=== PATIENT | female | born 1950 | race Caucasian/White ===

== ENCOUNTER → 2018-08-20 11:39 | Outpatient (CLI) | payer OTHER, SELFPAY ==
--- NOTE | 2018-08-20 | DI.MG.S_ITS ---
BILATERAL DIGITAL SCREENING MAMMOGRAM 3D/2D WITH CAD: 08/20/2018 CLINICAL: Routine screening. Family history of breast cancer. Comparison is made to exams dated: 01/30/2016 mammogram - [facility] and 08/12/2006 ultrasound - [facility]. The tissue of both breasts is heterogeneously dense. This may lower the sensitivity of mammography. Current study was also evaluated with a Computer Aided Detection (CAD) system. There are benign calcifications in both breasts. No significant masses, calcifications, or other findings are seen in either breast. There has been no significant interval change. IMPRESSION: There is no mammographic evidence of malignancy. A 1 year screening mammogram is recommended. This exam was interpreted at Station ID: [id number]. NOTE: For mammograms, a report in lay terms will be sent to the patient. Approximately 15% of breast malignancies will not be visualized mammographically. In the management of a palpable breast mass, a negative mammogram must not discourage biopsy of a clinically suspicious lesion. Electronically Signed By: Jaun Ramon law/ana maria:08/20/2018 19:08:33 letter sent: Normal Exam ACR BI-RADS Category 2: Benign Finding(s) 3342F
== END ==
PROVIDERS: PCP Family Medicine; Visit Provider Family Medicine
DX: Z12.31 Encounter for screening mammogram for malignant neoplasm of breast (principal)
CPT/HCPCS: 77063; 77067

== ENCOUNTER 2018-09-19 17:25 | Emergency (ER) | payer OTHER, MEDICAID, SELFPAY ==
[2018-09-19 17:30] VITALS: BP 115/78; PULSE 70; RESP 13; TEMP 36.5; O2SAT 98
--- NOTE | 2018-09-19 18:09 | PC.NURSE ---
pt has blurred vision with movment of her head.
--- NOTE | 2018-09-19 19:12 | ED.DIZZY ---
HPI - Dizziness General Chief Complaint: Dizziness Stated Complaint: fell down 1 month ago, dizzy spells, headache Time Seen by Provider: 09/19/18 18:02 Source: patient Mode of arrival: ambulatory Limitations: no limitations History of Present Illness HPI Narrative: The patient fell at home 1 month ago. She fell in the driveway outside her home, landing hard face. She sustained multiple superficial lacerations to her face, but no LOC. She is alert and oriented here in the ER. She has been dizzy for the month since the fall. She has no visual changes. She has no injury to the mouth. Her hearing is normal. She has no neck pain. She has no chest pain. There is no trauma to extremities. She takes Coumadin for a mitral valve replacement. She has had no head evaluation since the fall 1 month ago. Related Data Home Medications Medication Instructions Recorded Confirmed Bupropion Hydrochloride 0 PO * DOSE/FREQUENCY #0 07/04/08 (WELLBUTRIN) Fluoxetine Hydrochloride (Prozac) 20 mg PO Q DAY #0 07/04/08 HYDROCHLOROTHIAZIDE (Hydrodiuril / 25 mg PO Q DAY #0 07/04/08 Hctz) LISINOPRIL (Zestril / Prinivil) 10 mg PO Q DAY #0 07/04/08 lovastatin 40 mg PO QDAYPM #0 07/04/08 Previous Rx's Medication Instructions Recorded meclizine 25 mg PO QID #60 tab 09/19/18 Allergies Allergy/AdvReac Type Severity Reaction Status Date / Time No Known Drug Allergies Allergy Verified 09/19/18 21:16 Review of Systems Review of Systems ROS Unobtainable: All systems reviewed & are unremarkable except as noted in HPI and below Constitutional Denies lethargy, Denies weakness and Reports other (No confusion.) Eyes Denies change in vision, Denies eye discharge, Denies irritation and Denies loss of vision ENT Ears, Nose, Mouth, and Throat: Denies change in voice, Denies dysphagia, Reports dizziness, Denies neck pain and Denies sore throat Cardiovascular Denies chest pain, Denies irregular heart rhythm, Denies lightheadedness, Denies palpitations, Denies dyspnea, Denies dyspnea on exertion and Denies orthopnea Respiratory Denies cough, Denies dyspnea, Denies dyspnea on exertion and Denies wheezing Gastrointestinal Gastrointestinal: Denies coffee ground emesis, Denies dysphagia, Denies nausea and Denies vomiting Musculoskeletal Denies abnormal gait, Denies back pain and Denies neck pain Integumentary/Breasts Denies pruritus, Denies erythema, Denies rash and Denies wounds Neurologic Denies abnormal gait, Reports dizziness, Denies loss of vision and Denies weakness Endocrine Denies palpitations Allergic/Immunologic Denies wheezing PFSH Medical History Anticoagulated on Coumadin (Acute) Depression (Acute) Hypertension (Acute) Surgical History H/O mitral valve replacement (Acute) Social History Smoking Status: Never smoker alcohol intake: current Exam Initial Vital Signs Initial Vital Signs: Vital Signs Temperature 97.7 F 09/19/18 17:30 Pulse Rate 70 09/19/18 17:30 Respiratory Rate 13 09/19/18 17:30 Blood Pressure 115/78 09/19/18 17:30 Pulse Oximetry 98 09/19/18 17:30 Const General: cooperative, healthy appearing, comfortable and well developed Nutritional Appearance: well nourished Orientation: alert, awake, oriented x3 and not confused [facility] Head: normocephalic and atraumatic Ears: external ears normal and TM's normal bilaterally Nose: external nose normal and No nasal discharge Face and sinus: sinuses nontender, face symmetric, no sinus tenderness and No dry mucous membranes Mouth: oral mucosae normal and moist mucous membranes Teeth and gingiva: dentition normal Throat: tonsils normal and uvula midline Eyes General: appearance normal, both eyes and all related structures Eyelids: eyelids normal Conjunctivae: conjunctivae normal Sclera: sclerae normal Pupils: PERRL EOM: EOM intact bilaterally Neck Neck: normal visual inspection, full ROM, trachea midline, No lymphadenopathy, No midline deformity and No JVD Lymphatic: No lymphedema Chest Chest: normal inspection of the chest and No tenderness Resp Effort & Inspection: normal respiratory effort, able to speak in complete sentences, no respiratory distress and no use of accessory muscles Auscultation: clear to auscultation bilaterally, no rales, no rhonchi and no wheezes Cardio Rate: regular rate Rhythm: regular rhythm Heart Sounds: click (Metallic S1 click), no gallops, no murmurs and no rubs Pulses: normal peripheral pulses GI Inspection: normal to inspection Palpation: soft and No tender Back/Spine/Pelvis Back: normal to inspection and No back tenderness Skin General: no rashes or lesions noted, No jaundice and No petechiae Neuro General: alert, oriented x3, gait normal and no focal motor deficits Speech: speech normal Gait: normal gait Motor: muscle tone normal throughout Extrem General: full ROM and no clubbing, cyanosis or edema Psych Appearance: well kempt Mental Status: mental status grossly normal Attitude: cooperative Thought Content: normal and suicidality Judgment: judgment good Course Orders Ordered: ED Orders 09/19/18 19:26 CT head/brain wo con Stat 09/19/18 19:40 Basic Metabolic Panel Stat Complete Blood Count AUTO DIFF Stat Prothrombin Time INR Stat Discontinued Medications Acetaminophen (Tylenol) 650 mg PO NOW ONE Stop: 09/19/18 21:06 Last Admin: 09/19/18 21:14 Dose: 650 mg Meclizine HCl (Antivert) 50 mg PO NOW ONE Stop: 09/19/18 20:36 Last Admin: 09/19/18 21:14 Dose: 50 mg Vital Signs - 8 hr 09/19/18 17:30 09/19/18 20:02 Temperature 97.7 F Pulse Rate 70 66 Respiratory Rate 13 17 Blood Pressure 115/78 Blood Pressure [Left Arm] 120/74 Pulse Oximetry 98 94 MDM - Dizziness Medical Records Attestation: I reviewed the patient's medical records. Lab Data Attestation: I reviewed the patient's lab results. Result diagrams: 09/19/18 19:40 09/19/18 19:40 Lab Results 09/19/18 09/19/18 09/19/18 Range/Units 19:40 19:40 19:40 WBC 12.5 H (4.5-11.0) X10^3/uL RBC 4.57 (4.0-5.2) X10^6/uL Hgb 13.1 (12.0-16.0) g/dL Hct 40.4 (36-46) % MCV 88.5 (80-100) fL MCH 28.8 (26-34) PG MCHC 32.5 (30-36) % RDW 16.0 H (11.6-14.8) % Plt Count 378 (150-400) X10^3/uL Neut % (Auto) 69.2 (50-75) % Lymph % (Auto) 22.4 L (25-40) % Stearns % (Auto) 6.3 (3-14) % Eos % (Auto) 1.9 L (2-4) % Baso % (Auto) 0.2 (0-2) % Neut # (Auto) 8600 H (6201-3755) /uL Lymph # (Auto) 2800 (6219-1450) /uL Stearns # (Auto) 800 (0-900) /uL Eos # (Auto) 200 (0-450) /uL Baso # (Auto) 0 (0-100) /uL PT 40.6 H (10.1-12.7) SECONDS INR 3.4 H (0.9-1.3) Sodium 138 (137-145) mmol/L Potassium 4.6 (3.4-5.1) mmol/L Chloride 99 (98-107) mmol/L Carbon Dioxide 30 (22-32) mmol/L BUN 16 (7-17) mg/dL Creatinine 0.70 (0.52-1.04) mg/dL Estimated GFR > 60.0 (>60) mL/min BUN/Creatinine Ratio 22.9 H (6-22) Glucose 117 H (80-110) mg/dL Calcium 9.3 (8.4-10.2) mg/dL Imaging Data CT scan - head: Radiologist's impression: [place] [address] CT Scan Report Signed Patient: Mer Portillo [facility]#: [id number] : 8Acct:[id number] Age/Sex: 68 / FDate of Service: 09/19/18 Loc: ED Accession Number: [id number] Procedure: CT head/brain wo con Ordering Provider: Kalpesh Capps M.D. PROCEDURE: CT HEAD/BRAIN WO CON INDICATIONS: Recent fall. dizziness. Anticoagulated. TECHNIQUE: Noncontrast 4.5 mm thick angled axial sections acquired from the foramen magnum to the vertex, with coronal and sagittal reformats. For radiation dose reduction, the following was used: automated exposure control, adjustment of mA and/or kV according to patient size. COMPARISON: None. FINDINGS: Image quality: Excellent. CSF spaces: Basal cisterns are patent. No extra-axial fluid collections. The ventricles are symmetric in size and shape. Brain: No intracranial bleeds or masses. There is cerebral volume loss for age, with resultant ventricular and sulcal prominence. There are periventricular and deep white matter chronic small vessel ischemic changes. There is mild intracranial internal carotid artery atherosclerosis. Skull and face: Calvarium and visualized facial bones appear intact, without suspicious lesions. Sinuses: Visualized sinuses and mastoids are clear. IMPRESSION: CT head without acute intracranial abnormalities. Stable age-related senescent changes and sequela of chronic small vessel ischemic disease. Dictated by: Idris Gonzalez M.D. on 09/19/2018 at 20:11 Approved by: Idris Gonzalez M.D. on 09/19/2018 at 20:15 [facility] Narrative Medical decision making narrative: The patient has occasional headaches, she has been taking Tylenol with codeine. I assured her this is okay to continue. Her INR is 3.4, her guides was to keep her INR between 2 and 3. I have advised her to follow up with her doctor. The head CT does not show any significant intracranial injury. Given these has dizziness and headache following the injury last month, I suspect she has had a minor concussion. She will be discharged on meclizine along with a T3s. Discharge Plan Departure Patient Disposition: Home Clinical Impression: Concussion Instructions: Concussion Activity Restrictions/Additional Instructions: Tylenol with codeine or Tylenol every 4 hr as needed for headache. Meclizine every 6 hr as needed for dizziness. If symptoms are persisting for greater than 2 weeks, follow up with her doctor. Your Coumadin testing (INR) is mildly elevated at 3.4. Call your doctor for further guidance. Return to the ER as needed. Prescriptions: New meclizine 25 mg tablet 25 mg PO QID Qty: 60 RF: 0 No Action lovastatin 20 MG tablet 40 mg PO QDAYPM Qty: 0 RF: 0 Bupropion Hydrochloride (WELLBUTRIN) PO * [place] DOSE/FREQUENCY Qty: 0 RF: 0 Fluoxetine Hydrochloride (Prozac) 20 mg PO Q DAY Qty: 0 RF: 0 HYDROCHLOROTHIAZIDE (Hydrodiuril / Hctz) 25 mg PO Q DAY Qty: 0 RF: 0 LISINOPRIL (Zestril / Prinivil) 10 mg PO Q DAY Qty: 0 RF: 0 Referrals: Andre Olguin MD [Primary Care Provider] -
--- NOTE | 2018-09-19 19:26 | DI.CT.S_ITS ---
PROCEDURE: CT HEAD/BRAIN WO CON INDICATIONS: Recent fall. dizziness. Anticoagulated. TECHNIQUE: Noncontrast 4.5 mm thick angled axial sections acquired from the foramen magnum to the vertex, with coronal and sagittal reformats. For radiation dose reduction, the following was used: automated exposure control, adjustment of mA and/or kV according to patient size. COMPARISON: None. FINDINGS: Image quality: Excellent. CSF spaces: Basal cisterns are patent. No extra-axial fluid collections. The ventricles are symmetric in size and shape. Brain: No intracranial bleeds or masses. There is cerebral volume loss for age, with resultant ventricular and sulcal prominence. There are periventricular and deep white matter chronic small vessel ischemic changes. There is mild intracranial internal carotid artery atherosclerosis. Skull and face: Calvarium and visualized facial bones appear intact, without suspicious lesions. Sinuses: Visualized sinuses and mastoids are clear. IMPRESSION: CT head without acute intracranial abnormalities. Stable age-related senescent changes and sequela of chronic small vessel ischemic disease. Dictated by: Idris Gonzalez M.D. on 09/19/2018 at 20:11 Approved by: Idris Gonzalez M.D. on 09/19/2018 at 20:15
[2018-09-19 19:49] LABS: Add Manual Diff / Slide Review NO; Basophils Absolute Auto 0 /uL (0-100); Basophils Percent Auto 0.2 % (0-2); Eosinophils Absolute Auto 200 /uL (0-450); Eosinophils Percent Auto 1.9 % (2-4); Hematocrit 40.4 % (36-46); Hemoglobin 13.1 g/dL (12.0-16.0); Lymphocytes Absolute Auto 2800 /uL (1100-4500); Lymphocytes Percent Auto 22.4 % (25-40); Mean Corpuscular HGB Conc 32.5 % (30-36); Mean Corpuscular Hemoglobin 28.8 PG (26-34); Mean Corpuscular Volume 88.5 fL (80-100); Monocytes Absolute Auto 800 /uL (0-900); Monocytes Percent Auto 6.3 % (3-14); Neutrophils Absolute Auto 8600 /uL (1500-7000); Neutrophils Percent Auto 69.2 % (50-75); Platelet Count 378 X10^3/uL (150-400); Red Blood Cell Count 4.57 X10^6/uL (4.0-5.2); White Blood Cell Count 12.5 X10^3/uL (4.5-11.0)
[2018-09-19 19:56] LABS: INR 3.4 (0.9-1.3); Prothrombin Time 40.6 SECONDS (10.1-12.7)
[2018-09-19 20:00] LABS: BUN Creatinine Ratio 22.9 (6-22); Blood Urea Nitrogen 16 mg/dL (7-17); Calcium 9.3 mg/dL (8.4-10.2); Carbon Dioxide 30 mmol/L (22-32); Chloride 99 mmol/L (98-107); Estimated Glomerular Filt Rate > 60.0 mL/min (>60); Glucose 117 mg/dL (80-110); HEMOLYSIS < 15 (0-50); Potassium 4.6 mmol/L (3.4-5.1); Sodium 138 mmol/L (137-145)
[2018-09-19 20:02] VITALS: BP 120/74; PULSE 66; RESP 17; O2SAT 94
[2018-09-19] MEDS: ACETAMINOPHEN 325 MG TABLET 650 MG PO (21:14)
[2018-09-19] MEDS: MECLIZINE HCL 12.5 MG TABLET 50 MG PO (21:14)
[2018-09-19 21:29] VITALS: BP 137/70; PULSE 63; RESP 18; O2SAT 97
== END 2018-09-19 21:30 | disposition home or self-care (01) ==
PROVIDERS: Emergency Provider Emergency Medicine; PCP Family Medicine
DX: S06.0X9A Concussion with loss of consciousness of unspecified duration, initial encounter (principal); W19.XXXA Unspecified fall, initial encounter
CPT/HCPCS: 36415; 70450; 80048; 85025; 85610; 99282; 99284

== ENCOUNTER → 2018-11-16 15:59 | Outpatient (REF) | payer OTHER, SELFPAY ==
[2018-11-16 16:38] LABS: INR 1.4 (0.9-1.3); Prothrombin Time 16.2 SECONDS (10.1-12.7)
== END ==
LOC: LAB 15:59
PROVIDERS: PCP Family Medicine; Visit Provider Family Medicine
DX: Z79.01 Long term (current) use of anticoagulants (principal)
CPT/HCPCS: 85610

== ENCOUNTER → 2019-04-08 14:53 | Outpatient (ROUT) | payer OTHER, SELFPAY ==
[2019-04-08 15:01] LABS: INR 2.1 (0.9-1.3)
== END ==
PROVIDERS: Visit Provider Student in an Organized Health Care Education/Training Program
DX: Z79.01 Long term (current) use of anticoagulants (principal)
CPT/HCPCS: 85610

== ENCOUNTER 2019-05-20 14:20 | Emergency (ER) | payer OTHER, MEDICAID, SELFPAY ==
[2019-05-20 14:20] VITALS: BP 122/47; PULSE 85; RESP 18; TEMP 36.7; O2SAT 98; BMI 34.9
--- NOTE | 2019-05-20 14:46 | DI.RAD.S_ITS ---
PROCEDURE: XR CHEST 1V INDICATIONS: shortness of breath TECHNIQUE: One view of the chest was acquired. COMPARISON: [facility], CHEST 2 VIEW, 12/11/2012, 13:06. [facility], , CHEST 1 VIEW, 07/04/2008, 14:44. FINDINGS: Surgical changes and devices: Sternotomy and heart valve. Lungs and pleura: Bilateral interstitial edema consistent with congestive heart failure. No pleural effusions or pneumothorax. Mediastinum: Mediastinal contours appear normal. Heart size is moderately increased. Bones and chest wall: No suspicious bony lesions. Overlying soft tissues appear unremarkable. IMPRESSION: Congestive heart failure. Dictated by: Mauro Morton M.D. on 05/20/2019 at 15:18 Approved by: Mauro Morton M.D. on 05/20/2019 at 15:20
[2019-05-20 15:15] LABS: Add Manual Diff / Slide Review NO; Basophils Absolute Auto 100 /uL (0-100); Eosinophils Absolute Auto 100 /uL (0-450); Eosinophils Percent Auto 1.1 % (2-4); Hemoglobin 11.5 g/dL (12.0-16.0); Lymphocytes Absolute Auto 2100 /uL (1100-4500); Lymphocytes Percent Auto 21.5 % (25-40); Monocytes Absolute Auto 600 /uL (0-900); Monocytes Percent Auto 5.5 % (3-14); Neutrophils Absolute Auto 7000 /uL (1500-7000); Neutrophils Percent Auto 70.9 % (50-75); Platelet Count 290 X10^3/uL (150-400); Red Blood Cell Count 3.98 X10^6/uL (4.0-5.2); Red Cell Distribution Width 16.3 % (11.6-14.8); White Blood Cell Count 9.9 X10^3/uL (4.5-11.0)
[2019-05-20 15:22] LABS: INR 1.4 (0.9-1.3); Prothrombin Time 15.8 SECONDS (10.1-12.7)
[2019-05-20 15:24] LABS: PTT Partial Thromboplastin Tim 33 SECONDS (26.4-36.2)
[2019-05-20 15:27] LABS: Alanine Aminotransferase 20 IU/L (9-52); Albumin 3.9 g/dL (3.5-5.0); Albumin Globulin Ratio 1.3 (1.0-2.8); Alkaline Phosphatase 114 U/L (38-126); Aspartate Aminotransferase 26 IU/L (14-36); BUN Creatinine Ratio 18.3 (6-22); Bilirubin Total 0.7 mg/dL (0.2-1.3); Blood Urea Nitrogen 11 mg/dL (7-17); Carbon Dioxide 28 mmol/L (22-32); Chloride 101 mmol/L (98-107); Creatine Kinase 71 U/L (30-135); Estimated Glomerular Filt Rate > 60.0 mL/min (>60); Globulin 2.9 g/dL (1.7-4.1); Glucose 161 mg/dL (80-110); HEMOLYSIS < 15 (0-50); Lipase 67 U/L (23-300); Potassium 3.1 mmol/L (3.4-5.1); Sodium 139 mmol/L (137-145); Total Protein 6.8 g/dL (6.3-8.2)
--- NOTE | 2019-05-20 15:30 | PC.NURSE ---
pt c/o right ear pain started 1 month ago, improved for a few days after taking antibiotics. about 2 weeks ago pain returned, seen by [facility] for evaluation of ear. also having sob, reports she is not taking her pee pills all the time, did take 2 today as prescribed. has not urinated like she normally would have. pt also c/o dizziness, and attributes it to the ear infection, dizziness is almost constant.
[2019-05-20 15:38] LABS: Troponin I 0.015 ng/mL (0.01-0.034)
[2019-05-20 15:59] VITALS: BP 103/61; PULSE 76; RESP 14; O2SAT 95
[2019-05-20 16:06] LABS: B Type Natriuretic Peptide 279 (<100)
--- NOTE | 2019-05-20 16:46 | ED.SOB ---
HPI - SOB/Dyspnea <TR Kaufman - Last Filed: 05/20/19 19:33> General Chief Complaint: Shortness of Breath/Dyspnea Stated Complaint: rule out CHF Time Seen by Provider: 05/20/19 14:43 Source: patient Mode of arrival: Wheelchair Limitations: no limitations History of Present Illness HPI Narrative: The patient is a 68year-old female nonsmoker of a mitral valve replacement who presents for chief complaint of chest pressure and shortness of breath. She states this has been getting worse over the past several weeks. She states she is not compliant with her medications. She is supposed to be on Coumadin For her mitral valve. She has a history of CHF, depression, hypertension, GERD. She states that nothing makes the pain better or worse. She states that the shortness of breath is worse with activity. The patient also requests that I look at her ears as that is why she had an appointment today. Related Data Home Medications Medication Instructions Recorded Confirmed fluoxetine 40 mg PO DAILY #0 07/04/08 05/20/19 lisinopril 20 mg PO DAILY #0 07/04/08 05/20/19 acetaminophen 325 - 650 mg PO Q4-6H PRN 05/20/19 05/20/19 acetaminophen-codeine 1 tab PO Q4H PRN 05/20/19 05/20/19 atorvastatin 20 mg PO DAILY 05/20/19 05/20/19 baclofen 10 mg PO TID PRN 05/20/19 05/20/19 carvedilol 6.25 mg PO BID 05/20/19 05/20/19 celecoxib 200 mg PO DAILY 05/20/19 05/20/19 furosemide 80 mg PO DAILY 05/20/19 05/20/19 omeprazole 20 mg PO DAILY 05/20/19 05/20/19 potassium chloride 10 meq PO DAILY 05/20/19 05/20/19 venlafaxine 75 mg PO DAILY 05/20/19 05/20/19 warfarin 4 mg PO SUMOTUTHSA 05/20/19 05/20/19 warfarin 5 mg PO WESA 05/20/19 05/20/19 Allergies Allergy/AdvReac Type Severity Reaction Status Date / Time No Known Drug Allergies Allergy Verified 09/19/18 21:16 Review of Systems <TR Kaufman - Last Filed: 05/20/19 19:33> Review of Systems Narrative: GENERAL: Denies chills, fatigue, malaise, fever, sweats. HEENT: Denies sinus pain, ear pain, sore throat, difficulty swallowing, dizziness. RESPIRATORY: See HPI CARDIOVASCULAR: See HPI GASTROINTESTINAL: Denies nausea, vomiting, abdominal pain, diarrhea, constipation, melena. : Denies dysuria, frequency, incontinence, hematuria, urinary retention. MUSCULOSKELETAL: denies weakness, joint pain, or bony pain SKIN: Denies rash, skin lesions, or other NEUROLOGIC: Denies weakness, headache, numbness, change in speech, confusion, seizures, incoordination. PSYCHIATRIC: No concerning psychosocial issues. 12 point review of systems is negative except for those stated above PFSH <TR Kaufman - Last Filed: 05/20/19 19:33> Medical History Anticoagulated on Coumadin (Acute) Depression (Acute) Hypertension (Acute) Surgical History H/O mitral valve replacement (Acute) Social History (Updated 09/19/18 @ 20:19 by Kalpesh Capps MD) Smoking Status: Never smoker alcohol intake: current Social History Smoking Status: Never smoker alcohol intake: current Exam <TR Kaufman - Last Filed: 05/20/19 19:33> Narrative Exam Narrative: GENERAL: Chronically ill-appearing elderly female in no acute distress HEAD: Atraumatic. Normocephalic. No temporal or scalp tenderness. EYES: Pupils equal round and reactive. Extraocular motions intact. No scleral icterus. No injection or drainage. ENT: Nose without bleeding, purulent drainage or septal hematoma. Throat without erythema, tonsillar hypertrophy or exudate. Uvula midline. Airway patent. NECK: Trachea midline. No JVD or lymphadenopathy. Supple, nontender, no meningeal signs. CARDIOVASCULAR: Regular rate and rhythm with audible click. RESPIRATORY: Decreased bilaterally auscultation. Breath sounds equal bilaterally. No wheezes, rales, or rhonchi. No cough. No increased respiratory effort. No accessory muscle use. GASTROINTESTINAL: Abdomen soft, non-tender, nondistended. No hepato-splenomegaly, or palpable masses. No guarding. Active bowel sounds all 4 quadrants. EXTREMITIES: No clubbing, cyanosis, or edema. No joint tenderness, effusion, or edema noted. BACK: Nontender without deformity or crepitance. No flank tenderness. NEURO: AOx3. SKIN: No rash or erythema. Initial Vital Signs Initial Vital Signs: Vital Signs Temperature 98.1 F 05/20/19 14:20 Pulse Rate 85 05/20/19 14:20 Respiratory Rate 18 05/20/19 14:20 Blood Pressure 122/47 L 05/20/19 14:20 Pulse Oximetry 98 05/20/19 14:20 <Emmanuel Ward DO - Last Filed: 05/21/19 06:54> Initial Vital Signs Initial Vital Signs: Vital Signs Temperature 98.1 F 05/20/19 14:20 Pulse Rate 85 05/20/19 14:20 Respiratory Rate 18 05/20/19 14:20 Blood Pressure 122/47 L 05/20/19 14:20 Pulse Oximetry 98 05/20/19 14:20 Course <RISHABH Kaufman-PINA - Last Filed: 05/20/19 19:33> Orders Ordered: Discontinued Medications Furosemide (Lasix) 20 mg IV NOW ONE Stop: 05/20/19 17:09 Last Admin: 05/20/19 17:38 Dose: 20 mg Documented by: JUAN A Potassium Chloride (Potassium Chloride) 40 meq PO NOW ONE Stop: 05/20/19 17:09 Last Admin: 05/20/19 17:22 Dose: 40 meq Documented by: SCANMANUELITOO Vital Signs Vital signs: Vital Signs - 8 hr 05/20/19 14:20 05/20/19 15:59 05/20/19 16:49 Temperature 98.1 F Pulse Rate 85 76 75 Respiratory Rate 18 14 13 Blood Pressure 122/47 L Blood Pressure [Right Arm] 103/61 88/67 L Pulse Oximetry 98 95 96 05/20/19 17:36 05/20/19 18:52 Temperature Pulse Rate 76 73 Respiratory Rate 15 Blood Pressure 107/54 L Blood Pressure [Right Arm] 112/80 Pulse Oximetry 97 98 <Emmanuel Ward DO - Last Filed: 05/21/19 06:54> Orders Ordered: Discontinued Medications Furosemide (Lasix) 20 mg IV NOW ONE Stop: 05/20/19 17:09 Last Admin: 05/20/19 17:38 Dose: 20 mg Documented by: SCANAPO Potassium Chloride (Potassium Chloride) 40 meq PO NOW ONE Stop: 05/20/19 17:09 Last Admin: 05/20/19 17:22 Dose: 40 meq Documented by: SCANAPO Vital Signs Vital signs: Vital Signs - 8 hr 05/20/19 14:20 05/20/19 15:59 05/20/19 16:49 Temperature 98.1 F Pulse Rate 85 76 75 Respiratory Rate 18 14 13 Blood Pressure 122/47 L Blood Pressure [Right Arm] 103/61 88/67 L Pulse Oximetry 98 95 96 05/20/19 17:36 05/20/19 18:52 Temperature Pulse Rate 76 73 Respiratory Rate 15 Blood Pressure 107/54 L Blood Pressure [Right Arm] 112/80 Pulse Oximetry 97 98 MDM - SOB/Dyspnea <SANTOSH KaufmanBC - Last Filed: 05/20/19 19:33> Lab Data Result diagrams: 05/20/19 15:00 05/20/19 15:00 Labs: Lab Results 05/20/19 05/20/19 05/20/19 Range/Units 15:00 15:00 15:00 WBC 9.9 (4.5-11.0) X10^3/uL RBC 3.98 L (4.0-5.2) X10^6/uL Hgb 11.5 L (12.0-16.0) g/dL Hct 35.0 L (36-46) % MCV 88.0 (80-100) fL MCH 29.0 (26-34) PG MCHC 33.0 (30-36) % RDW 16.3 H (11.6-14.8) % Plt Count 290 (150-400) X10^3/uL Neut % (Auto) 70.9 (50-75) % Lymph % (Auto) 21.5 L (25-40) % [place] % (Auto) 5.5 (3-14) % Eos % (Auto) 1.1 L (2-4) % Baso % (Auto) 1.0 (0-2) % Neut # (Auto) 7000 (7150-2968) /uL Lymph # (Auto) 2100 (7136-8241) /uL [place] # (Auto) 600 (0-900) /uL Eos # (Auto) 100 (0-450) /uL Baso # (Auto) 100 (0-100) /uL PT (10.1-12.7) SECONDS INR (0.9-1.3) APTT (26.4-36.2) SECONDS Sodium 139 (137-145) mmol/L Potassium 3.1 L (3.4-5.1) mmol/L Chloride 101 (98-107) mmol/L Carbon Dioxide 28 (22-32) mmol/L BUN 11 (7-17) mg/dL Creatinine 0.60 (0.52-1.04) mg/dL Estimated GFR > 60.0 (>60) mL/min BUN/Creatinine Ratio 18.3 (6-22) Glucose 161 H (80-110) mg/dL Calcium 9.0 (8.4-10.2) mg/dL Total Bilirubin 0.7 (0.2-1.3) mg/dL AST 26 (14-36) IU/L ALT 20 (9-52) IU/L Alkaline Phosphatase 114 (38-126) U/L Total Creatine Kinase 71 (30-135) U/L CK-MB (CK-2) TNP CK-MB (CK-2) Rel Index TNP Troponin I 0.015 (0.01-0.034) ng/mL B-Natriuretic Peptide 279 H (<100) Total Protein 6.8 (6.3-8.2) g/dL Albumin 3.9 (3.5-5.0) g/dL Globulin 2.9 (1.7-4.1) g/dL Albumin/Globulin Ratio 1.3 (1.0-2.8) Lipase 67 (23-300) U/L 05/20/19 05/20/19 Range/Units 15:00 17:56 WBC (4.5-11.0) X10^3/uL RBC (4.0-5.2) X10^6/uL Hgb (12.0-16.0) g/dL Hct (36-46) % MCV (80-100) fL MCH (26-34) PG MCHC (30-36) % RDW (11.6-14.8) % Plt Count (150-400) X10^3/uL Neut % (Auto) (50-75) % Lymph % (Auto) (25-40) % [place] % (Auto) (3-14) % Eos % (Auto) (2-4) % Baso % (Auto) (0-2) % Neut # (Auto) (6747-8524) /uL Lymph # (Auto) (6004-6788) /uL [place] # (Auto) (0-900) /uL Eos # (Auto) (0-450) /uL Baso # (Auto) (0-100) /uL PT 15.8 H (10.1-12.7) SECONDS INR 1.4 H (0.9-1.3) APTT 33 (26.4-36.2) SECONDS Sodium (137-145) mmol/L Potassium (3.4-5.1) mmol/L Chloride (98-107) mmol/L Carbon Dioxide (22-32) mmol/L BUN (7-17) mg/dL Creatinine (0.52-1.04) mg/dL Estimated GFR (>60) mL/min BUN/Creatinine Ratio (6-22) Glucose (80-110) mg/dL Calcium (8.4-10.2) mg/dL Total Bilirubin (0.2-1.3) mg/dL AST (14-36) IU/L ALT (9-52) IU/L Alkaline Phosphatase (38-126) U/L Total Creatine Kinase 68 (30-135) U/L CK-MB (CK-2) TNP CK-MB (CK-2) Rel Index TNP Troponin I 0.020 (0.01-0.034) ng/mL B-Natriuretic Peptide (<100) Total Protein (6.3-8.2) g/dL Albumin (3.5-5.0) g/dL Globulin (1.7-4.1) g/dL Albumin/Globulin Ratio (1.0-2.8) Lipase (23-300) U/L Urine Dip Bedside Urine Glucose Negative Bedside Urine Bilirubin - Negative Bedside Urine Ketone - Negative Urine Specific [place] 1.015 Bedside Urine Occult Blood - Negative Bedside Urine pH 6.0 Bedside Urine Protein - Negative Bedside Urine Urobilinogen 1+ 2mg Bedside Urine Nitrite - Negative Bedside Urine Leukocytes - Negative Esterase Imaging Data Chest x-ray: Radiologist's impression: Mer Portillo 68 F [address] [address] XRay Report Signed Patient: Mer Portillo [facility]#: [id number] : 8Acct:[id number] Age/Sex: 68 / FDate of Service: 05/20/19 Loc: ED Accession Number: [id number] Procedure: XR chest 1V Ordering Provider: Yulia Ang PROCEDURE: XR CHEST 1V INDICATIONS: shortness of breath TECHNIQUE: One view of the chest was acquired. COMPARISON: [facility], , CHEST 2 VIEW, 12/11/2012, 13:06. [facility], , CHEST 1 VIEW, 07/04/2008, 14:44. FINDINGS: Surgical changes and devices: Sternotomy and heart valve. Lungs and pleura: Bilateral interstitial edema consistent with congestive heart failure. No pleural effusions or pneumothorax. Mediastinum: Mediastinal contours appear normal. Heart size is moderately increased. Bones and chest wall: No suspicious bony lesions. Overlying soft tissues appear unremarkable. IMPRESSION: Congestive heart failure. Dictated by: Mauro Morton M.D. on 05/20/2019 at 15:18 Approved by: Mauro Morton M.D. on 05/20/2019 at 15:20 ECG Data Attestation: I personally reviewed and interpreted this ECG as follows: Interpretation: Sinus rhythm. Ventricular rate 81. No ST elevation or depression noted. No ectopy noted. P.r. interval 196. QRS duration 109 MDM Narrative Medical decision making narrative: The patient is a 68-year-old female with history of mitral valve replacement as well as CHF and a history of medication noncompliance who presents from her PCP's office for a chief complaint of increased shortness of breath. She has 2-troponins, a slightly elevated BNP in the 270s. I discussed at length with the patient the reason for her medication noncompliance, she states she is not the kind of person like to take pills. She states sometimes she forgets. I encouraged setting an alarm, using a pillbox etc. Given the patient's history of noncompliance, I did speak with Elodia Smith, and Dr. Diez regarding the patient. She is able to get on Dr. Diez schedule for 10:00 a.m. tomorrow. I discussed this with the patient. The patient has 2-troponins, does not want to be admitted, and it is likely that admission would not increase her medication noncompliance outside hospital. I discussed at length coming back to the emergency department for any acute concerns such as increased chest pain, shortness of breath etc. The patient repeated declined pain medications throughout her stay in the emergency department. I did also evaluate her ears, she states that the main reason for her PCP visit today. Patient states understanding of strict follow-up, return precautions nose no questions or concerns upon discharge. <Emmanuel Sylvia, DO - Last Filed: 05/21/19 06:54> Lab Data Labs: Lab Results 05/20/19 05/20/19 05/20/19 Range/Units 15:00 15:00 15:00 WBC 9.9 (4.5-11.0) X10^3/uL RBC 3.98 L (4.0-5.2) X10^6/uL Hgb 11.5 L (12.0-16.0) g/dL Hct 35.0 L (36-46) % MCV 88.0 (80-100) fL MCH 29.0 (26-34) PG MCHC 33.0 (30-36) % RDW 16.3 H (11.6-14.8) % Plt Count 290 (150-400) X10^3/uL Neut % (Auto) 70.9 (50-75) % Lymph % (Auto) 21.5 L (25-40) % [place] % (Auto) 5.5 (3-14) % Eos % (Auto) 1.1 L (2-4) % Baso % (Auto) 1.0 (0-2) % Neut # (Auto) 7000 (0947-7626) /uL Lymph # (Auto) 2100 (5615-7311) /uL [place] # (Auto) 600 (0-900) /uL Eos # (Auto) 100 (0-450) /uL Baso # (Auto) 100 (0-100) /uL PT (10.1-12.7) SECONDS INR (0.9-1.3) APTT (26.4-36.2) SECONDS Sodium 139 (137-145) mmol/L Potassium 3.1 L (3.4-5.1) mmol/L Chloride 101 (98-107) mmol/L Carbon Dioxide 28 (22-32) mmol/L BUN 11 (7-17) mg/dL Creatinine 0.60 (0.52-1.04) mg/dL Estimated GFR > 60.0 (>60) mL/min BUN/Creatinine Ratio 18.3 (6-22) Glucose 161 H (80-110) mg/dL Calcium 9.0 (8.4-10.2) mg/dL Total Bilirubin 0.7 (0.2-1.3) mg/dL AST 26 (14-36) IU/L ALT 20 (9-52) IU/L Alkaline Phosphatase 114 (38-126) U/L Total Creatine Kinase 71 (30-135) U/L CK-MB (CK-2) TNP CK-MB (CK-2) Rel Index TNP Troponin I 0.015 (0.01-0.034) ng/mL B-Natriuretic Peptide 279 H (<100) Total Protein 6.8 (6.3-8.2) g/dL Albumin 3.9 (3.5-5.0) g/dL Globulin 2.9 (1.7-4.1) g/dL Albumin/Globulin Ratio 1.3 (1.0-2.8) Lipase 67 (23-300) U/L 05/20/19 05/20/19 Range/Units 15:00 17:56 WBC (4.5-11.0) X10^3/uL RBC (4.0-5.2) X10^6/uL Hgb (12.0-16.0) g/dL Hct (36-46) % MCV (80-100) fL MCH (26-34) PG MCHC (30-36) % RDW (11.6-14.8) % Plt Count (150-400) X10^3/uL Neut % (Auto) (50-75) % Lymph % (Auto) (25-40) % [place] % (Auto) (3-14) % Eos % (Auto) (2-4) % Baso % (Auto) (0-2) % Neut # (Auto) (4258-0352) /uL Lymph # (Auto) (8491-0879) /uL [place] # (Auto) (0-900) /uL Eos # (Auto) (0-450) /uL Baso # (Auto) (0-100) /uL PT 15.8 H (10.1-12.7) SECONDS INR 1.4 H (0.9-1.3) APTT 33 (26.4-36.2) SECONDS Sodium (137-145) mmol/L Potassium (3.4-5.1) mmol/L Chloride (98-107) mmol/L Carbon Dioxide (22-32) mmol/L BUN (7-17) mg/dL Creatinine (0.52-1.04) mg/dL Estimated GFR (>60) mL/min BUN/Creatinine Ratio (6-22) Glucose (80-110) mg/dL Calcium (8.4-10.2) mg/dL Total Bilirubin (0.2-1.3) mg/dL AST (14-36) IU/L ALT (9-52) IU/L Alkaline Phosphatase (38-126) U/L Total Creatine Kinase 68 (30-135) U/L CK-MB (CK-2) TNP CK-MB (CK-2) Rel Index TNP Troponin I 0.020 (0.01-0.034) ng/mL B-Natriuretic Peptide (<100) Total Protein (6.3-8.2) g/dL Albumin (3.5-5.0) g/dL Globulin (1.7-4.1) g/dL Albumin/Globulin Ratio (1.0-2.8) Lipase (23-300) U/L Urine Dip Bedside Urine Glucose Negative Bedside Urine Bilirubin - Negative Bedside Urine Ketone - Negative Urine Specific [place] 1.015 Bedside Urine Occult Blood - Negative Bedside Urine pH 6.0 Bedside Urine Protein - Negative Bedside Urine Urobilinogen 1+ 2mg Bedside Urine Nitrite - Negative Bedside Urine Leukocytes - Negative Esterase Discharge Plan Departure Patient Disposition: Home Clinical Impression: H/O medication noncompliance Congestive heart failure Qualifiers: Heart failure type: unspecified Heart failure chronicity: chronic Qualified Code(s): I50.9 - Heart failure, unspecified Chest pain Qualifiers: Chest pain type: unspecified Qualified Code(s): R07.9 - Chest pain, unspecified Acute ear pain Qualifiers: Laterality: right Qualified Code(s): H92.01 - Otalgia, right ear Discharge Date/Time: 05/20/19 18:52 Instructions: DI for Heart Failure, DI for Atypical Chest Pain, DI for Safely Taking and Storing Medications -- Adults, DI for Ear Pain-Adult, Be a Partner in Your Heart Failure Care Activity Restrictions/Additional Instructions: Please follow up with your primary care provider. Please be compliant with your medications. Please remember the Dr. Diez scheduled an appointment for you at 10:00 a.m. tomorrow. Please come back to the emergency department for any acute concerns such as chest pain, shortness of breath, concern of heart attack or stroke Prescriptions: No Action lisinopril 20 mg Tablet 20 mg PO DAILY Qty: 0 RF: 0 fluoxetine 20 mg Tablet 40 mg PO DAILY Qty: 0 RF: 0 celecoxib 200 mg capsule 200 mg PO DAILY RF: 0 furosemide 40 mg tablet 80 mg PO DAILY RF: 0 potassium chloride 10 mEq capsule, extended release 10 meq PO DAILY RF: 0 atorvastatin 20 mg tablet 20 mg PO DAILY RF: 0 acetaminophen-codeine 300-30 mg tablet 1 tab PO Q4H PRN (Reason: pain) RF: 0 warfarin 4 mg tablet 4 mg PO SUMOTUTHSA RF: 0 baclofen 10 mg tablet 10 mg PO TID PRN (Reason: Muscle Spasm) RF: 0 warfarin 5 mg tablet 5 mg PO WESA RF: 0 omeprazole 20 mg capsule,delayed release(DR/EC) 20 mg PO DAILY RF: 0 acetaminophen 325 mg Tablet 325 - 650 mg PO Q4-6H PRN (Reason: pain) RF: 0 carvedilol 6.25 mg tablet 6.25 mg PO BID RF: 0 venlafaxine 75 mg capsule,extended release 24hr 75 mg PO DAILY RF: 0 Referrals: Donya Diez MD [Non-Staff] - <Emmanuel Ward DO - Last Filed: 05/21/19 06:54> Sign Out Provider Sign Out Attestation: I was available for consultation during this patient's emergency department encounter
[2019-05-20 16:49] VITALS: BP 88/67; PULSE 75; RESP 13; O2SAT 96
[2019-05-20] MEDS: POTASSIUM CHLORIDE 20 MEQ/15 ML UDC 40 MEQ PO (17:22)
[2019-05-20 17:36] VITALS: BP 112/80; PULSE 76; RESP 15; O2SAT 97
[2019-05-20] MEDS: FUROSEMIDE 20 MG/2 ML VIAL IV (17:38)
[2019-05-20 18:14] LABS: Creatine Kinase 68 U/L (30-135)
[2019-05-20 18:52] VITALS: BP 107/54; PULSE 73; O2SAT 98
== END 2019-05-20 18:52 | disposition home or self-care (01) ==
PROVIDERS: Emergency Provider Nurse Practitioner Family
DX: I50.9 Heart failure, unspecified (principal); R07.9 Chest pain, unspecified; H92.01 Otalgia, right ear; Z91.14 Patient's other noncompliance with medication regimen; Z79.01 Long term (current) use of anticoagulants
CPT/HCPCS: 36415; 71045; 80053; 81003; 82550; 83690; 83880; 84484; 85025; 85610; 85730; 93005; 93010; 96374; 99283; 99285; J1940

== ENCOUNTER 2019-09-14 14:46 | Inpatient (IN) | payer OTHER, MEDICAID, SELFPAY ==
[2019-09-14] VITALS (18 sets, daily range): BP systolic 101–134; BP diastolic 42–92; PULSE 85–144; RESP 12–28; TEMP 37.6; O2SAT 90–98; BMI 35.4
--- NOTE | 2019-09-14 | DI.ECHO.S_ITS ---
[facility]---------+ [facility] +---------+ : : [address] : : : : [id number] : : : : Phone: [phone] Echocardiogram Report + + :Name: DEL IRBY Study Date: 09/15/2019 Height: 63 in : :[facility] Weight: 199 lb : : Gender: Female BSA: 1.9 m2 : :: 1950 Age: 69 yrs BP: 116/56 mmHg: :Reason For Study: AFIB : :Ordering Physician: Mallika : :Hospitalist Performed By: Connor Corona : :Referring: ROMAN NGUYEN : + + Interpretation Summary 1) Mild-moderately increased left ventricular thickness with normal size, normal wall motion, and normal systolic function (EF 55-60%). 2) The right ventricle is not well visualized. The right ventricle grossly appears normal in size with probable normal systolic function. 3) There is a mechanical mitral valve that is well seated. Valve opening is not well visualized. Mean gradient 9mmHg, higher than 4.2mmHg noted on Echo dated 12/11/2012. The higher gradient could be due to faster heart rate. Correlate clinically. 4) Compared to the Echo done 12/11/2012, mean gradient across the mitral valve is higher on this study. Procedure: A two-dimensional transthoracic echocardiogram with color flow and Doppler was performed. The study quality was technically difficult. A contrast injection of Definity was performed to improve assessment of LV function. Prior echo performed on 12/11/12. The patient was in atrial fibrillation with heart rates between 81-124 bpm during the exam. Left Ventricle: The left ventricle is normal in size. There is mild-moderate concentric left ventricular hypertrophy. Left ventricular systolic function is normal. The ejection fraction is estimated to be 55-60%. Left ventricular wall motion is normal. Right Ventricle: The right ventricle is not well visualized. The right ventricle grossly appears normal in size with probable normal systolic function. Atria: The left atrium is not well visualized. Right atrium not well visualized. The interatrial septum is intact with no evidence for an atrial septal defect. Mitral Valve: There is a mechanical mitral valve. The mitral valve mean gradient is 9 mmHg. There is no mitral regurgitation noted. Aortic Valve: There is mild aortic valve sclerosis. The aortic valve is trileaflet. The aortic valve opens well. No aortic regurgitation is present. Tricuspid Valve: The tricuspid valve is not well visualized. There is trace tricuspid regurgitation. Pulmonary artery pressures cannot be estimated because of the lack of a measurable TR jet velocity. Pulmonic Valve: The pulmonic valve is not well visualized. Great Vessels: The aortic root is normal size. The dimensions of the ascending aorta are normal. The pulmonary is not well visualized. The IVC is dilated (diameter is greater than 2.1 cm) and it collapses less than 50% with a sniff. This suggests a high right atrial pressure of 15 mm Hg. Pericardium/ Pleura There is no pericardial effusion. There is no pleural effusion. MMode/2D Measurements & Calculations LVIDd: 4.3 cm LVOT diam: 2.0 cm LVIDs: 2.9 cm Ao root diam: 2.7 cm FS: 32.0 % Aortic Jxn: 2.3 cm IVSd: 1.4 cm LVPWd: 1.4 cm LV hernandez. diameter/BSA (cm/m^2): 2.2 LV sys. diameter/BSA (cm/m^2): 1.5 Doppler Measurements & Calculations Ao V2 max: 181.0 cm/sec LVOT Max Wero: 127.1 cm/sec Ao V2 mean: 130.4 cm/sec LV V1 max P.7 mmHg Ao max P.1 mmHg LV V1 VTI: 30.3 cm Ao mean P.6 mmHg ACOSTA(I,D): 2.9 cm2 Ao V2 VTI: 32.9 cm ACOSTA(V,D): 2.2 cm2 sev ratio: 0.92 ACOSTA indexed to BSA (cm^2/m^2): 1.5 MVA(VTI): 2.0 cm2 MV V2 mean: 130.2 cm/sec MV mean P.2 mmHg MV V2 VTI: 48.2 cm SV(LVOT): 94.4 ml Reading Physician:02:21 PM
--- NOTE | 2019-09-14 | DI.CT.S_ITS ---
PROCEDURE: CT ANGIO CHEST PE PROTOCOL INDICATIONS: afib rvr, shortness of breath TECHNIQUE: After the administration of intravenous contrast, 2 mm thick sections acquired from the pulmonary apices to the posterior costophrenic angles. 3-dimensional maximum intensity projection (MIP) coronal and sagittal reformats were then acquired through the thorax. For radiation dose reduction, the following was used: automated exposure control, adjustment of mA and/or kV according to patient size. COMPARISON: [facility], CR, XR CHEST 1V, 09/14/2019, 15:05. FINDINGS: Image quality: Excellent. Pulmonary arteries: Pulmonary arteries are normal in size, and demonstrate no intraluminal filling defects to suggest central pulmonary embolism. Lungs and pleura: Lungs are clear. No pleural effusions or pneumothorax. Central and peripheral airways are patent. Mediastinum: Heart size is mildly to moderately enlarged, without pericardial effusion. A mitral valve prosthesis is seen. No mediastinal or hilar adenopathy. Thoracic aorta is normal in caliber and enhancement. Esophagus is normal in caliber, without hiatal hernia. Bones and chest wall: Sternotomy wires are seen. No suspicious bony lesions. Ribs and thoracic spine appear intact throughout. Thyroid gland demonstrates no significant CT abnormality. No axillary or supraclavicular adenopathy. Abdomen: Visualized upper abdominal solid organs appear normal in the early arterial phase of enhancement. IMPRESSION: Negative for pulmonary embolism. [id number] cardiomegaly. Incidental note is made of: Sternotomy wires with mitral valve prosthesis Dictated by: Blaine Ortez M.D. on 09/14/2019 at 16:27 Approved by: Blaine Ortez M.D. on 09/14/2019 at 16:30
--- NOTE | 2019-09-14 14:56 | DI.RAD.S_ITS ---
PROCEDURE: XR CHEST 1V INDICATIONS: chest pain TECHNIQUE: One view of the chest was acquired. COMPARISON: [facility], , CHEST 2 VIEW, 12/11/2012, 13:06. [facility], , XR CHEST 1V, 05/20/2019, 15:06. FINDINGS: Surgical changes and devices: Sternotomy wires are seen. A valve replacement is seen. Lungs and pleura: Interstitial prominence is seen throughout. No pleural effusions or pneumothorax. Mediastinum: Mediastinal contours appear normal. Heart size is moderately enlarged. Bones and chest wall: Age-appropriate bony degenerative changes are seen. No suspicious bony lesions. Overlying soft tissues appear unremarkable. IMPRESSION: Cardiomegaly and interstitial prominence. Please correlate with patient presentation, physical examination findings, and laboratory values for congestive heart failure. Postoperative change with a cardiac valve replacement. Dictated by: Blaine Ortez M.D. on 09/14/2019 at 14:34 Approved by: Blaine Ortez M.D. on 09/14/2019 at 14:35
[2019-09-14 14:59] LABS: Add Manual Diff / Slide Review NO; Basophils Absolute Auto 100 /uL (0-100); Eosinophils Absolute Auto 100 /uL (0-450); Eosinophils Percent Auto 0.6 % (2-4); Hematocrit 36.8 % (36-46); Hemoglobin 12.2 g/dL (12.0-16.0); Lymphocytes Absolute Auto 2300 /uL (1100-4500); Lymphocytes Percent Auto 20.3 % (25-40); Mean Corpuscular HGB Conc 33.2 % (30-36); Mean Corpuscular Hemoglobin 29.4 PG (26-34); Mean Corpuscular Volume 88.7 fL (80-100); Monocytes Absolute Auto 800 /uL (0-900); Neutrophils Absolute Auto 8100 /uL (1500-7000); Neutrophils Percent Auto 71.1 % (50-75); Platelet Count 311 X10^3/uL (150-400); Red Blood Cell Count 4.14 X10^6/uL (4.0-5.2); Red Cell Distribution Width 16.4 % (11.6-14.8); White Blood Cell Count 11.4 X10^3/uL (4.5-11.0)
[2019-09-14 15:05] LABS: INR 1.3 (0.9-1.3); Prothrombin Time 14.9 SECONDS (10.1-12.7)
[2019-09-14 15:08] LABS: Alanine Aminotransferase 32 IU/L (<35); Albumin 4.6 g/dL (3.5-5.0); Albumin Globulin Ratio 1.3 (1.0-2.8); Alkaline Phosphatase 137 U/L (38-126); Aspartate Aminotransferase 39 IU/L (14-36); Bilirubin Total 0.9 mg/dL (0.2-1.3); Blood Urea Nitrogen 18 mg/dL (7-17); Carbon Dioxide 28 mmol/L (22-32); Chloride 100 mmol/L (98-107); Creatine Kinase 75 U/L (30-135); Estimated Glomerular Filt Rate > 60.0 mL/min (>60); Globulin 3.5 g/dL (1.7-4.1); Glucose 162 mg/dL (80-110); HEMOLYSIS < 15 (0-50); Lipase 89 U/L (23-300); PTT Partial Thromboplastin Tim 33 SECONDS (26.4-36.2); Potassium 3.7 mmol/L (3.4-5.1); Sodium 139 mmol/L (137-145); Total Protein 8.1 g/dL (6.3-8.2)
--- NOTE | 2019-09-14 15:19 | ED.CHESTPAIN ---
HPI - Chest Pain General Chief Complaint: Chest Pain Stated Complaint: Chest Pain / SOB Time Seen by Provider: 09/14/19 15:02 Source: patient and EMS Mode of arrival: EMS Limitations: no limitations History of Present Illness HPI narrative: This is a 69-year-old female comes to the emergency department with complaint of shortness of breath for the last for 5 days patient states that she has noticed it was sitting as well as exertion. She also states she can't lay flat it makes her much too short of breath she denies any syncope, no lightheadedness. No sweats or diaphoresis. She had chest pain earlier this week but none on the last 12 hours. She denies any pressure in her chest. No nausea, no vomiting. She has had some constipation. She has not noted any swelling in her extremities. She has noted that her pain has increased from her normal. Patient has a history of mitral valve replacement, CHF. She states no known history of atrial fibrillation. She did have a heart catheterization in 2007 prior to her valve replacement and has not had any stents placed. She has not had a stress test or catheterization since then. She has had a history of cholecystectomy, appendectomy a tubal which was surgically removed and a tubal ligation. She states she does take Lasix daily, she takes medication for blood pressure, cholesterol, denies diabetes and states she is on warfarin for her mitral valve replacement. Patient has a history of tobacco use quit in 1990 had a 30 pack year use. She has alcohol on the weekends. No illicit. Dr. Diez is her primary care and she does not follow with cardiology regularly. Related Data Home Medications Medication Instructions Recorded Confirmed fluoxetine 40 mg PO DAILY #0 07/04/08 09/14/19 lisinopril 20 mg PO DAILY #0 07/04/08 09/14/19 acetaminophen 325 - 650 mg PO Q4-6H PRN 05/20/19 09/14/19 acetaminophen-codeine 1 tab PO Q4H PRN 05/20/19 09/14/19 atorvastatin 20 mg PO DAILY 05/20/19 09/14/19 baclofen 10 mg PO TID PRN 05/20/19 09/14/19 carvedilol 6.25 mg PO BID 05/20/19 09/14/19 celecoxib 200 mg PO DAILY 05/20/19 09/14/19 furosemide 80 mg PO DAILY 05/20/19 09/14/19 omeprazole 20 mg PO DAILY 05/20/19 09/14/19 potassium chloride 40 meq PO DAILY 05/20/19 09/14/19 venlafaxine 75 mg PO DAILY 05/20/19 09/14/19 warfarin 4 mg PO SUMOTUTHSA 05/20/19 09/14/19 warfarin 5 mg PO WESA 05/20/19 09/14/19 diclofenac sodium 0 g TOPICAL DIRECTED 09/14/19 09/14/19 Allergies Allergy/AdvReac Type Severity Reaction Status Date / Time No Known Drug Allergies Allergy Verified 09/14/19 14:57 Review of Systems Review of Systems ROS Unobtainable: All systems reviewed & are unremarkable except as noted in HPI and below Patient History Medical History (Updated 09/14/19 @ 18:24 by Inocencia Hammer RN) Anticoagulated on Coumadin (Acute) Depression (Acute) Hypertension (Acute) Sleep apnea with use of nocturnal bilevel positive airway pressure (BPAP) (Acute) Surgical History H/O mitral valve replacement (Acute) Social History household members: significant other Smoking Status: Former smoker alcohol intake: current Smoking Status: Former smoker (Quit in 's. 30 pack year history) alcohol intake frequency: a few times a month Substance Use Type: does not use Exam Narrative Exam Narrative: GENERAL: Alert and oriented x three, obese, well-appearing female in mild distress. HEENT: Head normocephalic, atraumatic, EOMI, pupils reactive, face symmetric, moist mucous membranes NECK: Supple, full range of motion CARDIOVASCULAR: Tachycardic and irregularly irregular rate and rhythm without murmurs, rubs or gallops. Positive for JVD. Trace edema bilateral lower extremities. RESPIRATORY: Breath sounds equal bilaterally, no wheezes, mild crackles bilaterally. No rhonchi. No tachypnea or accessory muscle use. ABDOMEN: Soft, nontender. Normoactive bowel sounds all 4 quadrants. No guarding or rebound, rigidity, no mass : No CVA tenderness EXTREMITIES: Normal range of motion. 2+ pulses bilateral lower extremities. Neurovascularly intact NEUROLOGICAL: Cranial nerves II through XII grossly intact. Moving all extremities SKIN: Warm, dry, no petechiae, no rashes or lesions. Initial Vital Signs Initial Vital Signs: Vital Signs Temperature 99.6 F 09/14/19 14:50 Pulse Rate 144 H 09/14/19 14:50 Respiratory Rate 28 H 09/14/19 14:50 Blood Pressure 108/68 09/14/19 14:50 Pulse Oximetry 96 09/14/19 14:50 Course Orders Ordered: ED Orders 09/14/19 14:40 Complete Blood Count AUTO DIFF Stat Comprehensive Metabolic Panel Stat Lipase Stat Partial Thromboplastin Time Stat Prothrombin Time INR Stat Thyroid Stimulating Hormone Stat Troponin & CK Cardiac Panel Stat 09/14/19 14:45 BNP [B Type Natriuretic Peptide] Stat 09/14/19 14:56 XR chest 1V Stat EKG-12 Lead Stat Acetaminophen (Tylenol) 650 mg PO Q4H PRN PRN Reason: pain Acetaminophen/Codeine Phosphate (Tylenol #3) 1 tab PO Q4H PRN PRN Reason: pain Baclofen (Lioresal) 10 mg PO TID PRN PRN Reason: Muscle Spasm Celecoxib (Celebrex) 200 mg PO DAILY [facility] Docusate Sodium (Colace) 100 mg PO BID PRN PRN Reason: Diarrhea Enoxaparin Sodium (Lovenox) 90 mg 1 mg/kg (90 mg) SUBCUT BID [facility] Last Admin: 09/14/19 20:39 Dose: 90 mg Documented by: RAJENDRA DILTIAZEM (Diltiazem 125 Mg/125 Ml-D5w) 125 mg in 125 mls @ 5 mls/hr IV TITRATE [facility]; Protocol Last Titration: 09/14/19 19:15 Dose: 15 mg/hr, 15 mls/hr Documented by: Titration: 09/14/19 16:19 Dose: 10 mg/hr, 10 mls/hr Documented by: Admin: 09/14/19 15:41 Dose: 5 mg/hr, 5 mls/hr Documented by: SHAE Naloxone HCl (Narcan) 0.2 mg IV Q2MIN PRN PRN Reason: Opiate Reversal Stored In Pharmacy 0 each PO . [facility] Ondansetron HCl (Zofran) 4 mg IV Q4HR PRN PRN Reason: Nausea And Vomiting Pantoprazole Sodium (Protonix) 20 mg PO DAILY [facility] Potassium Chloride (Klor-Con M10) 40 meq PO DAILY [facility] Sodium Chloride (Normal Saline 0.9% Flush) 10 ml IV PRN PRN PRN Reason: Flush Sodium Chloride (Normal Saline 0.9% Flush) 10 ml IV BID [facility] Last Admin: 09/14/19 20:39 Dose: 10 ml Documented by: RAJENDRA Venlafaxine HCl (Effexor Xr) 75 mg PO DAILY [facility] Warfarin Sodium (Coumadin) 5 mg PO DAILY [facility] Discontinued Medications Acetaminophen (Tylenol) 650 mg PO NOW ONE Stop: 09/14/19 15:37 Last Admin: 09/14/19 15:40 Dose: 650 mg Documented by: SHAE Aspirin (Aspirin Chew) 324 mg PO NOW ONE Stop: 09/14/19 15:33 Last Admin: 09/14/19 15:41 Dose: 324 mg Documented by: SHAE Carvedilol (Coreg) 6.25 mg PO BID [facility] Diltiazem HCl (Cardizem) 10 mg IV NOW ONE Stop: 09/14/19 15:32 Last Admin: 09/14/19 15:40 Dose: 10 mg Documented by: SHAE Fluoxetine HCl (Prozac) 40 mg PO DAILY [facility] Furosemide (Lasix) 120 mg PO DAILY [facility] Lisinopril (Zestril) 20 mg PO DAILY [facility] Vital Signs Vital signs: Vital Signs - 8 hr 09/14/19 14:50 09/14/19 15:00 09/14/19 15:15 Temperature 99.6 F Pulse Rate 144 H 129 H 128 H Respiratory Rate 28 H 22 20 Blood Pressure 108/68 Blood Pressure [Left Arm] 111/85 Pulse Oximetry 96 90 L 96 09/14/19 15:30 09/14/19 15:40 09/14/19 15:45 Temperature Pulse Rate 126 H 144 H 111 H Respiratory Rate 17 18 Blood Pressure 106/83 Blood Pressure [Left Arm] 106/83 104/65 Pulse Oximetry 94 94 09/14/19 16:00 09/14/19 16:16 Temperature Pulse Rate 108 H 128 H Respiratory Rate 16 24 Blood Pressure Blood Pressure [Left Arm] 120/76 134/66 Pulse Oximetry 95 96 MDM - Chest Pain Lab Data Attestation: I reviewed the patient's lab results. Result diagrams: 09/14/19 14:40 09/14/19 14:40 Labs: Lab Results 09/14/19 09/14/19 09/14/19 Range/Units 14:40 14:40 14:40 WBC 11.4 H (4.5-11.0) X10^3/uL RBC 4.14 (4.0-5.2) X10^6/uL Hgb 12.2 (12.0-16.0) g/dL Hct 36.8 (36-46) % MCV 88.7 (80-100) fL MCH 29.4 (26-34) PG MCHC 33.2 (30-36) % RDW 16.4 H (11.6-14.8) % Plt Count 311 (150-400) X10^3/uL Neut % (Auto) 71.1 (50-75) % Lymph % (Auto) 20.3 L (25-40) % Ida % (Auto) 7.0 (3-14) % Eos % (Auto) 0.6 L (2-4) % Baso % (Auto) 1.0 (0-2) % Neut # (Auto) 8100 H (5960-7291) /uL Lymph # (Auto) 2300 (6702-6777) /uL Ida # (Auto) 800 (0-900) /uL Eos # (Auto) 100 (0-450) /uL Baso # (Auto) 100 (0-100) /uL PT 14.9 H (10.1-12.7) SECONDS INR 1.3 (0.9-1.3) APTT 33 (26.4-36.2) SECONDS Sodium 139 (137-145) mmol/L Potassium 3.7 (3.4-5.1) mmol/L Chloride 100 (98-107) mmol/L Carbon Dioxide 28 (22-32) mmol/L BUN 18 H (7-17) mg/dL Creatinine 0.60 (0.52-1.04) mg/dL Estimated GFR > 60.0 (>60) mL/min BUN/Creatinine Ratio 30.0 H (6-22) Glucose 162 H (80-110) mg/dL Calcium 10.0 (8.4-10.2) mg/dL Total Bilirubin 0.9 (0.2-1.3) mg/dL AST 39 H (14-36) IU/L ALT 32 (<35) IU/L Alkaline Phosphatase 137 H (38-126) U/L Total Creatine Kinase 75 (30-135) U/L CK-MB (CK-2) TNP CK-MB (CK-2) Rel Index TNP Troponin I 0.018 (0.01-0.034) ng/mL B-Natriuretic Peptide (<100) Total Protein 8.1 (6.3-8.2) g/dL Albumin 4.6 (3.5-5.0) g/dL Globulin 3.5 (1.7-4.1) g/dL Albumin/Globulin Ratio 1.3 (1.0-2.8) Lipase 89 (23-300) U/L TSH (0.47-4.68) uIU/mL 09/14/19 09/14/19 Range/Units 14:40 14:45 WBC (4.5-11.0) X10^3/uL RBC (4.0-5.2) X10^6/uL Hgb (12.0-16.0) g/dL Hct (36-46) % MCV (80-100) fL MCH (26-34) PG MCHC (30-36) % RDW (11.6-14.8) % Plt Count (150-400) X10^3/uL Neut % (Auto) (50-75) % Lymph % (Auto) (25-40) % Ida % (Auto) (3-14) % Eos % (Auto) (2-4) % Baso % (Auto) (0-2) % Neut # (Auto) (9370-3002) /uL Lymph # (Auto) (9521-3123) /uL Ida # (Auto) (0-900) /uL Eos # (Auto) (0-450) /uL Baso # (Auto) (0-100) /uL PT (10.1-12.7) SECONDS INR (0.9-1.3) APTT (26.4-36.2) SECONDS Sodium (137-145) mmol/L Potassium (3.4-5.1) mmol/L Chloride (98-107) mmol/L Carbon Dioxide (22-32) mmol/L BUN (7-17) mg/dL Creatinine (0.52-1.04) mg/dL Estimated GFR (>60) mL/min BUN/Creatinine Ratio (6-22) Glucose (80-110) mg/dL Calcium (8.4-10.2) mg/dL Total Bilirubin (0.2-1.3) mg/dL AST (14-36) IU/L ALT (<35) IU/L Alkaline Phosphatase (38-126) U/L Total Creatine Kinase (30-135) U/L CK-MB (CK-2) CK-MB (CK-2) Rel Index Troponin I (0.01-0.034) ng/mL B-Natriuretic Peptide 244 H (<100) Total Protein (6.3-8.2) g/dL Albumin (3.5-5.0) g/dL Globulin (1.7-4.1) g/dL Albumin/Globulin Ratio (1.0-2.8) Lipase (23-300) U/L TSH 0.71 (0.47-4.68) uIU/mL Imaging Data Chest x-ray: Radiologist's Impression: [address] [address] XRay Report Signed Patient: Mer Portillo [facility]#: [id number] : 8Acct:[id number] Age/Sex: 69 / FDate of Service: 09/14/19 Loc: ED Accession Number: [id number] Procedure: XR chest 1V Ordering Provider: Yulia Magaña D.O. PROCEDURE: XR CHEST 1V INDICATIONS: chest pain TECHNIQUE: One view of the chest was acquired. COMPARISON: [facility], CHEST 2 VIEW, 12/11/2012, 13:06. [facility], XR CHEST 1V, 05/20/2019, 15:06. FINDINGS: Surgical changes and devices: Sternotomy wires are seen. A valve replacement is seen. Lungs and pleura: Interstitial prominence is seen throughout. No pleural effusions or pneumothorax. Mediastinum: Mediastinal contours appear normal. Heart size is moderately enlarged. Bones and chest wall: Age-appropriate bony degenerative changes are seen. No suspicious bony lesions. Overlying soft tissues appear unremarkable. IMPRESSION: Cardiomegaly and interstitial prominence. Please correlate with patient presentation, physical examination findings, and laboratory values for congestive heart failure. Postoperative change with a cardiac valve replacement. Dictated by: Blaine Ortez M.D. on 09/14/2019 at 14:34 Approved by: Blaine Ortez M.D. on 09/14/2019 at 14:35 CT scan - chest: Radiologist's Impression: [address] [address] [address] Scan Report Signed Patient: Mer Portillo [facility]#: [id number] : 8Acct:[id number] Age/Sex: 69 / FDate of Service: 09/14/19 Loc: [id number] Accession Number: [id number] Procedure: CT angio chest PE protocol Ordering Provider: Yulia Magaña D.O. PROCEDURE: CT ANGIO CHEST PE PROTOCOL INDICATIONS: afib rvr, shortness of breath TECHNIQUE: After the administration of intravenous contrast, 2 mm thick sections acquired from the pulmonary apices to the posterior costophrenic angles. 3-dimensional maximum intensity projection (MIP) coronal and sagittal reformats were then acquired through the thorax. For radiation dose reduction, the following was used: automated exposure control, adjustment of mA and/or kV according to patient size. COMPARISON: [facility], CR, XR CHEST 1V, 09/14/2019, 15:05. FINDINGS: Image quality: Excellent. Pulmonary arteries: Pulmonary arteries are normal in size, and demonstrate no intraluminal filling defects to suggest central pulmonary embolism. Lungs and pleura: Lungs are clear. No pleural effusions or pneumothorax. Central and peripheral airways are patent. Mediastinum: Heart size is mildly to moderately enlarged, without pericardial effusion. A mitral valve prosthesis is seen. No mediastinal or hilar adenopathy. Thoracic aorta is normal in caliber and enhancement. Esophagus is normal in caliber, without hiatal hernia. Bones and chest wall: Sternotomy wires are seen. No suspicious bony lesions. Ribs and thoracic spine appear intact throughout. Thyroid gland demonstrates no significant CT abnormality. No axillary or supraclavicular adenopathy. Abdomen: Visualized upper abdominal solid organs appear normal in the early arterial phase of enhancement. IMPRESSION: Negative for pulmonary embolism. [id number] cardiomegaly. Incidental note is made of: Sternotomy wires with mitral valve prosthesis Dictated by: Blaine Ortez M.D. on 09/14/2019 at 16:27 Approved by: Blaine Ortez M.D. on 09/14/2019 at 16:30 ECG Data Attestation: I personally reviewed and interpreted this ECG as follows: Prior ECG tracings: available for review Interpretation: AFib with rapid ventricular response with a rate of 129 QRS of 98 QTC of 396. Patient has some mild ST depression in V5 V6 but noted on prior EKG from 05/20/2019. No elevation is appreciated with nonspecific changes MDM Narrative Medical decision making narrative: Patient comes in with AFib and RVR with heart rate initially 151 40s in the field, she received 10 of Cardizem which improved her to about the 120 range. Patient continues to be in AFib she did not have any sensation of being in atrial fibrillation and has likely been in this for at least several days if not longer. She is not currently therapeutic on her Coumadin which is 1.3 and is stable with her pressures and I would not consider her appropriate for cardioversion at this moment. Labs show white count of 11, normal electrolytes, BUN of 18 with a glucose of 162, AST is 39 but ALT is 32, alk phos is 137. BNP is 244 with a prior from April of 2019 at 279 with troponin of 0.018, patient does not have any new ST changes appreciated on her EKG. Patient was started on additional 10 of Cardizem and drip. Plan for admission for AFib with RVR and CHF. I spoke with Dr. Diez Discharge Plan Departure Patient Disposition: Admitted As Inpatient Clinical Impression: Atrial fibrillation with RVR, CHF (congestive heart failure) Discharge Date/Time: 09/14/19 17:49 Admit Date/Time: 09/14/19 16:18 Admit Provider: Donya Diez
[2019-09-14 15:20] LABS: Troponin I 0.018 ng/mL (0.01-0.034)
[2019-09-14 15:24] LABS: B Type Natriuretic Peptide 244 (<100)
[2019-09-14] MEDS: dilTIAZem 5 MG/ML SDV 10 MG IV (15:40)
[2019-09-14] MEDS: ACETAMINOPHEN 325 MG TABLET 650 MG PO (15:40)
[2019-09-14] MEDS: ASPIRIN 81 MG CHEW TAB 324 MG PO (15:41)
[2019-09-14] MEDS: DILTIAZEM 125 MG/125 ML PIGGYBACK IV (15:41)
[2019-09-14 16:34] LABS: Thyroid Stimulating Hormone 0.71 uIU/mL (0.47-4.68)
--- NOTE | 2019-09-14 18:37 | P.HP_ITS ---
History of Present Illness History of Present Illness Date Patient Seen: 09/14/19 Time Patient Seen: 18:37 Chief complaint: Chest Pain / SOB Narrative: 69 yo female admitted from the ED with atrial fibrillation with rapid ventricular rate and CHF. Patient was seen in clinic today after 5 days of shortness of breath and difficulty lying supine. In addition to her atrial fibrillation in the clinic, EKG showed ST depression. Denies any current chest pain although she did have some chest pain earlier in the week. Vital signs upon admission to the ED included a temperature 99.6?, pulse 144, pressure 108/68, respirations 28, O2 saturation 96% on room air. Labs significant for a slightly elevated BNP at 279, notably negative troponin and a subtherapeutic INR at 1.4. Hemoglobin/hematocrit 11.5/35.0. AST and ALP slightly elevated at 39 and 137, respectively. Chest x-ray showed cardiomegaly with an interstitial pattern and CT angiogram negative for PE. Patient was given 10 mg of Cardizem x 2, which did not resolve her atrial fibrillation. As she is not a good candidate for cardioversion, she was placed on a diltiazem drip and transferred to the ICU. Medical history is significant for mitral valve replacement, on anticoagulation. Also has CHF, on Lasix. Last echo on 12/11/2012 showed an ejection fraction of 55-60%, moderately dilated left atrium and well-seated mechanical mitral valve. Denies any peripheral edema. Usual dose of Lasix is 8 0 mg p.o. q.day. Past medical history: CHF Mitral valve replacement, on anticoagulation Hyperlipidemia Hypertension Hypokalemia Sleep apnea, on CPAP Low TSH Right external otitis Dupuytren's contracture, left Ataxia Osteoarthritis Depression Insomnia Obesity Former smoker Past surgical history: Cholecystectomy, 1974 Appendectomy, 1974, Tubal , 1976 Bilateral tubal ligation, 1978 Mitral valve replacement, 2008 Family history: Father: Diabetes, hypertension, hyperlipidemia Mother: Cervical cancer Siblings: Heart disease, lung cancer, hypertension, hyperlipidemia, tuberculosis Social history: Single, retired. Lives with boyfriend, Mhoan. Patient History Medical History (Updated 09/14/19 @ 18:24 by Inocencia Hammer RN) Anticoagulated on Coumadin (Acute) Depression (Acute) Hypertension (Acute) Sleep apnea with use of nocturnal bilevel positive airway pressure (BPAP) (Acute) Surgical History H/O mitral valve replacement (Acute) Family & Social History Social History: household members significant other Prior Living Arrangements House Safety & Behavioral: Feels Safe in Current Yes Environment Been Physically Hurt or No Threatened By a Person Suicidal Ideation Description None Tobacco & Substance use: Smoking Status Former smoker alcohol intake current alcohol intake frequency a few times a month Substance Use Type does not use Meds Home Medications and Allergies Home Medications Medication Instructions Recorded Confirmed Type fluoxetine 40 mg PO DAILY #0 07/04/08 09/14/19 History lisinopril 20 mg PO DAILY #0 07/04/08 09/14/19 History acetaminophen 325 - 650 mg PO Q4-6H PRN 05/20/19 09/14/19 History acetaminophen-codeine 1 tab PO Q4H PRN 05/20/19 09/14/19 History atorvastatin 20 mg PO DAILY 05/20/19 09/14/19 History baclofen 10 mg PO TID PRN 05/20/19 09/14/19 History carvedilol 6.25 mg PO BID 05/20/19 09/14/19 History celecoxib 200 mg PO DAILY 05/20/19 09/14/19 History furosemide 80 mg PO DAILY 05/20/19 09/14/19 History omeprazole 20 mg PO DAILY 05/20/19 09/14/19 History potassium chloride 40 meq PO DAILY 05/20/19 09/14/19 History venlafaxine 75 mg PO DAILY 05/20/19 09/14/19 History warfarin 4 mg PO SUMOTUTHSA 05/20/19 09/14/19 History warfarin 5 mg PO WESA 05/20/19 09/14/19 History diclofenac sodium 0 g TOPICAL DIRECTED 09/14/19 09/14/19 History Allergies Allergy/AdvReac Type Severity Reaction Status Date / Time No Known Drug Allergies Allergy Verified 09/14/19 14:57 Review of Systems Review of Systems ROS Unobtainable: All systems reviewed & are unremarkable except as noted in HPI and below Exam Vital Signs (past 8 hours): - 09/14/19 14:50 09/14/19 15:00 09/14/19 15:15 Temperature 99.6 F Pulse Rate 144 H 129 H 128 H Respiratory Rate 28 H 22 20 Blood Pressure 108/68 Blood Pressure [Left Arm] 111/85 Pulse Oximetry 96 90 L 96 09/14/19 15:30 09/14/19 15:40 09/14/19 15:45 Temperature Pulse Rate 126 H 144 H 111 H Respiratory Rate 17 18 Blood Pressure 106/83 Blood Pressure [Left Arm] 106/83 104/65 Pulse Oximetry 94 94 09/14/19 16:00 09/14/19 16:16 09/14/19 16:30 Temperature Pulse Rate 108 H 128 H 127 H Respiratory Rate 16 24 12 Blood Pressure Blood Pressure [Left Arm] 120/76 134/66 102/90 Pulse Oximetry 95 96 93 09/14/19 16:45 09/14/19 17:00 09/14/19 17:48 Temperature Pulse Rate 132 H 126 H 114 H Respiratory Rate 24 23 22 Blood Pressure Blood Pressure [Left Arm] 104/88 125/71 114/92 H Pulse Oximetry 94 95 94 Oxygen Delivery Method Nasal Cannula Oxygen Flow Rate 2 Narrative Exam Narrative: GENERAL: Alert and oriented, appearing stated age, breathing with short breaths. HEENT: Head normocephalic/atraumatic. Pupils equal, round, and reactive to light and accomodation. Extraocular muscles intact. Tympanic membranes clear. Nasal mucosa moist, septum midline. Oral mucosa moist, no lesions. Neck soft and supple, no lymphadenopathy. LUNGS: Respiratory effort is labored, otherwise clear to auscultation. No wheezes, rhonchi, or rales. CV: Irregularly irregular, mechanical valve, no murmurs, rubs or gallops. ABDOMEN: Soft, non-tender, non-distended, no organomegaly. Positive bowel sounds. EXTREMITIES: No clubbing, cyanosis, or edema. NEURO: Cranial nerves II through XII grossly intact, no focal deficits. PSYCH: Alert and oriented x 3. SKIN: No concerning lesions. Objective Labs Result Diagrams: 09/14/19 14:40 09/14/19 14:40 Labs: Laboratory Results - last 24 hr 09/14/19 09/14/19 09/14/19 14:40 14:40 14:40 WBC 11.4 H RBC 4.14 Hgb 12.2 Hct 36.8 MCV 88.7 MCH 29.4 MCHC 33.2 RDW 16.4 H Plt Count 311 Neut % (Auto) 71.1 Lymph % (Auto) 20.3 L [place] % (Auto) 7.0 Eos % (Auto) 0.6 L Baso % (Auto) 1.0 Neut # (Auto) 8100 H Lymph # (Auto) 2300 [place] # (Auto) 800 Eos # (Auto) 100 Baso # (Auto) 100 PT 14.9 H INR 1.3 APTT 33 Sodium 139 Potassium 3.7 Chloride 100 Carbon Dioxide 28 BUN 18 H Creatinine 0.60 Estimated GFR > 60.0 BUN/Creatinine Ratio 30.0 H Glucose 162 H Calcium 10.0 Total Bilirubin 0.9 AST 39 H ALT 32 Alkaline Phosphatase 137 H Total Creatine Kinase 75 CK-MB (CK-2) TNP CK-MB (CK-2) Rel Index TNP Troponin I 0.018 B-Natriuretic Peptide Total Protein 8.1 Albumin 4.6 Globulin 3.5 Albumin/Globulin Ratio 1.3 Lipase 89 TSH 09/14/19 09/14/19 14:40 14:45 WBC RBC Hgb Hct MCV MCH MCHC RDW Plt Count Neut % (Auto) Lymph % (Auto) [place] % (Auto) Eos % (Auto) Baso % (Auto) Neut # (Auto) Lymph # (Auto) [place] # (Auto) Eos # (Auto) Baso # (Auto) PT INR APTT Sodium Potassium Chloride Carbon Dioxide BUN Creatinine Estimated GFR BUN/Creatinine Ratio Glucose Calcium Total Bilirubin AST ALT Alkaline Phosphatase Total Creatine Kinase CK-MB (CK-2) CK-MB (CK-2) Rel Index Troponin I B-Natriuretic Peptide 244 H Total Protein Albumin Globulin Albumin/Globulin Ratio Lipase TSH 0.71 Assessment & Plan Assessment & Plan narrative: Assessment 1: Atrial fibrillation with rapid ventricular rate. Plan: Continue diltiazem drip for rate control. Continue telemetry, EKG in the morning. As INR is subtherapeutic, will bridge with Lovenox while titrating warfarin to an INR of 2-3.0. Will consult cardiology if not able to achieve conversion to normal sinus rhythm. Assessment 2: CHF, with preserved ejection fraction. Plan: Blood pressure low this evening on diltiazem drip. Will give Lasix 120 mg IV x 1 in the morning if BP adequate. Will trend BMP in the morning. Will hold carvedilol 6.25 mg PO BID and lisinopril 20 mg PO qd until blood pressure stabilizes. Will update echo. Assessment 3: History of chest pain within the last week, rule out [place]. Plan: Serial cardiac enzymes. Assessment 4: Mitral valve replacement, on anticoagulation. INR subtherap eutic. Plan: Will increase Coumadin to 5 mg PO qd during inpatient stay and recheck INR in 1 week. Assessment 5: Sleep apnea, on BiPAP. Plan: RT consult, BiPAP. Assessment 6: History of low TSH, resolved. Plan: Will address in outpatient setting. Assessment 7: Hypokalemia, likely secondary to Lasix, currently controlled with potassium replacement. Plan: Continue home potassium supplement 40 mEq p.o. q.day. Assessment 8: Hyperlipidemia, chronic. Plan: Will hold atorvastatin during inpatient stay. Assessment 9: Hypertension, chronic. Plan: Holding carvedilol 6.25 mg p.o. b.i.d., and lisinopril 20 mg p.o. q.day as noted above. Assessment 10: Osteoarthritis, chronic. Plan: Continue home Tylenol #3, Celebrex, and baclofen. Assessment 11: Depression, chronic. Plan: Continue fluoxetine 40 mg p.o. q.day and venlafaxine 75 mg p.o. q.day. Assessment 12: Eleveated liver enzymes, likely acute phase reactants. Plan: Will trend CMP in the morning. DVT prophylaxis: Warfarin, lovenox. GI prophylaxis: Omeprazole 20 mg p.o. q.day Code: Full Quality VTE Deep Vein Thrombosis/Pulmonary Embolism Present on Admission: No
--- NOTE | 2019-09-14 19:01 | PC.NURSE ---
Addendum entered by Inocencia Hammer R.N. 09/14/19 21:53: 2145 - Pt pulled of bi-pap mask. States I just couldn't stand it. Pt c/o facial discomfort and states I couldn't breath. Replace NC at 2L. Pt c/o headache. RX given for pain. Cardizem gtt at 15mg/hr. Hr primarily in the 90's to low 100's. BP 125/52. Addendum entered by Inocencia Hammer R.N. 09/14/19 21:00: 2030 -MD in to see pt. Reviewed vital signs, cardizem gtt at 15mg/hr. Discussed Lasix and Coreg orders. RT into set up pt with bi-pap. Pt reports mask difficult to wear, home use of nasal pillows. Reinforced treatment plan, safety and call light use. Call light in reach. Original Note: 1800 - Pt to room from ER. Able to stand and transfer to bed. SOB with minimal exertion. Sats decreased to 87% on 2L with activity. Pt reports hx of home bi-pap use. Pt states that mask is currently broken. Pt has not used mask, in more than a week. Pt state inability to pay for replacement at this time. A-fib rvr, rate 100-140 depending on activity. Cardizem gtt at 10mg/hr. Oriented room and routine. Educated to safety and call light use. Call light in reach. Bed alarm on.
[2019-09-14] MEDS: SODIUM CHLORIDE 0.9% FLUSH 10 ML IV (20:39)
[2019-09-14] MEDS: ENOXAPARIN 100 MG/ML SYRINGE 90 MG SUBCUT (20:39)
[2019-09-14] MEDS: CODEINE/ACETAMINOPHEN 30/300 TABLET 1 TAB PO (21:42)
[2019-09-15] VITALS (28 sets, daily range): BP systolic 97–145; BP diastolic 56–88; PULSE 66–137; RESP 15–29; TEMP 36.1–37.1; O2SAT 90–100
[2019-09-15] MEDS: DILTIAZEM 125 MG/125 ML PIGGYBACK 15 MG IV (00:19)
--- NOTE | 2019-09-15 00:22 | PC.NURSE ---
Addendum entered by Cj Wilson R.N. 09/15/19 01:40: 0135: HR 85-108. Cardizem drip decreased to 8cc/hr = 8mg/hr. Original Note: Activated Sludge Operator Note: 0015: Awake, watching TV. Sitting up in bed, states it is easier to breathe sitting up. Remains on O2 2L/NC with O2 sat of 96%. IV in place in rt hand with NS infusing at 21cc/hr with Cardizem drip at 15cc/hr=15mg/hr. Saline lock in place in rt AC. Vital signs stable. Pt is alert, oriented X3.
[2019-09-15] MEDS: CODEINE/ACETAMINOPHEN 30/300 TABLET 1 TAB PO (04:03)
[2019-09-15 05:04] LABS: Add Manual Diff / Slide Review NO; Basophils Absolute Auto 0 /uL (0-100); Basophils Percent Auto 0.2 % (0-2); Eosinophils Absolute Auto 200 /uL (0-450); Eosinophils Percent Auto 2.2 % (2-4); Hematocrit 34.2 % (36-46); Hemoglobin 11.2 g/dL (12.0-16.0); Lymphocytes Absolute Auto 2800 /uL (1100-4500); Lymphocytes Percent Auto 27.6 % (25-40); Mean Corpuscular HGB Conc 32.7 % (30-36); Mean Corpuscular Hemoglobin 29.1 PG (26-34); Monocytes Absolute Auto 900 /uL (0-900); Monocytes Percent Auto 8.7 % (3-14); Neutrophils Absolute Auto 6300 /uL (1500-7000); Neutrophils Percent Auto 61.3 % (50-75); Platelet Count 292 X10^3/uL (150-400); Red Blood Cell Count 3.85 X10^6/uL (4.0-5.2); Red Cell Distribution Width 16.8 % (11.6-14.8); White Blood Cell Count 10.3 X10^3/uL (4.5-11.0)
[2019-09-15 05:17] LABS: Alanine Aminotransferase 29 IU/L (<35); Albumin 4.1 g/dL (3.5-5.0); Albumin Globulin Ratio 1.3 (1.0-2.8); Alkaline Phosphatase 131 U/L (38-126); Aspartate Aminotransferase 31 IU/L (14-36); Bilirubin Total 0.8 mg/dL (0.2-1.3); Blood Urea Nitrogen 15 mg/dL (7-17); Calcium 9.7 mg/dL (8.4-10.2); Carbon Dioxide 29 mmol/L (22-32); Chloride 98 mmol/L (98-107); Estimated Glomerular Filt Rate > 60.0 mL/min (>60); Globulin 3.1 g/dL (1.7-4.1); Glucose 155 mg/dL (80-110); HEMOLYSIS < 15 (0-50); Sodium 137 mmol/L (137-145); Total Protein 7.2 g/dL (6.3-8.2)
[2019-09-15 05:21] LABS: Troponin I 0.022 ng/mL (0.01-0.034)
[2019-09-15 05:25] LABS: B Type Natriuretic Peptide 150 (<100)
--- NOTE | 2019-09-15 08:38 | PM.PN.1 ---
Subjective Subjective Date Patient Seen: 09/15/19 Time Patient Seen: 08:38 Interval history: Patient did not sleep very well last night secondary to the lights and sounds of the ICU. Still feeling quite short of breath. Denies any chest pain. Troponin are negative x3. Nursing reports that she has shortness of breath even with minimal exertion such as with talking; no adventitious lung sounds on exam. BNP is trending down to normal. She has maintained atrial fibrillation throughout the night with a ventricular rate between 100 and 140. Diltiazem drip is at 15. Hypotension is now resolved, home blood pressure medications continue to be held. AST has normalized in ALP is trending down to normal. Appetite is normal, eating well, no nausea or vomiting. Exam Vital Signs (past 8 hours): - 09/15/19 01:00 09/15/19 02:00 09/15/19 03:00 Temperature Pulse Rate 95 H 86 95 H Respiratory Rate 15 22 21 Blood Pressure 112/64 97/70 109/77 Pulse Oximetry 100 100 100 09/15/19 04:14 09/15/19 05:00 09/15/19 06:00 Temperature 97.5 F L Pulse Rate 119 H 111 H 98 H Respiratory Rate 29 H 27 H 21 Blood Pressure 139/77 128/88 118/66 Pulse Oximetry 92 99 98 09/15/19 07:00 09/15/19 07:29 09/15/19 07:45 Temperature 98.1 F Pulse Rate 107 H Respiratory Rate 20 Blood Pressure 129/77 Pulse Oximetry 98 96 Oxygen Delivery Method Nasal Cannula Oxygen Flow Rate 2 Narrative Exam Narrative: GENERAL: Alert and oriented, appearing stated age, breathing with short breaths. HEENT: Head normocephalic/atraumatic. Pupils equal, round, and reactive to light and accomodation. Extraocular muscles intact. Tympanic membranes clear. Nasal mucosa moist, septum midline. Oral mucosa moist, no lesions. Neck soft and supple, no lymphadenopathy. LUNGS: Respiratory effort is labored, otherwise clear to auscultation. No wheezes, rhonchi, or rales. CV: Irregularly irregular, mechanical valve, no murmurs, rubs or gallops. ABDOMEN: Soft, non-tender, non-distended, no organomegaly. Positive bowel sounds. EXTREMITIES: No clubbing, cyanosis, or edema. NEURO: Cranial nerves II through XII grossly intact, no focal deficits. PSYCH: Alert and oriented x 3. SKIN: No concerning lesions. Objective Labs Result Diagrams: 09/15/19 04:35 09/15/19 04:35 Labs: Laboratory Results - last 24 hr 09/14/19 09/14/19 09/14/19 14:40 14:40 14:40 WBC 11.4 H RBC 4.14 Hgb 12.2 Hct 36.8 MCV 88.7 MCH 29.4 MCHC 33.2 RDW 16.4 H Plt Count 311 Neut % (Auto) 71.1 Lymph % (Auto) 20.3 L [place] % (Auto) 7.0 Eos % (Auto) 0.6 L Baso % (Auto) 1.0 Neut # (Auto) 8100 H Lymph # (Auto) 2300 [place] # (Auto) 800 Eos # (Auto) 100 Baso # (Auto) 100 PT 14.9 H INR 1.3 APTT 33 Sodium 139 Potassium 3.7 Chloride 100 Carbon Dioxide 28 BUN 18 H Creatinine 0.60 Estimated GFR > 60.0 BUN/Creatinine Ratio 30.0 H Glucose 162 H Calcium 10.0 Total Bilirubin 0.9 AST 39 H ALT 32 Alkaline Phosphatase 137 H Total Creatine Kinase 75 CK-MB (CK-2) TNP CK-MB (CK-2) Rel Index TNP Troponin I 0.018 B-Natriuretic Peptide Total Protein 8.1 Albumin 4.6 Globulin 3.5 Albumin/Globulin Ratio 1.3 Lipase 89 TSH Nasal Screen MRSA (PCR) 09/14/19 09/14/19 09/14/19 14:40 14:45 18:10 WBC RBC Hgb Hct MCV MCH MCHC RDW Plt Count Neut % (Auto) Lymph % (Auto) [place] % (Auto) Eos % (Auto) Baso % (Auto) Neut # (Auto) Lymph # (Auto) [place] # (Auto) Eos # (Auto) Baso # (Auto) PT INR APTT Sodium Potassium Chloride Carbon Dioxide BUN Creatinine Estimated GFR BUN/Creatinine Ratio Glucose Calcium Total Bilirubin AST ALT Alkaline Phosphatase Total Creatine Kinase CK-MB (CK-2) CK-MB (CK-2) Rel Index Troponin I B-Natriuretic Peptide 244 H Total Protein Albumin Globulin Albumin/Globulin Ratio Lipase TSH 0.71 Nasal Screen MRSA (PCR) Negative for mrsa 09/15/19 09/15/19 09/15/19 04:35 04:35 04:35 WBC 10.3 RBC 3.85 L Hgb 11.2 L Hct 34.2 L MCV 89.0 MCH 29.1 MCHC 32.7 RDW 16.8 H Plt Count 292 Neut % (Auto) 61.3 Lymph % (Auto) 27.6 [place] % (Auto) 8.7 Eos % (Auto) 2.2 Baso % (Auto) 0.2 Neut # (Auto) 6300 Lymph # (Auto) 2800 [place] # (Auto) 900 Eos # (Auto) 200 Baso # (Auto) 0 PT INR APTT Sodium 137 Potassium 4.0 Chloride 98 Carbon Dioxide 29 BUN 15 Creatinine 0.60 Estimated GFR > 60.0 BUN/Creatinine Ratio 25.0 H Glucose 155 H Calcium 9.7 Total Bilirubin 0.8 AST 31 ALT 29 Alkaline Phosphatase 131 H Total Creatine Kinase CK-MB (CK-2) CK-MB (CK-2) Rel Index Troponin I B-Natriuretic Peptide 150 H Total Protein 7.2 Albumin 4.1 Globulin 3.1 Albumin/Globulin Ratio 1.3 Lipase TSH Nasal Screen MRSA (PCR) 09/15/19 04:35 WBC RBC Hgb Hct MCV MCH MCHC RDW Plt Count Neut % (Auto) Lymph % (Auto) [place] % (Auto) Eos % (Auto) Baso % (Auto) Neut # (Auto) Lymph # (Auto) [place] # (Auto) Eos # (Auto) Baso # (Auto) PT INR APTT Sodium Potassium Chloride Carbon Dioxide BUN Creatinine Estimated GFR BUN/Creatinine Ratio Glucose Calcium Total Bilirubin AST ALT Alkaline Phosphatase Total Creatine Kinase CK-MB (CK-2) CK-MB (CK-2) Rel Index Troponin I 0.022 B-Natriuretic Peptide Total Protein Albumin Globulin Albumin/Globulin Ratio Lipase TSH Nasal Screen MRSA (PCR) Assessment & Plan Assessment & Plan narrative: Assessment 1: Atrial fibrillation with rapid ventricular rate, unchanged. Plan: Continue diltiazem drip for rate control. Continue telemetry, daily EKG. As INR is subtherapeutic, will bridge with Lovenox while titrating warfarin to an INR of 2-3.0. Will consult cardiology today as patient has not converted and continues to be symptomatic. Assessment 2: CHF, with preserved ejection fraction. Plan: Blood pressure now out of the hypotensive range. BMP trending to normal, no evidence of peripheral edema. Holding Lasix at this time. Will also continue to hold home blood pressure medications. Echo today. Assessment 3: History of chest pain within the last week, rule out [place]. Plan: Serial cardiac enzymes x 3, will watch closely and repeat with symptoms of chest pain. Assessment 4: Mitral valve replacement, on anticoagulation. INR subtherapeutic. Plan: Will increase Coumadin to 5 mg PO qd during inpatient stay and recheck INR in 1 week. Assessment 5: Sleep apnea, on BiPAP. Plan: RT consulting, continue BiPAP. Assessment 6: History of low TSH, resolved. Plan: Will address in outpatient setting. Assessment 7: Hypokalemia, likely secondary to Lasix, currently controlled with potassium replacement. Plan: Continue home potassium supplement 40 mEq p.o. q.day. Assessment 8: Hyperlipidemia, chronic. Plan: Will hold atorvastatin during inpatient stay. Assessment 9: Hypertension, chronic. Plan: Holding carvedilol 6.25 mg p.o. b.i.d., and lisinopril 20 mg p.o. q.day as noted above. Assessment 10: Osteoarthritis, chronic. Plan: Continue home Tylenol #3, Celebrex, and baclofen. Assessment 11: Depression, chronic. Plan: Continue fluoxetine 40 mg p.o. q.day and venlafaxine 75 mg p.o. q.day. Assessment 12: Eleveated liver enzymes, likely acute phase reactants, trending down. Plan: Will trend CMP in the morning again. DVT prophylaxis: Warfarin, lovenox. GI prophylaxis: Omeprazole 20 mg p.o. q.day Code: Full Quality VTE Deep Vein Thrombosis/Pulmonary Embolism Present on Admission: No
[2019-09-15] MEDS: WARFARIN 5 MG TABLET PO (09:04)
[2019-09-15] MEDS: CELECOXIB 200 MG CAPSULE PO (09:04)
[2019-09-15] MEDS: PANTOPRAZOLE 20 MG TABLET PO (09:04)
[2019-09-15] MEDS: POTASSIUM CHLORIDE 10 MEQ TAB 40 MEQ PO (09:04)
[2019-09-15] MEDS: VENLAFAXINE ER 75 MG CAP PO (09:05)
[2019-09-15] MEDS: ENOXAPARIN 100 MG/ML SYRINGE 90 MG SUBCUT ×2 (09:05→20:23)
[2019-09-15] MEDS: SODIUM CHLORIDE 0.9% FLUSH 10 ML IV ×2 (09:06→20:24)
--- NOTE | 2019-09-15 09:06 | CM.DANOTE ---
Case received, EMR reviewed and met with patient. Introduced self and role. Was able to meet with patient. Was able to obtain baseline history and health information from patient. DCP assessment completed with information currently available. Patient is a 69 year old female who admitted yesterday afternoon to the care of the hospitalist team. PCP: Dr. Diez. Payer: confirmed: [facility]. Patient came to the hospital via ambulance secondary to chest pain and shortness of breath. Patient holds diagnosis of a-fib, as well as CHF. She is on Diltiazem drip in ICU. Met with patient. Alert and oriented. Stated that she lives with her significant other, Eliseo. She is independent, confirmed that she does not have home oxygen, or uses any DME supplies. She drives. P: DCP will continue to follow closely. Patient should be able to go home when she is medically stable. Deana Calle RN/Fire Prevention Officer
[2019-09-15 09:31] LABS: Magnesium 2.3 mg/dL (1.6-2.3)
[2019-09-15] MEDS: DIGOXIN 500 MCG/2 ML AMPUL IV (09:36)
[2019-09-15] MEDS: DILTIAZEM 125 MG/125 ML PIGGYBACK 25 MG IV (10:57)
--- NOTE | 2019-09-15 11:04 | DI.RAD.S_ITS ---
PROCEDURE: XR CHEST 1V INDICATIONS: shortness of breath TECHNIQUE: One view of the chest was acquired. COMPARISON: [facility], CR, XR CHEST 1V, 09/14/2019, 15:05. FINDINGS: Surgical changes and devices: Stable postsurgical changes from valve replacement. Median sternotomy wires are intact. Lungs and pleura: Persistent diffuse interstitial prominence. Mild loss of vascular distinctness. No substantial pleural effusion. No pneumothorax. No focal consolidation. Mediastinum: The cardiomediastinal contours remain stable with enlargement of the cardiac silhouette. Bones and chest wall: No suspicious bony lesions. Overlying soft tissues appear unremarkable. IMPRESSION: Persistent diffuse interstitial prominence and loss of vascular distinctness which is again suggestive of pulmonary edema. Infectious/inflammatory process not excluded if clinically appropriate. No focal consolidation identified. Dictated by: Idris Gonzalez M.D. on 09/15/2019 at 11:56 Approved by: Idris Gonzalez M.D. on 09/15/2019 at 12:12
--- NOTE | 2019-09-15 11:27 | PT-IP ANOTE ---
checked with nursing this morning and stated that pt has a-fib and HR is still not stable for PT to work with. To f/u this afternoon. Also informed nurse regarding bedrest order and nurse acknowledged.
--- NOTE | 2019-09-15 12:49 | PM.CN ---
History of Present Illness Consult details Date Patient Seen: 09/15/19 Time Patient Seen: 12:49 Chief complaint: Chest Pain / SOB Reason for consult: Atrial fibrillation Requesting provider: Donya Diez Narrative: Dr. Diez has asked that I consult on this 69-year-old female admitted with CHF and rapid atrial fibrillation. She has a long history of hypertension but no cardiac history until she was admitted in 2007 with CHF and was moderately anemic. An echocardiogram at that time suggested hyperdynamic systolic function with LVH and LVOT obstruction with a peak velocity of 5.2 m/sec and systolic anterior motion of the mitral valve. She was evaluated by Dr. Bingham and had metoprolol increased. She subsequently failed follow-up with him but apparently had further cardiac evaluation at [facility] with a reportedly normal cardiac catheterization for coronary disease but documentation of severe mitral regurgitation for which she received a mechanical mitral valve in 2007. She has had no subsequent cardiology follow-up and states that she has generally been doing fairly well although her daughter states that she has had chronic dyspnea. She had an echocardiogram in 2012 that showed an EF of 55 to 60% with normal left ventricular size and wall thickness with normal systolic function and normal function of her mechanical mitral valve with a mean gradient of 4.2 mm Hg and PAP of 31 mm Hg and a CVP of 3 mm Hg. There was moderate left atrial enlargement and normal right ventricle. Review of outside records also suggest that she has had significant obstructive sleep apnea requiring BiPAP as well as depression. She recently was documented to have a low TSH is 0.09 but a normal free T4 of 0.8 measured in June 2019. She was seen at [facility] ED in April 2019 with a 2 week history of progressive dyspnea and chest discomfort and she admitted to being noncompliant with her medication. At that time, her heart rate was 85 in sinus rhythm with a BP 122/47. Her potassium is 3.1 and had a normal troponin and a elevated BNP of 279. Her INR was 1.4 and her chest x-ray was concerning for CHF. Her medications were restarted and she was discharged home. She states that she subsequently did well and has been compliant with her medications and CPAP although stopped several weeks ago when her CPAP system broke. She reports adequate INRs since April. Over the last 1-1/2 weeks she has again developed progressive dyspnea, culminating in orthopnea with a sense of palpitations over this period of time that she has never had before. With this, she has had a sense of intermittent mild pleuritic chest pressure but no anginal-type symptoms. She denies any pedal edema but does report an 8 lb weight gain over the last several weeks. She presented to the emergency room and was found to be in rapid atrial fibrillation at 144 bpm with a BP 108/68 and was started on IV diltiazem with some improvement in her heart rate now to around 100-120. Her laboratory was notable for an INR of 1.3 with a potassium of 3.7. The magnesium was not checked but has subsequently been normal. She had a normal troponin and a BNP of 244 which has now improved down to 150 today. Her TSH was 0.71 and a chest x-ray again was suggestive of some CHF. She has been started on IV furosemide and Lovenox and this morning feels somewhat improved but continues to have significant dyspnea, particularly supine. She has not had any further chest discomfort. Her cardiac risk factors included a history of tobacco addiction with a 40 pack-year history but none since 1996. She has significant hyperlipidemia for which he is on atorvastatin but has been stopped during this admission. There is a family history of premature coronary disease and hypertension. A complete review of systems is performed and is notable for her weight gain but denies any bleeding issues. 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 She had 1 to 2 alcoholic beverages per week. Meds Home Medications and Allergies Home Medications Medication Instructions Recorded Confirmed Type fluoxetine 40 mg PO DAILY #0 07/04/08 09/14/19 History lisinopril 20 mg PO DAILY #0 07/04/08 09/14/19 History acetaminophen 325 - 650 mg PO Q4-6H PRN 05/20/19 09/14/19 History acetaminophen-codeine 1 tab PO Q4H PRN 05/20/19 09/14/19 History atorvastatin 20 mg PO DAILY 05/20/19 09/14/19 History baclofen 10 mg PO TID PRN 05/20/19 09/14/19 History carvedilol 6.25 mg PO BID 05/20/19 09/14/19 History celecoxib 200 mg PO DAILY 05/20/19 09/14/19 History furosemide 80 mg PO DAILY 05/20/19 09/14/19 History omeprazole 20 mg PO DAILY 05/20/19 09/14/19 History potassium chloride 40 meq PO DAILY 05/20/19 09/14/19 History venlafaxine 75 mg PO DAILY 05/20/19 09/14/19 History warfarin 4 mg PO SUMOTUTHSA 05/20/19 09/14/19 History warfarin 5 mg PO WESA 05/20/19 09/14/19 History diclofenac sodium 0 g TOPICAL DIRECTED 09/14/19 09/14/19 History Allergies Allergy/AdvReac Type Severity Reaction Status Date / Time No Known Drug Allergies Allergy Verified 09/14/19 14:57 Exam Vital Signs (past 8 hours): - 09/15/19 05:00 09/15/19 06:00 09/15/19 07:00 Temperature Pulse Rate 111 H 98 H 107 H Respiratory Rate 27 H 21 20 Blood Pressure 128/88 118/66 129/77 Pulse Oximetry 99 98 98 09/15/19 07:29 09/15/19 07:45 09/15/19 08:00 Temperature 98.1 F Pulse Rate 117 H Respiratory Rate 19 Blood Pressure 124/69 Pulse Oximetry 96 93 09/15/19 09:00 09/15/19 09:36 09/15/19 10:15 Temperature Pulse Rate 93 H 130 H 133 H Respiratory Rate 23 20 Blood Pressure 124/75 121/66 Pulse Oximetry 97 95 09/15/19 11:00 09/15/19 12:00 Temperature 98.7 F Pulse Rate 128 H 116 H Respiratory Rate 23 23 Blood Pressure 136/72 116/56 L Pulse Oximetry 99 99 Oxygen Delivery Method Nasal Cannula Oxygen Flow Rate 2 Narrative Exam Narrative: She is a moderately obese middle-aged white female who appears dyspneic but no distress. Skin: Warm and dry. Skin: Warm and dry. HEENT: EOMI without arcus. She is edentulous. Lungs: Reduced breath sounds throughout with a slight expiratory wheeze and perhaps slight rales. CV: Nonpalpable PMI with a rapid, irregular rhythm with distant but crisp mechanical S2. No appreciable murmurs. JVP is likely 7-8 cm Carotid pulses are 2+ bilaterally. Femoral pulses are trace bilaterally. No bruits. Dorsalis pedis is 1+ in the right and nonpalpable on the left and posterior tibial pulses nonpalpable right and 2+ on the left. Abdomen: Moderately obese with mild lower abdominal tenderness but no guarding or rebound. Normal bowel tones are present. No obvious hepatosplenomegaly. Extremities: Warm, without clubbing, cyanosis or edema. Neuro: Grossly nonfocal, moves all 4 extremities Psych: Awake, alert, and appropriate Objective Labs Result Diagrams: 09/15/19 04:35 09/15/19 04:35 Labs: Laboratory Results - last 24 hr 09/14/19 09/14/19 09/14/19 14:40 14:40 14:40 WBC 11.4 H RBC 4.14 Hgb 12.2 Hct 36.8 MCV 88.7 MCH 29.4 MCHC 33.2 RDW 16.4 H Plt Count 311 Neut % (Auto) 71.1 Lymph % (Auto) 20.3 L [place] % (Auto) 7.0 Eos % (Auto) 0.6 L Baso % (Auto) 1.0 Neut # (Auto) 8100 H Lymph # (Auto) 2300 [place] # (Auto) 800 Eos # (Auto) 100 Baso # (Auto) 100 PT 14.9 H INR 1.3 APTT 33 Sodium 139 Potassium 3.7 Chloride 100 Carbon Dioxide 28 BUN 18 H Creatinine 0.60 Estimated GFR > 60.0 BUN/Creatinine Ratio 30.0 H Glucose 162 H Calcium 10.0 Magnesium Total Bilirubin 0.9 AST 39 H ALT 32 Alkaline Phosphatase 137 H Total Creatine Kinase 75 CK-MB (CK-2) TNP CK-MB (CK-2) Rel Index TNP Troponin I 0.018 B-Natriuretic Peptide Total Protein 8.1 Albumin 4.6 Globulin 3.5 Albumin/Globulin Ratio 1.3 Lipase 89 TSH Nasal Screen MRSA (PCR) 09/14/19 09/14/19 09/14/19 14:40 14:45 18:10 WBC RBC Hgb Hct MCV MCH MCHC RDW Plt Count Neut % (Auto) Lymph % (Auto) [place] % (Auto) Eos % (Auto) Baso % (Auto) Neut # (Auto) Lymph # (Auto) [place] # (Auto) Eos # (Auto) Baso # (Auto) PT INR APTT Sodium Potassium Chloride Carbon Dioxide BUN Creatinine Estimated GFR BUN/Creatinine Ratio Glucose Calcium Magnesium Total Bilirubin AST ALT Alkaline Phosphatase Total Creatine Kinase CK-MB (CK-2) CK-MB (CK-2) Rel Index Troponin I B-Natriuretic Peptide 244 H Total Protein Albumin Globulin Albumin/Globulin Ratio Lipase TSH 0.71 Nasal Screen MRSA (PCR) Negative for mrsa 09/15/19 09/15/19 09/15/19 04:25 04:35 04:35 WBC 10.3 RBC 3.85 L Hgb 11.2 L Hct 34.2 L MCV 89.0 MCH 29.1 MCHC 32.7 RDW 16.8 H Plt Count 292 Neut % (Auto) 61.3 Lymph % (Auto) 27.6 [place] % (Auto) 8.7 Eos % (Auto) 2.2 Baso % (Auto) 0.2 Neut # (Auto) 6300 Lymph # (Auto) 2800 [place] # (Auto) 900 Eos # (Auto) 200 Baso # (Auto) 0 PT INR APTT Sodium 137 Potassium 4.0 Chloride 98 Carbon Dioxide 29 BUN 15 Creatinine 0.60 Estimated GFR > 60.0 BUN/Creatinine Ratio 25.0 H Glucose 155 H Calcium 9.7 Magnesium 2.3 Total Bilirubin 0.8 AST 31 ALT 29 Alkaline Phosphatase 131 H Total Creatine Kinase CK-MB (CK-2) CK-MB (CK-2) Rel Index Troponin I B-Natriuretic Peptide Total Protein 7.2 Albumin 4.1 Globulin 3.1 Albumin/Globulin Ratio 1.3 Lipase TSH Nasal Screen MRSA (PCR) 09/15/19 09/15/19 04:35 04:35 WBC RBC Hgb Hct MCV MCH MCHC RDW Plt Count Neut % (Auto) Lymph % (Auto) [place] % (Auto) Eos % (Auto) Baso % (Auto) Neut # (Auto) Lymph # (Auto) [place] # (Auto) Eos # (Auto) Baso # (Auto) PT INR APTT Sodium Potassium Chloride Carbon Dioxide BUN Creatinine Estimated GFR BUN/Creatinine Ratio Glucose Calcium Magnesium Total Bilirubin AST ALT Alkaline Phosphatase Total Creatine Kinase CK-MB (CK-2) CK-MB (CK-2) Rel Index Troponin I 0.022 B-Natriuretic Peptide 150 H Total Protein Albumin Globulin Albumin/Globulin Ratio Lipase TSH Nasal Screen MRSA (PCR) Assessment & Plan Assessment & Plan narrative: 1. Rapid atrial fibrillation. I suspect this is new onset given her description but has likely been present for at least the last 1 to 2 weeks and therefore cardioversion is not recommended until she has had adequate therapeutic anticoagulation for 3 to 4 continuous weeks. In the meantime, I would strive for heart rate control. I would continue with digoxin loading and will restart low-dose metoprolol which can be incrementally advanced as her blood pressure allows. Hopefully, with this, and diuresis to reduce this stimulus for tachycardia, her heart rate will improve and her digoxin and diltiazem can be stopped. Once her heart rate is adequately controlled and she is adequately volume compensated, then I suspect she can be discharged with follow-up with consideration for an outpatient cardioversion after documentation of adequate anticoagulation for 3 to 4 weeks. Her abnormal TSH should be further investigated with a free T3 to ensure that she does not have occult hyperthyroidism. 2. Pulmonary edema. She clearly has some evidence of volume excess on exam. Whether this is due to reduced LV systolic function, diastolic dysfunction from rapid atrial fibrillation, or mitral valve dysfunction remains to be seen. An echocardiogram will be obtained to re-evaluate valvular and ventricular function. In the meantime, I would fairly aggressively attempt diuresis with close monitoring of her electrolytes and renal function. Her potassium should be maintained greater than 4.0 and magnesium greater than 2.0 consistently. 3. Status post account of her mitral valve replacement with subtherapeutic INR. I agree with institution of Lovenox until her INR is therapeutic. Her echocardiogram hopefully will provide some insight as to her valve function. She should be encouraged to be compliant with all of her medications. 4. Hyperlipidemia. She has had marked hyperlipidemia in the past and I would restart her atorvastatin as soon as feasible. 5. Obstructive sleep apnea on BiPAP. Her failure of her BiPAP compliance may have triggered her atrial fibrillation and this should be reinstituted as soon as possible. RECOMMENDATIONS: 1. Start metoprolol 12.5 mg q.6 hours and titrate upward as her heart rate and blood pressure allow. 2. Continue with digoxin loading, with a daily dose of 0.25 mg with a digoxin level in 2 to 3 days if she appears to require ongoing digoxin therapy. 3. Continue with Lovenox injections until her INR is therapeutic. 4. Continue with vigorous IV diuresis, converting back to oral diuresis when she approaches euvolemia. Monitor renal function and electrolytes closely, maintaining a potassium level greater than 4.0 and magnesium level greater than 2.0 continuously. 5. Restart atorvastatin prior to discharge. 6. Check free T3. 7. Check an echocardiogram. I have spent 95 minutes reviewing the patient's medical record interviewing and examining the patient and answering her questions. Time Spent With Patient Time with patient: Greater than 35 minutes
[2019-09-15] MEDS: FUROSEMIDE 40 MG/4 ML VIAL IV (13:47)
[2019-09-15] MEDS: METOPROLOL IR 25 MG TABLET 12.5 MG PO ×2 (13:48→18:24)
--- NOTE | 2019-09-15 13:58 | PC.NURSE ---
Addendum entered by Greg Vidal R.N. 09/15/19 15:01: Pt HR trending post metoprolol/lasix/dig administration. Dilt gtt titrated to off. Pt remains in A fib with rates ranging 60s-80s with occ PVCs. Pt reports she is able to breathe better at this point. Addendum entered by Greg Vidal R.N. 09/15/19 14:24: Pt up to [facility] to void after receiving IV lasix. Pt void 400 ML of cloudy ganga urine with sediment. Pt reports having some burning on urination earlier. UA sent. Original Note: Rec'd pt sitting up in bed with shallow, labored RR low to mid 20s. Pt denies CP but reports shortness of breath at rest and worse on exertion. Remains afib RVR rates up to 140s at rest on dilt gtt at 8 mg/hr titrating up for rate control. Dr. Diez rounded ~ 0800. Reported VS, assessment findings, dilt gtt rate, reported pt c/o chest pressure on exertion, shortness of breath at rest. Discussed lab values. Discussed meds. Orders received for consult to cardiology. Pt remained RVR despite titration to 15 mg/hr dilt, dyspneic, and reporting intermittent palpitations/pressure. Dr. Diez called back around 0920 with orders to titrate dilt gtt beyond 15 mg/hr to acheive rate control and orders for IV digoxin. Called to Dr. Diez ~1100. Reported assessment findings, VS, dilt gtt rate, rate/rhythm, no improvement in HR or dyspneic symptoms, new wheezing on auscultation bilaterally. Dr. Diez states that Dr. Cannon will be in soon to assess pt and make orders. Orders rec'd for STAT CXR. Dr. Cannon rounded ~1230. Orders received for IV lasix and PO metoprolol. Educated pt to med regimen, plan of care. She verbalizes understanding.
--- NOTE | 2019-09-15 14:18 | OT.IPNOTE ---
Touched base with nursing regarding see pt for OT eval. Nursing states pt still in A-fib and very short of breath and together decided best to see pt tomorrow for OT eval.
--- NOTE | 2019-09-15 14:19 | PT-IP ANOTE ---
OT just talked to the nurse regarding pt and stated that pt is still on A-fib and HR still not stable and not to ambulate pt. pt will be on hold for PT at this time. nurse is aware that pt is still has bedrest order.
[2019-09-15 14:37] LABS: Appearance Urine UA CLEAR; Bilirubin Urine UA NEGATIVE (NEGATIVE); Color Urine UA YELLOW; Glucose Urine UA TRACE g/dL (Negative); Ketones Urine UA NEGATIVE (NEGATIVE); Leukocyte Esterase Urine UA NEGATIVE (NEGATIVE); Nitrite Urine UA NEGATIVE (Negative); Occult Blood Urine UA TRACE-INTACT (Negative); Protein Urine UA TRACE (Negative)
[2019-09-15 14:43] LABS: Bacteria Urine Few (2-10); Culture Indicated Urine Cult Not Indicated; RBC Urine 1-5/HPF (0-5/HPF); Squamous Epithelial Cell Urine 1-5 /HPF (0-5/HPF); WBC Urine 0-1/HPF (0-5/HPF)
[2019-09-15] MEDS: DIGOXIN 500 MCG/2 ML AMPUL 250 MCG IV ×2 (14:45→20:24)
[2019-09-15] MEDS: ACETAMINOPHEN 325 MG TABLET 650 MG PO (15:50)
[2019-09-15 19:03] LABS: Free T3, Triiodothyronine Free 3.61 pg/mL (2.77-5.27)
--- NOTE | 2019-09-15 19:06 | PC.NURSE ---
1825 - Pt sitting up in bed. Reports headache improved following Tylenol. A-fib Hr 90's, BP 109/60, Metoprolol given as ordered.
[2019-09-15] MEDS: DOCUSATE 100 MG CAPSULE PO (20:27)
[2019-09-16] VITALS (20 sets, daily range): BP systolic 104–152; BP diastolic 56–88; PULSE 48–102; RESP 19–33; TEMP 36.3–36.8; O2SAT 87–100
[2019-09-16] MEDS: FUROSEMIDE 40 MG/4 ML VIAL IV ×3 (00:22→18:10)
[2019-09-16] MEDS: METOPROLOL IR 25 MG TABLET 12.5 MG PO ×2 (00:22→05:36)
[2019-09-16] MEDS: SODIUM CHLORIDE 0.9% FLUSH 10 ML IV ×3 (00:22→20:36)
--- NOTE | 2019-09-16 06:27 | PC.NURSE ---
Almond Blancher Note-Patient is A/Ox3, uses call light appropriately for assist to BSC, 40mg IV Lasix given at midnight along with 12.5mg PO metoprolol Q6h. A-fib CVR, rate mostly 70s-80s, did decreased to 48-60s few times, 0300 dose of IV Digoxin held. On 1-2L NC keeping SpO2 .92%, audible wheezes heard in am, centered in upper airway, lung sounds CTA in am, remains tachypneic 20s.
--- NOTE | 2019-09-16 07:26 | P.PN_ITS ---
Subjective Subjective Date Patient Seen: 09/16/19 Time Patient Seen: 07:26 Interval history: Feeling much better this morning, breathing has improved. Denies any chest pain or chest pressure. Still not able to fully lie supine but much improved. Feels that her heart is not beating as quickly. Appetite is normal, no nausea or vomiting. Voiding and stooling normally. Exam Vital Signs (past 8 hours): - 09/16/19 00:00 09/16/19 00:30 09/16/19 01:00 Temperature 98.2 F Pulse Rate 53 L 82 Respiratory Rate 26 H 26 H Blood Pressure 127/72 149/88 H Pulse Oximetry 95 100 95 09/16/19 02:00 09/16/19 03:00 09/16/19 03:18 Temperature Pulse Rate 88 76 48 L Respiratory Rate 27 H 25 H Blood Pressure 133/69 132/62 132/62 Pulse Oximetry 91 93 09/16/19 04:00 09/16/19 05:00 09/16/19 06:00 Temperature Pulse Rate 79 79 84 Respiratory Rate 24 24 25 H Blood Pressure 125/85 104/60 152/87 H Pulse Oximetry 93 93 95 09/16/19 07:00 Temperature Pulse Rate 78 Respiratory Rate 24 Blood Pressure 140/83 Pulse Oximetry 100 Oxygen Delivery Method Nasal Cannula Oxygen Flow Rate 1 Narrative Exam Narrative: GENERAL: Alert and oriented, appearing stated age, breathing with short breaths. HEENT: Head normocephalic/atraumatic. Pupils equal, round, and reactive to light and accomodation. Extraocular muscles intact. Tympanic membranes clear. Nasal mucosa moist, septum midline. Oral mucosa moist, no lesions. Neck soft and supple, no lymphadenopathy. LUNGS: Respiratory effort is labored, otherwise clear to auscultation. No wheezes, rhonchi, or rales. CV: Irregularly irregular, mechanical valve, no murmurs, rubs or gallops. ABDOMEN: Soft, non-tender, non-distended, no organomegaly. Positive bowel sounds. EXTREMITIES: No clubbing, cyanosis, or edema. NEURO: Cranial nerves II through XII grossly intact, no focal deficits. PSYCH: Alert and oriented x 3. SKIN: No concerning lesions. Objective Labs Result Diagrams: 09/15/19 04:35 09/15/19 04:35 Labs: Laboratory Results - last 24 hr 09/15/19 09/15/19 09/15/19 04:25 04:35 14:25 Magnesium 2.3 Free T3 3.61 Urine Color Yellow Urine Appearance Clear Urine pH 5.0 Ur Specific [place] 1.020 Urine Protein Trace H Urine Glucose (UA) Trace H Urine Ketones Negative Urine Occult Blood Trace-intact Urine Nitrate Negative Urine Bilirubin Negative Urine Urobilinogen 1.0 Ur Leukocyte Esterase Negative Urine RBC 1-5/hpf Urine WBC 0-1/hpf Ur Squamous Epith Cells 1-5 /hpf Urine Bacteria Few (2-10) H Ur Culture Indicated? Cult not indicated Assessment & Plan Assessment & Plan narrative: Hospital Day #2 Assessment 1: Atrial fibrillation with rapid ventricular rate, improving, Dr. Cannon consulting. Plan: Continue diltiazem drip for rate control. Dr. Cannon has added digoxin, will continue that and check digoxin level in 2-3 days (Friday or Friday) if patient remains on this medication. Dr. Cannon has also added metoprolol 12.5 mg p.o. q.6 hours and may increase that today as she has been in the hypertensive range. Assessment 2. Pulmonary edema. Likely secondary to diastolic dysfunction due to rapid atrial fibrillation. Plan: Will continue Lasix diuresis 40 mg IV b.i.d. close monitoring of her electrolytes and renal function. Assessment 3: CHF, with preserved ejection fraction, echo yesterday showed an EF 55-60% with normal systolic function, increased left ventricular thickness with normal size, and an increased mean mitral valve gradient. Chest x-ray showed cardiomegaly and some interstitial prominence. BNP trending down. Plan: Continue Lasix 40 mg IV b.i.d, will monitor electrolytes closely and maintain potassium levels greater than 4.0 and magnesium levels greater than 2.0. Will also continue to hold home blood pressure medications with anticipation for a change to metoprolol and possibly an additional agent upon discharge per Dr. Cannon's recommendations. Assessment 4: History of chest pain within the last week, rule out CT, currently asymptomatic Plan: Serial cardiac enzymes x 3, will watch closely and repeat with symptoms of chest pain. Assessment 5: Mitral valve replacement, on anticoagulation. INR subthera peutic. Plan: Coumadin increased to 5 mg PO qd during inpatient stay with Lovenox bridge, planning to recheck INR in 1 week. Assessment 6: Sleep apnea, on BiPAP. Plan: RT consulting, continue BiPAP, will start to arrange for home BiPAP. Assessment 7: History of low TSH, resolved during this admission. Free T3 3.61, within normal limits. Plan: Will watch closely for occult hyperthyroidism. Assessment 8: Hypokalemia, likely secondary to Lasix, currently controlled with potassium replacement. Plan: Continue home potassium supplement 40 mEq p.o. q.day, will ensure level greater than 4.0 Assessment 9: Hyperlipidemia, chronic. Plan: Will restart atorvastatin. Assessment 10: Hypertension, chronic. Plan: Holding carvedilol 6.25 mg p.o. b.i.d., and lisinopril 20 mg p.o. q.day as noted above. Assessment 11: Osteoarthritis, chronic. Plan: Continue home Tylenol #3, Celebrex, and baclofen. Assessment 12: Depression, chronic. Plan: Continue fluoxetine 40 mg p.o. q.day and venlafaxine 75 mg p.o. q.day. Assessment 13: Eleveated liver enzymes, likely acute phase reactants, trending down. Plan: Labs pending this morning. DVT prophylaxis: Warfarin, lovenox. GI prophylaxis: Omeprazole 20 mg p.o. q.day Code: Full Quality VTE Deep Vein Thrombosis/Pulmonary Embolism Present on Admission: No
[2019-09-16 08:31] LABS: Hematocrit 32.8 % (36-46); Hemoglobin 10.8 g/dL (12.0-16.0); Mean Corpuscular HGB Conc 33.1 % (30-36); Mean Corpuscular Hemoglobin 29.4 PG (26-34); Mean Corpuscular Volume 88.9 fL (80-100); Platelet Count 283 X10^3/uL (150-400); Red Blood Cell Count 3.69 X10^6/uL (4.0-5.2); Red Cell Distribution Width 15.9 % (11.6-14.8); White Blood Cell Count 10.2 X10^3/uL (4.5-11.0)
[2019-09-16 08:42] LABS: Alanine Aminotransferase 25 IU/L (<35); Albumin 4.2 g/dL (3.5-5.0); Albumin Globulin Ratio 1.3 (1.0-2.8); Alkaline Phosphatase 125 U/L (38-126); Aspartate Aminotransferase 26 IU/L (14-36); BUN Creatinine Ratio 23.3 (6-22); Bilirubin Total 1.1 mg/dL (0.2-1.3); Blood Urea Nitrogen 14 mg/dL (7-17); Calcium 9.1 mg/dL (8.4-10.2); Carbon Dioxide 31 mmol/L (22-32); Chloride 100 mmol/L (98-107); Estimated Glomerular Filt Rate > 60.0 mL/min (>60); Globulin 3.3 g/dL (1.7-4.1); Glucose 144 mg/dL (80-110); HEMOLYSIS < 15 (0-50); Magnesium 2.1 mg/dL (1.6-2.3); Sodium 138 mmol/L (137-145); Total Protein 7.5 g/dL (6.3-8.2)
[2019-09-16 08:49] LABS: Neutrophils Absolute Manual 8262 /uL (3000-5900); Total Cells Counted 100
[2019-09-16 08:50] LABS: B Type Natriuretic Peptide 306 (<100); RBC Morphology Normal Morphology
[2019-09-16] MEDS: ENOXAPARIN 100 MG/ML SYRINGE 90 MG SUBCUT ×2 (08:55→20:36)
--- NOTE | 2019-09-16 09:16 | PT.IIE ---
Surgical History (Last Reviewed 09/14/19 @ 15:35 by Yulia Magaña DO) H/O mitral valve replacement (Acute) Medical History (Last Updated 09/14/19 @ 18:24 by Inocencia Hammer RN) Anticoagulated on Coumadin (Acute) Depression (Acute) Hypertension (Acute) Sleep apnea with use of nocturnal bilevel positive airway pressure (BPAP) (Acute) Physical Therapy Inpatient Evaluation/Re-Eval M1 PT/OT-IP Prior Functional Status Start: 09/16/19 10:45 Freq: NEEDED Status: Active Protocol: Document 09/16/19 09:16 AB (Rec: 09/16/19 10:58 AB [id number]) Medical Review Prior Functional Status Medical History Reviewed Yes Communication able to make needs known Mobility and Gait pt stated that she is independent with all mobilities and ambulation without AD but uses a SPC for long distance mobility Social History Household Members significant other Living Arrangements House Number of Floors (Floors) One Floor Number of Stairs To Enter/Railing? 1 step to enter Home Environment Standard Height Toilet,Tub/ Shower Home Equipment Straight Cane,Shower Seat with Backrest,Hand Held Shower, Grab Bars Near Toilet,Grab Bars In Shower Employment Status Unknown M2 PT-IP Current Condition Start: 09/16/19 10:45 Freq: NEEDED Status: Active Protocol: Document 09/16/19 09:16 AB (Rec: 09/16/19 10:58 AB [id number]) Physical Therapy Current Condition Current Condition Evaluation Date 09/16/19 Treatment Diagnosis A-fib; CHF; difficulty in walking Onset Date 09/14/2019 Precautions Other Precautions O2 sat; HR M3 PT-IP Subjective Start: 09/16/19 10:45 Freq: NEEDED Status: Active Protocol: Document 09/16/19 09:16 AB (Rec: 09/16/19 10:58 AB [id number]) Subjective Physical Therapy Visit Type Type Initial Evaluation Visit Start Time 09:16 Visit Stop Time 09:40 Total Visit Minutes 24 Number of MANUAL QA TESTER Visits 0 Physical Therapy Visit Comments Patient Comments pt agreeable to do PT Therapy Pain Assessment Pain Present Pain Present Denied Pain M4 PT-IP Mobility and Gait Start: 09/16/19 10:45 Freq: NEEDED Status: Active Protocol: Document 09/16/19 09:16 AB (Rec: 09/16/19 10:58 AB [id number]) PT-Bed Mobility Assessment Sit to Supine Sit to Supine Standby Assistance Scooting Scooting to Edge of Bed Standby Assistance PT-Transfer Assessment Sit to and From Stand Sit to and from Stand Contact Guard Assistance,1 Person Assistance Equipment Transfer Assistive Device Gait Belt,Front Wheeled Walker Orthotic/Prosthetic Devices or Brace: No Transfers Transfer Destination Bed Transfer Technique ambulated using FWW Transfer Ability Level of Assist Contact Guard Assistance, Minimal Assistance,1 Person Assistance,Use of Upper Extremities Comments Mobility Comments pt sitting on chair and agreed to do PT. O2 sat at 1L/min 88 to 96. HR: 103. (+) SOB throughout tx session. completed sit to stand CGA and ambulated using FWW ~ 12 ft CGA to min A and cues. pt completed sit to supine SBA and requested to stay in bed. stated that she has been up since 7 am. positioned pt in bed. call light and table placed within reach. O2 sat after tx: 93% Gait Assessment Gait Gait Assistance Required: Contact Guard Assist,Minimum Assistance Distance (Feet) 12 Able to Maintain Weight Bearing Status Yes During Gait Assistive Devices Assistive Device Gait Belt,Front Wheeled Walker Orthotic/Prosthetic Devices or Brace: Yes Gait Deviations General Gait Pattern Antalgic,Decreased Stride Length,Decreased Feet Clearance Factors Limiting Gait Function Factors Limiting Gait Function Decreased Activity Tolerance, Decreased Strength,Poor Balance,Poor Safety Awareness, Respiratory Distress Comments Gait Comments presents with unsteady antalgic gait and shuffling gait. (+) SOB PT-Balance Assessment Sitting Balance and Reactions Static Sitting Balance Ability Good Dynamic Sitting Balance Ability Good Standing Balance and Reactions Static Standing Balance Ability Fair Dynamic Standing Balance Ability Fair Device Used FWW M5 PT-IP Objective Assessments Start: 09/16/19 10:45 Freq: NEEDED Status: Active Protocol: Document 09/16/19 09:16 AB (Rec: 09/16/19 10:58 AB [id number]) Orientation Orientation/Cognition Level of Alertness Alert Orientation Name,Place,Situation Safety Awareness Decreased Safety Awareness Gross Range of Motion Lower Extremity ROM Assessment Within Functional Limits Strength Lower Extremity Strength Hip 4-/5 Knee 4-/5 Coordination Assessment Gross Coordination Gross Coordination WNL Sensation Assessment Sensation Gross Sensation WNL Muscle Tone Muscle Tone WNL Yes M6 PT-IP Treatment Start: 09/16/19 10:45 Freq: NEEDED Status: Active Protocol: Document 09/16/19 09:16 AB (Rec: 09/16/19 10:58 AB [id number]) Physical Therapy Treatment Education Education Provided Precautions,Safety M7 PT-IP Assessment and Plan Start: 09/16/19 10:45 Freq: NEEDED Status: Active Protocol: Document 09/16/19 09:16 AB (Rec: 09/16/19 10:58 AB [id number]) PT Summary Assessment and Plan Potential Rehabilitation Potential Good Status of Condition at Evaluation Evolving Summary Impairments Pain,ROM,Strength,Balance, Coordination,Sensation,Tone, Cognition,Bed Mobility, Transfers,Gait,Activity Tolerance Assessment Summary pt requiring CGA to min A with ambulation using FWW and presents with decrease activity tolerance with (+) SOB during mobiliyt. d/c plan depending on progress. pt plans to go home with her significant other to assist her. pt will benefit from outpt cardiopulomonary rehab upon d/c. Goals Bed Mobility Goal Independent Transfer Goal Independent,Front Wheeled Walker Gait Goal Independent,Front Wheel Walker Gait Distance 200 Other Goals up/down 1 step using FWW/SPC/ without AD SBA improve ambulation using SPC/ without AD 250 ft SBA Days to Meet Goals 10 Frequency of Treatment Frequency Of Treatment Once a Day Treatment Plan Physical Therapy Treatment Plan Bed Mobility Training,Transfer Training,Gait Training, Therapeutic Exercise,Balance Retraining,Post Op Education, Discharge Planning,Hot or Cold Pack,Neuromuscular Re-ed, Coordination Retraining,Manual Therapy Other Recommendations and Next Treatment ambulation Focus Recommendations To Nursing Amount of Assist Needed 1 Person Assist Discharge Recommendations PT Discharge Recommendations Home with Assistance, Outpatient PT Other Discharge Recommendations home with assist and outpt cardiopulmo rehab Equipment Needed for Home Before FWW if not safe with SPC/ Discharge without AD
[2019-09-16 09:22] LABS: Free T3, Triiodothyronine Free 3.46 pg/mL (2.77-5.27)
[2019-09-16] MEDS: POTASSIUM CHLORIDE 10 MEQ TAB 40 MEQ PO (09:22)
[2019-09-16] MEDS: ATORVASTATIN 20 MG TABLET PO (09:24)
[2019-09-16] MEDS: WARFARIN 5 MG TABLET PO (09:24)
[2019-09-16] MEDS: CELECOXIB 200 MG CAPSULE PO (09:25)
[2019-09-16] MEDS: PANTOPRAZOLE 20 MG TABLET PO (09:25)
[2019-09-16] MEDS: DOCUSATE 100 MG CAPSULE PO (09:25)
[2019-09-16] MEDS: VENLAFAXINE ER 75 MG CAP PO (09:26)
--- NOTE | 2019-09-16 11:23 | PC.NURSE ---
PT WITH INCREASED RESPIRATORY RATE AND EFFORT WITH ANY EXERTION AT ALL- RR > 40 BPM WITH OBVIOUS ABD HEAVE AND USE OF ACCESSORY MUSCLES- PT DENIES PAIN AND REMAINS AFIB CVR RATE IN THE 80'S
--- NOTE | 2019-09-16 12:33 | P.PN_ITS ---
Subjective Subjective Date Patient Seen: 09/16/19 Time Patient Seen: 12:33 Interval history: The patient feels significantly improved today with considerable less dyspnea but still not back to her baseline. She has been able to lay flatter but still not completely supine because of dyspnea. She has not ambulated. She has had a brisk diuresis of around 1.7 L. she denies any chest discomfort or lightheadedness and has no sense of any palpitations although her heart rates have become much better controlled now with heart rates generally in the 80 to 100 range. Her echocardiogram is reviewed and shows preserved left ventricular systolic function but evidence of increased CVP. Pulmonary artery pressures could not be estimated. Mitral valve function was challenging to assess because of the irregular rhythm but there are no obvious valvular abnormalities. Exam Vital Signs (past 8 hours): - 09/16/19 05:00 09/16/19 06:00 09/16/19 07:00 Temperature Pulse Rate 79 84 78 Respiratory Rate 24 25 H 24 Blood Pressure 104/60 152/87 H 140/83 Pulse Oximetry 93 95 100 09/16/19 08:50 09/16/19 08:54 09/16/19 09:58 Temperature 97.5 F L Pulse Rate 83 87 Respiratory Rate 28 H 20 Blood Pressure 143/62 H Pulse Oximetry 95 97 96 09/16/19 11:38 Temperature Pulse Rate Respiratory Rate Blood Pressure Pulse Oximetry 97 Oxygen Delivery Method Nasal Cannula Oxygen Flow Rate 1 Narrative Exam Narrative: General: Comfortable-appearing elderly female asleep but easily arousable. Skin: Warm and dry. Lungs: Reduced breath sounds throughout but no appreciable rales or wheeze. CV: Irregularly irregular rhythm without any appreciable murmurs or gallops. JVP is somewhat difficult to assess but is likely 8-9 cm with a prominent V- wave. Abdomen: Moderately obese but nondistended nontender. Extremities: Warm without any edema Neuro: Grossly intact and nonfocal Psych: Awake, alert, and appropriate Objective Labs Result Diagrams: 09/16/19 08:18 09/16/19 08:18 Labs: Laboratory Results - last 24 hr 09/15/19 09/15/19 09/16/19 04:35 14:25 08:18 WBC 10.2 RBC 3.69 L Hgb 10.8 L Hct 32.8 L MCV 88.9 MCH 29.4 MCHC 33.1 RDW 15.9 H Plt Count 283 Total Counted 100 Seg Neutrophils % 80.0 H Band Neutrophils % 1.0 L Lymphocytes % (Manual) 12.0 L Atypical Lymphs % 3.0 H Monocytes % (Manual) 3.0 Eosinophils % (Manual) 1.0 L Neutrophils # (Manual) 8262 H RBC Morphology Normal morphology Sodium Potassium Chloride Carbon Dioxide BUN Creatinine Estimated GFR BUN/Creatinine Ratio Glucose Calcium Magnesium Total Bilirubin AST ALT Alkaline Phosphatase B-Natriuretic Peptide 306 H Total Protein Albumin Globulin Albumin/Globulin Ratio Free T3 3.61 Urine Color Yellow Urine Appearance Clear Urine pH 5.0 Ur Specific [place] 1.020 Urine Protein Trace H Urine Glucose (UA) Trace H Urine Ketones Negative Urine Occult Blood Trace-intact Urine Nitrate Negative Urine Bilirubin Negative Urine Urobilinogen 1.0 Ur Leukocyte Esterase Negative Urine RBC 1-5/hpf Urine WBC 0-1/hpf Ur Squamous Epith Cells 1-5 /hpf Urine Bacteria Few (2-10) H Ur Culture Indicated? Cult not indicated 09/16/19 09/16/19 08:18 08:18 WBC RBC Hgb Hct MCV MCH MCHC RDW Plt Count Total Counted Seg Neutrophils % Band Neutrophils % Lymphocytes % (Manual) Atypical Lymphs % Monocytes % (Manual) Eosinophils % (Manual) Neutrophils # (Manual) RBC Morphology Sodium 138 Potassium 4.0 Chloride 100 Carbon Dioxide 31 BUN 14 Creatinine 0.60 Estimated GFR > 60.0 BUN/Creatinine Ratio 23.3 H Glucose 144 H Calcium 9.1 Magnesium 2.1 Total Bilirubin 1.1 AST 26 ALT 25 Alkaline Phosphatase 125 B-Natriuretic Peptide Total Protein 7.5 Albumin 4.2 Globulin 3.3 Albumin/Globulin Ratio 1.3 Free T3 3.46 Urine Color Urine Appearance Urine pH Ur Specific [place] Urine Protein Urine Glucose (UA) Urine Ketones Urine Occult Blood Urine Nitrate Urine Bilirubin Urine Urobilinogen Ur Leukocyte Esterase Urine RBC Urine WBC Ur Squamous Epith Cells Urine Bacteria Ur Culture Indicated? Assessment & Plan Assessment & Plan narrative: 1. CHF, likely from diastolic dysfunction and her rapid atrial fibrillation. Hopefully, this will continue to improve with adequate heart rate control. She continues to have evidence of significant volume excess, however, and I would continue with another 24-48 hours of IV furosemide with potential transitioning to oral furosemide following this. When she is felt to be euvolemic, I suspect she can be discharged home on oral furosemide with close outpatient observation of her volume status. 2. New onset atrial fibrillation. Her heart rate now is much better controlled since initiation of metoprolol. I will advance this further and stop her IV diltiazem and digoxin in preparation of an appropriate outpatient regimen. Her metoprolol can be incrementally advanced and then consolidated at the time of discharge and to b.i.d. dosing with doses targeted to maintain heart rates in the 70 to 100 range. She can follow-up with my nurse practitioner in around 3 to 4 weeks after continuous adequate anticoagulation with INRs greater than 2.0 for consideration of outpatient cardioversion. 3. Status post mitral valve replacement. The valve grossly appears to be functioning normally but should be reassessed once sinus rhythm is restored. Adequate anticoagulation again is imperative to insure continued normal valve function. RECOMMENDATIONS: 1. Continue with IV diuresis for another 24 to 48 hours until she is near euvolemia and then transition to oral furosemide with dose is adequate to maintain euvolemia. 2. Continue to monitor potassium and magnesium on a daily basis, ensuring that her potassium stays greater than 4.0 and magnesium greater than 2.0. 3. Stop digoxin and diltiazem and advanced oral metoprolol as needed to maintain heart rates generally less than a 90 to 100 bpm with consolidation to the b.i.d. dosing at the time of discharge. 4. Insure that her INR stays greater than 2.0 continuously for the next 3 to 4 weeks 5. Follow-up with my nurse practitioner in 3 to 4 weeks for consideration of arranging for an outpatient cardioversion if she does not spontaneously convert to sinus rhythm. At this point, I will sign off. If you have any further questions or concerns, please don't hesitate to call the software design engineer on-call tomorrow. I spent 41 minutes reviewing the patient's medical record, interviewing and examining the patient and providing documentation. Time Spent With Patient Time with patient: Greater than 35 minutes Quality VTE Deep Vein Thrombosis/Pulmonary Embolism Present on Admission: No
[2019-09-16] MEDS: METOPROLOL IR 25 MG TABLET PO ×3 (13:20→23:45)
--- NOTE | 2019-09-16 17:12 | OT.IP.EVAL ---
Past Medical History (Last Updated 09/14/19 @ 18:24 by Inocencia Hammer RN) Anticoagulated on Coumadin (Acute) Depression (Acute) Hypertension (Acute) Sleep apnea with use of nocturnal bilevel positive airway pressure (BPAP) (Acute) Surgical History (Last Reviewed 09/14/19 @ 15:35 by Yulia Magaña DO) H/O mitral valve replacement (Acute) Occupational Therapy Inpatient Evaluation/Re-Eval M2 OT-IP Current Condition Start: 09/16/19 16:50 Freq: Status: Active Protocol: Document 09/16/19 16:50 [facility] (Rec: 09/16/19 17:10 [facility] [id number]) Occupational Therapy Current Condition Current Condition Evaluation Date 09/16/19 Treatment Diagnosis A-fib, CHF Diagnosis Onset Date 09/14/19 Weight Bearing Status Weight Bearing Status Weight Bear as Tolerated M3 OT- IP Subjective and Pain Start: 09/16/19 16:50 Freq: Status: Active Protocol: Document 09/16/19 16:50 [facility] (Rec: 09/16/19 17:10 [facility] [id number]) OT- Subjective Occupational Therapy Visit Type Type Initial Evaluation Visit Start Time 16:13 Visit Stop Time 16:52 Total Visit Minutes 39 Occupational Therapy Visit Comments Patient Comments Pt initially not wanting to get up. Pt's significant other in the room for the beginning of the OT eval. Patient/Caregiver Goals To go home. OT Pain Assessment Pain When Pain Assessed At Rest Pain Present Pain Present Denied Pain M4 OT- IP ADL's Start: 09/16/19 16:50 Freq: Status: Active Protocol: Document 09/16/19 16:50 [facility] (Rec: 09/16/19 17:10 [facility] [id number]) OT [id number] Comments OT Self-Feeding Comments Not at meal time. OT ADL-Grooming Comments OT Grooming Comments Pt states already did grooming while sitting in bed. OT ADL-Dressing Comments OT Dressing Comments Pt initially trying to guido her socks and O2 on 1L dropped to 86%. Afterwards, pt not wanting to try again and insisting that she can do all her dressing needs on her own. OT ADL-Toileting Comments OT Toileting Comments Pt not having to go. OT ADL-Bathing Comments OT Bathing Comments Pt not wanting to shower at this time. M6 OT- IP Functional Cognition Start: 09/16/19 16:50 Freq: Status: Active Protocol: Document 09/16/19 16:50 [facility] (Rec: 09/16/19 17:10 [facility] [id number]) Cognitive Factors Limiting Selfcare Function Cognitive Ability Level of Alertness Alert Patient Orientation Name,Place,Situation Attention Span Ability Capable of Focused Attention, Capable of Sustained Attention Ability to Follow Commands Able to Follow One Step Commands Safety Awareness Underestimates Need for Assistance Problem Solving Ability Needs Assist to Identify Solutions Cognitive Comments Cognitive Assessment Comments Initially pt having trouble using her phone to look up pictures and than able to recall. Pt states has short term memory issues. OT- Vision and Hearing OT- Hearing Assessment OT- Hearing Assessment WFL OT- Vision Assessment Vision Assessment Comments Pt able to read the clock accurately. M7 OT- IP Mobility and Balance Start: 09/16/19 16:50 Freq: Status: Active Protocol: Document 09/16/19 16:50 [facility] (Rec: 09/16/19 17:10 [facility] [id number]) OT- Bed Mobility Assessment Rolling Level of Assistance Contact Guard Assistance Supine to Sit Supine to Sit Assist Contact Guard Assistance OT-Transfer Assessment Sit to and From Stand Sit to and from Stand Contact Guard Assistance Transfers Transfer Ability Contact Guard Assistance Technique Transfer Destination Bed,Chair Transfer Technique Stand Step Pivot Devices Transfer Assistive Devices Gait Belt,Front Wheeled Walker Comments Mobility Comments Pt needing cue to log rolling to help get out of the bed as initially trying to come up into log sitting. Pt normally gets out of the left side of the bed. Due to numerous cords , got pt out on the right side . OT- Balance Assessment Sitting Balance and Reactions Static Sitting Balance Ability Good Dynamic Sitting Balance Ability Good Standing Balance and Reactions Static Standing Balance Ability Fair M8 OT- IP Objective Assessments Start: 09/16/19 16:50 Freq: Status: Active Protocol: Document 09/16/19 16:50 [facility] (Rec: 09/16/19 17:10 [facility] [id number]) OT Gross Range of Motion Upper Extremity Range of Motion Assessment Right Impaired ROM Impairments Pt states has difficulty to wash her hair due to decreased AROM with at end ranges for shoulder flexion R>L. OT Strength Upper Extremity Strength Assessment Bilaterally Impaired Comments Strength Comments RUE 4-/5, LUE 4/5 OT-Muscle Tone Assessment Muscle Tone WNL No M9 OT- IP Assessment and Plan Start: 09/16/19 16:50 Freq: Status: Active Protocol: Document 09/16/19 16:50 [facility] (Rec: 09/16/19 17:10 [facility] [id number]) OT Summary Assessment and Plan Potential Rehabilitation Potential Good Analytic Complexity at Evaluation Low Summary OT Impairments Strength,Functional Cognition, Functional Mobility,Dressing, Toileting,Bathing,Toilet Transfers,Shower Transfers Progress Towards Goals Slow Progress due to Medical Issues,Slow Progress due to Activity Tolerance Assessment Summary Pt low complexity due to decreased activity tolerance from a-fib and now needing assist for ADL and functional mobility needs. Pt now on 1-2L of O2 and respiration rates increases to over 40 during exertion. Pt adamant on going home but would benefit from skilled rehab versus home with home health, versus cardiopulmonary rehab pending medical status and caregiver training for pt's significant other. Goals Self-Feeding Goal Independent Grooming Goal Independent Dressing Goal Independent Toileting Goal Independent Bathing Goal Standby Assistance Toilet Transfer Goal Independent Shower Transfer Goal Independent Patient/Caregiver Education Goal Demonstrate Energy Conservation and Pacing, Caregiver Independent Assisting Patient OT-Other Goals Goal for pt without O2 and with use of 4ww. Days to Meet Goals 7 Frequency of Treatment Frequency Of Treatment Once a Day Treatment Plan OT Treatment Plan ADL Training,Functional Cognition Training,Functional Mobility,Patient/Family Education,Discharge Planning Other Treatment Recommendations and Next Standing to sink, toileting Treatment Focus Discharge Recommendations OT Discharge Recommendations Home with Assistance,Home Health,SNF Rehab Home Equipment Needs bed side commode
--- NOTE | 2019-09-16 18:58 | PC.NURSE ---
Addendum entered by Inocencia Hammer R.N. 09/16/19 22:11: 2210 - Pt sleeping, periods of apnea. Sats decrease down into the mid 80's, on 2L NC. Offered to assist pt with Bi-pap mask. Pt declines. Encouraged deep breath through nares while awake. Sats increase to 92%. Original Note: 1800 - Pt resting in chair. VS check prior to Lasix and metoprolol. BP 122/57 Hr 71, continues to be a-fib. Denies lightheadedness or chest pain. Pt up ambulate into the bathroom. SOB with activity, however sats >88% on RA. Return to bed. O2 replaced. IV to left hand compromised. New IV to left AC. Pt tolerated well. Resting in bed. Reinforced safety and call light use. Pt verbalized understanding. Call light in reach.
[2019-09-17] VITALS (7 sets, daily range): BP systolic 114–144; BP diastolic 64–83; PULSE 66–90; RESP 16–43; TEMP 36–36.9; O2SAT 95–99
[2019-09-17] MEDS: METOPROLOL IR 25 MG TABLET PO (05:51)
[2019-09-17] MEDS: FUROSEMIDE 40 MG/4 ML VIAL IV ×2 (05:51→18:12)
--- NOTE | 2019-09-17 06:39 | P.PN_ITS ---
Subjective Subjective Date Patient Seen: 09/17/19 Time Patient Seen: 06:39 Interval history: Feeling better this morning. Still unable to fully lies supine but dyspnea is improving. Heart rate is now in a normal range, continues in atrial fibrillation. Dr. Cannon has stopped her digoxin and diltiazem. She is currently on metoprolol and Lasix. Reports appetite is at baseline, denies nausea or vomiting. Voiding well secondary to Lasix. Exam Vital Signs (past 8 hours): - 09/17/19 00:00 09/17/19 04:35 Temperature 98.5 F 96.8 F L Pulse Rate 66 76 Respiratory Rate 43 H 20 Blood Pressure 134/64 138/83 Pulse Oximetry 98 96 Oxygen Delivery Method Nasal Cannula Oxygen Flow Rate 2 Narrative Exam Narrative: GENERAL: Alert and oriented, appearing stated age, breathing with short breaths. HEENT: Head normocephalic/atraumatic. Pupils equal, round, and reactive to lig ht and accomodation. Extraocular muscles intact. Tympanic membranes clear. Nasal mucosa moist, septum midline. Oral mucosa moist, no lesions. Neck soft and supple, no lymphadenopathy. LUNGS: Respiratory effort is labored, otherwise clear to auscultation. No wheezes, rhonchi, or rales. CV: Irregularly irregular, mechanical valve, no murmurs, rubs or gallops. ABDOMEN: Soft, non-tender, non-distended, no organomegaly. Positive bowel sounds. EXTREMITIES: No clubbing, cyanosis, or edema. NEURO: Cranial nerves II through XII grossly intact, no focal deficits. PSYCH: Alert and oriented x 3. SKIN: No concerning lesions. Objective Labs Result Diagrams: 09/17/19 06:45 09/17/19 06:45 Labs: Laboratory Results - last 24 hr 09/16/19 09/16/19 09/16/19 08:18 08:18 08:18 WBC 10.2 RBC 3.69 L Hgb 10.8 L Hct 32.8 L MCV 88.9 MCH 29.4 MCHC 33.1 RDW 15.9 H Plt Count 283 Total Counted 100 Seg Neutrophils % 80.0 H Band Neutrophils % 1.0 L Lymphocytes % (Manual) 12.0 L Atypical Lymphs % 3.0 H Monocytes % (Manual) 3.0 Eosinophils % (Manual) 1.0 L Neutrophils # (Manual) 8262 H RBC Morphology Normal morphology Sodium 138 Potassium 4.0 Chloride 100 Carbon Dioxide 31 BUN 14 Creatinine 0.60 Estimated GFR > 60.0 BUN/Creatinine Ratio 23.3 H Glucose 144 H Calcium 9.1 Magnesium 2.1 Total Bilirubin 1.1 AST 26 ALT 25 Alkaline Phosphatase 125 B-Natriuretic Peptide 306 H Total Protein 7.5 Albumin 4.2 Globulin 3.3 Albumin/Globulin Ratio 1.3 Free T3 3.46 Assessment & Plan Assessment & Plan narrative: Hospital Day #3 Assessment 1: Atrial fibrillation with rapid ventricular rate, improving, Dr. Cannon consulting. Plan: Per Dr. Cannon, have discontinued diltiazem drip and digoxin. She is continuing on metoprolol 25 mg p.o. q.6 hours, will transition that to 50 mg p.o. b.i.d. today and monitor her rate and blood pressure closely over the next 24 hours. If stable, anticipate discharge to home tomorrow or Friday. Assessment 2. Pulmonary edema. Likely secondary to diastolic dysfunction due to rapid atrial fibrillation, improving, -1.5 L 24 hour output. Plan: Will continue Lasix diuresis at 40 mg IV b.i.d. and continue to closely monitor her electrolytes and renal function. Plan to transition to oral lasix tomorrow at 40 mg po BID if her electrolytes are stable, will replete electrolytes if needed. Assessment 3: CHF, acute on chronic with preserved ejection fraction, echo on 09/15/18 showed an EF 55-60% with normal systolic function, increased left ventricular thickness with normal size, and an increased mean mitral valve gradient. Chest x-ray showed cardiomegaly and some interstitial prominence. BNP trending down. Plan: Continue Lasix 40 mg IV b.i.d, will monitor electrolytes closely and maintain potassium levels greater than 4.0 and magnesium levels greater than 2.0. Plan to transition to oral lasix tomorrow at 40 mg po BID if her electrolytes are stable, will replete electrolytes if needed. Assessment 4: History of chest pain within the last week, rule out MD, currently asymptomatic Plan: Serial cardiac enzymes x 3, will watch closely and repeat with symptoms of chest pain. Assessment 5: Mitral valve replacement, on anticoagulation. INR subtherapeutic. Plan: Coumadin increased to 5 mg PO qd during inpatient stay with Lovenox bridge, repeat INR today pending. Plan to closely monitor in the outpatient setting keeping INR greater than 2.0 continuously for the next 3-4 weeks. After that, will connect her to cardiology nurse practitioner for consideration of outpatient cardioversion if she does not spontaneously convert to sinus rhythm. Assessment 6: Sleep apnea, on home BiPAP, machine broken. Plan: RT consulting, discussed BiPAP with them this morning as patient has not been receiving this in the hospital. Clarified need for inpatient CPAP. Will arrange for home BiPAP. Assessment 7: History of low TSH, resolved during this admission. Free T3 3.61, within normal limits. Plan: Will watch closely for occult hyperthyroidism. Assessment 8: Hypokalemia, likely secondary to Lasix, currently controlled with potassium replacement. Plan: Continue home potassium supplement 40 mEq p.o. q.day, will ensure level greater than 4.0 Assessment 9: Hyperlipidemia, chronic. Plan: Atorvastatin. Assessment 10: Hypertension, chronic. Plan: Holding home carvedilol 6.25 mg p.o. b.i.d., and lisinopril 20 mg p.o. q.day, will discontinue at discharge in favor of metoprolol. Assessment 11: Osteoarthritis, chronic. Plan: Continue home Tylenol #3, Celebrex, and baclofen. Assessment 12: Depression, chronic. Plan: Continue fluoxetine 40 mg p.o. q.day and venlafaxine 75 mg p.o. q.day. Assessment 13: Eleveated liver enzymes, likely acute phase reactants, resolved. Plan: Will watch closely. DVT prophylaxis: Warfarin, lovenox. GI prophylaxis: Omeprazole 20 mg p.o. q.day Code: Full Disposition: Anticipate discharge to home tomorrow or Friday. Plan will be to closely monitor INRs in the outpatient setting and keep her above 2.0. Will arrange home BiPAP replacement. Will also have patient follow-up with cardiology nurse practitioner in 3-4 weeks to discuss cardioversion if she has not spontaneously converted to sinus rhythm. Quality VTE Deep Vein Thrombosis/Pulmonary Embolism Present on Admission: No
[2019-09-17 06:52] LABS: Add Manual Diff / Slide Review NO; Basophils Absolute Auto 100 /uL (0-100); Basophils Percent Auto 1.1 % (0-2); Eosinophils Absolute Auto 400 /uL (0-450); Eosinophils Percent Auto 3.9 % (2-4); Hematocrit 34.9 % (36-46); Hemoglobin 11.5 g/dL (12.0-16.0); Lymphocytes Absolute Auto 1900 /uL (1100-4500); Lymphocytes Percent Auto 19.1 % (25-40); Mean Corpuscular HGB Conc 33.1 % (30-36); Mean Corpuscular Hemoglobin 29.7 PG (26-34); Mean Corpuscular Volume 89.7 fL (80-100); Monocytes Absolute Auto 800 /uL (0-900); Monocytes Percent Auto 8.3 % (3-14); Neutrophils Absolute Auto 6900 /uL (1500-7000); Neutrophils Percent Auto 67.6 % (50-75); Platelet Count 294 X10^3/uL (150-400); Red Blood Cell Count 3.89 X10^6/uL (4.0-5.2); Red Cell Distribution Width 16.2 % (11.6-14.8); White Blood Cell Count 10.2 X10^3/uL (4.5-11.0)
[2019-09-17 06:58] LABS: INR 1.6 (0.9-1.3); Prothrombin Time 18.8 SECONDS (10.1-12.7)
[2019-09-17 07:03] LABS: Alanine Aminotransferase 23 IU/L (<35); Albumin 4.3 g/dL (3.5-5.0); Albumin Globulin Ratio 1.2 (1.0-2.8); Alkaline Phosphatase 126 U/L (38-126); Aspartate Aminotransferase 24 IU/L (14-36); BUN Creatinine Ratio 36.7 (6-22); Bilirubin Total 0.8 mg/dL (0.2-1.3); Blood Urea Nitrogen 22 mg/dL (7-17); Calcium 9.6 mg/dL (8.4-10.2); Carbon Dioxide 34 mmol/L (22-32); Chloride 100 mmol/L (98-107); Estimated Glomerular Filt Rate > 60.0 mL/min (>60); Globulin 3.6 g/dL (1.7-4.1); Glucose 142 mg/dL (80-110); HEMOLYSIS < 15 (0-50); Magnesium 2.3 mg/dL (1.6-2.3); Sodium 141 mmol/L (137-145); Total Protein 7.9 g/dL (6.3-8.2)
[2019-09-17 07:17] LABS: B Type Natriuretic Peptide 499 (<100)
--- NOTE | 2019-09-17 08:00 | CM.DPC ---
Addendum entered by Clotilde Pendleton LPN 09/17/19 10:18: Case discussed in Team Rounds. RT Candaec if working on the BIPAP. Vendor: Vinayak. RN Dalia Sweet, caring for pt today, confirms that all is being handled by RT and that Candace is updating Dr. Diez. Original Note: DCP: continued: case received this morning and just spoke with Dr. Diez, here to see pt (she is also pt's PCP). She reports pt had been on BIPAP at home but the machine was not working correctly and thus pt was not using it. Dr. Diez plans to send her home with BIPAP and she will notify RT of this today so that this can be facilitated. Asked about other needs with ? HH. Dr. Diez said she thought pt would be fine for the home setting as long as she was back on her BIPAP and that clinic followup would be sufficient. Will follow prn. P: at this point: home, likely in next day or 2 and as per above.
--- NOTE | 2019-09-17 10:22 | OT.IP.TRT ---
Current Diagnoses Unspecified atrial fibrillation (09/14/19) Occupational Therapy Treatment Note M2 OT-IP Current Condition Start: 09/16/19 16:50 Freq: Status: Active Protocol: Document 09/16/19 16:50 [facility] (Rec: 09/16/19 17:10 [facility] [id number]) Occupational Therapy Current Condition Current Condition Evaluation Date 09/16/19 Treatment Diagnosis A-fib, CHF Diagnosis Onset Date 09/14/19 Weight Bearing Status Weight Bearing Status Weight Bear as Tolerated M3 OT- IP Subjective and Pain Start: 09/16/19 16:50 Freq: Status: Active Protocol: Document 09/17/19 10:11 [facility] (Rec: 09/17/19 10:22 [facility] [id number]) OT- Subjective Occupational Therapy Visit Type Type Treatment Note Visit Start Time 09:10 Visit Stop Time 10:05 Total Visit Minutes 55 Notes Seen for shower Occupational Therapy Visit Comments Patient Comments I really need to take a shower . OT Pain Assessment Pain When Pain Assessed At Rest Pain Present Pain Present Denied Pain M4 OT- IP ADL's Start: 09/16/19 16:50 Freq: Status: Active Protocol: Document 09/17/19 10:11 [facility] (Rec: 09/17/19 10:22 C[facility] [id number]) OT NEE-Lcnw-Iltbjig General Evaluation Self-Feeding Ability Independent Comments OT Self-Feeding Comments Finishing breakfast OT ADL-Grooming General Evaluation Grooming Ability Standby Assistance Areas Needing Assistance Retrieving/Set-up of Grooming Items,Combing/Brushing Hair, Face Washing Comments OT Grooming Comments Seated in chair OT ADL-Oral Care Comments Oral Care Comments Not performed OT ADL-Dressing General Eval Upper Body Dressing Ability Independent Lower Body Dressing Ability Independent Areas Needing Assistance Retrieving/Set-up of Clothing, Underpants/Brief,Socks Comments OT Dressing Comments Hospital gown and brief and socks. OT ADL-Toileting General Evaluation Toileting Ability Standby Assistance Devices Toileting Assistive Devices Grab Bars Comments OT Toileting Comments seated on toilet OT ADL-Bathing Bathing Type Bathing Type Shower General Evaluation Bathing Ability Minimal Assistance Areas Needing Assistance Retrieving/Setting Up Items, Wash/Dry Back Devices Bathing Equipment Hand Held Shower Sprayer, Shower Chair with Arms Comments OT Bathing Comments Pt showered seated on the BSC in the shower. Pt need O2 increased to 3L for shower, oked by nursing. M6 OT- IP Functional Cognition Start: 09/16/19 16:50 Freq: Status: Active Protocol: Document 09/16/19 16:50 [facility] (Rec: 09/16/19 17:10 [facility] [id number]) Cognitive Factors Limiting Selfcare Function Cognitive Ability Level of Alertness Alert Patient Orientation Name,Place,Situation Attention Span Ability Capable of Focused Attention, Capable of Sustained Attention Ability to Follow Commands Able to Follow One Step Commands Safety Awareness Underestimates Need for Assistance Problem Solving Ability Needs Assist to Identify Solutions Cognitive Comments Cognitive Assessment Comments Initially pt having trouble useing her phone to look up pictures and than able to recall. Pt states has short term memory issues. OT- Vision and Hearing OT- Hearing Assessment OT- Hearing Assessment WFL OT- Vision Assessment Vision Assessment Comments Pt able to read the clock accurately. M7 OT- IP Mobility and Balance Start: 09/16/19 16:50 Freq: Status: Active Protocol: Document 09/17/19 10:11 [facility] (Rec: 09/17/19 10:22 CGR [email or web address]) OT- Bed Mobility Assessment Rolling Type of Rolling Roll to Right Level of Assistance Minimal Assistance Supine to Sit Supine to Sit Assist Minimal Assistance Scooting Scooting to Edge of Bed Standby Assistance OT-Transfer Assessment Sit to and From Stand Sit to and from Stand Standby Assistance Transfers Transfer Ability Standby Assistance Technique Transfer Destination Bedside Commode,Chair,Shower Stall,Toilet Transfer Technique Stand Step Pivot Devices Transfer Assistive Devices Gait Belt,Front Wheeled Walker Comments Mobility Comments Mobility around the room. OT- Gait Assessment Gait Gait Assistance Required: Standby Assistance Assistive Devices Assistive Device Gait Belt,Front Wheeled Walker Comments Gait Ability Comments Mobility around the room. OT- Balance Assessment Sitting Balance and Reactions Static Sitting Balance Ability Normal Dynamic Sitting Balance Ability Good M8 OT- IP Objective Assessments Start: 09/16/19 16:50 Freq: Status: Active Protocol: Document 09/16/19 16:50 [facility] (Rec: 09/16/19 17:10 [facility] [id number]) OT Gross Range of Motion Upper Extremity Range of Motion Assessment Right Impaired ROM Impairments Pt states has difficulty to wash her hair due to decreased AROM with at end ranges for shoulder flexion R>L. OT Strength Upper Extremity Strength Assessment Bilaterally Impaired Comments Strength Comments RUE 4-/5, LUE 4/5 OT-Muscle Tone Assessment Muscle Tone WNL No M9 OT- IP Assessment and Plan Start: 09/16/19 16:50 Freq: Status: Active Protocol: Document 09/17/19 10:11 [facility] (Rec: 09/17/19 10:22 CGR [id number]) OT Summary Assessment and Plan Potential Rehabilitation Potential Good Analytic Complexity at Evaluation Low Summary OT Impairments Strength,Functional Cognition, Functional Mobility,Dressing, Toileting,Bathing,Toilet Transfers,Shower Transfers Progress Towards Goals Slow Progress due to Medical Issues,Slow Progress due to Activity Tolerance Assessment Summary Pt is progressing well with therapy but continues to display SOB with all activity. Pt needed increased O2 for shower today. Pt did recover quickly upon sitting in chair after shower. Pt will continue to benefit from endurance training. Goals Self-Feeding Goal Independent Grooming Goal Independent Dressing Goal Independent Toileting Goal Independent Bathing Goal Standby Assistance Toilet Transfer Goal Independent Shower Transfer Goal Independent Patient/Caregiver Education Goal Demonstrate Energy Conservation and Pacing, Caregiver Independent Assisting Patient OT-Other Goals Goal for pt without O2 and with use of 4ww. Days to Meet Goals 7 Frequency of Treatment Frequency Of Treatment Once a Day Treatment Plan OT Treatment Plan ADL Training,Functional Cognition Training,Functional Mobility,Patient/Family Education,Discharge Planning Other Treatment Recommendations and Next Standing to sink, toileting Treatment Focus Discharge Recommendations OT Discharge Recommendations Home with Assistance,Home Health,SNF Rehab Home Equipment Needs bed side commode
[2019-09-17] MEDS: ENOXAPARIN 100 MG/ML SYRINGE 90 MG SUBCUT ×2 (10:23→20:42)
[2019-09-17] MEDS: SODIUM CHLORIDE 0.9% FLUSH 10 ML IV (10:24)
[2019-09-17] MEDS: VENLAFAXINE ER 75 MG CAP PO (10:27)
[2019-09-17] MEDS: CELECOXIB 200 MG CAPSULE PO (10:28)
[2019-09-17] MEDS: METOPROLOL IR 25 MG TABLET 50 MG PO ×2 (10:28→20:43)
[2019-09-17] MEDS: POTASSIUM CHLORIDE 10 MEQ TAB 40 MEQ PO (10:29)
[2019-09-17] MEDS: ATORVASTATIN 20 MG TABLET PO (10:29)
[2019-09-17] MEDS: WARFARIN 5 MG TABLET PO (10:30)
[2019-09-17] MEDS: PANTOPRAZOLE 20 MG TABLET PO (10:30)
--- NOTE | 2019-09-17 12:00 | PT.IPTN ---
Current Diagnoses Unspecified atrial fibrillation (09/14/19) Physical Therapy Treatment Note M2 PT-IP Current Condition Start: 09/16/19 10:45 Freq: NEEDED Status: Active Protocol: Document 09/16/19 09:16 [facility] (Rec: 09/16/19 10:58 [facility] [id number]) Physical Therapy Current Condition Current Condition Evaluation Date 09/16/19 Treatment Diagnosis A-fib; CHF; difficulty in walking Onset Date 09/14/2019 Precautions Other Precautions O2 sat; HR M3 PT-IP Subjective Start: 09/16/19 10:45 Freq: NEEDED Status: Active Protocol: Document 09/17/19 11:40 [facility] (Rec: 09/17/19 13:05 [facility] [id number]) Subjective Physical Therapy Visit Type Type Treatment Note Visit Start Time 11:40 Visit Stop Time 12:00 Total Visit Minutes 20 Number of MANAGER STYLE Visits 1 Physical Therapy Visit Comments Patient Comments Pt agreeable to work w/ therapy. Therapy Pain Assessment Pain When Pain Assessed At Rest Pain Present Pain Present Denied Pain M4 PT-IP Mobility and Gait Start: 09/16/19 10:45 Freq: NEEDED Status: Active Protocol: Document 09/17/19 11:40 [facility] (Rec: 09/17/19 13:05 [facility] [id number]) PT-Bed Mobility Assessment Scooting Scooting to Edge of Bed Standby Assistance PT-Transfer Assessment Sit to and From Stand Sit to and from Stand Standby Assistance Equipment Transfer Assistive Device Gait Belt,Front Wheeled Walker Orthotic/Prosthetic Devices or Brace: Yes Transfers Transfer Destination Chair Transfer Technique ambulated using FWW Transfer Ability Level of Assist Standby Assistance,Contact Guard Assistance,1 Person Assistance,Use of Upper Extremities Comments Mobility Comments Pt was sitting in chair upon arrival from therapy. O2 sat > 93 throughout treatment and HR 72-89. Pt was SBA for scooting to edge of chair and CGA w/ cues to push up from chair for sit<>stand w/ FWW. CGA and cues to reach back for chair for stand<>sit. O2 97 after treatment, HR 77. Pt left in chair w/ all needs in reach. Gait Assessment Gait Gait Assistance Required: Contact Guard Assist,1 Person Assist Distance (Feet) 30 Able to Maintain Weight Bearing Status Yes During Gait Assistive Devices Assistive Device Gait Belt,Front Wheeled Walker Orthotic/Prosthetic Devices or Brace: Yes Gait Deviations General Gait Pattern Antalgic,Decreased Stride Length,Decreased Feet Clearance Factors Limiting Gait Function Factors Limiting Gait Function Decreased Activity Tolerance, Decreased Strength,Poor Safety Awareness,Respiratory Distress Comments Gait Comments Pt ambulated ~30 ft w/ FWW in room and reported slight feelings of SOB, but O2 remained >93. Pt ambulated to front of room and performed 1x SLS on each leg for 10 sec and then walked back to chair where she had a seated rest break followed by LE strengthening exercises, and then stood again and ambulated to sink and back to chair. Pt has shuffling gait, but remained balanced w/ FWW. PT-Balance Assessment Sitting Balance and Reactions Static Sitting Balance Ability Good Dynamic Sitting Balance Ability Good Standing Balance and Reactions Static Standing Balance Ability Good Dynamic Standing Balance Ability Fair Device Used FWW M5 PT-IP Objective Assessments Start: 09/16/19 10:45 Freq: NEEDED Status: Active Protocol: Document 09/16/19 09:16 [facility] (Rec: 09/16/19 10:58 [facility] [id number]) Orientation Orientation/Cognition Level of Alertness Alert Orientation Name,Place,Situation Safety Awareness Decreased Safety Awareness Gross Range of Motion Lower Extremity ROM Assessment Within Functional Limits Strength Lower Extremity Strength Hip 4-/5 Knee 4-/5 Coordination Assessment Gross Coordination Gross Coordination WNL Sensation Assessment Sensation Gross Sensation WNL Muscle Tone Muscle Tone WNL Yes M6 PT-IP Treatment Start: 09/16/19 10:45 Freq: NEEDED Status: Active Protocol: Document 09/17/19 11:40 [facility] (Rec: 09/17/19 13:05 [facility] [id number]) Physical Therapy Treatment Exercises Exercises Ankle Pumps,Gluteal Sets, Seated Knee Flexion/Extension Education Education Provided Precautions,Safety Other Treatments Other Treatment Performed Seated marching M7 PT-IP Assessment and Plan Start: 09/16/19 10:45 Freq: NEEDED Status: Active Protocol: Document 09/17/19 11:40 [facility] (Rec: 09/17/19 13:05 [facility] [id number]) PT Summary Assessment and Plan Potential Rehabilitation Potential Good Status of Condition at Evaluation Evolving Summary Impairments Pain,ROM,Strength,Balance, Coordination,Sensation,Tone, Cognition,Bed Mobility, Transfers,Gait,Activity Tolerance Assessment Summary Pt was SBA for scooting to edge of chair and sit<>stand w / FWW and min cues to push up from chair. Pt then ambulated w/ SBA to CGA and performed SLS on each leg for 10 sec while remaining balanced w/ hands on FWW. Pt then ambulated back to chair w/ FWW , performed LE strengthening exercises, and then ambulated to sink and back w/ FWW. Pts O2 reamined >93 on 1.5 L. Goals Bed Mobility Goal Independent Transfer Goal Independent,Front Wheeled Walker Gait Goal Independent,Front Wheel Walker Gait Distance 200 Other Goals up/down 1 step using FWW/SPC/ without AD SBA improve ambulation using SPC/ without AD 250 ft SBA Days to Meet Goals 10 Frequency of Treatment Frequency Of Treatment Once a Day Treatment Plan Physical Therapy Treatment Plan Bed Mobility Training,Transfer Training,Gait Training, Therapeutic Exercise,Balance Retraining,Post Op Education, Discharge Planning,Hot or Cold Pack,Neuromuscular Re-ed, Coordination Retraining,Manual Therapy Other Recommendations and Next Treatment ambulation Focus Recommendations To Nursing Amount of Assist Needed Standby Assistance Discharge Recommendations PT Discharge Recommendations Home with Assistance, Outpatient PT Other Discharge Recommendations home with assist and outpt cardiopulmo rehab Equipment Needed for Home Before FWW if not safe with SPC/ Discharge without AD
--- NOTE | 2019-09-17 14:17 | PC.NURSE ---
PT WITH IMPROVED OUTLOOK TODAY COMPARED TO YESTERDAY- WAS WILLING TO GET UP AND WORK WITH BOTH PT/OT- PLAN AFTER WORKING EXTENSIVELY WITH RT IS TO ATTEMPT BIPAP AGAIN THIS PM AFTER BENEDRYL GIVEN TO EASE HER CLAUSTROPHOBIA AND ASSIST WITH SLEEP- SHE IS BREATHING EASIER TODAY WELL BUT CONTINUES TO REQUIRE O2 AT 1-2 LITER TO MAINTAIN SPO2 OF >91%, SERUM CO2 INCREASED WELL TODAY AND WHILE PT IS SLEEPING- SHE HAS OBVIOUS ABD HEAVE AND USE OF ACCESSORY MUSCLES-
[2019-09-17] MEDS: CODEINE/ACETAMINOPHEN 30/300 TABLET 1 TAB PO (16:33)
--- NOTE | 2019-09-17 18:53 | PC.NURSE ---
Addendum entered by Salina Olivares R.N. 09/17/19 22:15: Pt tolerating AutoPAP post 50mg PO Benadryl. RT at bedside. ETCO2 will be used if pt wakes up and feels clausterphobic and cannot tolerate. Original Note: PLEASE NOTE: Per Dr. Maldonado- when pt is discharged she is to: 1. Pickup bipap [facility] from [facility]: 09/22/19@1300. 2. Consult at [facility] 09/23/29@ 1615. 3. Sleep Study TBD
[2019-09-17] MEDS: diphenhydrAMINE 25 MG TABLET 50 MG PO (20:42)
[2019-09-17] MEDS: ACETAMINOPHEN 325 MG TABLET 650 MG PO (20:43)
[2019-09-18] VITALS (11 sets, daily range): BP systolic 107–128; BP diastolic 55–73; PULSE 75–116; RESP 18–25; TEMP 36.1–36.9; O2SAT 86–96
[2019-09-18 05:14] LABS: INR 1.9 (0.9-1.3); Prothrombin Time 21.8 SECONDS (10.1-12.7)
[2019-09-18 05:20] LABS: Alanine Aminotransferase 19 IU/L (<35); Albumin 3.9 g/dL (3.5-5.0); Albumin Globulin Ratio 1.2 (1.0-2.8); Alkaline Phosphatase 118 U/L (38-126); Aspartate Aminotransferase 21 IU/L (14-36); Bilirubin Total 0.5 mg/dL (0.2-1.3); Blood Urea Nitrogen 24 mg/dL (7-17); Calcium 9.4 mg/dL (8.4-10.2); Carbon Dioxide 35 mmol/L (22-32); Chloride 98 mmol/L (98-107); Estimated Glomerular Filt Rate > 60.0 mL/min (>60); Globulin 3.3 g/dL (1.7-4.1); Glucose 108 mg/dL (80-110); HEMOLYSIS < 15 (0-50); Potassium 4.1 mmol/L (3.4-5.1); Sodium 139 mmol/L (137-145); Total Protein 7.2 g/dL (6.3-8.2)
[2019-09-18] MEDS: SODIUM CHLORIDE 0.9% FLUSH 10 ML IV ×2 (05:51→21:00)
[2019-09-18] MEDS: FUROSEMIDE 40 MG/4 ML VIAL IV ×2 (05:51→12:35)
[2019-09-18 06:04] LABS: Magnesium 2.3 mg/dL (1.6-2.3)
[2019-09-18 06:23] LABS: B Type Natriuretic Peptide 288 (<100)
--- NOTE | 2019-09-18 07:25 | PC.NURSE ---
Faculty Administrator Note-Patient dozed with HOB elevated, did not tolerated C-pap, had ETCO2 in place with 2L NC, SpO2 >94%, still has upper airway audible wheezing, lungs dim to auscultation without wheezes or crackles. A-fib CVR. VSS. At 0600, IV site occluded, 2 RNs unable to restart, Dr Joel montaño at 0645.
--- NOTE | 2019-09-18 08:31 | PC.NURSE ---
Addendum entered by Greg Vidal R.N. 09/18/19 14:53: Dr. Maldonado instructed to notify MD and/or cardiology if patient continues to have pauses that are greater than 2 seconds. Pt has remained A fib with labile rates. No further episodes of pauses greater than 2 seconds noted. Addendum entered by Greg Vidal R.N. 09/18/19 11:33: Pt noted to be having 1.7-2.17 second pauses. Rhythm remains A fib with rates ranging 60s-140s. Pt is asleep when pauses are noted. Easily awakens to verbal stimuli. BP WNL. Reported to Dr. Maldonado who is currently on rounds. Addendum entered by Greg Vidal R.N. 09/18/19 11:02: Dr. Maldonado on rounds. Reported assessment findings, O2 needs, VS, labs. Addendum entered by Greg Vidal R.N. 09/18/19 10:51: 1000- Noted SPO2 86% with pt sitting up in chair watching TV. Pt reports mildly worsened shortness of breath. Titrated O2 to 2.5L via NC. Sats increased to 95% with deep breathing and increase in O2. Pt reports needing to go to the bathroom. Assisted to BR. After toileting, pt tachypneic with sats decreased to 79% on 2.5L NC. Assisted pt back to bed and elevated HOB to 60 degrees. Instructed pt to take slow deep breaths. SPO2 increased >93% after just a few minutes of rest/deep breathing. Pt states she would like to rest for now. Will monitor. Addendum entered by Greg Vidal R.N. 09/18/19 09:24: Removed O2 for RA trial. After about 20 minutes, pt was noted to have SPO2 86% at rest. HR increased to 140s. Pt denies feeling increase in shortness of breath. O2 replaced 2L NC. After about 10 minutes, HR decreased to 80s-90s and SPO2 95%. Will monitor. Original Note: Spoke with Dr. Maldonado re: pt with no IV access did not received AM dose of IV lasix. Dr. Maldonado states ok to leave IV out for now. TORB received to administer PO lasix. Instructed to place on RA and monitor SPO2
[2019-09-18] MEDS: CELECOXIB 200 MG CAPSULE PO (08:50)
[2019-09-18] MEDS: PANTOPRAZOLE 20 MG TABLET PO (08:50)
[2019-09-18] MEDS: DOCUSATE 100 MG CAPSULE PO (08:50)
[2019-09-18] MEDS: WARFARIN 5 MG TABLET PO (08:50)
[2019-09-18] MEDS: POTASSIUM CHLORIDE 10 MEQ TAB 40 MEQ PO (08:50)
[2019-09-18] MEDS: FUROSEMIDE 40 MG TABLET PO (08:50)
[2019-09-18] MEDS: ATORVASTATIN 20 MG TABLET PO (08:50)
[2019-09-18] MEDS: METOPROLOL IR 25 MG TABLET 50 MG PO ×2 (08:51→21:02)
[2019-09-18] MEDS: ENOXAPARIN 100 MG/ML SYRINGE 90 MG SUBCUT ×2 (08:51→21:02)
[2019-09-18] MEDS: VENLAFAXINE ER 75 MG CAP PO (08:55)
--- NOTE | 2019-09-18 09:44 | OT.IP.TRT ---
Current Diagnoses Unspecified atrial fibrillation (09/14/19) Occupational Therapy Treatment Note M2 OT-IP Current Condition Start: 09/16/19 16:50 Freq: Status: Active Protocol: Document 09/16/19 16:50 [facility] (Rec: 09/16/19 17:10 [facility] [id number]) Occupational Therapy Current Condition Current Condition Evaluation Date 09/16/19 Treatment Diagnosis A-fib, CHF Diagnosis Onset Date 09/14/19 Weight Bearing Status Weight Bearing Status Weight Bear as Tolerated M3 OT- IP Subjective and Pain Start: 09/16/19 16:50 Freq: Status: Active Protocol: Document 09/18/19 09:36 [facility] (Rec: 09/18/19 09:44 [facility] [id number]) OT- Subjective Occupational Therapy Visit Type Type Treatment Note Visit Start Time 09:20 Visit Stop Time 09:28 Total Visit Minutes 8 Occupational Therapy Visit Comments Patient Comments Pt states feeling better overall. Patient/Caregiver Goals To go home and be able to actively participate in her wedding in November in [facility]. OT Pain Assessment Pain When Pain Assessed At Rest Pain Present Pain Present Denied Pain M4 OT- IP ADL's Start: 09/16/19 16:50 Freq: Status: Active Protocol: Document 09/18/19 09:36 [facility] (Rec: 09/18/19 09:44 [facility] [id number]) OT ADL-Grooming Comments OT Grooming Comments Pt states already completed. OT ADL-Bathing Comments OT Bathing Comments Able to go over energy conservation strategies for Adl and IADl needs, informational sheet provided to the pt and able to give examples on how to incorporate in her lifestyle. M9 OT- IP Assessment and Plan Start: 09/16/19 16:50 Freq: Status: Active Protocol: Document 09/18/19 09:36 [facility] (Rec: 09/18/19 09:44 [facility] [id number]) OT Summary Assessment and Plan Potential Rehabilitation Potential Good Analytic Complexity at Evaluation Low Summary Progress Towards Goals Slow Progress due to Medical Issues,Slow Progress due to Activity Tolerance Assessment Summary Pt has good understanding for all OT needs and will have assist at home. Currently mainly her medical needs are limiting her independence at this time. Discharge Recommendations OT Discharge Recommendations Home with Assistance Home Equipment Needs bed side commode
--- NOTE | 2019-09-18 10:13 | PT-IP ANOTE ---
Checked in w/ nursing prior to initiating treatment. Per nursing, will hold off on treatment until after lunch due to pts low O2 levels, fatigue, and need for IV placement.
--- NOTE | 2019-09-18 11:39 | PM.PN.1 ---
Subjective Subjective Date Patient Seen: 09/18/19 Time Patient Seen: 11:03 Interval history: Patient is a 69-year-old white female was admitted with dyspnea and issue of breath while lying down. Presented to outpatient clinic found to be in atrial fibrillation patient did not complain of chest pain at the time of admission although she might have had some earlier the week before that was admitted to the hospital with fib symptomatic seen by cardiology felt not to be a candidate for cardioversion. Was already anticoagulated for mitral valve issues. Had negative troponin and cardiac enzymes and chest x-ray looks like slightly fluid overload with cardiomegaly echo performed which showed moderately dilated left atrium mechanical mitral valve stable. Cardiology recommended little more aggressive diuresis and so this was switched to metoprolol. Patient's past medical history mitral valve replacement on anticoagulation Congestive heart failure left heart systolic Hypertension Hyperlipidemia Sleep apnea on CPAP BiPAP Depression Insomnia Family history of diabetes hypertension hyperlipidemia heart disease lung cancer Social history is single retired lives with a boyfriend Review systems 14 point reviewed negative except as above Exam Vital Signs (past 8 hours): - 09/18/19 04:00 09/18/19 07:40 09/18/19 08:00 Temperature 97.4 F L 97.0 F L Pulse Rate 75 116 H Respiratory Rate 18 23 Blood Pressure 128/73 122/66 Pulse Oximetry 96 96 96 09/18/19 09:30 09/18/19 09:31 09/18/19 11:20 Temperature 97.6 F Pulse Rate 78 Respiratory Rate 18 Blood Pressure 107/64 Pulse Oximetry 96 94 96 Oxygen Delivery Method Room Air Oxygen Flow Rate 2 Narrative Exam Narrative: Patient sitting comfortably in bed answering questions clearly no acute distress Skin warm and dry PERRLA EOMs intact Edentulous Lungs with decreased breath sounds throughout be possibly slight crackles at lower bases cardiovascular exam shows a rapid irregular rhythm the mechanical valve sounds are appreciable patient has no significant dependent edema and slightly diminished pulses in feet Abdomen moderately obese no rebound or guarding no hepatosplenomegaly Extremities warm no clubbing cyanosis or edema Neuro sensory motor symmetrical intact spontaneous movement of all extremities speech clear Psychiatry patient is alert awake appropriate answers questions clearly does not seem to be too anxious about the current situation Objective Labs Result Diagrams: 09/17/19 06:45 09/18/19 04:53 Labs: Laboratory Results - last 24 hr 09/18/19 09/18/19 09/18/19 04:53 04:53 04:53 PT 21.8 H INR 1.9 H Sodium 139 Potassium 4.1 Chloride 98 Carbon Dioxide 35 H BUN 24 H Creatinine 0.60 Estimated GFR > 60.0 BUN/Creatinine Ratio 40.0 H Glucose 108 Calcium 9.4 Magnesium 2.3 Total Bilirubin 0.5 AST 21 ALT 19 Alkaline Phosphatase 118 B-Natriuretic Peptide Total Protein 7.2 Albumin 3.9 Globulin 3.3 Albumin/Globulin Ratio 1.2 09/18/19 04:53 PT INR Sodium Potassium Chloride Carbon Dioxide BUN Creatinine Estimated GFR BUN/Creatinine Ratio Glucose Calcium Magnesium Total Bilirubin AST ALT Alkaline Phosphatase B-Natriuretic Peptide 288 H Total Protein Albumin Globulin Albumin/Globulin Ratio Assessment & Plan Assessment & Plan narrative: Assessment 1. Atrial fibrillation with initially rapid rate. Patient not cardioversion candidate has been on anticoagulation for her heart valves so this could be possible that she might be up appropriate if necessary for that. Cardiology consult and will want a ditch loading which patient did not tolerate and good rate control currently on beta-blockers which have not been incompletely successful in keeping her rate from being rapid with movement or shortness of breath but has during sleep presented with several to 2nd pauses no change in vital sign she has no symptoms chest pain palpitation note or any worsening of her symptoms. Assessment 2. Pulmonary edema felt that volume excess with increased BNP and findings on x-ray consistent with that will give her additional diuretics today renal function electrolytes are good and potassium is in Great Great range right now. Patient has mitral valve replacement and is on chronic Coumadin however INR was in adequate a subtherapeutic on admission she has currently been getting Lovenox until she is therapeutic with her mitral valve she needs to be in the 2.5 range currently 1.9. Patient with hyperlipidemia has been restarted on atorvastatin seems to be tolerating that Patient with obstructive sleep apnea on BiPAP. Not been very compliant with that and need to get that every integrated in her regimen at this point as part of her ongoing management. Quality VTE Deep Vein Thrombosis/Pulmonary Embolism Present on Admission: No
--- NOTE | 2019-09-18 12:35 | CM.DPC ---
DCP: continued: case discussed in Team Rounds with RT Candace stating that yesterday she thought vendor for BIPAP was [employer] but after she called all vendors said she thought maybe pt just bought it somewhere or was given it. She reports that Dr. Diez is planning to have pt do an OUTPT Sleep Study test after d/c. Dr. Maldonado is following now for weekend and was here earlier today. His note is reviewed. Cardiology has been consulted and recommendations being added to the POC. Met now with pt; introduced self and role. Pt confirms she lives with her fijosé Gomes and we are going to be in November. Pt describes herself as functionally independent without use of assistive until this all happened. She does not have home oxygen but they tell me I may need this. Asked her about her BIPAP. She said I was given this many years ago. All I had to do was fill out a low income form and it was sent to me in the mail. I never had any testing for it and I don't know if it was of any help. P: anticipate pt will d/c to home setting when stable for same but DCP will be following. Pt confirms she has good support from Eliseo. They are together except when he goes to work [id number] as a cook for the [employer] program. He does all the cooking at our home also.
--- NOTE | 2019-09-18 14:48 | PT-IP ANOTE ---
Pt refused therapy today due to reported fatigue.
[2019-09-18 16:50] LABS: Add Manual Diff / Slide Review NO; Basophils Absolute Auto 100 /uL (0-100); Basophils Percent Auto 0.7 % (0-2); Eosinophils Absolute Auto 400 /uL (0-450); Eosinophils Percent Auto 4.8 % (2-4); Hematocrit 34.3 % (36-46); Hemoglobin 11.2 g/dL (12.0-16.0); Lymphocytes Absolute Auto 2500 /uL (1100-4500); Lymphocytes Percent Auto 29.2 % (25-40); Mean Corpuscular HGB Conc 32.6 % (30-36); Mean Corpuscular Hemoglobin 29.4 PG (26-34); Monocytes Absolute Auto 700 /uL (0-900); Monocytes Percent Auto 8.5 % (3-14); Neutrophils Absolute Auto 4800 /uL (1500-7000); Neutrophils Percent Auto 56.8 % (50-75); Platelet Count 301 X10^3/uL (150-400); Red Blood Cell Count 3.81 X10^6/uL (4.0-5.2); Red Cell Distribution Width 16.4 % (11.6-14.8); White Blood Cell Count 8.5 X10^3/uL (4.5-11.0)
--- NOTE | 2019-09-18 21:32 | PC.NURSE ---
Addendum entered by Inocencia Hammer R.N. 09/18/19 22:26: 2215 - Pt S.O. called. Reported that pt home bi-pap machine is a donated machine provided by [employer]. RT notified. Original Note: 2114 - Encouraged pt activity. Pt out of bed, ambulate around the room. Hr 100-130 with activity. Sats remain >90% on 2L. Reinforced deep breath. Able to take po meds without difficulty. RT offered Bi-pap, pt declines at this time. I had asked S.O. to call if he could locate the name of Pt's home bi-pap service company. No call received. IV patent. Pt returned to bed. Reinforced safety and call light use. Call light in reach.
[2019-09-19] VITALS (13 sets, daily range): BP systolic 101–123; BP diastolic 55–85; PULSE 75–138; RESP 16–25; TEMP 36.1–36.7; O2SAT 94–98
--- NOTE | 2019-09-19 01:56 | PC.NURSE ---
Clinic Clerk Note: 0040: Sleeping intermittently. Awake, at this time, vital signs stable. IV in place in lt wrist. Pt denies pain or discomfort. She is sitting up at bedside. Remains on O2 2L/NC.
[2019-09-19] MEDS: FUROSEMIDE 40 MG/4 ML VIAL IV ×2 (06:03→17:26)
[2019-09-19] MEDS: ENOXAPARIN 100 MG/ML SYRINGE 90 MG SUBCUT ×2 (08:19→20:47)
[2019-09-19] MEDS: CELECOXIB 200 MG CAPSULE PO (08:19)
[2019-09-19] MEDS: WARFARIN 5 MG TABLET PO (08:19)
[2019-09-19] MEDS: POTASSIUM CHLORIDE 10 MEQ TAB 40 MEQ PO (08:19)
[2019-09-19] MEDS: METOPROLOL IR 25 MG TABLET 50 MG PO ×2 (08:19→17:27)
[2019-09-19] MEDS: ATORVASTATIN 20 MG TABLET PO (08:19)
[2019-09-19] MEDS: PANTOPRAZOLE 20 MG TABLET PO (08:19)
[2019-09-19] MEDS: VENLAFAXINE ER 75 MG CAP PO (08:20)
[2019-09-19] MEDS: SODIUM CHLORIDE 0.9% FLUSH 10 ML IV ×2 (08:20→20:48)
[2019-09-19] MEDS: ACETAMINOPHEN 325 MG TABLET 650 MG PO (09:22)
--- NOTE | 2019-09-19 09:24 | PC.NURSE ---
Spoke with Dr. Maldonado. Reported HR 90s-140s A fib at rest. Pt received metoprolol this AM. Requiring 2L NC to keeps SPO2 greater than 93%. Orders received for labs. Dr. Maldonado states he will be in soon to evaluate.
[2019-09-19 10:41] LABS: Add Manual Diff / Slide Review NO; Basophils Absolute Auto 100 /uL (0-100); Basophils Percent Auto 1.3 % (0-2); Eosinophils Absolute Auto 400 /uL (0-450); Hematocrit 36.5 % (36-46); Hemoglobin 11.9 g/dL (12.0-16.0); Lymphocytes Absolute Auto 1400 /uL (1100-4500); Lymphocytes Percent Auto 16.1 % (25-40); Mean Corpuscular HGB Conc 32.7 % (30-36); Mean Corpuscular Hemoglobin 29.1 PG (26-34); Mean Corpuscular Volume 89.1 fL (80-100); Monocytes Absolute Auto 400 /uL (0-900); Monocytes Percent Auto 4.9 % (3-14); Neutrophils Absolute Auto 6500 /uL (1500-7000); Neutrophils Percent Auto 72.7 % (50-75); Platelet Count 317 X10^3/uL (150-400); Red Cell Distribution Width 16.2 % (11.6-14.8); White Blood Cell Count 8.9 X10^3/uL (4.5-11.0)
[2019-09-19 10:47] LABS: INR 2.3 (0.9-1.3); Prothrombin Time 27.4 SECONDS (10.1-12.7)
[2019-09-19 10:50] LABS: Alanine Aminotransferase 20 IU/L (<35); Albumin 4.2 g/dL (3.5-5.0); Albumin Globulin Ratio 1.2 (1.0-2.8); Alkaline Phosphatase 129 U/L (38-126); Aspartate Aminotransferase 23 IU/L (14-36); Bilirubin Total 0.6 mg/dL (0.2-1.3); Blood Urea Nitrogen 21 mg/dL (7-17); Calcium 9.3 mg/dL (8.4-10.2); Carbon Dioxide 34 mmol/L (22-32); Chloride 96 mmol/L (98-107); Estimated Glomerular Filt Rate > 60.0 mL/min (>60); Globulin 3.6 g/dL (1.7-4.1); Glucose 253 mg/dL (80-110); HEMOLYSIS < 15 (0-50); Potassium 4.4 mmol/L (3.4-5.1); Sodium 138 mmol/L (137-145); Total Protein 7.8 g/dL (6.3-8.2)
--- NOTE | 2019-09-19 11:26 | PM.PN.1 ---
Subjective Subjective Date Patient Seen: 09/19/19 Time Patient Seen: 10:08 Interval history: Patient is a 69-year-old female with long history of coronary issues. Has history of congestive heart failure mitral valve replacement and recent onset of atrial fibrillation with rapid ventricular rate. Initially was treated with diltiazem and ditch switch to metoprolol diltiazem did not seem to be very effective. Patient also receiving some diuresis. Continues to have a need for oxygen which is aggravated by her untreated sleep apnea at this point she is not able to tolerate masks for BiPAP or CPAP at this point. Heart rate with any movement goes into the 140s and she has had pauses in her heart rate of up to 2 seconds on the current metoprolol hesitant to increase that dose blood pressure tolerating these things shows no change in her vague get chest pressure with breathing from what Dr. Cannon evaluated initially with negative cardiac enzymes. Have given patient extra diuresis hoping that we get some of fluid off and increase her heart rate control but that has not been working. Exam Vital Signs (past 8 hours): - 09/19/19 04:13 09/19/19 07:28 09/19/19 08:00 Temperature 97.9 F 97.9 F Pulse Rate 130 H 118 H Respiratory Rate 16 23 Blood Pressure 119/77 117/70 Pulse Oximetry 94 97 96 09/19/19 10:50 Temperature Pulse Rate Respiratory Rate 25 H Blood Pressure 123/58 L Pulse Oximetry 96 Fraction of Inspired Oxygen 50 Oxygen Delivery Method Nasal Cannula Oxygen Flow Rate 55 Narrative Exam Narrative: Patient sleepy difficult to will awaken I think probably secondary to her sleep apnea issues. Once awakened clear and speech clearly an not feels comfortable. Any movement heart rate increases to 140. PERRLA EOMs intact Neck without mass Skin warm and dry Reduced breath sounds throughout but no appreciable wall rales or wheezes Cardiovascular shows irregular irregular rhythm quite rapid eye with any movement no significant dependent edema Abdomen nondistended nontender no hepatosplenomegaly Neuro grossly intact nonfocal the patient's little sleepy Psych awake alert and appropriate Objective Labs Result Diagrams: 09/19/19 10:32 09/19/19 10:32 Labs: Laboratory Results - last 24 hr 09/18/19 09/19/19 09/19/19 05:06 10:32 10:32 WBC 8.5 8.9 RBC 3.81 L 4.10 Hgb 11.2 L 11.9 L Hct 34.3 L 36.5 MCV 90.0 89.1 MCH 29.4 29.1 MCHC 32.6 32.7 RDW 16.4 H 16.2 H Plt Count 301 317 Neut % (Auto) 56.8 72.7 Lymph % (Auto) 29.[address] [place] % (Auto) 8.5 4.9 Eos % (Auto) 4.8 H 5.0 H Baso % (Auto) 0.7 1.3 Neut # (Auto) 4800 6500 Lymph # (Auto) [address] [place] # (Auto) 700 400 Eos # (Auto) 400 400 Baso # (Auto) 100 100 PT 27.4 H D INR 2.3 H Sodium Potassium Chloride Carbon Dioxide BUN Creatinine Estimated GFR BUN/Creatinine Ratio Glucose Calcium Total Bilirubin AST ALT Alkaline Phosphatase Total Protein Albumin Globulin Albumin/Globulin Ratio 09/19/19 10:32 WBC RBC Hgb Hct MCV MCH MCHC RDW Plt Count Neut % (Auto) Lymph % (Auto) [place] % (Auto) Eos % (Auto) Baso % (Auto) Neut # (Auto) Lymph # (Auto) [place] # (Auto) Eos # (Auto) Baso # (Auto) PT INR Sodium 138 Potassium 4.4 Chloride 96 L Carbon Dioxide 34 H BUN 21 H Creatinine 0.60 Estimated GFR > 60.0 BUN/Creatinine Ratio 35.0 H Glucose 253 H D Calcium 9.3 Total Bilirubin 0.6 AST 23 ALT 20 Alkaline Phosphatase 129 H Total Protein 7.8 Albumin 4.2 Globulin 3.6 Albumin/Globulin Ratio 1.2 Assessment & Plan Assessment & Plan narrative: Assessment 1. New onset atrial fibrillation with a rapid heart rate. Patient has past history of congestive heart failure and but new diagnosis of AFib. Also has history of mitral valve replacement but no fibs new with a very rapid rate initially treated with diltiazem and digoxin and advanced down to oral metoprolol but after switching to oral metoprolol she is at with any movement at all she her heart rates back into the 140 range INR is sub therapeutic Lovenox scan being being continued. Assessment 2. Congestive heart failure history. Patient had been on diuresis this probably combination of factors than predated her AFib. Possibly related to her obstructive sleep apnea which her CPAP machine broke within the last few weeks and may have been a triggering factor for new fib she is unable tolerate masks or BiPAP here. Assessment 3. Post mitral valve replacement this happened for some sometime back is appears to be grossly normal on echo but want to reassess that once patient is in sinus rhythm trying to continue with her anticoagulation and today her INR is 2.4 Quality VTE Deep Vein Thrombosis/Pulmonary Embolism Present on Admission: No
[2019-09-19 11:49] LABS: Hemoglobin A1C% w Est Avg Glu 6.3 % (4.0-6.0)
[2019-09-19] MEDS: FUROSEMIDE 100 MG/10 ML VIAL 60 MG IV (11:51)
[2019-09-19] MEDS: INSULIN ASPART 100 UNIT/ML INSULN PEN SUBCUT (13:17)
[2019-09-19] MEDS: METOPROLOL IR 50 MG TABLET PO (13:17)
--- NOTE | 2019-09-19 16:27 | PT.IPTN ---
Current Diagnoses Unspecified atrial fibrillation (09/14/19) Physical Therapy Treatment Note M2 PT-IP Current Condition Start: 09/16/19 10:45 Freq: NEEDED Status: Active Protocol: Document 09/16/19 09:16 AB (Rec: 09/16/19 10:58 AB [id number]) Physical Therapy Current Condition Current Condition Evaluation Date 09/16/19 Treatment Diagnosis A-fib; CHF; difficulty in walking Onset Date 09/14/2019 Precautions Other Precautions O2 sat; HR M3 PT-IP Subjective Start: 09/16/19 10:45 Freq: NEEDED Status: Active Protocol: Document 09/19/19 16:12 AW (Rec: 09/19/19 16:27 AW [id number]) Subjective Physical Therapy Visit Type Type Treatment Note Visit Start Time 15:48 Visit Stop Time 16:07 Total Visit Minutes 19 Number of LAMINATION MACHINE OPERATOR Visits 0 Physical Therapy Visit Comments Patient Comments Pt amenable to mobilizing with PT Therapy Pain Assessment Pain When Pain Assessed At Rest Pain Present Pain Present Denied Pain M4 PT-IP Mobility and Gait Start: 09/16/19 10:45 Freq: NEEDED Status: Active Protocol: Document 09/19/19 16:12 AW (Rec: 09/19/19 16:27 AW [id number]) PT-Bed Mobility Assessment Supine to Sit Supine to Sit Standby Assistance Sit to Supine Sit to Supine Standby Assistance Scooting Scooting to Edge of Bed Standby Assistance PT-Transfer Assessment Sit to and From Stand Sit to and from Stand Standby Assistance Equipment Transfer Assistive Device None,Gait Belt Orthotic/Prosthetic Devices or Brace: No Transfers Transfer Technique ambulated using FWW Transfer Ability Level of Assist Standby Assistance,1 Person Assistance,Use of Upper Extremities Comments Mobility Comments Pt resting in bed up on therapy arrival. She transferred to sitting EOB SBA and stood without AD, requiring SBA due to initial unsteadiness. With symptoms resolved, pt ambulated ~10 feet out into the noonan without AD but with (+) loss of balance x 2 requiring CGA to recover. Pt then continued to ambulate with FWW SBA another 60+ feet. SpO2 before and after treatment was ~95-97%. Pt was repositioned in the bed with call light and table within reach, KITCHEN WORKER attending. Gait Assessment Gait Gait Assistance Required: Standby Assistance,Contact Guard Assist Distance (Feet) 75 Able to Maintain Weight Bearing Status Yes During Gait Assistive Devices Assistive Device None,Gait Belt,Front Wheeled Walker Orthotic/Prosthetic Devices or Brace: No Gait Deviations General Gait Pattern Antalgic,Decreased Stride Length,Decreased Feet Clearance Factors Limiting Gait Function Factors Limiting Gait Function Decreased Activity Tolerance, Decreased Strength,Poor Safety Awareness,Respiratory Distress Comments Gait Comments See mobility comments. Pt was steadier with FWW, requiring only SBA compared with CGA without AD. SpO2 maintained 95 -97% although pt presents with shortness of breath requiring one rest break. Stair Climbing Assessment Comments Stair Climbing Comments Not assessed due to cardiovascular concerns. M5 PT-IP Objective Assessments Start: 09/16/19 10:45 Freq: NEEDED Status: Active Protocol: Document 09/16/19 09:16 AB (Rec: 09/16/19 10:58 AB [id number]) Orientation Orientation/Cognition Level of Alertness Alert Orientation Name,Place,Situation Safety Awareness Decreased Safety Awareness Gross Range of Motion Lower Extremity ROM Assessment Within Functional Limits Strength Lower Extremity Strength Hip 4-/5 Knee 4-/5 Coordination Assessment Gross Coordination Gross Coordination WNL Sensation Assessment Sensation Gross Sensation WNL Muscle Tone Muscle Tone WNL Yes M6 PT-IP Treatment Start: 09/16/19 10:45 Freq: NEEDED Status: Active Protocol: Document 09/19/19 16:12 AW (Rec: 09/19/19 16:27 AW [id number]) Physical Therapy Treatment Education Education Provided Precautions,Safety Other Treatments Other Treatment Performed Advised pt on selection of assistive device depending on symptoms, effort of breathing, and balance. M7 PT-IP Assessment and Plan Start: 09/16/19 10:45 Freq: NEEDED Status: Active Protocol: Document 09/19/19 16:12 AW (Rec: 09/19/19 16:27 AW [id number]) PT Summary Assessment and Plan Summary Progress Towards Goals Progressing Toward Goals,Slow Progress due to Activity Tolerance Assessment Summary Pt progressing toward goals and able to increase ambulation distance today. She required the FWW for balance due to lightheadedness and unsteadiness. Pt maintained SpO2 95-97% on 2L/min. Continuing to recommend discharge to home with SO assist and outpatient cardiopulmonary rehab. Goals Bed Mobility Goal Independent Transfer Goal Independent,Front Wheeled Walker Gait Goal Independent,Front Wheel Walker Gait Distance 200 Other Goals up/down 1 step using FWW/SPC/ without AD SBA improve ambulation using SPC/ without AD 250 ft SBA Days to Meet Goals 10 Frequency of Treatment Frequency Of Treatment Once a Day Treatment Plan Physical Therapy Treatment Plan Bed Mobility Training,Transfer Training,Gait Training, Therapeutic Exercise,Balance Retraining,Post Op Education, Discharge Planning,Hot or Cold Pack,Neuromuscular Re-ed, Coordination Retraining,Manual Therapy Other Recommendations and Next Treatment assess gait with SPC vs FWW Focus for safety; track VS; balance and ther ex Recommendations To Nursing Amount of Assist Needed Independent Discharge Recommendations PT Discharge Recommendations Home with Assistance, Outpatient PT Other Discharge Recommendations home with assist and outpt cardiopulmo rehab Equipment Needed for Home Before FWW if not safe with SPC/ Discharge without AD
[2019-09-20] VITALS (12 sets, daily range): BP systolic 94–117; BP diastolic 60–78; PULSE 79–145; RESP 18–20; TEMP 36.2–36.6; O2SAT 94–100
[2019-09-20] MEDS: FUROSEMIDE 40 MG/4 ML VIAL IV (05:57)
--- NOTE | 2019-09-20 06:47 | PC.NURSE ---
NOC Note: Pt has remained on 1L NC with sats 92-99% during the night. Tele has been A-fib, CVR/RVR, BBB. HR ranges from 70's to 140's. LCTA. SBA to get to the BR. Family brings po fluids, a 32 oz [employer] cup and a 12 clear plastic up found on tray table at the start of the shift, both were empty.
[2019-09-20] MEDS: ATORVASTATIN 20 MG TABLET PO (08:22)
[2019-09-20] MEDS: PANTOPRAZOLE 20 MG TABLET PO (08:22)
[2019-09-20] MEDS: POTASSIUM CHLORIDE 10 MEQ TAB 40 MEQ PO (08:23)
[2019-09-20] MEDS: CELECOXIB 200 MG CAPSULE PO (08:23)
[2019-09-20] MEDS: METOPROLOL IR 50 MG TABLET 100 MG PO (08:23)
[2019-09-20] MEDS: SODIUM CHLORIDE 0.9% FLUSH 10 ML IV ×2 (08:24→21:57)
[2019-09-20] MEDS: VENLAFAXINE ER 75 MG CAP PO (08:24)
[2019-09-20] MEDS: WARFARIN 5 MG TABLET PO (08:24)
--- NOTE | 2019-09-20 10:18 | PT.IPTN ---
Current Diagnoses Unspecified atrial fibrillation (09/14/19) Physical Therapy Treatment Note M2 PT-IP Current Condition Start: 09/16/19 10:45 Freq: NEEDED Status: Active Protocol: Document 09/16/19 09:16 AB (Rec: 09/16/19 10:58 AB [id number]) Physical Therapy Current Condition Current Condition Evaluation Date 09/16/19 Treatment Diagnosis A-fib; CHF; difficulty in walking Onset Date 09/14/2019 Precautions Other Precautions O2 sat; HR M3 PT-IP Subjective Start: 09/16/19 10:45 Freq: NEEDED Status: Active Protocol: Document 09/20/19 10:18 CLB (Rec: 09/20/19 12:47 CLB [id number]) Subjective Physical Therapy Visit Type Type Treatment Note Visit Start Time 10:18 Visit Stop Time 10:49 Total Visit Minutes 31 Number of CLINICAL COORDINATOR Visits 1 Physical Therapy Visit Comments Patient Comments Pt agreeable to participate with therapy session. Therapy Pain Assessment Pain When Pain Assessed At Rest Pain Present Pain Present Denied Pain M4 PT-IP Mobility and Gait Start: 09/16/19 10:45 Freq: NEEDED Status: Active Protocol: Document 09/20/19 10:18 CLB (Rec: 09/20/19 12:47 CLB [id number]) PT-Bed Mobility Assessment Sit to Supine Sit to Supine Standby Assistance PT-Transfer Assessment Sit to and From Stand Sit to and from Stand Standby Assistance Equipment Transfer Assistive Device None,Gait Belt,Straight Cane, Front Wheeled Walker Orthotic/Prosthetic Devices or Brace: No Transfers Transfer Destination Bed,Chair Transfer Technique ambulated using FWW Transfer Ability Level of Assist Standby Assistance,1 Person Assistance,Use of Upper Extremities Comments Mobility Comments Pt required SBA for sit<>stand with and without AD, transfers and bed mobility. Pt left in bed with HOB elevated , call light and all needs within reach, medical staff present. Gait Assessment Gait Gait Assistance Required: Standby Assistance,Contact Guard Assist Distance (Feet) 95 Able to Maintain Weight Bearing Status Yes During Gait Assistive Devices Assistive Device None,Gait Belt,Straight Cane, Front Wheeled Walker Gait Deviations General Gait Pattern Antalgic,Decreased Stride Length,Decreased Feet Clearance Factors Limiting Gait Function Factors Limiting Gait Function Decreased Activity Tolerance, Decreased Strength,Poor Safety Awareness,Respiratory Distress Comments Gait Comments Pt trialed use of SPC with increased respiratory distress , did not get immediate O2 sats due to monitor lag, pt had time to take deep breaths therefor pt O2 ranged from 92% -96%. HR during ambulated was not recorded by portable device. Once pt returned to room after ambulation and monitor lag pt HR ranged from 72-96 bpm. Informed pt that due to energy conservation during ambulation FWW is recommended, pt stated understanding. Stair Climbing Assessment Comments Stair Climbing Comments Not assessed due to cardiovascular concerns. M5 PT-IP Objective Assessments Start: 09/16/19 10:45 Freq: NEEDED Status: Active Protocol: Document 09/16/19 09:16 AB (Rec: 09/16/19 10:58 AB [id number]) Orientation Orientation/Cognition Level of Alertness Alert Orientation Name,Place,Situation Safety Awareness Decreased Safety Awareness Gross Range of Motion Lower Extremity ROM Assessment Within Functional Limits Strength Lower Extremity Strength Hip 4-/5 Knee 4-/5 Coordination Assessment Gross Coordination Gross Coordination WNL Sensation Assessment Sensation Gross Sensation WNL Muscle Tone Muscle Tone WNL Yes M6 PT-IP Treatment Start: 09/16/19 10:45 Freq: NEEDED Status: Active Protocol: Document 09/20/19 10:18 CLB (Rec: 09/20/19 12:47 CLB [id number]) Physical Therapy Treatment Education Education Provided Precautions,Safety Other Treatments Other Treatment Performed Standing balance: NBS: EO,EC tandem stance: EO HR during standing balance 86- 112 bpm, O2 sats 92-96% M7 PT-IP Assessment and Plan Start: 09/16/19 10:45 Freq: NEEDED Status: Active Protocol: Document 09/20/19 10:18 CLB (Rec: 09/20/19 12:47 CLB [id number]) PT Summary Assessment and Plan Summary Assessment Summary Pt ambulated with FWW and SPC, pt with increased respiratory distress with use of SPC and pt would benefit from continued use of FWW at this time. Recommend home with SO assist and outpatient cardiopulmonary rehab. Goals Bed Mobility Goal Independent Transfer Goal Independent,Front Wheeled Walker Gait Goal Independent,Front Wheel Walker Gait Distance 200 Other Goals up/down 1 step using FWW/SPC/ without AD SBA improve ambulation using SPC/ without AD 250 ft SBA Days to Meet Goals 10 Frequency of Treatment Frequency Of Treatment Once a Day Treatment Plan Physical Therapy Treatment Plan Bed Mobility Training,Transfer Training,Gait Training, Therapeutic Exercise,Balance Retraining,Post Op Education, Discharge Planning,Hot or Cold Pack,Neuromuscular Re-ed, Coordination Retraining,Manual Therapy Other Recommendations and Next Treatment assess gait with SPC vs FWW Focus for safety; track VS; balance and ther ex Recommendations To Nursing Amount of Assist Needed Independent Discharge Recommendations PT Discharge Recommendations Home with Assistance, Outpatient PT Other Discharge Recommendations home with assist and outpt cardiopulmo rehab Equipment Needed for Home Before FWW if not safe with SPC/ Discharge without AD
[2019-09-20 11:59] LABS: INR 2.8 (0.9-1.3); Prothrombin Time 33.6 SECONDS (10.1-12.7)
[2019-09-20 12:19] LABS: Alanine Aminotransferase 19 IU/L (<35); Albumin 4.3 g/dL (3.5-5.0); Albumin Globulin Ratio 1.3 (1.0-2.8); Alkaline Phosphatase 119 U/L (38-126); Aspartate Aminotransferase 24 IU/L (14-36); Bilirubin Total 0.4 mg/dL (0.2-1.3); Blood Urea Nitrogen 21 mg/dL (7-17); Calcium 9.7 mg/dL (8.4-10.2); Carbon Dioxide 37 mmol/L (22-32); Chloride 95 mmol/L (98-107); Estimated Glomerular Filt Rate > 60.0 mL/min (>60); Globulin 3.4 g/dL (1.7-4.1); Glucose 98 mg/dL (80-110); HEMOLYSIS < 15 (0-50); Magnesium 2.4 mg/dL (1.6-2.3); Potassium 5.1 mmol/L (3.4-5.1); Sodium 138 mmol/L (137-145); Total Protein 7.7 g/dL (6.3-8.2)
--- NOTE | 2019-09-20 12:54 | PM.PN.1 ---
Subjective Subjective Date Patient Seen: 09/20/19 Time Patient Seen: 12:54 Interval history: Patient is a delightful 69-year-old lady admitted for CHF and atrial fibrillation with rapid ventricular response. Cardiac history includes hypertension and a hyperdynamic systolic function with a LVH and LVOT. She was treated with metoprolol but did not follow up. She was subsequently treated at [facility] where she was found to have severe mitral regurgitation treated with mitral valve replacement in 2007.No significant CAD that time. She's been anticoagulated with warfarin with INRs followed by her PCP. She presented to the walk-in clinic after 1 week of progressive dyspnea and orthopnea where she was found to be in atrial fibrillation with a rapid ventricular response. She was transported to [facility] emergency department for further evaluation. Cardiology consultation was provided by Dr. Kalpesh Cannon on 09/15/18. He recommended rate control, anticoagulation and diuresis. Her home carvedilol was replaced with metoprolol tartrate 100 in the morning and 50 mg in the evening. INR was subtherapeutic at 1.3. She was bridged with lovenox until today when her INR 2.3. Bridget has been on furosemide 80 mg at home for many years. She has received furosemide 40 mg IV twice daily as an inpatient. Admission weight was 91.1 kg; today's weight is 87.6 kg. Heart rate is in the 70s today. Echocardiogram from 09/15/19 showed an EF of 55-60%. There is a mechanical mitral valve that is well seated. Mean gradient is 9 mmHg likely due to RVR. Bridget states she is breathing much better but still cannot lay flat. She has a history of severe sleep apnea on CPAP since 2008. Her home mask broke approximately one month ago. She has not been able to tolerate laying flat in the hospital. She has a 40-pack year smoking history; quit in 1996. She enjoys 3-4 drinks, prefers whiskey, on Saturdays and Sundays when she watches football. She denies drinking during the week. Exam Vital Signs (past 8 hours): - 09/20/19 05:06 09/20/19 08:00 09/20/19 12:00 Temperature 97.3 F L 97.6 F 97.9 F Pulse Rate 116 H 130 H 79 Respiratory Rate 18 19 20 Blood Pressure 117/74 113/67 94/60 Pulse Oximetry 98 94 97 Fraction of Inspired Oxygen 50 Oxygen Delivery Method Room Air Oxygen Flow Rate 0 Narrative Exam Narrative: HEENT: Normocephalic. Atraumatic. Edentulous. Respiratory: Lung mckeon are clear to bases bilaterally. Cardiovascular: Irregularly irregular rhythm. S1 is variable; prosethesis is crisp without mrumru. P2 is prominent. Abdomen: Obese. Positive bowel sounds. No pulsatile abdominal mass. Extremities: Pulses 2+ and equal. No Significant edema. No gangrene. Skin: Clean, dry and intact without rash. Neck Other: no obvious JVD Neuro Other: no obvious gross motor or sensory deficit. Objective Labs Result Diagrams: 09/19/19 10:32 09/20/19 11:45 Labs: Laboratory Results - last 24 hr 09/20/19 09/20/19 11:45 11:45 PT 33.6 H D INR 2.8 H Sodium 138 Potassium 5.1 Chloride 95 L Carbon Dioxide 37 H BUN 21 H Creatinine 0.60 Estimated GFR > 60.0 BUN/Creatinine Ratio 35.0 H Glucose 98 D Calcium 9.7 Magnesium 2.4 H Total Bilirubin 0.4 AST 24 ALT 19 Alkaline Phosphatase 119 Total Protein 7.7 Albumin 4.3 Globulin 3.4 Albumin/Globulin Ratio 1.3 Assessment & Plan Assessment & Plan narrative: 1. Atrial fibrillation With fast ventricular rate: Rate is controlled at present. at the time of hospitalization her INR was subtherapeutic. At this point of time will recommend rate control approach plus anticoagulation.Stop metoprolol tartrate and initiate metoprolol succinate 100 mg in the morning and 50 mg in the evening. Continue anticoagulation with warfarin. Goal INR is 3.0-3.5. Weekly outpatient INRs until INR at goal. if needed for rate control, calcium channel jammie can be added on top of metoprolol for better rate control. 2. acute decompensated heart failure likely due to A. fib with fast ventricular rate: On my physical examination today, she is not in significant volume overload. we'll stop IV Lasix. She is getting total 80 mg of IV Lasix in the hospital. Patient has been on PO furosemide for many years At home. to avoid furosemide resistance and better bioavaibility will recommend torsemide 40 mg in the morning. Consider close hemodynamic monitoring And electrolytes monitoring. 3. Mechanical Mitral valve prosthesis: In light of her a-fib, goal INR is 3.0-3.5. Weekly outpatient INRs until INR at goal. Repeat echocardiogram after 2-3 months of good rate control to assess the gradient across mechanical mitral valve. 4. HTN Follow-up with Dr. Cannon as an outpatient. TEMITOPE Beckwith History reviewed, patient seen, examined and plan discussed with Dr. Tanvir Chirinos. I saw this patient with Juancarlos and discussed the plan and assessment with Juancarlos Quality VTE Deep Vein Thrombosis/Pulmonary Embolism Present on Admission: No
--- NOTE | 2019-09-20 14:21 | PC.NURSE ---
Dr. Chirinos rounded. VORB for med changes for metoprolol and lasix. Requested clarification for lovenox. Instructed to give stating INR should be 3.0-3.5. Orders placed in [facility]. Update given to Dr. Ni via telephone. She gave VVO that patient may transfer to acute care status with telemetry monitoring.
[2019-09-20] MEDS: ENOXAPARIN 100 MG/ML SYRINGE 90 MG SUBCUT ×2 (14:27→21:56)
--- NOTE | 2019-09-20 15:39 | OT.IPNOTE ---
Touched base with pt and pt no longer on O2 at the time and states was able to do her own shower with just having nursing standby. Pt just wanting to focus on physical therapy needs at this time and therefore requesting to be discharged from OT services. Spoke at length with pt for making smart choices at home. No charge.
[2019-09-20] MEDS: METOPROLOL ER 50 MG TABLET PO (17:02)
--- NOTE | 2019-09-20 18:13 | P.PN_ITS ---
Subjective Subjective Date Patient Seen: 09/20/19 Time Patient Seen: 08:01 Interval history: Patient was up sitting in bedside chair. She states that she still having significant dyspnea and worsened with exertion. She continues to have a heart rate in the 120s to 140s with blood pressures in the systolic 90s to low 100s. She denies any chest pain but does feel chest pressure when her heart is beating very fast. She denies any lower extremity edema. She is eating normally without Difficulty. I reviewed patient's past history and workup thus far as she is a new patient to me . Review of systems is negative other than above. She denies any headaches. S he denies any cough. She denies nausea or vomiting or diarrhea. She has had normal bowel movements. She has not had any lower extremity edema. She has not had any dizziness. Exam Vital Signs (past 8 hours): - 09/20/19 12:00 09/20/19 15:26 09/20/19 17:02 Temperature 97.9 F 97.3 F L Pulse Rate 79 96 H 86 Respiratory Rate 20 18 Blood Pressure 94/60 96/71 112/71 Pulse Oximetry 97 Fraction of Inspired Oxygen 50 Oxygen Delivery Method Room Air Oxygen Flow Rate 0 Narrative Exam Narrative: Patient is afebrile vital signs are stable. She is currently on room air but was on oxygen throughout the night. Her heart rate is in the 120s to 140s with a blood pressure systolic of 100. She is alert and oriented x3. HEENT: Is unremarkable Neck: Supple without adenopathy. No jugular venous Distention no bruits Cor: Irregularly irregular rhythm with a rapid beat that is worsened with inspiration. She has a mechanical clicks. No murmur. Chest: Shows prolonged expiratory phase with bibasilar crackles but no rhonchi Abdomen: Positive bowel sounds, soft, nontender, nondistended, no hepatosplenomegaly Extremities: No edema, pulses intact Objective Labs Result Diagrams: 09/19/19 10:32 09/20/19 11:45 Labs: Laboratory Results - last 24 hr 09/20/19 09/20/19 11:45 11:45 PT 33.6 H D INR 2.8 H Sodium 138 Potassium 5.1 Chloride 95 L Carbon Dioxide 37 H BUN 21 H Creatinine 0.60 Estimated GFR > 60.0 BUN/Creatinine Ratio 35.0 H Glucose 98 D Calcium 9.7 Magnesium 2.4 H Total Bilirubin 0.4 AST 24 ALT 19 Alkaline Phosphatase 119 Total Protein 7.7 Albumin 4.3 Globulin 3.4 Albumin/Globulin Ratio 1.3 Assessment & Plan Assessment & Plan narrative: 69-year-old female Assessment 1. Atrial fibrillation with rapid ventricular rate. Unclear etiology. Suspect multifactorial and certainly in part related to untreated obstructive sleep apnea. She still is not rate controlled and asymptomatic with this as well as having hypotension. Reviewed echo and negative cardiac enzymes. We will order INR which was not done for today. We will consult Cardiology to help with rate control. Appreciate their input. She is currently hemodynamically stable so I will await their opinion for titrating up on metoprolol versus addition of another agent. We will continue with Lovenox and Coumadin until we get the results of her INR. She will have an INR daily. Assessment 2. Mechanical valve Plan: Continue on the Coumadin. Will continue on the Lovenox until she is therapeutic for the mechanical valve. Assessment 3. Hypoxemia I suspect in part related to the atrial fibrillation w ith rapid ventricular rate but I do suspect a component of primary pulmonary disease such as COPD. She may benefit from CT scan of the chest with contrast and pulmonary function test once she is stable from the standpoint of the atrial fibrillation. She is a distant history of tobacco abuse but a 40 pack-year history. Assessment number for fluid over related likely to atrial fibrillation with r apid ventricular rate Plan: She will continue on the Lasix. We will check a BMP in the morning. I reviewed her echo. Assessment 5. Depression Plan: Continue on the venlafaxine and the fluoxetine. Addendum met with patient later this evening. Appreciate Dr. ynes de la garza input. We will give a dose of torsemide 20 mg tonight. Patient is feeling much better. She is off oxygen. She only received 40 mg of Lasix today. She is now on long-acting metoprolol this was a change ordered by Dr. quick well. She has labs ordered for tomorrow. Total 35 minutes was spent with patient today Quality VTE Deep Vein Thrombosis/Pulmonary Embolism Present on Admission: No
--- NOTE | 2019-09-20 19:15 | PC.NURSE ---
Evening Shift Note: Pt continues in a-fib, CVR to RVR. Denies pain. SOB on exertion, SPO2 100% on RA at rest. Down to 92% after activity and with dyspnea on exertion. Pt otherwise tolerating diet. BG 101, no insulin given. Pt 1 person SB assist with FWW to bathroom. Will give one time evening dose of torsemide 20 mg PO per MD order. Will continue to monitor, notify MD with changes.
[2019-09-20] MEDS: TORSEMIDE 10 MG TABLET 20 MG PO (19:22)
[2019-09-21] VITALS (10 sets, daily range): BP systolic 106–116; BP diastolic 57–79; PULSE 73–96; RESP 16–18; TEMP 36.4–37.3; O2SAT 94–100; BMI 34.3
[2019-09-21] MEDS: diphenhydrAMINE 25 MG TABLET 50 MG PO (00:03)
[2019-09-21 05:12] LABS: Add Manual Diff / Slide Review NO; Basophils Absolute Auto 100 /uL (0-100); Basophils Percent Auto 1.4 % (0-2); Eosinophils Absolute Auto 400 /uL (0-450); Eosinophils Percent Auto 3.8 % (2-4); Hematocrit 37.6 % (36-46); Hemoglobin 12.2 g/dL (12.0-16.0); Lymphocytes Absolute Auto 2800 /uL (1100-4500); Lymphocytes Percent Auto 28.2 % (25-40); Mean Corpuscular HGB Conc 32.5 % (30-36); Mean Corpuscular Hemoglobin 29.1 PG (26-34); Mean Corpuscular Volume 89.6 fL (80-100); Monocytes Absolute Auto 800 /uL (0-900); Monocytes Percent Auto 8.6 % (3-14); Neutrophils Absolute Auto 5700 /uL (1500-7000); Platelet Count 322 X10^3/uL (150-400); White Blood Cell Count 9.8 X10^3/uL (4.5-11.0)
[2019-09-21 05:16] LABS: BUN Creatinine Ratio 32.9 (6-22); Blood Urea Nitrogen 23 mg/dL (7-17); Calcium 9.9 mg/dL (8.4-10.2); Carbon Dioxide 36 mmol/L (22-32); Chloride 96 mmol/L (98-107); Estimated Glomerular Filt Rate > 60.0 mL/min (>60); Glucose 122 mg/dL (80-110); HEMOLYSIS < 15 (0-50); Potassium 4.6 mmol/L (3.4-5.1); Sodium 139 mmol/L (137-145)
[2019-09-21 05:36] LABS: B Type Natriuretic Peptide 300 (<100)
[2019-09-21] MEDS: TORSEMIDE 10 MG TABLET 40 MG PO ×2 (06:02)
--- NOTE | 2019-09-21 06:23 | PC.NURSE ---
NOC note: Pt has been in A-fib RVR/CVR this shift, denies pain and denies SOB this shift. Up to BR with SBA, no O2 in use this shift. O2 when checked was 98-100%. Pt reports that she is feeling better.
--- NOTE | 2019-09-21 08:19 | PM.PN.1 ---
Subjective Subjective Date Patient Seen: 09/21/19 Time Patient Seen: 08:19 Interval history: Feeling much better today. Still not able to lie completely supine but dyspnea much improved. Denies chest pain. Appetite is excellent, no nausea or vomiting. Afebrile. Ambulating well. Exam Vital Signs (past 8 hours): - 09/21/19 05:20 09/21/19 08:00 Temperature 97.6 F 98.1 F Pulse Rate 75 73 Respiratory Rate 16 17 Blood Pressure 106/65 108/78 Pulse Oximetry 100 94 Fraction of Inspired Oxygen 50 Oxygen Delivery Method Room Air Oxygen Flow Rate 0 Narrative Exam Narrative: GENERAL: Alert and oriented, appearing stated age, breathing with short breaths. HEENT: Head normocephalic/atraumatic. LUNGS: Respiratory effort is not labored, clear to auscultation. No wheezes, rhonchi, or rales. CV: Irregularly irregular, mechanical valve, no murmurs, rubs or gallops. ABDOMEN: Soft, non-tender, non-distended, no organomegaly. Positive bowel sounds. EXTREMITIES: No clubbing, cyanosis, or edema. NEURO: Cranial nerves II through XII grossly intact, no focal deficits. PSYCH: Alert and oriented x 3. SKIN: No concerning lesions. Objective Labs Result Diagrams: 09/21/19 04:52 09/21/19 04:52 Labs: Laboratory Results - last 24 hr 09/20/19 09/20/19 09/21/19 11:45 11:45 04:52 WBC 9.8 RBC 4.20 Hgb 12.2 Hct 37.6 MCV 89.6 MCH 29.1 MCHC 32.5 RDW 16.0 H Plt Count 322 Neut % (Auto) 58.0 Lymph % (Auto) 28.2 [place] % (Auto) 8.6 Eos % (Auto) 3.8 Baso % (Auto) 1.4 Neut # (Auto) 5700 Lymph # (Auto) 2800 [place] # (Auto) 800 Eos # (Auto) 400 Baso # (Auto) 100 PT 33.6 H D INR 2.8 H Sodium 138 Potassium 5.1 Chloride 95 L Carbon Dioxide 37 H BUN 21 H Creatinine 0.60 Estimated GFR > 60.0 BUN/Creatinine Ratio 35.0 H Glucose 98 D Calcium 9.7 Magnesium 2.4 H Total Bilirubin 0.4 AST 24 ALT 19 Alkaline Phosphatase 119 B-Natriuretic Peptide 300 H Total Protein 7.7 Albumin 4.3 Globulin 3.4 Albumin/Globulin Ratio 1.3 09/21/19 04:52 WBC RBC Hgb Hct MCV MCH MCHC RDW Plt Count Neut % (Auto) Lymph % (Auto) [place] % (Auto) Eos % (Auto) Baso % (Auto) Neut # (Auto) Lymph # (Auto) [place] # (Auto) Eos # (Auto) Baso # (Auto) PT INR Sodium 139 Potassium 4.6 Chloride 96 L Carbon Dioxide 36 H BUN 23 H Creatinine 0.70 Estimated GFR > 60.0 BUN/Creatinine Ratio 32.9 H Glucose 122 H Calcium 9.9 Magnesium Total Bilirubin AST ALT Alkaline Phosphatase B-Natriuretic Peptide Total Protein Albumin Globulin Albumin/Globulin Ratio Assessment & Plan Assessment & Plan narrative: Hospital Day #7 Assessment 1: Atrial fibrillation with rapid ventricular rate, slowly improving, cardiology consulting, appreciate their input. Plan: Continue metoprolol succinate 100 mg p.o. b.i.d. Continue warfarin with Lovenox bridge. Morning INR, target 3.0-3.5. Assessment 2. Pulmonary edema. Likely secondary to diastolic dysfunction due to rapid atrial fibrillation, improving, -550 mL 24 hour output. Plan: Will continue torsemide diuresis at 40 mg IV q.day. and continue to closely monitor her electrolytes and renal function. Assessment 3: CHF, acute on chronic with preserved ejection fraction, echo on 09/15/18 showed an EF 55-60% with normal systolic function, increased left ventricular thickness with normal size, and an increased mean mitral valve gradient. Chest x-ray showed cardiomegaly and some interstitial prominence. BNP trending up slightly. Plan: Continue torsemide diuresis at 40 mg IV q.day. and continue to closely monitor her electrolytes and renal function. Will keep potassium levels greater than 4.0 and magnesium levels greater than 2.0. Assessment 4: History of chest pain during inpatient stay, rule out SC, currently asymptomatic Plan: Serial cardiac enzymes x 3, will watch closely and repeat with symptoms of chest pain. Assessment 5: Mitral valve replacement, on anticoagulation. INR subtherapeutic. Plan: Continue Coumadin 5 mg PO qd during inpatient stay with Lovenox bridge, repeat INR today pending. Per Cardiology, will monitor INR weekly in the outpatient setting. Will also repeat echocardiogram in 2-3 months once good heart rate control has been established to reassess the gradient across the mechanical mitral valve. Assessment 6: Sleep apnea, on home BiPAP, machine broken. Plan: RT consulting, have arranged for home BiPAP, will be ready tomorrow, will try to get that delivered to the hospital. Assessment 7: History of low TSH, resolved during this admission. Free T3 3.61, within normal limits. Plan: Will watch closely for occult hyperthyroidism. Assessment 8: Hypokalemia, likely secondary to Lasix, currently controlled with potassium replacement. Plan: Continue home potassium supplement 40 mEq p.o. q.day, will ensure level greater than 4.0 Assessment 9: Hyperlipidemia, chronic. Plan: Atorvastatin. Assessment 10: Hypertension, chronic. Plan: Holding home carvedilol 6.25 mg p.o. b.i.d., and lisinopril 20 mg p.o. q.day, will discontinue at discharge in favor of metoprolol. Assessment 11: Osteoarthritis, chronic. Plan: Continue home Tylenol #3, Celebrex, and baclofen. Assessment 12: Depression, chronic. Plan: Continue fluoxetine 40 mg p.o. q.day and venlafaxine 75 mg p.o. q.day. Assessment 13: Eleveated liver enzymes, likely acute phase reactants, resolved. Plan: Will watch closely. DVT prophylaxis: Warfarin, lovenox. GI prophylaxis: Omeprazole 20 mg p.o. q.day Code: Full Quality VTE Deep Vein Thrombosis/Pulmonary Embolism Present on Admission: No
[2019-09-21] MEDS: POTASSIUM CHLORIDE 10 MEQ TAB 40 MEQ PO (09:21)
[2019-09-21] MEDS: CELECOXIB 200 MG CAPSULE PO (09:21)
[2019-09-21] MEDS: WARFARIN 5 MG TABLET PO (09:23)
[2019-09-21] MEDS: ENOXAPARIN 100 MG/ML SYRINGE 90 MG SUBCUT ×2 (09:23→22:24)
[2019-09-21] MEDS: METOPROLOL ER 50 MG TABLET 100 MG PO ×2 (09:27→17:03)
[2019-09-21] MEDS: ATORVASTATIN 20 MG TABLET PO (09:27)
[2019-09-21] MEDS: PANTOPRAZOLE 20 MG TABLET PO (09:28)
[2019-09-21] MEDS: SODIUM CHLORIDE 0.9% FLUSH 10 ML IV ×2 (09:28→22:31)
[2019-09-21] MEDS: VENLAFAXINE ER 75 MG CAP PO (09:29)
--- NOTE | 2019-09-21 10:50 | PM.PN.1 ---
Subjective Subjective Date Patient Seen: 09/21/19 Time Patient Seen: 10:51 Interval history: Patient is a delightful 69 year old elderly female admitted for atrial fibrillation with a rapid ventricular rate and CHF with perserved LV function. Her cardiac history includes hypertension and a hyperdynamic systolic function with a LVH and LVOT. She was treated metoprolol but did not follow up as instructed. She was subsequently treated at [facility] where she was found to have severe mitral regurgitation treated with mitral valve replacement in 2007. She had no significant CAD at that time. She has been anticoagulated with warfarin with INRs being followed by her PCP's office. She presented to the walk in clinic with a 1 week history of progressive dyspnea and orthopnea. She was found to be in atrial fibrillation with a rapid ventricular rate. She was transported to [facility] for further evaluation. Cardiology consultation was provided by Dr. Kalpesh Cannon on 09/15/2019. He recommended rate control, anticoagulation and diuresis. Her home carvediolol was replaced with metoprolol tartrate 100 mg in the morning and 50 mg in the evening. Her INR was subtherapeutic at 1.3 at the time of her admission. She was started on Lovenox as a bridge until her INR was 2.3. She has previous been on furosemide 80 mg at home for several years. Upon admission her home dose of furosemide 80 mg po was discontinued and she was give furosemide 40 mg IV BID. Her admission weight was 91.1kg. Her echocardiogram from 09/15/2019 showed EF 55-60%. There is a mechanical valve in the mitral area that is well seated. Mean gradient is 9 mmHg lightly due to her rapid ventricular rate. Today she is breathing much better. She was able to lie flat without any difficult. Her heart rate is still not well controlled. Her heart rate today ranges from 74-120 bpm. Her INR on yesterday was 2.8. Exam Vital Signs (past 8 hours): - 09/21/19 05:20 09/21/19 08:00 09/21/19 09:27 Temperature 97.6 F 98.1 F Pulse Rate 75 73 Respiratory Rate 16 17 Blood Pressure 106/65 108/78 108/78 Pulse Oximetry 100 94 Fraction of Inspired Oxygen 50 Oxygen Delivery Method Room Air Oxygen Flow Rate 0 Narrative Exam Narrative: HEENT: Normocephalic. Atraumatic Neck Other: No obvious JVD Resp Other: Good aeration, clear to auscultation bilaterally without rales, rhonchi or wheezing. Cardio Other: Irregularly irregular rhythm with normal to tachycardic rate. S1 is variable, [place] prosethesic valve without murmur. GI Other: Abdomen: Obese. Positive bowel sounds. No pulsatile abdominal mass. Skin Other: Warm and dry, no rashes on face, neck or lower extremities Neuro Other: Awake, alert and oriented. No obvious gross motor or sensory deficits Extrem Other: Peripherl pulses 2+ bilaterally and equal. No significant peripheral edema, clubbing or cyanosis. Objective Labs Result Diagrams: 09/21/19 04:52 09/21/19 04:52 Labs: Laboratory Results - last 24 hr 09/20/19 09/20/19 09/21/19 11:45 11:45 04:52 WBC 9.8 RBC 4.20 Hgb 12.2 Hct 37.6 MCV 89.6 MCH 29.1 MCHC 32.5 RDW 16.0 H Plt Count 322 Neut % (Auto) 58.0 Lymph % (Auto) 28.2 [place] % (Auto) 8.6 Eos % (Auto) 3.8 Baso % (Auto) 1.4 Neut # (Auto) 5700 Lymph # (Auto) 2800 [place] # (Auto) 800 Eos # (Auto) 400 Baso # (Auto) 100 PT 33.6 H D INR 2.8 H Sodium 138 Potassium 5.1 Chloride 95 L Carbon Dioxide 37 H BUN 21 H Creatinine 0.60 Estimated GFR > 60.0 BUN/Creatinine Ratio 35.0 H Glucose 98 D Calcium 9.7 Magnesium 2.4 H Total Bilirubin 0.4 AST 24 ALT 19 Alkaline Phosphatase 119 B-Natriuretic Peptide 300 H Total Protein 7.7 Albumin 4.3 Globulin 3.4 Albumin/Globulin Ratio 1.3 09/21/19 04:52 WBC RBC Hgb Hct MCV MCH MCHC RDW Plt Count Neut % (Auto) Lymph % (Auto) [place] % (Auto) Eos % (Auto) Baso % (Auto) Neut # (Auto) Lymph # (Auto) [place] # (Auto) Eos # (Auto) Baso # (Auto) PT INR Sodium 139 Potassium 4.6 Chloride 96 L Carbon Dioxide 36 H BUN 23 H Creatinine 0.70 Estimated GFR > 60.0 BUN/Creatinine Ratio 32.9 H Glucose 122 H Calcium 9.9 Magnesium Total Bilirubin AST ALT Alkaline Phosphatase B-Natriuretic Peptide Total Protein Albumin Globulin Albumin/Globulin Ratio Assessment & Plan Assessment & Plan narrative: 1. Atrial fibrillation with a rapid ventricular rate. Her heart rate is not well controlled at present on metoprolol succ 100mg every morning and 50 mg every evening. In an effort to better control her heart rate, we will increase her metoprolol succ to 100 mg BID. We will have to monitor her blood pressure closely for any significant hypotension. We will continue anticoagulation with warfarin. Target goal is INR 3.0-3.5. Her INR on yesterday was 2.8. We will check her INR in the morning and adjust her warfarin dose if she has not achieved target INR. 2. Acute decompensated heart failure likely due to atrial fibrillation with a rapid ventricular rate. On physical exam today, she has no evidence of volume overload. On admission her weight was 91 kg. She is currently 88kg. She is able to lie supine without difficult. Continue torsemide 40 mg po daily with close monitoring of electrolytes. 3. Mechanical mitral valve prosthesis. In light of her mechanical valve, target goal is INR 3.0-3.5. INR on yesterday was 2.8. We will check her INR tomorrow. Weekly outpatient INR checks until target INR goal has been achieved. We recommed repeating her echocardiogram in 2-3 months once good heart rate control has been established to reassess the gradient across her mechanical mitral valve. 4. Hypertension. Her blood pressure is well controlled. We will need to monitor her blood pressure closely on the increased dose of metoprolol succ. ATTENDING ADDENDUM: I saw, examined and reviewed the plan of care with TEMITOPE Colvin on 09/21/2019. Quality VTE Deep Vein Thrombosis/Pulmonary Embolism Present on Admission: No
--- NOTE | 2019-09-21 12:08 | DIET.PN ---
Dietary Progress Note Assessment: 69y admitted for chest px and SOB, Afib c RVR and preDM referred to nutrition for DM/HH diet education. Pt reports consuming 1-2 meals per day, usually [employer] sausage biscuit c iced tea and hamburger helper c iced tea or black coffee. Pt reports not knowing how to cook and does not eat vegetables. Pt had all teeth pulled, saving up to get dentures, so diet is soft. Pt reports not having much appetite while inpatient, doesn't enjoy the food despite room service taking her order for most meals. Pt reports watching tv during the day, reading late into the night, and not moving much during the day. Pt does have season tickets to [employer] so takes the train to games and gets steps doing that, often stops at [employer] afterwards for dinner. Pt is motivated by impending wedding this spring and wants to be healthier for that. HT: 160cm WT: 88kg BMI: 34.4 Labs: A1c 6.3 preDM MNA: 14 normal Carlos: 18 Nutrition Diagnosis: undesirable food choices r/t knowledge deficit of dietary recommendations for heart health aeb pt consumes fast food daily, high intake of saturated fat and refined carbs (sausage, hamburger, noodles), BMI 34.4, no intentional physical activity. Interventions: 1. Using handout, educated pt on heart healthy diabetic diet for home use. 2. Encouraged being creative in getting more movement, even with ADLs. Diet Order: HH/CCD EER: 1500kcal, 70g PRO (0.8g/kg), 2.6L fluids Monitoring/Evaluations: as needed
--- NOTE | 2019-09-21 14:01 | PT.IPTN ---
Current Diagnoses Unspecified atrial fibrillation (09/14/19) Physical Therapy Treatment Note M2 PT-IP Current Condition Start: 09/16/19 10:45 Freq: NEEDED Status: Active Protocol: Document 09/16/19 09:16 AB (Rec: 09/16/19 10:58 AB [id number]) Physical Therapy Current Condition Current Condition Evaluation Date 09/16/19 Treatment Diagnosis A-fib; CHF; difficulty in walking Onset Date 09/14/2019 Precautions Other Precautions O2 sat; HR M3 PT-IP Subjective Start: 09/16/19 10:45 Freq: NEEDED Status: Active Protocol: Document 09/21/19 14:01 CLB (Rec: 09/21/19 15:03 CLB [email or web address]) Subjective Physical Therapy Visit Type Type Treatment Note Visit Start Time 14:01 Visit Stop Time 14:17 Total Visit Minutes 16 Number of FLIGHT READINESS TECHNICIAN Visits 2 Physical Therapy Visit Comments Patient Comments Pt agreeable to participate with therapy session. Therapy Pain Assessment Pain When Pain Assessed At Rest Pain Present Pain Present Denied Pain M4 PT-IP Mobility and Gait Start: 09/16/19 10:45 Freq: NEEDED Status: Active Protocol: Document 09/21/19 14:01 CLB (Rec: 09/21/19 15:03 CLB [email or web address]) PT-Transfer Assessment Sit to and From Stand Sit to and from Stand Standby Assistance Equipment Transfer Assistive Device Gait Belt,Front Wheeled Walker Orthotic/Prosthetic Devices or Brace: No Transfers Transfer Destination Bed,Toilet Transfer Technique ambulated using FWW Transfer Ability Level of Assist Standby Assistance,1 Person Assistance,Use of Upper Extremities Comments Mobility Comments Pt remains SBA with FWW during transfers and SBA for all bed mobility. Pt left in bed with call light and all needs within reach, HOB elevated. Gait Assessment Gait Gait Assistance Required: Standby Assistance,Contact Guard Assist Distance (Feet) 150 Able to Maintain Weight Bearing Status Yes During Gait Assistive Devices Assistive Device Gait Belt,Front Wheeled Walker Gait Deviations General Gait Pattern Antalgic,Decreased Stride Length,Decreased Feet Clearance Factors Limiting Gait Function Factors Limiting Gait Function Decreased Activity Tolerance, Decreased Strength,Poor Safety Awareness,Respiratory Distress Comments Gait Comments Pt increased ambulation to ~ 130ft SBA-CGA with FWW as pt had LOB x2 during gait with head turns. M5 PT-IP Objective Assessments Start: 09/16/19 10:45 Freq: NEEDED Status: Active Protocol: Document 09/16/19 09:16 AB (Rec: 09/16/19 10:58 AB [id number]) Orientation Orientation/Cognition Level of Alertness Alert Orientation Name,Place,Situation Safety Awareness Decreased Safety Awareness Gross Range of Motion Lower Extremity ROM Assessment Within Functional Limits Strength Lower Extremity Strength Hip 4-/5 Knee 4-/5 Coordination Assessment Gross Coordination Gross Coordination WNL Sensation Assessment Sensation Gross Sensation WNL Muscle Tone Muscle Tone WNL Yes M6 PT-IP Treatment Start: 09/16/19 10:45 Freq: NEEDED Status: Active Protocol: Document 09/20/19 10:18 CLB (Rec: 09/20/19 12:47 CLB [id number]) Physical Therapy Treatment Education Education Provided Precautions,Safety Other Treatments Other Treatment Performed Standing balance: NBS: EO,EC tandem stance: EO HR during standing balance 86- 112 bpm, O2 sats 92-96% M7 PT-IP Assessment and Plan Start: 09/16/19 10:45 Freq: NEEDED Status: Active Protocol: Document 09/21/19 14:01 CLB (Rec: 09/21/19 15:03 CLB [email or web address]) PT Summary Assessment and Plan Summary Assessment Summary Pt requires SBA for bed mobility and transfers, Pt had LOB x2 during gait requiring CGA to assist to steady pt. At rest in bed pt SpO2 on RA 92- 94%, HR 65-112 bpm. SpO2 on RA after activity 94-96%, HR 96- 132. HR returned to 66-113 within a few minutes of rest at EOB. Goals Bed Mobility Goal Independent Transfer Goal Independent,Front Wheeled Walker Gait Goal Independent,Front Wheel Walker Gait Distance 200 Other Goals up/down 1 step using FWW/SPC/ without AD SBA improve ambulation using SPC/ without AD 250 ft SBA Days to Meet Goals 10 Frequency of Treatment Frequency Of Treatment Once a Day Treatment Plan Other Recommendations and Next Treatment stair training (one threshold Focus step) reassess pt for gait with SPC vs FWW for safety, track VS Recommendations To Nursing Amount of Assist Needed Independent Discharge Recommendations PT Discharge Recommendations Home with Assistance, Outpatient PT Other Discharge Recommendations home with assist and outpt cardiopulmo rehab Equipment Needed for Home Before FWW if not safe with SPC/ Discharge without AD
[2019-09-21 15:16] LABS: INR 2.8 (0.9-1.3); Prothrombin Time 33.7 SECONDS (10.1-12.7)
--- NOTE | 2019-09-21 15:32 | CM.DPC ---
DCP Cont: Called Dr. Diez at her clinic to get more information as far as when patient would be discharged. Dr. Diez stated that she had just read control electrician's note, and that patient should be able to go home tomorrow. She will be getting outpatient sleep study, regarding BIPAP. Updated ICU nurse, Dalia. P: DCP to continue to follow. Patient should be going home tomorrow if stable and will have outpatient sleep study. Deana Calle RN/Back Up Scan Coordinator
[2019-09-22] VITALS (7 sets, daily range): BP systolic 99–118; BP diastolic 58–74; PULSE 54–80; RESP 16–18; TEMP 35.9–36.6; O2SAT 92–100
[2019-09-22 05:13] LABS: Add Manual Diff / Slide Review NO; Basophils Absolute Auto 100 /uL (0-100); Basophils Percent Auto 1.2 % (0-2); Eosinophils Absolute Auto 400 /uL (0-450); Eosinophils Percent Auto 3.6 % (2-4); Hematocrit 37.3 % (36-46); Hemoglobin 12.2 g/dL (12.0-16.0); Lymphocytes Absolute Auto 3200 /uL (1100-4500); Lymphocytes Percent Auto 30.9 % (25-40); Mean Corpuscular HGB Conc 32.6 % (30-36); Mean Corpuscular Hemoglobin 29.1 PG (26-34); Mean Corpuscular Volume 89.2 fL (80-100); Monocytes Absolute Auto 800 /uL (0-900); Monocytes Percent Auto 7.8 % (3-14); Neutrophils Absolute Auto 5800 /uL (1500-7000); Neutrophils Percent Auto 56.5 % (50-75); Platelet Count 330 X10^3/uL (150-400); Red Blood Cell Count 4.18 X10^6/uL (4.0-5.2); Red Cell Distribution Width 15.9 % (11.6-14.8); White Blood Cell Count 10.3 X10^3/uL (4.5-11.0)
[2019-09-22 05:23] LABS: Alanine Aminotransferase 24 IU/L (<35); Albumin 4.2 g/dL (3.5-5.0); Albumin Globulin Ratio 1.2 (1.0-2.8); Alkaline Phosphatase 121 U/L (38-126); Aspartate Aminotransferase 30 IU/L (14-36); Bilirubin Total 0.3 mg/dL (0.2-1.3); Blood Urea Nitrogen 24 mg/dL (7-17); Calcium 9.5 mg/dL (8.4-10.2); Carbon Dioxide 30 mmol/L (22-32); Chloride 98 mmol/L (98-107); Estimated Glomerular Filt Rate > 60.0 mL/min (>60); Globulin 3.6 g/dL (1.7-4.1); Glucose 135 mg/dL (80-110); HEMOLYSIS < 15 (0-50); Potassium 4.1 mmol/L (3.4-5.1); Sodium 139 mmol/L (137-145); Total Protein 7.8 g/dL (6.3-8.2)
[2019-09-22 05:37] LABS: Magnesium 2.4 mg/dL (1.6-2.3)
[2019-09-22 05:41] LABS: B Type Natriuretic Peptide 240 (<100)
--- NOTE | 2019-09-22 08:16 | P.DS_ITS ---
History of Present Illness History of Present Illness Date Patient Seen: 09/22/19 Time Patient Seen: 08:16 Chief complaint: Chest Pain / SOB Narrative: 69 yo female admitted from the ED with atrial fibrillation with rapid ventricular rate and CHF. Patient was seen in clinic today after 5 days of shortness of breath and difficulty lying supine. In addition to her atrial fibrillation in the clinic, EKG showed ST depression. Denies any current chest pain although she did have some chest pain earlier in the week. Vital signs upon admission to the ED included a temperature 99.6?, pulse 144, pressure 108/68, respirations 28, O2 saturation 96% on room air. Labs significant for a slightly elevated BNP at 279, notably negative troponin and a subtherapeutic INR at 1.4. Hemoglobin/hematocrit 11.5/35.0. AST and ALP slightly elevated at 39 and 137, respectively. Chest x-ray showed cardiomegaly with an interstitial pattern and CT angiogram negative for PE. Patient was given 10 mg of Cardizem x 2, which did not resolve her atrial fibrillation. As she is not a good candidate for cardioversion, she was placed on a diltiazem drip and transferred to the ICU. Medical history is significant for mitral valve replacement, on anticoagulation. Also has CHF, on Lasix. Last echo on 12/11/2012 showed an ejection fraction of 55-60%, moderately dilated left atrium and well-seated mechanical mitral valve. Denies any peripheral edema. Usual dose of Lasix is 8 0 mg p.o. q.day. Past medical history: CHF Mitral valve replacement, on anticoagulation Hyperlipidemia Hypertension Hypokalemia Sleep apnea, on CPAP Low TSH Right external otitis Dupuytren's contracture, left Ataxia Osteoarthritis Depression Insomnia Obesity Former smoker Past surgical history: Cholecystectomy, 1974 Appendectomy, 1974, Tubal , 1976 Bilateral tubal ligation, 1978 Mitral valve replacement, 2008 Family history: Father: Diabetes, hypertension, hyperlipidemia Mother: Cervical cancer Siblings: Heart disease, lung cancer, hypertension, hyperlipidemia, tuberculosis Social history: Single, retired. Lives with boyfriendMohan. Discharge Providers Provider Date of admission: 09/14/19 16:18 Discharge Date: 09/22/19 Primary care physician: Donya Diez MD Consults: 09/14/19 20:04 Consult to Occupational Therapy Evaluate & Treat Comment: Physician Instructions: Evaluate and treat Consult to Physical Therapy Evaluate & Treat Comment: Physician Instructions: Evaluate and Treat 09/19/19 12:53 Consult to Dietitian, Adult Routine Comment: Reason For Exam: education re diabetic/heart healthy diet Discharge provider: Donya Diez MD Summary Hospital Course Discharge Diagnosis: 1. Atrial fibrillation with rapid ventricular rate 2. Pulmonary edema 3. CHF, acute on chronic with preserved ejection fraction 4. History of chest pain during inpatient stay, resolved 5. Mitral valve replacement, on anticoagulation, INR approaching therapeutic level 6. Sleep apnea 7. History of low TSH, resolved during admission with no evidence of occult hyperthyroidism 8. Hypokalemia, chronic 9. Hyperlipidemia, chronic 10. Hypertension, chronic 11. Osteoarthritis, chronic 12. Depression, chronic 13. Elevated liver enzymes, acute, resolved Hospital Course: Patient was initially placed on diltiazem drip with inability t o achieve either rate control or rhythm control. Cardiology was consulted and digoxin was added with little improvement. Both medications were then discontinued in favor of metoprolol which was then titrated to 100 mg p.o. b.i.d.. On day of discharge, patient's heart rate and blood pressure are within within normal range. She has been diuresed throughout her stay and is now able to lie supine without dyspnea. INR was subtherapeutic upon admission and warfarin was increased to 5 mg p.o. q.day with a Lovenox bridge. On day of discharge, INR is pending but anticipate therapeutic result, target 3.0-3.5 secondary to mechanical mitral valve. Lovenox will be discontinued prior to discharge. Plan will be to follow-up with INR in 3 days and thereafter weekly. Will see patient in the outpatient setting in 1 week and repeat BMP. Also will set patient up with cardiology for follow-up in 2-3 months, echo at that time. Status at Discharge Cognitive/behavioral status at discharge: oriented Functional status at discharge: independent ambulation Overall status at discharge: patient is progressing back to baseline Exam Vital Signs (past 8 hours): - 09/22/19 00:26 09/22/19 05:17 Temperature 96.7 F L Pulse Rate 54 L Respiratory Rate 16 Blood Pressure 106/74 Pulse Oximetry 94 100 Fraction of Inspired Oxygen 50 Oxygen Delivery Method Room Air Oxygen Flow Rate 0 Narrative Exam Narrative: GENERAL: Alert and oriented, appearing stated age and in no acute distress. HEENT: Head normocephalic/atraumatic. LUNGS: Clear to ausculation bilaterally, no wheezes, rhonchi or rales. CV: Irregularly irregular, mechanical valve, no murmurs, rubs, or gallops. ABDOMEN: Soft, non-tender, non-distended, no organomegaly. Positive bowel sounds. EXTREMITIES: No clubbing, cyanosis, or edema. NEURO: Cranial nerves II through XII grossly intact, no focal deficits. PSYCH: Alert and oriented x 3. SKIN: No concerning lesions. Objective Labs Result Diagrams: 09/22/19 04:41 09/22/19 04:41 Labs: Laboratory Results - last 24 hr 09/21/19 09/22/19 09/22/19 14:25 04:41 04:41 WBC 10.3 RBC 4.18 Hgb 12.2 Hct 37.3 MCV 89.2 MCH 29.1 MCHC 32.6 RDW 15.9 H Plt Count 330 Neut % (Auto) 56.5 Lymph % (Auto) 30.9 [place] % (Auto) 7.8 Eos % (Auto) 3.6 Baso % (Auto) 1.2 Neut # (Auto) 5800 Lymph # (Auto) 3200 [place] # (Auto) 800 Eos # (Auto) 400 Baso # (Auto) 100 PT 33.7 H INR 2.8 H Sodium 139 Potassium 4.1 Chloride 98 Carbon Dioxide 30 BUN 24 H Creatinine 0.80 Estimated GFR > 60.0 BUN/Creatinine Ratio 30.0 H Glucose 135 H Calcium 9.5 Magnesium Total Bilirubin 0.3 AST 30 ALT 24 Alkaline Phosphatase 121 B-Natriuretic Peptide 240 H Total Protein 7.8 Albumin 4.2 Globulin 3.6 Albumin/Globulin Ratio 1.2 09/22/19 04:41 WBC RBC Hgb Hct MCV MCH MCHC RDW Plt Count Neut % (Auto) Lymph % (Auto) [place] % (Auto) Eos % (Auto) Baso % (Auto) Neut # (Auto) Lymph # (Auto) [place] # (Auto) Eos # (Auto) Baso # (Auto) PT INR Sodium Potassium Chloride Carbon Dioxide BUN Creatinine Estimated GFR BUN/Creatinine Ratio Glucose Calcium Magnesium 2.4 H Total Bilirubin AST ALT Alkaline Phosphatase B-Natriuretic Peptide Total Protein Albumin Globulin Albumin/Globulin Ratio Discharge Plan Discharge Plan Patient Disposition: Home Discharge orders & Medications Prescriptions: New metoprolol succinate 50 mg Tablet Extended Release 24 Hr 100 mg PO BID Qty: 180 RF: 3 torsemide 10 mg Tablet 40 mg PO DAILY@0600 Qty: 90 RF: 3 Continued fluoxetine 20 mg Tablet 40 mg PO DAILY Qty: 0 RF: 0 celecoxib 200 mg capsule 200 mg PO DAILY RF: 0 potassium chloride 10 mEq capsule, extended release 40 meq PO DAILY RF: 0 atorvastatin 20 mg tablet 20 mg PO DAILY RF: 0 acetaminophen-codeine 300-30 mg tablet 1 tab PO Q4H PRN (Reason: pain) RF: 0 baclofen 10 mg tablet 10 mg PO TID PRN (Reason: Muscle Spasm) RF: 0 omeprazole 20 mg capsule,delayed release(DR/EC) 20 mg PO DAILY RF: 0 acetaminophen 325 mg Tablet 325 - 650 mg PO Q4-6H PRN (Reason: pain) RF: 0 venlafaxine 75 mg capsule,extended release 24hr 75 mg PO DAILY RF: 0 diclofenac sodium 1 % Gel 0 g TOPICAL DIRECTED RF: 0 Changed warfarin 5 mg tablet 5 mg PO DAILY Qty: 0 RF: 0 Discontinued lisinopril 20 mg Tablet 20 mg PO DAILY Qty: 0 RF: 0 furosemide 40 mg tablet 80 mg PO DAILY RF: 0 warfarin 4 mg tablet 4 mg PO SUMOTUTHSA RF: 0 carvedilol 6.25 mg tablet 6.25 mg PO BID RF: 0 Follow up/Referrals: Donya Diez MD [Primary Care Provider] - Diet/Activity/Treatments Diet: Low-sodium Activity: as tolerated Skin/Wound/Dressing Care Report to your healthcare provider any signs of infection, such as:: chills, fever and increased pain Visit Report/Discharge Packet Instructions: DI for Heart Failure, DI for Arrhythmias Discharge Data Primary Care Provider: Donya Diez Quality VTE Deep Vein Thrombosis/Pulmonary Embolism Present on Admission: No
[2019-09-22 09:25] LABS: INR 2.7 (0.9-1.3); Prothrombin Time 31.5 SECONDS (10.1-12.7)
[2019-09-22] MEDS: METOPROLOL ER 50 MG TABLET 100 MG PO (09:29)
[2019-09-22] MEDS: PANTOPRAZOLE 20 MG TABLET PO (09:29)
[2019-09-22] MEDS: WARFARIN 5 MG TABLET PO (09:30)
[2019-09-22] MEDS: CELECOXIB 200 MG CAPSULE PO (09:31)
[2019-09-22] MEDS: ATORVASTATIN 20 MG TABLET PO (09:31)
[2019-09-22] MEDS: POTASSIUM CHLORIDE 10 MEQ TAB 40 MEQ PO (09:31)
[2019-09-22] MEDS: VENLAFAXINE ER 75 MG CAP PO (09:35)
[2019-09-22] MEDS: TORSEMIDE 10 MG TABLET 40 MG PO (09:37)
--- NOTE | 2019-09-22 10:02 | CM.DPC ---
DCP Discharge Home Per MD, pt is medically stable to d/c home today with no identified barriers to discharge. Per PT, recommending safe d/c home with outpt PT. Plan: Patient to d/c home today via family POV and no SW needs at this time. AUBREY Hammond
--- NOTE | 2019-09-22 11:38 | PC.NURSE ---
PT DISCHARGED TO [facility] AT 11AM- REQUIRED MECHANICAL LIFT TO WHEEL CHAIR - REPORT GIVEN AND ALL QUESTIONS ANSWERED AT THIS TIME
--- NOTE | 2019-09-22 12:04 | PC.NURSE ---
preparing for discahrge after lunch , iv and tele jremoved at this time- pt remains afib cvr denies any sob or n/v eager to d/c
--- NOTE | 2019-09-22 13:34 | PT.IPTN ---
Current Diagnoses Unspecified atrial fibrillation (09/14/19) Physical Therapy Treatment Note M2 PT-IP Current Condition Start: 09/16/19 10:45 Freq: NEEDED Status: Active Protocol: Document 09/16/19 09:16 AB (Rec: 09/16/19 10:58 AB [id number]) Physical Therapy Current Condition Current Condition Evaluation Date 09/16/19 Treatment Diagnosis A-fib; CHF; difficulty in walking Onset Date 09/14/2019 Precautions Other Precautions O2 sat; HR M3 PT-IP Subjective Start: 09/16/19 10:45 Freq: NEEDED Status: Active Protocol: Document 09/22/19 13:11 SP (Rec: 09/22/19 14:12 SP [email or web address]) Subjective Physical Therapy Visit Type Type Treatment Note Visit Start Time 13:11 Visit Stop Time 13:34 Total Visit Minutes 23 Number of LEARNING AND DEVELOPMENT COORDINATOR Visits 3 Physical Therapy Visit Comments Patient Comments Pt agreeable to PT. Patient Goals Complete stairs and go home with SO today. Therapy Pain Assessment Pain Present Pain Present Denied Pain M4 PT-IP Mobility and Gait Start: 09/16/19 10:45 Freq: NEEDED Status: Active Protocol: Document 09/22/19 13:11 SP (Rec: 09/22/19 14:12 SP [email or web address]) PT-Bed Mobility Assessment Sit to Supine Sit to Supine Independent PT-Transfer Assessment Sit to and From Stand Sit to and from Stand Standby Assistance Equipment Transfer Assistive Device Gait Belt,Straight Cane,Front Wheeled Walker Orthotic/Prosthetic Devices or Brace: No Transfers Transfer Destination Bed,Toilet Transfer Technique Pt ambulated using SPC and no AD room distance Transfer Ability Level of Assist Standby Assistance,Use of Upper Extremities Comments Mobility Comments Pt was seated at EOB when arrived, SO in room on phone. LEARNING AND DEVELOPMENT COORDINATOR discussed caregiver training with SO and patient and performed including don gait belt for safety assist if needed, bed mob, SBA transfers, gait and 1 step mgt using FWW. Pt was able to sit to stand at EOB no AD or UE assist required SBA no LOB or deviations, ambulated to toilet with good stability SBA no AD, stand<> sit using rail on wall during toilet transfer stable. Pt was able to complete sitting to supine I with HOB flat and no rails required. Pt had all needs and call light in reach when left , SO in room. Gait Assessment Gait Gait Assistance Required: Contact Guard Assist,Minimum Assistance,1 Person Assist Distance (Feet) 100 Able to Maintain Weight Bearing Status Yes During Gait Assistive Devices Assistive Device Gait Belt,Front Wheeled Walker Gait Deviations General Gait Pattern Antalgic,Decreased Stride Length,Decreased Feet Clearance Factors Limiting Gait Function Factors Limiting Gait Function Decreased Activity Tolerance, Decreased Strength,Poor Safety Awareness,Respiratory Distress Comments Gait Comments Pt decreased ambulation to ~ 100ft with SPC CGA provided by SO pt had LOB x1 with Min A for recovery provided by SO and therapist arms reach and followed with w/c during gait approx 100ft + SOB. Cued patient required seated rest for safety and discussed use of FWW for safety and agreed by patient and SO, has one at home to use. Education on stopped rests if no where to sit during ambulation at home and diaphramatic breathing with slow pacing gait to allow for energy conservation to improved stable HR. HR with activity 85-123bpm and O2 sat on RA 94-96% recovers within few seconds rest. Stair Climbing Assessment Evaluation Level of Assist On Stairs Contact Guard Assistance Devices Stair Climbing Assistive Devices Front Wheel Walker Technique/Endurance Stair Climbing Direction Ascend and Descend Stair Climbing Technique Step to Step Number of Steps Climbed 1 Stair Climbing Set # Repetitions (reps) 1 Comments Stair Climbing Comments Pt was able to assimulate 1 step mgt using fWW ( assimulated home enterance) CGA provided by SO with good patterning post instruction pre sequencing. Stable. M5 PT-IP Objective Assessments Start: 09/16/19 10:45 Freq: NEEDED Status: Active Protocol: Document 09/16/19 09:16 AB (Rec: 09/16/19 10:58 AB [id number]) Orientation Orientation/Cognition Level of Alertness Alert Orientation Name,Place,Situation Safety Awareness Decreased Safety Awareness Gross Range of Motion Lower Extremity ROM Assessment Within Functional Limits Strength Lower Extremity Strength Hip 4-/5 Knee 4-/5 Coordination Assessment Gross Coordination Gross Coordination WNL Sensation Assessment Sensation Gross Sensation WNL Muscle Tone Muscle Tone WNL Yes M6 PT-IP Treatment Start: 09/16/19 10:45 Freq: NEEDED Status: Active Protocol: Document 09/22/19 13:11 SP (Rec: 09/22/19 14:12 SP [email or web address]) Physical Therapy Treatment Education Education Provided Precautions,Safety M7 PT-IP Assessment and Plan Start: 09/16/19 10:45 Freq: NEEDED Status: Active Protocol: Document 09/22/19 13:11 SP (Rec: 09/22/19 14:12 SP [email or web address]) PT Summary Assessment and Plan Potential Rehabilitation Potential Good Status of Condition at Evaluation Evolving Summary Impairments Strength,Balance,Bed Mobility, Transfers,Gait,Activity Tolerance Assessment Summary Pt requires I for bed mobility , SBA transfers and CGA using SPC, pt had LOB x1 during gait requiring Min A provided by SO to assist to steady pt. Improved gait usign FWW CGA- SBA provided by SO and with education on slow pacing with slow controlled breath and stopped rests as needed for energy conservation and safety . Pt able to complete 1 step mgt using fWW CGA by SO, stable and safe. Recommend Pt able to return home with SO for assist home with assist using FWW at this time for safety, outpt PT and cardiopulmo rehab to increased strength, endurance to progress in functional independence. Goals Bed Mobility Goal Independent Transfer Goal Independent,Front Wheeled Walker Gait Goal Independent,Front Wheel Walker Gait Distance 200 Other Goals up/down 1 step using FWW/SPC/ without AD SBA improve ambulation using SPC/ without AD 250 ft SBA Days to Meet Goals 10 Frequency of Treatment Frequency Of Treatment Once a Day Treatment Plan Physical Therapy Treatment Plan Bed Mobility Training,Transfer Training,Gait Training, Therapeutic Exercise,Balance Retraining,Post Op Education, Discharge Planning,Hot or Cold Pack,Neuromuscular Re-ed, Coordination Retraining,Manual Therapy Recommendations To Nursing Amount of Assist Needed Independent Discharge Recommendations PT Discharge Recommendations Home with Assistance, Outpatient PT Other Discharge Recommendations home with assist and outpt cardiopulmo rehab Equipment Needed for Home Before FWW for use at time. Discharge
== END 2019-09-22 15:07 | disposition home or self-care (01) | DRG 308 ==
LOC: ED 16:01 → ICU 16:19
PROVIDERS: Family Medicine; Specialist; Admitting Provider Student in an Organized Health Care Education/Training Program; Emergency Provider Emergency Medicine; PCP Student in an Organized Health Care Education/Training Program; Visit Provider Student in an Organized Health Care Education/Training Program
DX: I48.91 Unspecified atrial fibrillation (principal); I50.33 Acute on chronic diastolic (congestive) heart failure; I11.0 Hypertensive heart disease with heart failure; E87.6 Hypokalemia; G47.33 Obstructive sleep apnea (adult) (pediatric); Z91.19 Patient's noncompliance with other medical treatment and regimen; R94.5 Abnormal results of liver function studies; E78.5 Hyperlipidemia, unspecified; M19.91 Primary osteoarthritis, unspecified site; F32.9 Major depressive disorder, single episode, unspecified; Z79.01 Long term (current) use of anticoagulants; Z95.2 Presence of prosthetic heart valve; Z87.891 Personal history of nicotine dependence
CPT/HCPCS: 36415; 71045; 71275; 80048; 80053; 81001; 82550; 82962; 83036; 83690; 83735; 83880; 84443; 84481; 84484; 85025; 85610; 85730; 87797; 93005; 93010; 93306; 94660; 94760; 96365; 96376; 97110; 97116; 97162; 97165; 97530; 97535; 99285; J1160; J1650; J1940; Q9967

== ENCOUNTER → 2019-09-30 14:44 | Outpatient (ROUT) | payer OTHER, MEDICAID, SELFPAY ==
[2019-09-14 18:12] VITALS: BMI 35.4
[2019-09-30 15:06] LABS: Prothrombin Time 61.8 SECONDS (10.1-12.7)
[2019-09-30 15:11] LABS: INR 5.4 (0.9-1.3)
== END ==
PROVIDERS: PCP Student in an Organized Health Care Education/Training Program; Visit Provider Student in an Organized Health Care Education/Training Program
DX: I48.91 Unspecified atrial fibrillation (principal)
CPT/HCPCS: 85610

== ENCOUNTER → 2019-10-07 15:56 | Outpatient (ROUT) | payer OTHER, MEDICAID, SELFPAY ==
[2019-09-14 18:12] VITALS: BMI 35.4
[2019-10-07 16:02] LABS: Prothrombin Time 33.9 SECONDS (10.1-12.7)
== END ==
PROVIDERS: PCP Student in an Organized Health Care Education/Training Program; Visit Provider Student in an Organized Health Care Education/Training Program
DX: I48.91 Unspecified atrial fibrillation (principal); I38 Endocarditis, valve unspecified; Z95.2 Presence of prosthetic heart valve; Z79.01 Long term (current) use of anticoagulants
CPT/HCPCS: 85610

== ENCOUNTER → 2019-10-14 16:29 | Outpatient (CLI) | payer OTHER, MEDICAID, SELFPAY ==
[2019-09-14 18:12] VITALS: BMI 35.4
[2019-10-14 17:58] LABS: INR 3.3 (0.9-1.3); Prothrombin Time 37.3 SECONDS (10.1-12.7)
== END ==
PROVIDERS: PCP Student in an Organized Health Care Education/Training Program; Referring Provider Student in an Organized Health Care Education/Training Program; Visit Provider Student in an Organized Health Care Education/Training Program
DX: I48.91 Unspecified atrial fibrillation (principal); I38 Endocarditis, valve unspecified; Z95.2 Presence of prosthetic heart valve; Z79.01 Long term (current) use of anticoagulants
CPT/HCPCS: 36415; 85610

== ENCOUNTER → 2019-10-21 14:38 | Outpatient (ROUT) | payer OTHER, MEDICAID, SELFPAY ==
[2019-09-14 18:12] VITALS: BMI 35.4
[2019-10-21 15:30] LABS: INR 1.6 (0.9-1.3); Prothrombin Time 18.8 SECONDS (10.1-12.7)
== END ==
PROVIDERS: PCP Student in an Organized Health Care Education/Training Program; Visit Provider Student in an Organized Health Care Education/Training Program
DX: I48.91 Unspecified atrial fibrillation (principal); I38 Endocarditis, valve unspecified; Z95.2 Presence of prosthetic heart valve; Z79.01 Long term (current) use of anticoagulants
CPT/HCPCS: 85610

== ENCOUNTER → 2019-10-28 13:45 | Outpatient (ROUT) | payer OTHER, MEDICAID, SELFPAY ==
[2019-09-14 18:12] VITALS: BMI 35.4
[2019-10-28 14:08] LABS: INR 2.3 (0.9-1.3); Prothrombin Time 26.6 SECONDS (10.1-12.7)
== END ==
PROVIDERS: PCP Student in an Organized Health Care Education/Training Program; Visit Provider Student in an Organized Health Care Education/Training Program
DX: I48.91 Unspecified atrial fibrillation (principal); I38 Endocarditis, valve unspecified; Z95.2 Presence of prosthetic heart valve; Z79.01 Long term (current) use of anticoagulants
CPT/HCPCS: 85610

== ENCOUNTER → 2019-11-11 14:28 | Outpatient (CLI) | payer OTHER, MEDICAID, SELFPAY ==
[2019-09-14 18:12] VITALS: BMI 35.4
[2019-11-11 16:20] LABS: Prothrombin Time 91.7 SECONDS (10.1-12.7)
[2019-11-11 16:27] LABS: INR 8.1 (0.9-1.3)
== END ==
PROVIDERS: PCP Student in an Organized Health Care Education/Training Program; Referring Provider Student in an Organized Health Care Education/Training Program; Visit Provider Student in an Organized Health Care Education/Training Program
DX: Z79.01 Long term (current) use of anticoagulants (principal); Z95.2 Presence of prosthetic heart valve; I38 Endocarditis, valve unspecified; I48.91 Unspecified atrial fibrillation
CPT/HCPCS: 36415; 85610

== ENCOUNTER → 2019-11-16 11:33 | Outpatient (ROUT) | payer OTHER, MEDICAID, SELFPAY ==
[2019-09-14 18:12] VITALS: BMI 35.4
[2019-11-16 11:47] LABS: INR 1.5 (0.9-1.3); Prothrombin Time 17.6 SECONDS (10.1-12.7)
== END ==
PROVIDERS: PCP Student in an Organized Health Care Education/Training Program; Visit Provider Student in an Organized Health Care Education/Training Program
DX: Z79.01 Long term (current) use of anticoagulants (principal); I48.91 Unspecified atrial fibrillation; Z95.2 Presence of prosthetic heart valve; I38 Endocarditis, valve unspecified
CPT/HCPCS: 85610

== ENCOUNTER → 2019-11-23 15:14 | Outpatient (ROUT) | payer OTHER, MEDICAID, SELFPAY ==
[2019-09-14 18:12] VITALS: BMI 35.4
[2019-11-23 15:20] LABS: INR 4.3 (0.9-1.3); Prothrombin Time 48.7 SECONDS (10.1-12.7)
== END ==
PROVIDERS: PCP Student in an Organized Health Care Education/Training Program; Visit Provider Student in an Organized Health Care Education/Training Program
DX: I48.91 Unspecified atrial fibrillation (principal); I38 Endocarditis, valve unspecified; Z95.2 Presence of prosthetic heart valve; Z79.01 Long term (current) use of anticoagulants
CPT/HCPCS: 85610

== ENCOUNTER → 2019-12-08 14:27 | Outpatient (ROUT) | payer OTHER, MEDICAID, SELFPAY ==
[2019-09-14 18:12] VITALS: BMI 35.4
[2019-12-08 14:41] LABS: Prothrombin Time 70.6 SECONDS (10.1-12.7)
[2019-12-08 14:46] LABS: INR 6.3 (0.9-1.3)
== END ==
PROVIDERS: PCP Student in an Organized Health Care Education/Training Program; Visit Provider Student in an Organized Health Care Education/Training Program
DX: Z79.01 Long term (current) use of anticoagulants (principal); Z95.2 Presence of prosthetic heart valve; I38 Endocarditis, valve unspecified; I48.91 Unspecified atrial fibrillation
CPT/HCPCS: 85610

== ENCOUNTER → 2019-12-13 15:18 | Outpatient (ROUT) | payer OTHER, MEDICAID, SELFPAY ==
[2019-09-14 18:12] VITALS: BMI 35.4
[2019-12-13 15:35] LABS: INR 4.2 (0.9-1.3); Prothrombin Time 47.5 SECONDS (10.1-12.7)
== END ==
PROVIDERS: PCP Student in an Organized Health Care Education/Training Program; Visit Provider Student in an Organized Health Care Education/Training Program
DX: I48.91 Unspecified atrial fibrillation (principal); I38 Endocarditis, valve unspecified; Z95.2 Presence of prosthetic heart valve; Z79.01 Long term (current) use of anticoagulants
CPT/HCPCS: 85610

== ENCOUNTER 2019-12-13 15:55 | Inpatient (IN) | payer OTHER, MEDICAID, SELFPAY ==
[2019-09-14 18:12] VITALS: BMI 35.4
[2019-12-13 16:05] VITALS: BP 114/73; PULSE 52; RESP 28; TEMP 36.2; O2SAT 97
--- NOTE | 2019-12-13 16:07 | DI.RAD.S_ITS ---
PROCEDURE: XR CHEST 1V INDICATIONS: chest pain TECHNIQUE: One view of the chest was acquired. COMPARISON: Located Within [facility], CT, CT ANGIO CHEST PE PROTOCOL, 09/14/2019, 16:42. Located Within [facility], CR, XR CHEST 1V, 09/14/2019, 15:05. Located Within [facility], CR, XR CHEST 1V, 09/15/2019, 11:14. FINDINGS: Surgical changes and devices: Sternotomy wires and a mitral valve prosthesis can be seen. Lungs and pleura: On this semiupright portable chest examination, no large pneumothorax or large pleural effusions are seen. No focal infiltrates are seen. Mild interstitial prominence is seen. Mediastinum: The cardiac contours are moderately enlarged. The aorta demonstrates calcification and tortuosity. Bones and chest wall: No suspicious bony lesions. Age-appropriate bony degenerative changes are seen. Overlying soft tissues appear unremarkable. IMPRESSION: Cardiomegaly and interstitial prominence. Please correlate with patient presentation, physical examination findings, and laboratory values for congestive heart failure. Postoperative and degenerative changes are seen. Dictated by: Blaine Ortez M.D. on 12/13/2019 at 15:26 Approved by: Blaine Ortez M.D. on 12/13/2019 at 15:28
[2019-12-13 16:18] LABS: Add Manual Diff / Slide Review NO; Basophils Absolute Auto 100 /uL (0-100); Basophils Percent Auto 1.1 % (0-2); Eosinophils Absolute Auto 100 /uL (0-450); Hematocrit 39.5 % (36-46); Hemoglobin 12.8 g/dL (12.0-16.0); Lymphocytes Absolute Auto 1900 /uL (1100-4500); Lymphocytes Percent Auto 19.5 % (25-40); Mean Corpuscular HGB Conc 32.3 % (30-36); Mean Corpuscular Hemoglobin 27.5 PG (26-34); Mean Corpuscular Volume 85.1 fL (80-100); Monocytes Absolute Auto 800 /uL (0-900); Monocytes Percent Auto 7.6 % (3-14); Neutrophils Absolute Auto 7000 /uL (1500-7000); Neutrophils Percent Auto 70.8 % (50-75); Platelet Count 326 X10^3/uL (150-400); Red Blood Cell Count 4.65 X10^6/uL (4.0-5.2); Red Cell Distribution Width 15.7 % (11.6-14.8); White Blood Cell Count 9.9 X10^3/uL (4.5-11.0)
[2019-12-13 16:24] LABS: INR 3.9 (0.9-1.3); Prothrombin Time 44.3 SECONDS (10.1-12.7)
[2019-12-13 16:27] LABS: PTT Partial Thromboplastin Tim 49 SECONDS (26.4-36.2)
[2019-12-13 16:33] LABS: Alanine Aminotransferase 24 IU/L (<35); Albumin 4.3 g/dL (3.5-5.0); Albumin Globulin Ratio 1.2 (1.0-2.8); Alkaline Phosphatase 119 U/L (38-126); Aspartate Aminotransferase 35 IU/L (14-36); BUN Creatinine Ratio 22.1 (6-22); Bilirubin Total 0.7 mg/dL (0.2-1.3); Blood Urea Nitrogen 15 mg/dL (7-17); Calcium 9.7 mg/dL (8.4-10.2); Carbon Dioxide 26 mmol/L (22-32); Chloride 104 mmol/L (98-107); Creatine Kinase 52 U/L (30-135); Estimated Glomerular Filt Rate > 60.0 mL/min (>60); Globulin 3.5 g/dL (1.7-4.1); Glucose 159 mg/dL (80-110); HEMOLYSIS < 15 (0-50); Lipase 97 U/L (23-300); Magnesium 2.5 mg/dL (1.6-2.3); Potassium 4.5 mmol/L (3.4-5.1); Sodium 139 mmol/L (137-145); Total Protein 7.8 g/dL (6.3-8.2)
[2019-12-13 16:44] LABS: NT-proBNP (BNP-Adult 18+) 3260 pg/mL (<125); Troponin I < 0.012 ng/mL (0.01-0.034)
[2019-12-13 16:58] LABS: Bilirubin Urine UA NEGATIVE (NEGATIVE); Glucose Urine UA TRACE g/dL (Negative); Ketones Urine UA NEGATIVE (NEGATIVE); Leukocyte Esterase Urine UA 3+ (NEGATIVE); Nitrite Urine UA NEGATIVE (Negative); Occult Blood Urine UA NEGATIVE (Negative); Protein Urine UA 2+ (Negative); Specific Gravity Urine UA 1.015 (1.000-1.035); Urobilinogen Urine UA >=8.0 E.U./dL (0.2)
[2019-12-13 17:06] LABS: Appearance Urine UA CLOUDY; Color Urine UA Dark Yellow; RBC Urine 0-1/HPF (0-5/HPF); Squamous Epithelial Cell Urine 10-30 /HPF (0-5/HPF); WBC Urine 10-30/HPF (0-5/HPF)
--- NOTE | 2019-12-13 17:06 | ED_ITS ---
HPI - SOB/Dyspnea <TEMITOPE Martini - Last Filed: 12/13/19 22:19> General Chief Complaint: Shortness of Breath/Dyspnea Stated Complaint: Referred by PCP for ambulance, low oxygen Time Seen by Provider: 12/13/19 16:06 Source: patient Mode of arrival: Wheelchair Limitations: no limitations History of Present Illness HPI Narrative: This is a 69-year-old female, former smoker, who presents to ED with her daughter after she was referred by her primary care physician Dr. Diez for increase short of breath and heart failure symptoms for last 2 days. Patient reports non-exertional dyspnea for last 2 days which is different from her previous usual exertional dyspnea such as walking. Patient denies chest pain, abdominal bloatedness, weight gain or swelling to her legs. Patient has mitral valve prosthetic, currently takes Coumadin for recent diagnosis of Afib since August this year with therapeutic INR range in 3-3.5 in anticipation of cardioversion. She also has a history of heart failure with previous EF of 60 in Aug 2019 but she was hospitalized at [facility] about 2 weeks ago he was noted that EF has decreased to 30%. When patient was at Dr. Diez's office today, patient's heart rate has decreased to 50s in Afib/A flutter. Patient currently takes metoprolol or succinate 100 mg b.i.d. and torsemide 40 mg b.i.d. for her cardiac disease. Patient denies fever, productive cough, nausea/vomiting, chills, or recent exposure to illness. Related Data Home Medications Medication Instructions Recorded Confirmed fluoxetine 40 mg PO DAILY #0 07/04/08 12/13/19 acetaminophen-codeine 1 tab PO Q4H PRN 05/20/19 12/13/19 atorvastatin 20 mg PO DAILY 05/20/19 12/13/19 baclofen 10 mg PO TID PRN 05/20/19 12/13/19 celecoxib 200 mg PO DAILY 05/20/19 12/13/19 omeprazole 20 mg PO DAILY 05/20/19 12/13/19 potassium chloride 40 meq PO DAILY 05/20/19 12/13/19 Previous Rx's Medication Instructions Recorded metoprolol succinate 100 mg PO BID #180 tab 09/22/19 torsemide 40 mg PO DAILY@0600 #90 tab 09/22/19 warfarin 5 mg PO DAILY #0 tab 09/22/19 Allergies Allergy/AdvReac Type Severity Reaction Status Date / Time No Known Drug Allergies Allergy Verified 09/14/19 14:57 Review of Systems <TEMITOPE Martini - Last Filed: 12/13/19 22:19> Review of Systems Narrative: General: Denies fever, chills, fatigue, malaise, sweats. HEENT: Denies sinus pain, ear pain, sore throat, difficulty swallowing, dizziness. Respiratory: See HPI Cardiovascular: See HPI Gastrointestinal: Denies nausea, vomiting, abdominal pain, diarrhea, constipation, melena. : Denies dysuria, frequency, incontinence, hematuria, urinary retention. Musculoskeletal: Denies weakness, joint pain or bony pain. Skin: Denies rash, skin lesions, or other. Neurologic: Denies weakness, headache, numbness, change in speech, confusion, seizures, incoordination. Psychiatric: No concerning psychosocial issues. 12-point review of systems is negative except for those stated above. Patient History <TEMITOPE Martini - Last Filed: 12/13/19 22:19> Medical History Anticoagulated on Coumadin (Acute) Depression (Acute) Hypertension (Acute) Sleep apnea with use of nocturnal bilevel positive airway pressure (BPAP) (Acute) Surgical History H/O mitral valve replacement (Acute) Social History household members: significant other Smoking Status: Former smoker alcohol intake: current Smoking Status: Former smoker alcohol intake frequency: a few times a month Substance Use Type: does not use Exam <TEMITOPE Martini - Last Filed: 12/13/19 22:19> Narrative Exam Narrative: GEN: Alert, oriented x 3, well appearing and nourished. Head: Normal cephalic, atraumatic. No scalp or temporal tenderness, palpable mass or rash. EYES: Pupils are equal, round, and reactive to light and accommodation. Extraocular muscles are intact bilaterally. There is no subconjunctival h emorrhage, exudate and sclera non-icteric. ENT: Bilateral auditory canals and tympanic membranes clear. Hearing grossly intact. Nose without bleeding, purulent discharge or deviation. Facial sinuses nontender to palpate. Mucous membrane moist, no mucosal lesion. Throat without erythema, tonsillar hypertrophy or exudate. Uvula in midline, airway patent. Neck: Trachea in midline. No JVD, non-tender without lymphadenopathy. No masses or thyroid megaly. Supple, non-tender and no meningeal signs. CARDIAC: Irregular rhythm rate from 50s to 70s without murmurs, gallops, or rubs. No chest wall tenderness. Mild clicks appreciated upper bilateral sternal border. No peripheral edema, cyanosis or pallor. Capillary refill is less than 2 seconds. RESPIRATORY: Mild crackles to right mid to lower lobes. No cough, wheezes or rhonchi. No stridor. O2 sat from 92-98% in room air. No severe tachypnea, increased work of breathing noted at rest. Easily become short of breath with movement from bed to wheelchair. ABD: Abdomen soft, nontender and non-distended. No guarding or rebound tenderness to palpate. Bowel sounds are normal in all 4 quadrants. There is no palpable masses or organomegaly. EXT: Full painless ROM of all extremities with no loss of sensation, edema, strength, effusion. SKIN: Warm, dry, normal color for patient. No erythema, lesions or rash over visible areas. BACK: Nontender without deformity or crepitance. No flank tenderness. NEUROLOGICAL: Alert and oriented to place, time and person. Sensation and motor function intact bilaterally. No facial droops, dysphasia. PSYCHIATRIC: Good judgement and reason, without hallucinations, abnormal affect or abnormal behaviors during the examination. Initial Vital Signs Initial Vital Signs: Vital Signs Temperature 97.1 F L 12/13/19 16:05 Pulse Rate 52 L 12/13/19 16:05 Respiratory Rate 28 H 12/13/19 16:05 Blood Pressure 114/73 12/13/19 16:05 Pulse Oximetry 97 12/13/19 16:05 <Allegra Diggs MD - Last Filed: 12/14/19 07:27> Initial Vital Signs Initial Vital Signs: Vital Signs Temperature 97.1 F L 12/13/19 16:05 Pulse Rate 52 L 12/13/19 16:05 Respiratory Rate 28 H 12/13/19 16:05 Blood Pressure 114/73 12/13/19 16:05 Pulse Oximetry 97 12/13/19 16:05 Scores <TEMITOPE Martini - Last Filed: 12/13/19 22:19> GCS [place] coma scale eye opening: Spontaneous [place] coma scale verbal response: Orientated [place] coma scale motor response: Obey commands Vic[place] coma scale total score: 15 Course <TEMITOPE Martini - Last Filed: 12/13/19 22:19> Orders Ordered: ED Orders 12/14/19 05:05 Complete Blood Count AUTO DIFF Stat Comprehensive Metabolic Panel Stat Free T4, Direct Thyroxine Stat NT-proBNP (BNP-Adult 18+) Stat Thyroid Stimulating Hormone Stat Troponin & CK Cardiac Panel Urgent Acetaminophen/Codeine Phosphate (Tylenol #3) 1 tab PO Q4H PRN PRN Reason: pain Atorvastatin Calcium (Lipitor) 20 mg PO DAILY AMITA Baclofen (Lioresal) 10 mg PO TID PRN PRN Reason: Muscle Spasm Last Admin: 12/13/19 23:57 Dose: 10 mg Documented by: EKATERINA Celecoxib (Celebrex) 200 mg PO DAILY AMITA Fluoxetine HCl (Prozac) 40 mg PO DAILY AMITA Pantoprazole Sodium (Protonix) 20 mg PO 0600 AMITA Last Admin: 12/14/19 06:13 Dose: 20 mg Documented by: EKATERINA Potassium Chloride (Klor-Con M10) 40 meq PO DAILY AMITA Discontinued Medications Furosemide (Lasix) 80 mg IV NOW ONE Stop: 12/13/19 17:16 Last Admin: 12/13/19 17:43 Dose: 80 mg Documented by: MIREYA Vital Signs Vital signs: Vital Signs - 8 hr 12/13/19 16:05 12/13/19 18:02 Temperature 97.1 F L Pulse Rate 52 L 62 Respiratory Rate 28 H 22 Blood Pressure 114/73 Blood Pressure [Right Arm] 156/68 H Pulse Oximetry 97 97 <Allegra Diggs MD - Last Filed: 12/14/19 07:27> Orders Ordered: ED Orders 12/14/19 05:05 Complete Blood Count AUTO DIFF Stat Comprehensive Metabolic Panel Stat Free T4, Direct Thyroxine Stat NT-proBNP (BNP-Adult 18+) Stat Thyroid Stimulating Hormone Stat Troponin & CK Cardiac Panel Urgent Acetaminophen/Codeine Phosphate (Tylenol #3) 1 tab PO Q4H PRN PRN Reason: pain Atorvastatin Calcium (Lipitor) 20 mg PO DAILY AMITA Baclofen (Lioresal) 10 mg PO TID PRN PRN Reason: Muscle Spasm Last Admin: 12/13/19 23:57 Dose: 10 mg Documented by: EKATERINA Celecoxib (Celebrex) 200 mg PO DAILY AMITA Fluoxetine HCl (Prozac) 40 mg PO DAILY AMITA Pantoprazole Sodium (Protonix) 20 mg PO 0600 AMITA Last Admin: 12/14/19 06:13 Dose: 20 mg Documented by: EKATERINA Potassium Chloride (Klor-Con M10) 40 meq PO DAILY AMITA Discontinued Medications Furosemide (Lasix) 80 mg IV NOW ONE Stop: 12/13/19 17:16 Last Admin: 12/13/19 17:43 Dose: 80 mg Documented by: MIREYA Vital Signs Vital signs: Vital Signs - 8 hr 12/13/19 16:05 12/13/19 18:02 Temperature 97.1 F L Pulse Rate 52 L 62 Respiratory Rate 28 H 22 Blood Pressure 114/73 Blood Pressure [Right Arm] 156/68 H Pulse Oximetry 97 97 MDM - SOB/Dyspnea <Stephane JoyMelissa [facility] - Last Filed: 12/13/19 22:19> Differential Diagnosis Differential diagnosis: Likely congestive heart failure, community acquired pneumonia and other (A flutter/AFib, STEMI) Medical Records Attestation: I reviewed the patient's medical records. Lab Data Attestation: I reviewed the patient's lab results. Result diagrams: 12/14/19 05:05 12/14/19 05:05 Labs: Lab Results 12/13/19 12/13/19 12/13/19 Range/Units 16:08 16:08 16:08 WBC 9.9 (4.5-11.0) X10^3/uL RBC 4.65 (4.0-5.2) X10^6/uL Hgb 12.8 (12.0-16.0) g/dL Hct 39.5 (36-46) % MCV 85.1 (80-100) fL MCH 27.5 (26-34) PG MCHC 32.3 (30-36) % RDW 15.7 H (11.6-14.8) % Plt Count 326 (150-400) X10^3/uL Neut % (Auto) 70.8 (50-75) % Lymph % (Auto) 19.5 L (25-40) % Park % (Auto) 7.6 (3-14) % Eos % (Auto) 1.0 L (2-4) % Baso % (Auto) 1.1 (0-2) % Neut # (Auto) 7000 (9167-3366) /uL Lymph # (Auto) 1900 (0727-1520) /uL Park # (Auto) 800 (0-900) /uL Eos # (Auto) 100 (0-450) /uL Baso # (Auto) 100 (0-100) /uL PT 44.3 H (10.1-12.7) SECONDS INR 3.9 H (0.9-1.3) APTT 49 H D (26.4-36.2) SECONDS Sodium 139 (137-145) mmol/L Potassium 4.5 (3.4-5.1) mmol/L Chloride 104 (98-107) mmol/L Carbon Dioxide 26 (22-32) mmol/L BUN 15 (7-17) mg/dL Creatinine 0.68 (0.52-1.04) mg/dL Estimated GFR > 60.0 (>60) mL/min BUN/Creatinine Ratio 22.1 H (6-22) Glucose 159 H (80-110) mg/dL Calcium 9.7 (8.4-10.2) mg/dL Magnesium 2.5 H (1.6-2.3) mg/dL Total Bilirubin 0.7 (0.2-1.3) mg/dL AST 35 (14-36) IU/L ALT 24 (<35) IU/L Alkaline Phosphatase 119 (38-126) U/L Total Creatine Kinase 52 (30-135) U/L CK-MB (CK-2) TNP CK-MB (CK-2) Rel Index TNP Troponin I < 0.012 (0.01-0.034) ng/mL NT-Pro-B Natriuret Pep 3260 H (<125) pg/mL Total Protein 7.8 (6.3-8.2) g/dL Albumin 4.3 (3.5-5.0) g/dL Globulin 3.5 (1.7-4.1) g/dL Albumin/Globulin Ratio 1.2 (1.0-2.8) Lipase 97 (23-300) U/L Urine Color Urine Appearance Urine pH (4.5-8.0) Ur Specific [place] (1.000-1.035) Urine Protein (Negative) Urine Glucose (UA) (Negative) g/dL Urine Ketones (NEGATIVE) Urine Occult Blood (Negative) Urine Nitrate (Negative) Urine Bilirubin (NEGATIVE) Urine Urobilinogen (0.2) E.U./dL Ur Leukocyte Esterase (NEGATIVE) Urine RBC (0-5/HPF) Urine WBC (0-5/HPF) Ur Squamous Epith Cells (0-5/HPF) Urine Bacteria (None) Ur Culture Indicated? Micro UA Comment 12/13/19 Range/Units 16:51 WBC (4.5-11.0) X10^3/uL RBC (4.0-5.2) X10^6/uL Hgb (12.0-16.0) g/dL Hct (36-46) % MCV (80-100) fL MCH (26-34) PG MCHC (30-36) % RDW (11.6-14.8) % Plt Count (150-400) X10^3/uL Neut % (Auto) (50-75) % Lymph % (Auto) (25-40) % Park % (Auto) (3-14) % Eos % (Auto) (2-4) % Baso % (Auto) (0-2) % Neut # (Auto) (8371-4187) /uL Lymph # (Auto) (6089-9568) /uL Park # (Auto) (0-900) /uL Eos # (Auto) (0-450) /uL Baso # (Auto) (0-100) /uL PT (10.1-12.7) SECONDS INR (0.9-1.3) APTT (26.4-36.2) SECONDS Sodium (137-145) mmol/L Potassium (3.4-5.1) mmol/L Chloride (98-107) mmol/L Carbon Dioxide (22-32) mmol/L BUN (7-17) mg/dL Creatinine (0.52-1.04) mg/dL Estimated GFR (>60) mL/min BUN/Creatinine Ratio (6-22) Glucose (80-110) mg/dL Calcium (8.4-10.2) mg/dL Magnesium (1.6-2.3) mg/dL Total Bilirubin (0.2-1.3) mg/dL AST (14-36) IU/L ALT (<35) IU/L Alkaline Phosphatase (38-126) U/L Total Creatine Kinase (30-135) U/L CK-MB (CK-2) CK-MB (CK-2) Rel Index Troponin I (0.01-0.034) ng/mL NT-Pro-B Natriuret Pep (<125) pg/mL Total Protein (6.3-8.2) g/dL Albumin (3.5-5.0) g/dL Globulin (1.7-4.1) g/dL Albumin/Globulin Ratio (1.0-2.8) Lipase (23-300) U/L Urine Color Dark yellow Urine Appearance Cloudy Urine pH 7.0 (4.5-8.0) Ur Specific [place] 1.015 (1.000-1.035) Urine Protein 2+ H (Negative) Urine Glucose (UA) Trace H (Negative) g/dL Urine Ketones Negative (NEGATIVE) Urine Occult Blood Negative (Negative) Urine Nitrate Negative (Negative) Urine Bilirubin Negative (NEGATIVE) Urine Urobilinogen >=8.0 (0.2) E.U./dL Ur Leukocyte Esterase 3+ H (NEGATIVE) Urine RBC 0-1/hpf (0-5/HPF) Urine WBC 10-30/hpf H (0-5/HPF) Ur Squamous Epith Cells 10-30 /hpf H D (0-5/HPF) Urine Bacteria Few (2-10) H (None) Ur Culture Indicated? Cult not indicated Micro UA Comment Imaging Data Chest x-ray: Radiologist's Impression: [address] [address] XRay Report Signed Patient: Mer Portillo [facility]#: [id number] : 8Acct:[id number] Age/Sex: 69 / FDate of Service: 12/13/19 Loc: ED Accession Number: [id number] Procedure: XR chest 1V Ordering Provider: Stephane Morris PROCEDURE: XR CHEST 1V INDICATIONS: chest pain TECHNIQUE: One view of the chest was acquired. COMPARISON: [facility], CT, CT ANGIO CHEST PE PROTOCOL, 09/14/2019, 16:42. [facility], CR, XR CHEST 1V, 09/14/2019, 15:05. [facility], CR, XR CHEST 1V, 09/15/2019, 11:14. FINDINGS: Surgical changes and devices: Sternotomy wires and a mitral valve prosthesis can be seen. Lungs and pleura: On this semiupright portable chest examination, no large pneumothorax or large pleural effusions are seen. No focal infiltrates are seen. Mild inte rstitial prominence is seen. Mediastinum: The cardiac contours are moderately enlarged. The aorta demonstrates calcification and tortuosity. Bones and chest wall: No suspicious bony lesions. Age-appropriate bony degenerative changes are seen. Overlying soft tissues appear unremarkable. IMPRESSION: Cardiomegaly and interstitial prominence. Please correlate with patient presentation, physical examination findings, and laboratory values for congestive heart failure. Postoperative and degenerative changes are seen. Dictated by: Blaine Ortez M.D. on 12/13/2019 at 15:26 Approved by: Blaine Ortez M.D. on 12/13/2019 at 15:28 ECG Data Attestation: I personally reviewed and interpreted this ECG as follows: Prior ECG tracings: available for review Interpretation: A flutter with variable AV block rate at 76. QRS duration 86, QT/QTC 410/461. ST and T-wave abnormality. Previous EKG shows AFib with RVR rated [address] and T-wave abnormality. [facility] Narrative Medical decision making narrative: This is a 69-year-old female who presents to ED with her daughter with chief complaint of non exertional dyspnea and short of breath for last 2 days. Patient denies chest pain, fever, chills, productive cough, weight gain, lower extremity edema. Patient has history of AFib with RVR and currently takes Coumadin in anticipation for cardioversion, mitral valve replacement (2007), hypertension, hyperlipidemia, back pain, CHF with decreased EF from 60% (08/2019) to 30% that was noted 2 weeks ago when she was admitted at [facility] for same symptoms. Patient was referred by Dr. Diez for an admission to [facility]. EKG shows a flutter/AFib rate at 76 but patient's heart rate decreased to 50s at rest. Patient takes metoprolol succinate 100 mg b.i.d. for AFib and rate control. Patient also takes torsemide 40 mg daily for heart failure. Today's proBNP is 3260. Chest x-ray indicates cardiomegaly with interstitial prominence without focal infiltrate. Patient does not have increased work of breathing and O2 sat was in range from 92 to 97% in room air. Patient does get short of breath easily with mild activities in ED such as moving from bed to wheelchair to the bathroom and back to bed. Lung sounds mild crackles in right lower lobes. Patient reports she had not taken any of her medications today since she was getting her blood test done. Patient was medicated with Lasix 80 mg IV and had urine output of 450 mL after hours. #1 st Cardiac enzymes were negative. There is no leukocytosis. Normal potassium level of 4.5 and patient takes 40 mEq of potassium chloride daily. Normal kidney function test. UA indicates urine protein, trace of glucose, urine leukocyte esterase without nitrates. It is likely urine test was contaminated since a shows urine squamous epithelia cells with WBC and bacteria. Urine culture is pending and will wait for the results before considering antibiotic medication therapy. Today's INR supratherapeutic of 3.9. Attempted to transfer patient to [facility] for an admission for continuation of care since patient was discharged from the facility 2 weeks ago but I was informed that there is no bed availability today. Dr. Li has been contacted for an admission to [facility] since patient appears to be stable at this time and she kindly accepted patient's care for monitor for congestive heart failure and possible medication adjustment for AFib rate control. He was recommended to hold today's dose for warfarin, metoprolol and torsemide since patient's heart rate is well controlled under 60's and she has received IV dose of Lasix 80 mg in ED. Warfarin was held since INR is supratherapeutic. Q 6 cardiac enzyme for 2 additional draw was ordered and routine morning labs including CMP, CBC, proBNP, Thyroid function test. Plan for admission to [facility] was in formed to patient and patient agrees with the plan and she appreciates. <Allegra Diggs MD - Last Filed: 12/14/19 07:27> Lab Data Labs: Lab Results 12/13/19 12/13/19 12/13/19 Range/Units 16:08 16:08 16:08 WBC 9.9 (4.5-11.0) X10^3/uL RBC 4.65 (4.0-5.2) X10^6/uL Hgb 12.8 (12.0-16.0) g/dL Hct 39.5 (36-46) % MCV 85.1 (80-100) fL MCH 27.5 (26-34) PG MCHC 32.3 (30-36) % RDW 15.7 H (11.6-14.8) % Plt Count 326 (150-400) X10^3/uL Neut % (Auto) 70.8 (50-75) % Lymph % (Auto) 19.5 L (25-40) % Park % (Auto) 7.6 (3-14) % Eos % (Auto) 1.0 L (2-4) % Baso % (Auto) 1.1 (0-2) % Neut # (Auto) 7000 (7145-4349) /uL Lymph # (Auto) 1900 (1384-6008) /uL Park # (Auto) 800 (0-900) /uL Eos # (Auto) 100 (0-450) /uL Baso # (Auto) 100 (0-100) /uL PT 44.3 H (10.1-12.7) SECONDS INR 3.9 H (0.9-1.3) APTT 49 H D (26.4-36.2) SECONDS Sodium 139 (137-145) mmol/L Potassium 4.5 (3.4-5.1) mmol/L Chloride 104 (98-107) mmol/L Carbon Dioxide 26 (22-32) mmol/L BUN 15 (7-17) mg/dL Creatinine 0.68 (0.52-1.04) mg/dL Estimated GFR > 60.0 (>60) mL/min BUN/Creatinine Ratio 22.1 H (6-22) Glucose 159 H (80-110) mg/dL Calcium 9.7 (8.4-10.2) mg/dL Magnesium 2.5 H (1.6-2.3) mg/dL Total Bilirubin 0.7 (0.2-1.3) mg/dL AST 35 (14-36) IU/L ALT 24 (<35) IU/L Alkaline Phosphatase 119 (38-126) U/L Total Creatine Kinase 52 (30-135) U/L CK-MB (CK-2) TNP CK-MB (CK-2) Rel Index TNP Troponin I < 0.012 (0.01-0.034) ng/mL NT-Pro-B Natriuret Pep 3260 H (<125) pg/mL Total Protein 7.8 (6.3-8.2) g/dL Albumin 4.3 (3.5-5.0) g/dL Globulin 3.5 (1.7-4.1) g/dL Albumin/Globulin Ratio 1.2 (1.0-2.8) Lipase 97 (23-300) U/L Urine Color Urine Appearance Urine pH (4.5-8.0) Ur Specific [place] (1.000-1.035) Urine Protein (Negative) Urine Glucose (UA) (Negative) g/dL Urine Ketones (NEGATIVE) Urine Occult Blood (Negative) Urine Nitrate (Negative) Urine Bilirubin (NEGATIVE) Urine Urobilinogen (0.2) E.U./dL Ur Leukocyte Esterase (NEGATIVE) Urine RBC (0-5/HPF) Urine WBC (0-5/HPF) Ur Squamous Epith Cells (0-5/HPF) Urine Bacteria (None) Ur Culture Indicated? Micro UA Comment 12/13/19 Range/Units 16:51 WBC (4.5-11.0) X10^3/uL RBC (4.0-5.2) X10^6/uL Hgb (12.0-16.0) g/dL Hct (36-46) % MCV (80-100) fL MCH (26-34) PG MCHC (30-36) % RDW (11.6-14.8) % Plt Count (150-400) X10^3/uL Neut % (Auto) (50-75) % Lymph % (Auto) (25-40) % Park % (Auto) (3-14) % Eos % (Auto) (2-4) % Baso % (Auto) (0-2) % Neut # (Auto) (5288-5424) /uL Lymph # (Auto) (4483-8602) /uL Park # (Auto) (0-900) /uL Eos # (Auto) (0-450) /uL Baso # (Auto) (0-100) /uL PT (10.1-12.7) SECONDS INR (0.9-1.3) APTT (26.4-36.2) SECONDS Sodium (137-145) mmol/L Potassium (3.4-5.1) mmol/L Chloride (98-107) mmol/L Carbon Dioxide (22-32) mmol/L BUN (7-17) mg/dL Creatinine (0.52-1.04) mg/dL Estimated GFR (>60) mL/min BUN/Creatinine Ratio (6-22) Glucose (80-110) mg/dL Calcium (8.4-10.2) mg/dL Magnesium (1.6-2.3) mg/dL Total Bilirubin (0.2-1.3) mg/dL AST (14-36) IU/L ALT (<35) IU/L Alkaline Phosphatase (38-126) U/L Total Creatine Kinase (30-135) U/L CK-MB (CK-2) CK-MB (CK-2) Rel Index Troponin I (0.01-0.034) ng/mL NT-Pro-B Natriuret Pep (<125) pg/mL Total Protein (6.3-8.2) g/dL Albumin (3.5-5.0) g/dL Globulin (1.7-4.1) g/dL Albumin/Globulin Ratio (1.0-2.8) Lipase (23-300) U/L Urine Color Dark yellow Urine Appearance Cloudy Urine pH 7.0 (4.5-8.0) Ur Specific [place] 1.015 (1.000-1.035) Urine Protein 2+ H (Negative) Urine Glucose (UA) Trace H (Negative) g/dL Urine Ketones Negative (NEGATIVE) Urine Occult Blood Negative (Negative) Urine Nitrate Negative (Negative) Urine Bilirubin Negative (NEGATIVE) Urine Urobilinogen >=8.0 (0.2) E.U./dL Ur Leukocyte Esterase 3+ H (NEGATIVE) Urine RBC 0-1/hpf (0-5/HPF) Urine WBC 10-30/hpf H (0-5/HPF) Ur Squamous Epith Cells 10-30 /hpf H D (0-5/HPF) Urine Bacteria Few (2-10) H (None) Ur Culture Indicated? Cult not indicated Micro UA Comment Discharge Plan Departure Patient Disposition: Admitted As Inpatient Clinical Impression: Congestive heart failure CHF exacerbation Qualifiers: Heart failure type: unspecified Qualified Code(s): I50.9 - Heart failure, unspecified Discharge Date/Time: 12/13/19 19:18 Referrals: Donya Diez MD [Primary Care Provider] - Admit Date/Time: 12/13/19 18:45 Admit Provider: Kendal Ni
[2019-12-13 17:07] LABS: Bacteria Urine Few (2-10); Culture Indicated Urine Cult Not Indicated
[2019-12-13] MEDS: FUROSEMIDE 100 MG/10 ML VIAL 80 MG IV (17:43)
[2019-12-13 18:02] VITALS: BP 156/68; PULSE 62; RESP 22; O2SAT 97
[2019-12-13 19:01] VITALS: BP 128/60; PULSE 50; RESP 20; O2SAT 95
[2019-12-13 19:15] VITALS: BMI 34.2
[2019-12-13 22:18] LABS: Creatine Kinase 52 U/L (30-135)
--- NOTE | 2019-12-13 22:25 | PC.NURSE ---
Pt arrived from ED alert/oriented. Lungs clear/diminished at right base. SpO2 95% RA, placed on 1.2L & now 95% HL LAC intact/patent. Call light w/in reach, bed alarm on for pt safety. Pt stated that she should be transfered to [facility] tomorrow. Continue w/plan of care.
[2019-12-13 22:31] LABS: Troponin I < 0.012 ng/mL (0.01-0.034)
[2019-12-13 22:43] VITALS: O2SAT 96
[2019-12-13 23:10] VITALS: BP 110/48; PULSE 87; RESP 18; TEMP 36.2; O2SAT 96
[2019-12-13] MEDS: BACLOFEN 10 MG TABLET PO (23:57)
[2019-12-14] VITALS (9 sets, daily range): BP systolic 94–115; BP diastolic 44–78; PULSE 60–81; RESP 18; TEMP 36.1–36.6; O2SAT 91–98
[2019-12-14 05:21] LABS: Add Manual Diff / Slide Review NO; Basophils Absolute Auto 100 /uL (0-100); Basophils Percent Auto 1.8 % (0-2); Eosinophils Absolute Auto 200 /uL (0-450); Hematocrit 36.9 % (36-46); Hemoglobin 11.9 g/dL (12.0-16.0); Lymphocytes Absolute Auto 2400 /uL (1100-4500); Lymphocytes Percent Auto 28.7 % (25-40); Mean Corpuscular HGB Conc 32.3 % (30-36); Mean Corpuscular Hemoglobin 27.4 PG (26-34); Mean Corpuscular Volume 84.9 fL (80-100); Monocytes Absolute Auto 1000 /uL (0-900); Monocytes Percent Auto 12.2 % (3-14); Neutrophils Absolute Auto 4600 /uL (1500-7000); Neutrophils Percent Auto 55.3 % (50-75); Platelet Count 297 X10^3/uL (150-400); Red Blood Cell Count 4.35 X10^6/uL (4.0-5.2); Red Cell Distribution Width 15.6 % (11.6-14.8); White Blood Cell Count 8.4 X10^3/uL (4.5-11.0)
[2019-12-14 05:28] LABS: Creatine Kinase 49 U/L (30-135)
[2019-12-14 05:29] LABS: Alanine Aminotransferase 21 IU/L (<35); Albumin 3.9 g/dL (3.5-5.0); Albumin Globulin Ratio 1.1 (1.0-2.8); Alkaline Phosphatase 118 U/L (38-126); Aspartate Aminotransferase 30 IU/L (14-36); Bilirubin Total 0.7 mg/dL (0.2-1.3); Blood Urea Nitrogen 13 mg/dL (7-17); Calcium 9.4 mg/dL (8.4-10.2); Carbon Dioxide 30 mmol/L (22-32); Chloride 102 mmol/L (98-107); Estimated Glomerular Filt Rate > 60.0 mL/min (>60); Globulin 3.4 g/dL (1.7-4.1); Glucose 102 mg/dL (80-110); HEMOLYSIS < 15 (0-50); Potassium 3.8 mmol/L (3.4-5.1); Sodium 142 mmol/L (137-145); Total Protein 7.3 g/dL (6.3-8.2)
[2019-12-14 05:38] LABS: NT-proBNP (BNP-Adult 18+) 2840 pg/mL (<125)
[2019-12-14 05:41] LABS: Troponin I < 0.012 ng/mL (0.01-0.034)
[2019-12-14] MEDS: PANTOPRAZOLE 20 MG TABLET PO (06:13)
[2019-12-14 06:18] LABS: Free T4, Direct Thyroxine 1.29 ng/dL (0.78-2.19)
[2019-12-14] MEDS: FLUoxetine 20 MG CAPSULE 40 MG PO (08:15)
[2019-12-14] MEDS: ATORVASTATIN 20 MG TABLET PO (08:15)
[2019-12-14] MEDS: POTASSIUM CHLORIDE 10 MEQ TAB 40 MEQ PO (08:15)
[2019-12-14] MEDS: CELECOXIB 200 MG CAPSULE PO (08:15)
[2019-12-14] MEDS: SODIUM CHLORIDE 0.9% FLUSH 10 ML IV ×2 (08:21→20:41)
--- NOTE | 2019-12-14 09:56 | PC.NURSE ---
Patient alert, oriented denies chest pain, is short of breath with activity. Sats on 1L 95% LS cta but diminshed. Indep to bathroom, gait steady.
--- NOTE | 2019-12-14 10:18 | P.HP_ITS ---
History of Present Illness History of Present Illness Date Patient Seen: 12/14/19 Time Patient Seen: 10:00 Date of Onset of Symptoms: 12/11/19 Chief complaint: Referred by PCP for ambulance, low oxygen Narrative: This very pleasant 69-year-old female with a known history of persistent atrial fibrillation and severe mitral regurgitation status post mechanical valve replacement in 2007 and recent EVERETT done at [facility] that shows ejection fraction in the 30 percentile. Plan was for cardioversion but this was not done because patient was not adequately anticoagulated. Last consult note is from Dr. Shah from 11/30/2019. Dr. Shah is patient's primary practice managers. Patient came to primary care office clinic on 12/13/2019 and pro time was obtained but patient was markedly short of breath and was O2 sat of 87% in the clinic. Due to this was recommended she go to [facility] ER and then the plan would be to transfer her to [facility] so that she the appropriate therapeutic treatment such as cardioversion. However there were no beds available. Patient's congestive heart failure decompensation suspected to be related to chronic atrial fibrillation and now with a bradycardic. CK and troponin were normal and EKG showed no acute changes. Patient was admitted to the hospital for further monitoring and treatment. She received 80 mg of IV Lasix with good diuresis and improvement in her symptoms but still requiring 1 L of nasal cannula oxygen and still incredibly dyspneic with exertion. Otherwise she has had good urine output and BNP has decreased slightly. CK and troponins have been negative x3. Past medical history: 1. Atrial fibrillation chronic 2. Hyperlipidemia 3. Hypertension 4. Obesity 5. Osteoarthritis 6. Depression 7. History of tobacco abuse but quit in 1996 after 30 pack year history. 8. Chronic anticoagulation due to mechanical mitral valve and atrial fibrillation 9. Congestive heart failure systolic, thought to be related to atrial fibrillation, cardiac catheterization in 2007- Medications: Metoprolol 100 mg twice daily; torsemide 10 mg 40 mg daily; Coumadin 10 mg on Friday 5 mg all other days; atorvastatin 20 mg daily; potassium 40 mEq daily; omeprazole 20 mg daily; fluoxetine 20 mg daily; venlafaxine ER 75 mg daily; baclofen 10 mg as needed; Tylenol with codeine as needed Allergies no known drug allergies Past surgical history 1. Cholecystectomy 1974 2. Appendectomy 1974 3. 1976 ectopic status post surgical repair 4. 1978 bilateral tubal ligation 5. Two thousand nine mitral valve replacement Social history Patient lives in [place]. 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 She has 1 son and 3 daughters. She is currently living with her boyfriend and they were to be next . She had a long-term partner of 25 years who from a sudden acute LA 5 years ago. She has been 3 times prior. Health related behavior: Quit smoking in 1996 after 30 pack year history Does not exercise on regular basis Does not use alcohol and drugs on regular basis Family history: Father with diabetes hypertension hyperlipidemia Mother with cervical cancer Siblings with heart disease lung cancer hypertension hyperlipidemia and diverticulosis Patient History Medical History Anticoagulated on Coumadin (Acute) Depression (Acute) Hypertension (Acute) Sleep apnea with use of nocturnal bilevel positive airway pressure (BPAP) (Acute) Surgical History H/O mitral valve replacement (Acute) Family & Social History Social History: household members significant other Prior Living Arrangements House Safety & Behavioral: Feels Safe in Current Yes Environment Been Physically Hurt or No Threatened By a Person Suicidal Ideation Description None Suicide Plan Description No Plan Tobacco & Substance use: Smoking Status Former smoker alcohol intake current alcohol intake frequency a few times a month Substance Use Type does not use Meds Home Medications and Allergies Home Medications Medication Instructions Recorded Confirmed Type fluoxetine 40 mg PO DAILY #0 07/04/08 12/13/19 History acetaminophen-codeine 1 tab PO Q4H PRN 05/20/19 12/13/19 History atorvastatin 20 mg PO DAILY 05/20/19 12/13/19 History baclofen 10 mg PO TID PRN 05/20/19 12/13/19 History celecoxib 200 mg PO DAILY 05/20/19 12/13/19 History omeprazole 20 mg PO DAILY 05/20/19 12/13/19 History potassium chloride 40 meq PO DAILY 05/20/19 12/13/19 History metoprolol succinate 100 mg PO BID #180 tab 09/22/19 12/13/19 Rx torsemide 40 mg PO DAILY@0600 #90 tab 09/22/19 12/13/19 Rx warfarin 5 mg PO DAILY #0 tab 09/22/19 12/13/19 Rx Allergies Allergy/AdvReac Type Severity Reaction Status Date / Time No Known Drug Allergies Allergy Verified 09/14/19 14:57 Review of Systems Review of Systems Narrative: Review of systems is negative other than above No chest pain and she has not had any chest pain No lightheadedness or dizziness No fever No cough No chills No myalgias No worsening depression No skin rashes Exam Vital Signs (past 8 hours): - 12/14/19 06:01 12/14/19 08:07 Temperature 96.9 F L 97 F L Pulse Rate 69 64 Respiratory Rate 18 18 Blood Pressure 94/62 115/44 L Pulse Oximetry 98 95 Oxygen Delivery Method Nasal Cannula Oxygen Flow Rate 1 Narrative Exam Narrative: Afebrile vital signs are stable Alert and oriented x3 smiling very pleasant in no apparent distress on 1 L nasal cannula oxygen heart rate in the low 50s Neck: Supple without adenopathy, no thyromegaly, no bruits Chest: Bibasilar crackles but otherwise clear without wheezing rhonchi Cor: Regular rate and irregular rhythm without murmur. No rub or gallops and PMI is not displaced Abdomen: Positive bowel sounds, soft, nontender, nondistended, no hepatosplenomegaly, obese Extremities: No edema, pulses intact Neurologic exam nonfocal Objective Labs Result Diagrams: 12/14/19 05:05 12/14/19 05:05 Labs: Laboratory Results - last 24 hr 12/13/19 12/13/19 12/13/19 16:08 16:08 16:08 WBC 9.9 RBC 4.65 Hgb 12.8 Hct 39.5 MCV 85.1 MCH 27.5 MCHC 32.3 RDW 15.7 H Plt Count 326 Neut % (Auto) 70.8 Lymph % (Auto) 19.5 L [place] % (Auto) 7.6 Eos % (Auto) 1.0 L Baso % (Auto) 1.1 Neut # (Auto) 7000 Lymph # (Auto) 1900 [place] # (Auto) 800 Eos # (Auto) 100 Baso # (Auto) 100 PT 44.3 H INR 3.9 H APTT 49 H D Sodium 139 Potassium 4.5 Chloride 104 Carbon Dioxide 26 BUN 15 Creatinine 0.68 Estimated GFR > 60.0 BUN/Creatinine Ratio 22.1 H Glucose 159 H Calcium 9.7 Magnesium 2.5 H Total Bilirubin 0.7 AST 35 ALT 24 Alkaline Phosphatase 119 Total Creatine Kinase 52 CK-MB (CK-2) TNP CK-MB (CK-2) Rel Index TNP Troponin I < 0.012 NT-Pro-B Natriuret Pep 3260 H Total Protein 7.8 Albumin 4.3 Globulin 3.5 Albumin/Globulin Ratio 1.2 Lipase 97 TSH Free T4 Urine Color Urine Appearance Urine pH Ur Specific [place] Urine Protein Urine Glucose (UA) Urine Ketones Urine Occult Blood Urine Nitrate Urine Bilirubin Urine Urobilinogen Ur Leukocyte Esterase Urine RBC Urine WBC Ur Squamous Epith Cells Urine Bacteria Ur Culture Indicated? Micro UA Comment 12/13/19 12/13/19 12/14/19 16:51 21:58 05:05 WBC RBC Hgb Hct MCV MCH MCHC RDW Plt Count Neut % (Auto) Lymph % (Auto) [place] % (Auto) Eos % (Auto) Baso % (Auto) Neut # (Auto) Lymph # (Auto) [place] # (Auto) Eos # (Auto) Baso # (Auto) PT INR APTT Sodium Potassium Chloride Carbon Dioxide BUN Creatinine Estimated GFR BUN/Creatinine Ratio Glucose Calcium Magnesium Total Bilirubin AST ALT Alkaline Phosphatase Total Creatine Kinase 52 49 CK-MB (CK-2) TNP TNP CK-MB (CK-2) Rel Index TNP TNP Troponin I < 0.012 < 0.012 NT-Pro-B Natriuret Pep Total Protein Albumin Globulin Albumin/Globulin Ratio Lipase TSH Free T4 Urine Color Dark yellow Urine Appearance Cloudy Urine pH 7.0 Ur Specific [place] 1.015 Urine Protein 2+ H Urine Glucose (UA) Trace H Urine Ketones Negative Urine Occult Blood Negative Urine Nitrate Negative Urine Bilirubin Negative Urine Urobilinogen >=8.0 Ur Leukocyte Esterase 3+ H Urine RBC 0-1/hpf Urine WBC 10-30/hpf H Ur Squamous Epith Cells 10-30 /hpf H D Urine Bacteria Few (2-10) H Ur Culture Indicated? Cult not indicated Micro UA Comment 12/14/19 12/14/19 12/14/19 05:05 05:05 05:05 WBC 8.4 RBC 4.35 Hgb 11.9 L Hct 36.9 MCV 84.9 MCH 27.4 MCHC 32.3 RDW 15.6 H Plt Count 297 Neut % (Auto) 55.3 Lymph % (Auto) 28.7 [place] % (Auto) 12.2 Eos % (Auto) 2.0 Baso % (Auto) 1.8 Neut # (Auto) 4600 Lymph # (Auto) 2400 [place] # (Auto) 1000 H Eos # (Auto) 200 Baso # (Auto) 100 PT INR APTT Sodium 142 Potassium 3.8 Chloride 102 Carbon Dioxide 30 BUN 13 Creatinine 0.65 Estimated GFR > 60.0 BUN/Creatinine Ratio 20.0 Glucose 102 Calcium 9.4 Magnesium Total Bilirubin 0.7 AST 30 ALT 21 Alkaline Phosphatase 118 Total Creatine Kinase CK-MB (CK-2) CK-MB (CK-2) Rel Index Troponin I NT-Pro-B Natriuret Pep 2840 H Total Protein 7.3 Albumin 3.9 Globulin 3.4 Albumin/Globulin Ratio 1.1 Lipase TSH 1.30 Free T4 1.29 Urine Color Urine Appearance Urine pH Ur Specific [place] Urine Protein Urine Glucose (UA) Urine Ketones Urine Occult Blood Urine Nitrate Urine Bilirubin Urine Urobilinogen Ur Leukocyte Esterase Urine RBC Urine WBC Ur Squamous Epith Cells Urine Bacteria Ur Culture Indicated? Micro UA Comment Assessment & Plan Assessment & Plan narrative: 69-year-old female admitted for progressive worsening dyspnea on exertion with known history of atrial fibrillation and now bradycardia with acute exacerbation of systolic congestive heart failure. 1. Acute exacerbation of systolic congestive heart failure suspect multifactorial E primarily atrial fibrillation and rate problems. Plan: Cardiology has been consulted. Will continue with diuresis with IV Lasix. Will continue to hold metoprolol but she is still bradycardic. Will continue with telemetry. Will continue with supplemental oxygen. Will screen for COVID-19 for completeness sake not because are any symptoms. Patient is completely asymptomatic. Ruled out for acute myocardial infarction with negative serial CKs and troponins. At this point will not repeat echo as she had a EVERETT approximately 2 weeks ago. 2. Atrial fibrillation with current bradycardia Plan: Continue on Coumadin. Continue on telemetry. Continue to hold metoprolol Assessment 3. Hypertension currently well controlled Plan: Will continue to hold metoprolol. Assessment 4. Hyperlipidemia Plan: Continue on atorvastatin Assessment 5. Hypokalemia stable Plan: Continue oral potassium and monitor potassium on a regular basis Assessment 6. Depression without acute symptoms Plan: Continue on outpatient medications. Code status is full code
[2019-12-14 10:25] LABS: INR 3.8 (0.9-1.3); Prothrombin Time 43.1 SECONDS (10.1-12.7)
[2019-12-14] MEDS: FUROSEMIDE 40 MG/4 ML VIAL IV (10:29)
--- NOTE | 2019-12-14 10:54 | CM.DANOTE ---
DCP: Case received, EMR reviewed and met with patient. Introduced self and role. Was able to meet with patient and obtain some information regarding her baseline activity and living situation. Was able to complete DCP assessment after obtaining this information. Patient is a 69 year old female who admitted yesterday morning to the care of the hospitalist team. PCP: Dr. Diez. Payer: confirmed: [facility] Ad[employer]age. Patient came to the hospital via family vehicle secondary to some dyspnea. she was brought by her daughter. 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 Verified with patient that she goes to clinic at Dr. Diez's office for INR testing. She holds current diagnosis of a-fib/CHF. She was a former smoker. Met with patient in her room. She is alert and oriented, pleasant. She resides in [place], and lives with her significant other, Wilfredo. She is independent, has a cane and walker, but patient stated, she only uses if going out. She stated that she could still drive, but has not since she has had car problems. Patient stated that she was supposed to be transferred to [facility] for cardio-version, but no beds available. Confirmed this with Dr. Ni's note today, as well. Patient stated that she has been 3 times. According to note, patient was supposed to get next to her significant other. She also has a son and three daughters. P: DCP to continue to be available for any needs at discharge. Will see if patient will be transfered out when bed is available, or if she will remain here with medication adjustments. If this is the case, she should be able to go home when she is medically stable. Deana Calle RN/Sales Training Coordinator
[2019-12-14] MEDS: lisinopriL 5 MG TABLET 2.5 MG PO (14:34)
--- NOTE | 2019-12-14 15:22 | PM.CN ---
History of Present Illness Consult details Date Patient Seen: 12/14/19 Chief complaint: Referred by PCP for ambulance, low oxygen Reason for consult: shortness of breath, CHF Requesting provider: Kendal Ni Narrative: This 69 years old female who has a history of mechanical mitral valve replacement in 2007 without any significant coronary artery disease that time, underlying hypertension, hyperlipidemia, obesity, sleep apnea who has persistent A. fib since August 2019, usually sees Dr. Cannon and Shania Godoy in [facility] cardiology, was supposed to have cardioversion in October but because of subtherapeutic INR it was not done, got admitted to [facility] on November 30, 2019 with decompensated heart failure, discharged on December 02, 2019 with rate control approach and plan to do cardioversion down the road, decrease in LV function with LV ejection fraction 30-35% based on limited echocardiogram on December 01, 2019 which was about 50-55% in September 15, 2019, got admitted to [facility] yesterday on December 13, 2019 because of worsening shortness of breath from last 2 days with oxygen saturation 87% in the office. Patient is being treated for congestive heart failure. Cardiology consult was sought. Patient denies any fever cough or chest pain or palpitation or dizziness or syncope or worsening lower extremity swelling however has orthopnea and PND-like symptoms from last 2 days. Denies any excessive alcohol intake or caffeine intake. At present she is being worked up to rule out COVID 19 as well. Meds Home Medications and Allergies Home Medications Medication Instructions Recorded Confirmed Type fluoxetine 40 mg PO DAILY #0 07/04/08 12/13/19 History acetaminophen-codeine 1 tab PO Q4H PRN 05/20/19 12/13/19 History atorvastatin 20 mg PO DAILY 05/20/19 12/13/19 History baclofen 10 mg PO TID PRN 05/20/19 12/13/19 History celecoxib 200 mg PO DAILY 05/20/19 12/13/19 History omeprazole 20 mg PO DAILY 05/20/19 12/13/19 History potassium chloride 40 meq PO DAILY 05/20/19 12/13/19 History metoprolol succinate 100 mg PO BID #180 tab 09/22/19 12/13/19 Rx torsemide 40 mg PO DAILY@0600 #90 tab 09/22/19 12/13/19 Rx warfarin 5 mg PO DAILY #0 tab 09/22/19 12/13/19 Rx Allergies Allergy/AdvReac Type Severity Reaction Status Date / Time No Known Drug Allergies Allergy Verified 09/14/19 14:57 Review of Systems Review of Systems ROS: Yes All systems reviewed with the patient and are negative except as otherwise documented Exam Vital Signs (past 8 hours): - 12/14/19 08:07 12/14/19 11:00 12/14/19 14:33 Temperature 97 F L 97.5 F L Pulse Rate 64 78 69 Respiratory Rate 18 18 Blood Pressure 115/44 L 106/48 L 98/44 L Pulse Oximetry 95 97 12/14/19 14:34 Temperature Pulse Rate 69 Respiratory Rate Blood Pressure 98/44 L Pulse Oximetry Oxygen Delivery Method Nasal Cannula Oxygen Flow Rate 1 Const General: cooperative Other: not in any significant distress HENMT Other: no significant abnormalities Eyes Other: no significant anemia on xanthelasma Neck Other: No obvious JVD Chest Other: no chest wall tenderness Resp Other: no obvious crepitations or rhonchi Cardio Other: S1 variable, P2 does not appears to be prominent, prosthetic sounds present, soft ejection systolic murmur at the apex no obvious S3 or S4 GI Other: obese, unable to palpate liver or spleen Skin Other: no obvious gangrene or ulcer Neuro Other: no obvious motor or sensory deficit Extrem Other: no significant pedal edema Psych Other: alert oriented to time place and person Objective Labs Result Diagrams: 12/14/19 05:05 12/14/19 05:05 Labs: Laboratory Results - last 24 hr 12/13/19 12/13/19 12/13/19 16:08 16:08 16:08 WBC 9.9 RBC 4.65 Hgb 12.8 Hct 39.5 MCV 85.1 MCH 27.5 MCHC 32.3 RDW 15.7 H Plt Count 326 Neut % (Auto) 70.8 Lymph % (Auto) 19.5 L [place] % (Auto) 7.6 Eos % (Auto) 1.0 L Baso % (Auto) 1.1 Neut # (Auto) 7000 Lymph # (Auto) 1900 [place] # (Auto) 800 Eos # (Auto) 100 Baso # (Auto) 100 PT 44.3 H INR 3.9 H APTT 49 H D Sodium 139 Potassium 4.5 Chloride 104 Carbon Dioxide 26 BUN 15 Creatinine 0.68 Estimated GFR > 60.0 BUN/Creatinine Ratio 22.1 H Glucose 159 H Calcium 9.7 Magnesium 2.5 H Total Bilirubin 0.7 AST 35 ALT 24 Alkaline Phosphatase 119 Total Creatine Kinase 52 CK-MB (CK-2) TNP CK-MB (CK-2) Rel Index TNP Troponin I < 0.012 NT-Pro-B Natriuret Pep 3260 H Total Protein 7.8 Albumin 4.3 Globulin 3.5 Albumin/Globulin Ratio 1.2 Lipase 97 TSH Free T4 Urine Color Urine Appearance Urine pH Ur Specific [place] Urine Protein Urine Glucose (UA) Urine Ketones Urine Occult Blood Urine Nitrate Urine Bilirubin Urine Urobilinogen Ur Leukocyte Esterase Urine RBC Urine WBC Ur Squamous Epith Cells Urine Bacteria Ur Culture Indicated? Micro UA Comment 12/13/19 12/13/19 12/14/19 16:51 21:58 05:05 WBC RBC Hgb Hct MCV MCH MCHC RDW Plt Count Neut % (Auto) Lymph % (Auto) [place] % (Auto) Eos % (Auto) Baso % (Auto) Neut # (Auto) Lymph # (Auto) [place] # (Auto) Eos # (Auto) Baso # (Auto) PT INR APTT Sodium Potassium Chloride Carbon Dioxide BUN Creatinine Estimated GFR BUN/Creatinine Ratio Glucose Calcium Magnesium Total Bilirubin AST ALT Alkaline Phosphatase Total Creatine Kinase 52 49 CK-MB (CK-2) TNP TNP CK-MB (CK-2) Rel Index TNP TNP Troponin I < 0.012 < 0.012 NT-Pro-B Natriuret Pep Total Protein Albumin Globulin Albumin/Globulin Ratio Lipase TSH Free T4 Urine Color Dark yellow Urine Appearance Cloudy Urine pH 7.0 Ur Specific [place] 1.015 Urine Protein 2+ H Urine Glucose (UA) Trace H Urine Ketones Negative Urine Occult Blood Negative Urine Nitrate Negative Urine Bilirubin Negative Urine Urobilinogen >=8.0 Ur Leukocyte Esterase 3+ H Urine RBC 0-1/hpf Urine WBC 10-30/hpf H Ur Squamous Epith Cells 10-30 /hpf H D Urine Bacteria Few (2-10) H Ur Culture Indicated? Cult not indicated Micro UA Comment 12/14/19 12/14/19 12/14/19 05:05 05:05 05:05 WBC 8.4 RBC 4.35 Hgb 11.9 L Hct 36.9 MCV 84.9 MCH 27.4 MCHC 32.3 RDW 15.6 H Plt Count 297 Neut % (Auto) 55.3 Lymph % (Auto) 28.7 [place] % (Auto) 12.2 Eos % (Auto) 2.0 Baso % (Auto) 1.8 Neut # (Auto) 4600 Lymph # (Auto) 2400 [place] # (Auto) 1000 H Eos # (Auto) 200 Baso # (Auto) 100 PT INR APTT Sodium 142 Potassium 3.8 Chloride 102 Carbon Dioxide 30 BUN 13 Creatinine 0.65 Estimated GFR > 60.0 BUN/Creatinine Ratio 20.0 Glucose 102 Calcium 9.4 Magnesium Total Bilirubin 0.7 AST 30 ALT 21 Alkaline Phosphatase 118 Total Creatine Kinase CK-MB (CK-2) CK-MB (CK-2) Rel Index Troponin I NT-Pro-B Natriuret Pep 2840 H Total Protein 7.3 Albumin 3.9 Globulin 3.4 Albumin/Globulin Ratio 1.1 Lipase TSH 1.30 Free T4 1.29 Urine Color Urine Appearance Urine pH Ur Specific [place] Urine Protein Urine Glucose (UA) Urine Ketones Urine Occult Blood Urine Nitrate Urine Bilirubin Urine Urobilinogen Ur Leukocyte Esterase Urine RBC Urine WBC Ur Squamous Epith Cells Urine Bacteria Ur Culture Indicated? Micro UA Comment 12/14/19 10:09 WBC RBC Hgb Hct MCV MCH MCHC RDW Plt Count Neut % (Auto) Lymph % (Auto) [place] % (Auto) Eos % (Auto) Baso % (Auto) Neut # (Auto) Lymph # (Auto) [place] # (Auto) Eos # (Auto) Baso # (Auto) PT 43.1 H INR 3.8 H APTT Sodium Potassium Chloride Carbon Dioxide BUN Creatinine Estimated GFR BUN/Creatinine Ratio Glucose Calcium Magnesium Total Bilirubin AST ALT Alkaline Phosphatase Total Creatine Kinase CK-MB (CK-2) CK-MB (CK-2) Rel Index Troponin I NT-Pro-B Natriuret Pep Total Protein Albumin Globulin Albumin/Globulin Ratio Lipase TSH Free T4 Urine Color Urine Appearance Urine pH Ur Specific [place] Urine Protein Urine Glucose (UA) Urine Ketones Urine Occult Blood Urine Nitrate Urine Bilirubin Urine Urobilinogen Ur Leukocyte Esterase Urine RBC Urine WBC Ur Squamous Epith Cells Urine Bacteria Ur Culture Indicated? Micro UA Comment EKG on December 13, 2019 at 4:09 PM showed underlying atrial flutter fib with ventricular rate about 75, poor R-wave progression, nonspecific ST-T changes, QTC 461 ms. 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 Troponins within normal limit. During recent hospitalization at [facility] her LV ejection fraction has decreased to 30-35%. She was in A. fib with fast ventricular rate over there. At [facility], beta jammie was discontinued yesterday because of concern for bradycardia however I reviewed her telemetry rhythm strips. I don't see any profound pestent bradycardia. She has some pauses which were not significant. She will need beta jammie for rate control. At home she was on total 200 mg of metoprolol succinate a day. I will recommend at least starting 100 mg daily. So far she has received 120 mg of IV Lasix. At home she was on torsemide 40 mg daily. We will recommend changing to 60 mg daily. She was not on RUTH inhibitor or spironolactone. Start lisinopril 2.5 mg daily to begin with along with Spironolactone 12.5 mg daily. discontinue potassium supplementation. Consider close monitoring of electrolytes.Slowly and gradually optimize and maximize RUTH inhibitor. Keep the INR between 2.5-3.5. Clinically no stigmata of endocarditis. I spoke to Dr. Shah who took care of this patient at [facility] and discussed the case. The plan is to consider EVERETT cardioversion this coming Friday. Dr. Shha will initiate the process. Discussed the plan with Dr. Ni as well. Thanks for the cardiology consult. At this point of time cardiology will sign off. Please call us if needs further assistance. Thanks for the cardiology consult. This note was generated utilizing voice recognition software. While attempts have been made to correct mistakes, common errors may occur, including substitution of words that sound phonetically similar to the intended word as well as random substitution errors. Please take this into consideration and use clinical context when necessary.
[2019-12-14] MEDS: SPIRONOLACTONE 25 MG TABLET 12.5 MG PO (19:01)
[2019-12-14 19:39] LABS: COVID19 Sendout Not Detected (Not Detect)
[2019-12-15 04:00] VITALS: BP 108/75; PULSE 62; RESP 18; TEMP 36.6; O2SAT 96
[2019-12-15] MEDS: PANTOPRAZOLE 20 MG TABLET PO (05:34)
[2019-12-15 05:44] LABS: INR 2.8 (0.9-1.3); Prothrombin Time 31.8 SECONDS (10.1-12.7)
[2019-12-15 05:58] LABS: Alanine Aminotransferase 19 IU/L (<35); Albumin 3.8 g/dL (3.5-5.0); Albumin Globulin Ratio 1.2 (1.0-2.8); Alkaline Phosphatase 107 U/L (38-126); Aspartate Aminotransferase 29 IU/L (14-36); BUN Creatinine Ratio 27.4 (6-22); Bilirubin Total 0.7 mg/dL (0.2-1.3); Blood Urea Nitrogen 17 mg/dL (7-17); Calcium 9.3 mg/dL (8.4-10.2); Carbon Dioxide 29 mmol/L (22-32); Chloride 103 mmol/L (98-107); Estimated Glomerular Filt Rate > 60.0 mL/min (>60); Globulin 3.2 g/dL (1.7-4.1); Glucose 112 mg/dL (80-110); HEMOLYSIS < 15 (0-50); Potassium 4.3 mmol/L (3.4-5.1); Sodium 140 mmol/L (137-145)
[2019-12-15 06:03] LABS: Add Manual Diff / Slide Review NO; Basophils Absolute Auto 100 /uL (0-100); Basophils Percent Auto 1.4 % (0-2); Eosinophils Absolute Auto 300 /uL (0-450); Eosinophils Percent Auto 3.3 % (2-4); Hemoglobin 11.5 g/dL (12.0-16.0); Lymphocytes Absolute Auto 2600 /uL (1100-4500); Lymphocytes Percent Auto 32.7 % (25-40); Mean Corpuscular HGB Conc 31.9 % (30-36); Mean Corpuscular Hemoglobin 27.4 PG (26-34); Mean Corpuscular Volume 85.8 fL (80-100); Monocytes Absolute Auto 800 /uL (0-900); Monocytes Percent Auto 9.9 % (3-14); Neutrophils Absolute Auto 4100 /uL (1500-7000); Neutrophils Percent Auto 52.7 % (50-75); Platelet Count 280 X10^3/uL (150-400); Red Blood Cell Count 4.19 X10^6/uL (4.0-5.2); Red Cell Distribution Width 15.7 % (11.6-14.8); White Blood Cell Count 7.8 X10^3/uL (4.5-11.0)
[2019-12-15 06:18] LABS: NT-proBNP (BNP-Adult 18+) 1430 pg/mL (<125)
[2019-12-15 08:00] VITALS: BP 101/66; PULSE 57; RESP 17; TEMP 36.3; O2SAT 97
[2019-12-15 08:15] VITALS: O2SAT 97
[2019-12-15] MEDS: ATORVASTATIN 20 MG TABLET PO (08:54)
[2019-12-15] MEDS: CELECOXIB 200 MG CAPSULE PO (08:54)
[2019-12-15] MEDS: FLUoxetine 20 MG CAPSULE 40 MG PO (08:54)
[2019-12-15] MEDS: SODIUM CHLORIDE 0.9% FLUSH 10 ML IV (08:54)
--- NOTE | 2019-12-15 10:21 | CM.DPC ---
DCP Cont: Spoke to Dr. Diez who is here seeing patient. Asked her about plan, if she would be going home. Dr. Diez mentioned that patient will need to be transferred to higher level of care, and will re-attempt to get her over to [facility] for cardioversion. She will also be calling Dr. Segovia, helium arc welder, as well, to follow up from yesterday's visit. P: DCP to continue to follow. Plan is for patient to be discharged to higher level hospital for cardioversion. Deana Calle RN/Operations Support Specialist
--- NOTE | 2019-12-15 10:39 | PM.DS.1 ---
History of Present Illness History of Present Illness Date Patient Seen: 12/15/19 Time Patient Seen: 10:39 Date of Onset of Symptoms: 12/13/19 Chief complaint: Referred by PCP for ambulance, low oxygen Narrative: This very pleasant 69-year-old female with a known history of persistent atrial fibrillation and severe mitral regurgitation status post mechanical valve replacement in 2007 and recent EVERETT done at [facility] that shows ejection fraction in the 30 percentile. Plan was for cardioversion but this was not done because patient was not adequately anticoagulated. Last consult note is from Dr. Shah from 11/30/2019. Dr. Shah is patient's primary applications architect. Patient came to primary care office clinic on 12/13/2019 and protime was obtained but patient was markedly short of breath and was O2 sat of 87% in the clinic. Due to this was recommended she go to [facility] ER and then the plan would be to transfer her to [facility] so that she the appropriate therapeutic treatment such as cardioversion. However there were no beds available. Patient's congestive heart failure decompensation suspected to be related to chronic atrial fibrillation and now with a bradycardic. CK and troponin were normal and EKG showed no acute changes. Patient was admitted to the hospital for further monitoring and treatment. She received 80 mg of IV Lasix with good diuresis and improvement in her symptoms but still requiring 1 L of nasal cannula oxygen and still incredibly dyspneic with exertion. Otherwise she has had good urine output and BNP has decreased slightly. CK and troponins have been negative x3. Discharge Providers Provider Date of admission: 12/13/19 18:45 Discharge Date: 12/15/19 Primary care physician: Donya Diez MD Consults: Dr. Chirinos, cardiology, 12/14/19 Discharge provider: Donya Diez MD Summary Hospital Course Hospital Course: Remarkable for ongoing dyspnea and oxygen desaturation with any amount of movement. Cardiac rule out was negative while awaiting transfer to [facility] for CCU care as no beds were available at time of admission to [facility]. Dr. Chen, [facility] hospitalist, was consulted today and has kindly agreed to accept her in transfer of care now that they have availability. Dr. 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 He recommended metoprolol 100-200 mg p.o. q.day, increasing torsemide from 40-60 mg p.o. q.day, starting lisinopril 2.5 mg p.o. q.day to begin with, and adding spironolactone 12.5 mg p.o. q.day. He discontinued potassium supplementation. Recommended close monitoring of her electrolytes and slow gradual optimization of her RUTH-inhibitor. Dr. Chirinos did coordinate with Dr. Shah, flynn's outpatient applications architect, who plans to proceed with EVERETT cardioversion this Friday. Exam Vital Signs (past 8 hours): - 12/15/19 04:00 12/15/19 08:00 Temperature 97.9 F 97.4 F L Pulse Rate 62 57 L Respiratory Rate 18 17 Blood Pressure 108/75 101/66 Pulse Oximetry 96 97 Oxygen Delivery Method Nasal Cannula Oxygen Flow Rate 1 Narrative Exam Narrative: GENERAL: Alert and oriented, appearing stated age and in no acute distress. HEENT: Head normocephalic/atraumatic. LUNGS: Diminished inspiratory effort, no audible no wheezes, rhonchi or rales. CV: Irregularly irregular, bradycardic, no audible murmurs, rubs or gallops. ABDOMEN: Soft, non-tender, non-distended, no organomegaly. Positive bowel sounds. EXTREMITIES: No clubbing, cyanosis, or edema. NEURO: Cranial nerves II through XII grossly intact, no focal deficits. PSYCH: Alert and oriented x 3. SKIN: No concerning lesions. Objective Labs Result Diagrams: 12/15/19 05:26 12/15/19 05:26 Labs: Laboratory Results - last 24 hr 12/14/19 12/15/19 12/15/19 10:15 05:26 05:26 WBC 7.8 RBC 4.19 Hgb 11.5 L Hct 36.0 MCV 85.8 MCH 27.4 MCHC 31.9 RDW 15.7 H Plt Count 280 Neut % (Auto) 52.7 Lymph % (Auto) 32.7 Alexander % (Auto) 9.9 Eos % (Auto) 3.3 Baso % (Auto) 1.4 Neut # (Auto) 4100 Lymph # (Auto) 2600 Alexander # (Auto) 800 Eos # (Auto) 300 Baso # (Auto) 100 PT INR Sodium Potassium Chloride Carbon Dioxide BUN Creatinine Estimated GFR BUN/Creatinine Ratio Glucose Calcium Total Bilirubin AST ALT Alkaline Phosphatase NT-Pro-B Natriuret Pep 1430 H Total Protein Albumin Globulin Albumin/Globulin Ratio COVID-19 PCR Not detected 12/15/19 12/15/19 05:26 05:26 WBC RBC Hgb Hct MCV MCH MCHC RDW Plt Count Neut % (Auto) Lymph % (Auto) Alexander % (Auto) Eos % (Auto) Baso % (Auto) Neut # (Auto) Lymph # (Auto) Alexander # (Auto) Eos # (Auto) Baso # (Auto) PT 31.8 H D INR 2.8 H Sodium 140 Potassium 4.3 Chloride 103 Carbon Dioxide 29 BUN 17 Creatinine 0.62 Estimated GFR > 60.0 BUN/Creatinine Ratio 27.4 H Glucose 112 H Calcium 9.3 Total Bilirubin 0.7 AST 29 ALT 19 Alkaline Phosphatase 107 NT-Pro-B Natriuret Pep Total Protein 7.0 Albumin 3.8 Globulin 3.2 Albumin/Globulin Ratio 1.2 COVID-19 PCR Discharge Plan Discharge Plan Patient Disposition: [facility] Other facility: [facility] Under care of provider: Dr. Chen Discharge orders & Medications Follow up/Referrals: Donya Diez MD [Primary Care Provider] - Discharge Health Status Multidrug resistant organism: No MDRO Precautions: [place] Diet/Activity/Treatments Diet: Nothing by Mouth Activity: ad carlos with assist Oxygen: for O2 sat < 88% Discharge Data Primary Care Provider: Donya Diez
--- NOTE | 2019-12-15 12:36 | PC.NURSE ---
Transfer Pt in bed. Denies pain. SOB with exertion and talking. Sats are 92-95% on RA however pt states that she feels pressure on chest if she is off the oxygen. Pt has 1L O2 via [place]. Pt on tele, afib HR>60. metoprolol held. Plan to transfer pt to [facility] for cardioversion. Report called to Sarah at [facility]. Pt left via ambulance ACLS. Pt reports taking her belongings with her.
== END 2019-12-15 11:30 | disposition short-term general hospital (02) | DRG 308 ==
LOC: ED 18:40 → AC 18:47
PROVIDERS: Admitting Provider Family Medicine; Emergency Provider Nurse Practitioner Family; PCP Student in an Organized Health Care Education/Training Program; Referring Provider Nurse Practitioner Family; Visit Provider Family Medicine
DX: I48.19 Other persistent atrial fibrillation (principal); I50.23 Acute on chronic systolic (congestive) heart failure; I38 Endocarditis, valve unspecified; I11.0 Hypertensive heart disease with heart failure; I48.92 Unspecified atrial flutter; E87.6 Hypokalemia; R00.1 Bradycardia, unspecified; I42.8 Other cardiomyopathies; E78.5 Hyperlipidemia, unspecified; F32.9 Major depressive disorder, single episode, unspecified; G47.33 Obstructive sleep apnea (adult) (pediatric); Z87.891 Personal history of nicotine dependence; Z79.01 Long term (current) use of anticoagulants; Z95.2 Presence of prosthetic heart valve
CPT/HCPCS: 36415; 71045; 80053; 81001; 82550; 83690; 83735; 83880; 84439; 84443; 84484; 85025; 85610; 85730; 87635; 93005; 94760; 96374; 99284; 99285; J1940

== ENCOUNTER → 2019-12-20 16:14 | Outpatient (ROUT) | payer OTHER, MEDICAID, SELFPAY ==
[2019-12-13 19:15] VITALS: BMI 34.2
[2019-12-20 16:59] LABS: INR 3.7 (0.9-1.3); Prothrombin Time 41.4 SECONDS (10.1-12.7)
== END ==
PROVIDERS: PCP Student in an Organized Health Care Education/Training Program; Visit Provider Student in an Organized Health Care Education/Training Program
DX: I48.91 Unspecified atrial fibrillation (principal); I38 Endocarditis, valve unspecified; Z95.2 Presence of prosthetic heart valve
CPT/HCPCS: 85610

== ENCOUNTER → 2019-12-27 14:20 | Outpatient (ROUT) | payer OTHER, MEDICAID, SELFPAY ==
[2019-12-13 19:15] VITALS: BMI 34.2
[2019-12-27 14:49] LABS: Prothrombin Time 132.2 SECONDS (10.1-12.7)
[2019-12-27 14:54] LABS: INR 11.7 (0.9-1.3)
== END ==
PROVIDERS: PCP Student in an Organized Health Care Education/Training Program; Visit Provider Student in an Organized Health Care Education/Training Program
DX: I48.91 Unspecified atrial fibrillation (principal); I38 Endocarditis, valve unspecified; Z95.2 Presence of prosthetic heart valve; Z79.01 Long term (current) use of anticoagulants
CPT/HCPCS: 85610

== ENCOUNTER → 2019-12-30 14:20 | Outpatient (ROUT) | payer OTHER, MEDICAID, SELFPAY ==
[2019-12-13 19:15] VITALS: BMI 34.2
[2019-12-30 14:40] LABS: Prothrombin Time 69.5 SECONDS (10.1-12.7)
[2019-12-30 14:43] LABS: INR 6.1 (0.9-1.3)
== END ==
PROVIDERS: PCP Student in an Organized Health Care Education/Training Program; Visit Provider Student in an Organized Health Care Education/Training Program
DX: Z79.01 Long term (current) use of anticoagulants (principal); I48.91 Unspecified atrial fibrillation; I38 Endocarditis, valve unspecified; Z95.2 Presence of prosthetic heart valve
CPT/HCPCS: 85610

== ENCOUNTER → 2020-01-03 15:03 | Outpatient (ROUT) | payer OTHER, MEDICAID, SELFPAY ==
[2019-12-13 19:15] VITALS: BMI 34.2
[2020-01-03 15:38] LABS: INR 1.6 (0.9-1.3); Prothrombin Time 17.9 SECONDS (10.1-12.7)
== END ==
PROVIDERS: PCP Student in an Organized Health Care Education/Training Program; Visit Provider Student in an Organized Health Care Education/Training Program
DX: I48.91 Unspecified atrial fibrillation (principal); I38 Endocarditis, valve unspecified; Z95.2 Presence of prosthetic heart valve; Z79.01 Long term (current) use of anticoagulants
CPT/HCPCS: 85610

== ENCOUNTER → 2020-01-10 14:23 | Outpatient (ROUT) | payer OTHER, MEDICAID, SELFPAY ==
[2019-12-13 19:15] VITALS: BMI 34.2
[2020-01-10 16:51] LABS: INR 4.1 (0.9-1.3); Prothrombin Time 46.6 SECONDS (10.1-12.7)
== END ==
PROVIDERS: PCP Student in an Organized Health Care Education/Training Program; Visit Provider Student in an Organized Health Care Education/Training Program
DX: I48.91 Unspecified atrial fibrillation (principal); I38 Endocarditis, valve unspecified; Z95.2 Presence of prosthetic heart valve; Z79.01 Long term (current) use of anticoagulants
CPT/HCPCS: 85610

== ENCOUNTER → 2020-01-13 13:56 | Outpatient (ROUT) | payer OTHER, MEDICAID, SELFPAY ==
[2020-01-13 14:17] LABS: INR 3.6 (0.9-1.3); Prothrombin Time 41.1 SECONDS (10.1-12.7)
== END ==
PROVIDERS: PCP Student in an Organized Health Care Education/Training Program; Visit Provider Student in an Organized Health Care Education/Training Program
DX: I48.91 Unspecified atrial fibrillation (principal); I38 Endocarditis, valve unspecified; Z95.2 Presence of prosthetic heart valve; Z79.01 Long term (current) use of anticoagulants
CPT/HCPCS: 85610

== ENCOUNTER → 2020-01-26 14:35 | Outpatient (ROUT) | payer OTHER, MEDICAID, SELFPAY ==
[2020-01-26 16:15] LABS: Prothrombin Time 95.9 SECONDS (10.1-12.7)
[2020-01-26 16:20] LABS: INR 8.4 (0.9-1.3)
== END ==
PROVIDERS: PCP Student in an Organized Health Care Education/Training Program; Visit Provider Student in an Organized Health Care Education/Training Program
DX: I48.91 Unspecified atrial fibrillation (principal); I38 Endocarditis, valve unspecified; Z95.2 Presence of prosthetic heart valve; Z79.01 Long term (current) use of anticoagulants
CPT/HCPCS: 85610

== ENCOUNTER → 2020-02-01 13:18 | Outpatient (ROUT) | payer OTHER, MEDICAID, SELFPAY ==
[2020-02-01 13:42] LABS: Prothrombin Time 56.2 SECONDS (10.1-12.7)
[2020-02-01 13:53] LABS: INR 4.8 (0.9-1.3)
== END ==
PROVIDERS: PCP Student in an Organized Health Care Education/Training Program; Visit Provider Student in an Organized Health Care Education/Training Program
DX: I48.91 Unspecified atrial fibrillation (principal); I38 Endocarditis, valve unspecified; Z95.2 Presence of prosthetic heart valve; Z79.01 Long term (current) use of anticoagulants
CPT/HCPCS: 85610

== ENCOUNTER → 2020-02-08 13:03 | Outpatient (ROUT) | payer OTHER, MEDICAID, SELFPAY ==
[2020-02-08 13:25] LABS: Prothrombin Time 61.5 SECONDS (10.1-12.7)
[2020-02-08 13:30] LABS: INR 5.4 (0.9-1.3)
== END ==
PROVIDERS: PCP Student in an Organized Health Care Education/Training Program; Visit Provider Student in an Organized Health Care Education/Training Program
DX: I48.91 Unspecified atrial fibrillation (principal); I38 Endocarditis, valve unspecified; Z95.2 Presence of prosthetic heart valve; Z79.01 Long term (current) use of anticoagulants
CPT/HCPCS: 85610

== ENCOUNTER → 2020-02-22 13:41 | Outpatient (ROUT) | payer OTHER, MEDICAID, SELFPAY ==
[2020-02-22 13:50] LABS: INR 4.1 (0.9-1.3); Prothrombin Time 47.1 SECONDS (10.1-12.7)
== END ==
PROVIDERS: PCP Student in an Organized Health Care Education/Training Program; Visit Provider Student in an Organized Health Care Education/Training Program
DX: I48.91 Unspecified atrial fibrillation (principal); I38 Endocarditis, valve unspecified; Z95.2 Presence of prosthetic heart valve; Z79.01 Long term (current) use of anticoagulants
CPT/HCPCS: 85610

== ENCOUNTER → 2020-03-09 09:59 | Outpatient (ROUT) | payer OTHER, MEDICAID, SELFPAY ==
[2020-03-09 10:06] LABS: INR 2.3 (0.9-1.3); Prothrombin Time 26.8 SECONDS (10.1-12.7)
== END ==
PROVIDERS: PCP Student in an Organized Health Care Education/Training Program; Visit Provider Student in an Organized Health Care Education/Training Program
DX: I48.91 Unspecified atrial fibrillation (principal); I38 Endocarditis, valve unspecified; Z95.2 Presence of prosthetic heart valve; Z79.01 Long term (current) use of anticoagulants
CPT/HCPCS: 85610

== ENCOUNTER 2020-03-16 18:22 | Emergency (ER) | payer OTHER, MEDICAID, SELFPAY ==
[2020-03-16] VITALS (13 sets, daily range): BP systolic 122–157; BP diastolic 58–92; PULSE 71–130; RESP 11–30; TEMP 36.9; O2SAT 91–99; BMI 31.8
--- NOTE | 2020-03-16 18:29 | DI.RAD.S_ITS ---
PROCEDURE: XR CHEST 1V INDICATIONS: SOB TECHNIQUE: One view of the chest was acquired. COMPARISON: [facility], CR, XR CHEST 1V, 12/13/2019, 16:17. FINDINGS: Surgical changes and devices: Sternotomy wires and cardiac valvular prosthesis.. Scattered subsegmental atelectasis and/or scarring. No focal consolidation. No pleural effusions or pneumothorax. Mediastinum: Mediastinal contours appear normal. Heart size is normal. Bones and chest wall: No suspicious bony lesions. Overlying soft tissues appear unremarkable. IMPRESSION: Scattered subsegmental atelectasis and/or scarring. No focal consolidation. Dictated by: Greg Otoole M.D. on 03/16/2020 at 18:59 Approved by: Greg Otoole M.D. on 03/16/2020 at 19:00
[2020-03-16 18:41] LABS: Add Manual Diff / Slide Review NO; Basophils Absolute Auto 200 /uL (0-100); Basophils Percent Auto 1.3 % (0-2); Eosinophils Absolute Auto 200 /uL (0-450); Eosinophils Percent Auto 1.5 % (2-4); Hematocrit 34.9 % (36-46); Lymphocytes Absolute Auto 2300 /uL (1100-4500); Lymphocytes Percent Auto 19.6 % (25-40); Mean Corpuscular HGB Conc 31.4 % (30-36); Mean Corpuscular Hemoglobin 25.1 PG (26-34); Mean Corpuscular Volume 80.1 fL (80-100); Monocytes Absolute Auto 900 /uL (0-900); Monocytes Percent Auto 7.6 % (3-14); Neutrophils Absolute Auto 8000 /uL (1500-7000); Platelet Count 323 X10^3/uL (150-400); Red Blood Cell Count 4.36 X10^6/uL (4.0-5.2); Red Cell Distribution Width 16.9 % (11.6-14.8); White Blood Cell Count 11.5 X10^3/uL (4.5-11.0)
[2020-03-16 18:51] LABS: D Dimer 375 ng/mL (<230)
[2020-03-16 18:55] LABS: Prothrombin Time 65.5 SECONDS (10.1-12.7)
[2020-03-16 18:58] LABS: INR 5.8 (0.9-1.3)
[2020-03-16 19:11] LABS: Alanine Aminotransferase 23 IU/L (<35); Albumin Globulin Ratio 1.3 (1.0-2.8); Alkaline Phosphatase 141 U/L (38-126); Aspartate Aminotransferase 39 IU/L (14-36); BUN Creatinine Ratio 22.2 (6-22); Bilirubin Total 0.7 mg/dL (0.2-1.3); Blood Urea Nitrogen 14 mg/dL (7-17); Calcium 9.6 mg/dL (8.4-10.2); Carbon Dioxide 28 mmol/L (22-32); Chloride 104 mmol/L (98-107); Creatine Kinase 59 U/L (30-135); Estimated Glomerular Filt Rate > 60.0 mL/min (>60); Globulin 3.2 g/dL (1.7-4.1); Glucose 145 mg/dL (80-110); Lipase 134 U/L (23-300); Potassium 4.3 mmol/L (3.4-5.1); Sodium 138 mmol/L (137-145); Total Protein 7.2 g/dL (6.3-8.2)
[2020-03-16 19:31] LABS: HEMOLYSIS < 15 (0-50); NT-proBNP (BNP-Adult 18+) 3990 pg/mL (<125); Troponin I < 0.012 ng/mL (0.01-0.034)
--- NOTE | 2020-03-16 19:52 | ED_ITS ---
HPI - SOB/Dyspnea General Chief Complaint: Shortness of Breath/Dyspnea Stated Complaint: SOB, persistant cough Time Seen by Provider: 03/16/20 18:25 Source: patient Mode of arrival: Ambulatory Limitations: no limitations History of Present Illness HPI Narrative: 69-year-old female nonsmoker with history of CHF, hypertension and hyperlipidemia presents with her in the chief complaint of increasing, significant shortness of breath over the past few days. She has exertional dyspnea, orthopnea and persistent dry cough. She denies dizziness or lightheadedness but is becoming weak. She denies any fever or chills. She denies runny nose, sore throat. She has no chest or abdominal pain. She states she was recently admitted at [facility] and was discharged on Friday for exacerbation of CHF. MD Complaint: shortness of breath Onset (ago): day(s) Severity: moderate Consistency/Duration: constant Relieving factors: oxygen and rest Known history of: congestive heart failure Treatment prior to arrival: none Related Data Home oxygen amount: none Home Medications Medication Instructions Recorded Confirmed fluoxetine 40 mg PO DAILY #0 07/04/08 12/13/19 acetaminophen-codeine 1 tab PO Q4H PRN 05/20/19 12/13/19 atorvastatin 20 mg PO DAILY 05/20/19 12/13/19 baclofen 10 mg PO TID PRN 05/20/19 12/13/19 celecoxib 200 mg PO DAILY 05/20/19 12/13/19 omeprazole 20 mg PO DAILY 05/20/19 12/13/19 potassium chloride 40 meq PO DAILY 05/20/19 12/13/19 Previous Rx's Medication Instructions Recorded metoprolol succinate 100 mg PO BID #180 tab 09/22/19 torsemide 40 mg PO DAILY@0600 #90 tab 09/22/19 warfarin 5 mg PO DAILY #0 tab 09/22/19 digoxin 125 mcg PO DAILY #30 tab 03/16/20 Allergies Allergy/AdvReac Type Severity Reaction Status Date / Time No Known Drug Allergies Allergy Verified 03/16/20 18:30 Review of Systems Constitutional Constitutional: Denies chills, Denies fatigue, Denies fever(s), Denies frequent falls, Denies lethargy and Denies weakness Eyes Eyes: Denies change in vision, Denies eye discharge, Denies irritation and Denies loss of vision ENT Ears, Nose, Mouth, and Throat: Denies change in voice, Denies dizziness, Denies neck pain, Denies sore throat and Denies throat swelling Cardiovascular Cardiovascular: Denies chest pain, Denies irregular heart rhythm, Denies l ightheadedness, Denies palpitations, Reports dyspnea, Denies dyspnea on exertion and Denies orthopnea Respiratory Respiratory: Reports cough, Reports dyspnea, Denies dyspnea on exertion and Denies wheezing Gastrointestinal Gastrointestinal: Denies abdominal pain, Denies change in bowel habits, Denies diarrhea, Denies nausea and Denies vomiting Musculoskeletal Musculoskeletal: Denies neck pain and Denies numbness Integumentary/Breasts Skin/Breast: Denies pruritus, Denies erythema, Denies rash and Denies wounds Neurologic Neurologic: Denies behavioral changes, Denies confusion, Denies dizziness, Denies frequent falls, Denies loss of vision, Denies numbness and Denies weakness Psychiatric Psychiatric: Denies anxiety, Denies behavioral changes, Denies confusion, Denies depression, Denies homicidal ideation and Denies suicidal ideation Endocrine Endocrine: Denies fatigue, Denies flushing and Denies palpitations Hematologic/Lymphatic Hematologic/Lymphatic: Denies easy bruising Allergic/Immunologic Allergic/Immunologic: Denies urticaria, Denies throat swelling and Denies wheezing Patient History Medical History Anticoagulated on Coumadin (Acute) Depression (Acute) Hypertension (Acute) Sleep apnea with use of nocturnal bilevel positive airway pressure (BPAP) (Acute) Surgical History H/O mitral valve replacement (Acute) Social History household members: significant other Smoking Status: Former smoker alcohol intake: current Smoking Status: Former smoker alcohol intake frequency: a few times a month Substance Use Type: does not use Exam Narrative Exam Narrative: GENERAL: [69] year old patient appears stated age. Well- nourished, well-developed patient, in mild distress. Anxious, dyspneic, tachypnea. 4-5 word sentences HEAD: Atraumatic. Normocephalic. EYES: Pupils equal round and reactive. Extraocular motions intact. No scleral icterus. No injection or drainage. ENT: Nose without bleeding, purulent drainage. Throat without erythema, tonsi llar hypertrophy or exudate. Airway patent. NECK: Trachea midline. Non tender CARDIOVASCULAR: Tachycardia but regular rhythm without murmurs, gallops, or rubs. RESPIRATORY: Clear to auscultation. Breath sounds equal bilaterally. No wheezes, rales, or rhonchi. GASTROINTESTINAL: Abdomen soft, non-tender, nondistended. EXTREMITIES: No edema or joint tenderness. BACK: Nontender without deformity or crepitance. No flank tenderness. NEURO: AOx3. SKIN: No rash or erythema of visible areas Initial Vital Signs Initial Vital Signs: Vital Signs Temperature 98.4 F 03/16/20 18:25 Pulse Rate 116 H 03/16/20 18:25 Respiratory Rate 26 H 03/16/20 18:25 Blood Pressure 130/92 H 03/16/20 18:25 Pulse Oximetry 95 03/16/20 18:25 Course Course Course Narrative: Upon completion of diagnostic testing I placed a call to the patient's research director, Dr. Shah. After Abdelrahman sing the case she states that during her recent hospitalization she took the patient off of her digoxin and wishes me to restarted. We discussed whether not an IV dose would be helpful and she requested I just write a prescription for 125 to be filled tomorrow. She will see her in follow-up. Patient given return precautions and had her questions answered to her apparent satisfaction Orders Ordered: ED Orders 03/16/20 18:29 XR chest 1V Stat EKG-12 Lead Stat 03/16/20 18:35 Complete Blood Count AUTO DIFF Stat Comprehensive Metabolic Panel Stat D Dimer Stat Lipase Stat NT-proBNP (BNP-Adult 18+) Stat Prothrombin Time INR Stat Troponin & CK Cardiac Panel Stat 03/16/20 19:00 Urine Culture Stat Urine Microscopic Stat Discontinued Medications Furosemide (Lasix) 40 mg IV NOW ONE Stop: 03/16/20 19:46 Last Admin: 03/16/20 19:57 Dose: 40 mg Documented by: HODAN Sodium Chloride (Normal Saline 0.9%) 1,000 mls @ 150 mls/hr IV CONT AMITA Vital Signs Vital signs: Vital Signs - 8 hr 03/16/20 18:25 03/16/20 19:48 03/16/20 19:50 Temperature 98.4 F Pulse Rate 116 H 81 Respiratory Rate 26 H 19 Blood Pressure 130/92 H 143/78 H Pulse Oximetry 95 97 03/16/20 20:00 03/16/20 20:30 03/16/20 21:00 Temperature Pulse Rate 77 93 H 92 H Respiratory Rate 21 11 L 26 H Blood Pressure 123/58 L 138/90 Pulse Oximetry 92 92 99 03/16/20 21:01 03/16/20 21:30 03/16/20 22:00 Temperature Pulse Rate 88 83 Respiratory Rate 20 13 Blood Pressure 157/75 H 132/65 122/74 Pulse Oximetry 95 91 03/16/20 22:30 03/16/20 22:44 03/16/20 23:01 Temperature Pulse Rate 130 H 84 Respiratory Rate 30 H 17 Blood Pressure 134/73 129/58 L Pulse Oximetry 94 92 03/16/20 23:30 Temperature Pulse Rate 71 Respiratory Rate 21 Blood Pressure 133/91 H Pulse Oximetry 94 MDM - SOB/Dyspnea Lab Data Result diagrams: 03/16/20 18:35 03/16/20 18:35 Labs: Lab Results 03/16/20 03/16/20 03/16/20 Range/Units 18:35 18:35 18:35 WBC 11.5 H (4.5-11.0) X10^3/uL RBC 4.36 (4.0-5.2) X10^6/uL Hgb 11.0 L (12.0-16.0) g/dL Hct 34.9 L (36-46) % MCV 80.1 (80-100) fL MCH 25.1 L (26-34) PG MCHC 31.4 (30-36) % RDW 16.9 H (11.6-14.8) % Plt Count 323 (150-400) X10^3/uL Neut % (Auto) 70.0 (50-75) % Lymph % (Auto) 19.6 L (25-40) % Giles % (Auto) 7.6 (3-14) % Eos % (Auto) 1.5 L (2-4) % Baso % (Auto) 1.3 (0-2) % Neut # (Auto) 8000 H (8798-2733) /uL Lymph # (Auto) 2300 (2159-2600) /uL Giles # (Auto) 900 (0-900) /uL Eos # (Auto) 200 (0-450) /uL Baso # (Auto) 200 H (0-100) /uL PT 65.5 H D (10.1-12.7) SECONDS INR 5.8 H* (0.9-1.3) D-Dimer 375 H (<230) ng/mL Sodium 138 (137-145) mmol/L Potassium 4.3 (3.4-5.1) mmol/L Chloride 104 (98-107) mmol/L Carbon Dioxide 28 (22-32) mmol/L BUN 14 (7-17) mg/dL Creatinine 0.63 (0.52-1.04) mg/dL Estimated GFR > 60.0 (>60) mL/min BUN/Creatinine Ratio 22.2 H (6-22) Glucose 145 H (80-110) mg/dL Calcium 9.6 (8.4-10.2) mg/dL Total Bilirubin 0.7 (0.2-1.3) mg/dL AST 39 H (14-36) IU/L ALT 23 (<35) IU/L Alkaline Phosphatase 141 H (38-126) U/L Total Creatine Kinase 59 (30-135) U/L CK-MB (CK-2) TNP CK-MB (CK-2) Rel Index TNP Troponin I < 0.012 (0.01-0.034) ng/mL NT-Pro-B Natriuret Pep 3990 H (<125) pg/mL Total Protein 7.2 (6.3-8.2) g/dL Albumin 4.0 (3.5-5.0) g/dL Globulin 3.2 (1.7-4.1) g/dL Albumin/Globulin Ratio 1.3 (1.0-2.8) Lipase 134 (23-300) U/L Urine RBC (0-5/HPF) Urine WBC (0-5/HPF) Ur Squamous Epith Cells (0-5/HPF) Ur Transition Epith Cell (0-5/HPF) Urine Bacteria (None) Ur Culture Indicated? 03/16/20 Range/Units 19:00 WBC (4.5-11.0) X10^3/uL RBC (4.0-5.2) X10^6/uL Hgb (12.0-16.0) g/dL Hct (36-46) % MCV (80-100) fL MCH (26-34) PG MCHC (30-36) % RDW (11.6-14.8) % Plt Count (150-400) X10^3/uL Neut % (Auto) (50-75) % Lymph % (Auto) (25-40) % Giles % (Auto) (3-14) % Eos % (Auto) (2-4) % Baso % (Auto) (0-2) % Neut # (Auto) (2911-5111) /uL Lymph # (Auto) (5685-6534) /uL Giles # (Auto) (0-900) /uL Eos # (Auto) (0-450) /uL Baso # (Auto) (0-100) /uL PT (10.1-12.7) SECONDS INR (0.9-1.3) D-Dimer (<230) ng/mL Sodium (137-145) mmol/L Potassium (3.4-5.1) mmol/L Chloride (98-107) mmol/L Carbon Dioxide (22-32) mmol/L BUN (7-17) mg/dL Creatinine (0.52-1.04) mg/dL Estimated GFR (>60) mL/min BUN/Creatinine Ratio (6-22) Glucose (80-110) mg/dL Calcium (8.4-10.2) mg/dL Total Bilirubin (0.2-1.3) mg/dL AST (14-36) IU/L ALT (<35) IU/L Alkaline Phosphatase (38-126) U/L Total Creatine Kinase (30-135) U/L CK-MB (CK-2) CK-MB (CK-2) Rel Index Troponin I (0.01-0.034) ng/mL NT-Pro-B Natriuret Pep (<125) pg/mL Total Protein (6.3-8.2) g/dL Albumin (3.5-5.0) g/dL Globulin (1.7-4.1) g/dL Albumin/Globulin Ratio (1.0-2.8) Lipase (23-300) U/L Urine RBC 0-1/hpf (0-5/HPF) Urine WBC 5-10/hpf H (0-5/HPF) Ur Squamous Epith Cells 1-5 /hpf D (0-5/HPF) Ur Transition Epith Cell 1-5/hpf (0-5/HPF) Urine Bacteria Few (2-10) H (None) Ur Culture Indicated? Specimen cultured Urine Dip Bedside Urine Glucose Negative Bedside Urine Bilirubin - Negative Bedside Urine Ketone - Negative Urine Specific [place] 1.020 Bedside Urine Occult Blood +/- Bedside Urine pH 6.0 Bedside Urine Protein + 30 Bedside Urine Urobilinogen - Negative Bedside Urine Nitrite - Negative Bedside Urine Leukocytes +/- 15 Esterase Discharge Plan Departure Patient Disposition: Home Clinical Impression: Supratherapeutic INR CHF (congestive heart failure) Qualifiers: Heart failure type: unspecified Heart failure chronicity: acute on chronic Qualified Code(s): I50.9 - Heart failure, unspecified Discharge Date/Time: 03/17/20 00:10 Instructions: DI for Shortness of Breath Activity Restrictions/Additional Instructions: *You have been diagnosed with [shortness of breath associated with tachycardia and elevated INR] *What to do: *Take medications as directed: I spoke with Dr. Shah and she wanted me to restart you on digoxin, prescription sent to [facility]. DO NOT TAKE COUMADIN UNTIL FRIDAY *Follow up with your primary care provider in 2-3 days, call for an appointment. Let them know you were seen in the Emergency Department and that we ask that you be seen in follow up *Return to ER if you should have any new, worsening or concerning symptoms Prescriptions: New digoxin 125 mcg (0.125 mg) tablet 125 mcg PO DAILY Qty: 30 RF: 0 No Action fluoxetine 20 mg Tablet 40 mg PO DAILY Qty: 0 RF: 0 celecoxib 200 mg capsule 200 mg PO DAILY RF: 0 potassium chloride 10 mEq capsule, extended release 40 meq PO DAILY RF: 0 atorvastatin 20 mg tablet 20 mg PO DAILY RF: 0 acetaminophen-codeine 300-30 mg tablet 1 tab PO Q4H PRN (Reason: pain) RF: 0 baclofen 10 mg tablet 10 mg PO TID PRN (Reason: Muscle Spasm) RF: 0 omeprazole 20 mg capsule,delayed release(DR/EC) 20 mg PO DAILY RF: 0 metoprolol succinate 50 mg Tablet Extended Release 24 Hr 100 mg PO BID Qty: 180 RF: 3 torsemide 10 mg Tablet 40 mg PO DAILY@0600 Qty: 90 RF: 3 warfarin 5 mg tablet 5 mg PO DAILY Qty: 0 RF: 0 Referrals: Donya Diez MD [Primary Care Provider] - Desiree Shah MD [Physician] -
[2020-03-16] MEDS: FUROSEMIDE 40 MG/4 ML VIAL IV (19:57)
[2020-03-16 20:27] LABS: Bacteria Urine Few (2-10); Culture Indicated Urine Specimen Cultured; RBC Urine 0-1/HPF (0-5/HPF); Squamous Epithelial Cell Urine 1-5 /HPF (0-5/HPF); Transitional Epi Cells Urine 1-5/HPF (0-5/HPF); WBC Urine 5-10/HPF (0-5/HPF)
--- NOTE | 2020-03-16 21:07 | PC.NURSE ---
Pt reports pain in head and upper abdomen. Provider ok for pt to take her own T3 Pain medication.
--- NOTE | 2020-03-16 22:45 | PC.NURSE ---
Pt completed ambulation assessment under observation of this INDUSTRIAL PHARMACIST. Pts o2 sat was steady between 93-94% on RA during entire trial. Pt complained of being tired and short of breath but stated, this is nothing. Pts heart rate was steady in the 120s to 130s. Pt now in room with call light, and on chain hooker. Dr Lawrence and BEVERLEY Looney aware
== END 2020-03-17 00:10 | disposition home or self-care (01) ==
PROVIDERS: Emergency Provider Emergency Medicine; PCP Student in an Organized Health Care Education/Training Program
DX: R79.1 Abnormal coagulation profile (principal); I50.9 Heart failure, unspecified; R06.02 Shortness of breath; R05 Cough; Z95.2 Presence of prosthetic heart valve
CPT/HCPCS: 36415; 71045; 80053; 81003; 81015; 82550; 83690; 83880; 84484; 85025; 85379; 85610; 87077; 87086; 93005; 96374; 99284; J1940

== ENCOUNTER → 2020-03-23 15:00 | Outpatient (ROUT) | payer OTHER, MEDICAID, SELFPAY ==
[2020-03-23 15:14] LABS: Prothrombin Time 60.2 SECONDS (10.1-12.7)
[2020-03-23 15:31] LABS: INR 5.3 (0.9-1.3)
== END ==
PROVIDERS: PCP Student in an Organized Health Care Education/Training Program; Visit Provider Student in an Organized Health Care Education/Training Program
DX: I48.91 Unspecified atrial fibrillation (principal); I38 Endocarditis, valve unspecified; Z79.01 Long term (current) use of anticoagulants
CPT/HCPCS: 85610

== ENCOUNTER → 2020-04-27 15:44 | Outpatient (ROUT) | payer OTHER, MEDICAID, SELFPAY ==
[2020-04-27 16:34] LABS: INR 9.9 (0.9-1.3)
== END ==
PROVIDERS: PCP Student in an Organized Health Care Education/Training Program; Visit Provider Student in an Organized Health Care Education/Training Program
DX: I48.91 Unspecified atrial fibrillation (principal)
CPT/HCPCS: 85610

== ENCOUNTER 2020-06-06 14:21 | Observation (INO) | payer OTHER, SELFPAY ==
--- NOTE | 2020-06-06 14:26 | DI.RAD.S_ITS ---
PROCEDURE: XR CHEST 1V INDICATIONS: chest pain TECHNIQUE: One view of the chest was acquired. COMPARISON: [facility], CT, CT ANGIO CHEST PE PROTOCOL, 09/14/2019, 16:42. [facility], CR, XR CHEST 1 VIEW, 03/31/2020, 16:35. [facility], CR, XR CHEST 1V, 03/16/2020, 18:22. FINDINGS: Surgical changes and devices: Post median sternotomy and mitral valve replacement. Lungs and pleura: Lungs are clear. No pleural effusions or pneumothorax. Mediastinum: Mediastinal contours appear normal. Heart size is prominent, unchanged. Bones and chest wall: No suspicious bony lesions. Overlying soft tissues appear unremarkable. IMPRESSION: No acute cardiopulmonary abnormality. Cardiomegaly. Dictated by: Sanchez Cabral M.D. on 06/06/2020 at 15:12 Approved by: Sanchez Cabral M.D. on 06/06/2020 at 15:14
[2020-06-06 14:31] VITALS: BP 131/60; PULSE 67; RESP 22; TEMP 36.2; O2SAT 94; BMI 31.8
[2020-06-06] MEDS: NITROGLYCERIN 0.4 MG SL TAB SL (14:46)
[2020-06-06] MEDS: ASPIRIN 81 MG CHEW TAB 324 MG PO (14:46)
[2020-06-06 14:50] LABS: Add Manual Diff / Slide Review NO; Basophils Absolute Auto 100 /uL (0-100); Eosinophils Absolute Auto 100 /uL (0-450); Hemoglobin 11.1 g/dL (12.0-16.0); Lymphocytes Absolute Auto 1900 /uL (1100-4500); Lymphocytes Percent Auto 19.1 % (25-40); Mean Corpuscular HGB Conc 32.6 % (30-36); Mean Corpuscular Hemoglobin 26.5 PG (26-34); Mean Corpuscular Volume 81.2 fL (80-100); Monocytes Absolute Auto 700 /uL (0-900); Monocytes Percent Auto 7.4 % (3-14); Neutrophils Absolute Auto 7100 /uL (1500-7000); Neutrophils Percent Auto 71.5 % (50-75); Platelet Count 263 X10^3/uL (150-400); Red Blood Cell Count 4.19 X10^6/uL (4.0-5.2); White Blood Cell Count 9.9 X10^3/uL (4.5-11.0)
--- NOTE | 2020-06-06 14:56 | ED.CHESTPAIN ---
HPI - Chest Pain General Chief Complaint: Chest Pain Stated Complaint: CHEST PAIN Time Seen by Provider: 06/06/20 14:31 Source: patient and family Mode of arrival: Ambulatory History of Present Illness HPI narrative: Patient here for intermittent substernal chest pressure notably with exertion today. No prior chest pain. Patient complains of dyspnea with this as well. No previous history of heart catheterization. No recent stress test. Admitted March 2024 AFib at [facility]. Rad Tech is with [facility]. Dr. Shah. Currently no chest pain. History of atrial fibrillation with warfarin use. MD complaint: chest pain Related Data Home Medications Medication Instructions Recorded Confirmed fluoxetine 40 mg PO DAILY #0 07/04/08 06/06/20 acetaminophen-codeine 1 tab PO Q4H PRN 05/20/19 06/06/20 atorvastatin 20 mg PO DAILY 05/20/19 06/06/20 baclofen 10 mg PO TID PRN 05/20/19 06/06/20 celecoxib 200 mg PO DAILY 05/20/19 06/06/20 omeprazole 20 mg PO DAILY 05/20/19 06/06/20 potassium chloride 40 meq PO DAILY 05/20/19 06/06/20 Previous Rx's Medication Instructions Recorded metoprolol succinate 100 mg PO BID #180 tab 09/22/19 torsemide 40 mg PO DAILY@0600 #90 tab 09/22/19 warfarin 5 mg PO DAILY #0 tab 09/22/19 digoxin 125 mcg PO DAILY #30 tab 03/16/20 Allergies Allergy/AdvReac Type Severity Reaction Status Date / Time No Known Drug Allergies Allergy Verified 03/16/20 18:30 Review of Systems Review of Systems Narrative: GENERAL: Denies chills, fatigue, malaise, fever, sweats. HEENT: Denies sinus pain, ear pain, sore throat, difficulty swallowing RESPIRATORY: Complains of dyspnea, denies cough CARDIOVASCULAR: Complains of chest pain, denies palpitations, edema, GASTROINTESTINAL: Denies nausea, vomiting, abdominal pain, diarrhea, constipation, melena. : Denies dysuria, frequency, hematuria MUSCULOSKELETAL: denies muscle or bony pain SKIN: Denies rash, skin lesions NEUROLOGIC: Denies weakness, headache, numbness, change in speech, confusion PSYCHIATRIC: No SI or HI or hallucinations ROS Unobtainable: All systems reviewed & are unremarkable except as noted in HPI and below Patient History Medical History Anticoagulated on Coumadin (Acute ~2007) Atrial fibrillation with RVR (Chronic) CHF (congestive heart failure) (Chronic) CHF exacerbation (Acute) Depression (Chronic) Headache (Acute) History of ectopic (Acute) History of female sterilization (Acute) Hypertension (Chronic) Memory deficit (Chronic) Obesity (BMI 30-39.9) (Chronic) Osteoarthritis involving multiple joints on both sides of body (Chronic) Persistent atrial fibrillation (Chronic) Sleep apnea with use of nocturnal bilevel positive airway pressure (BPAP) (Chronic) Tachycardia induced cardiomyopathy (Inactive) Surgical History History of appendectomy (Acute Unknown) History of cholecystectomy (Acute Unknown) History of mitral valve replacement with mechanical valve (Resolved) Family History Other Diabetes mellitus Ovarian cancer Social History household members: significant other lives independently: Yes caregiver/support person: Yes (partner) education level: college Smoking Status: Former smoker alcohol intake: current Smoking Status: Former smoker alcohol intake frequency: a few times a month Substance Use Type: does not use Exam Narrative Exam Narrative: GENERAL: patient appears stated age. Well-nourished, well-developed patient, in no distress, not toxic not dyspneic HEAD: Normocephalic. EYES: Pupils equal round and reactive. No scleral icterus. No injection no discharge ENT: Mucous membranes moist. No drooling no tongue elevation no trismus no malocclusion NECK: Trachea midline. Non tender CARDIOVASCULAR: Irregular irregular rate and rhythm without murmurs, gallops, or rubs. RESPIRATORY: Clear to auscultation. Breath sounds equal bilaterally. No wheezes, rales, or rhonchi. GASTROINTESTINAL: Abdomen soft, non-tender, nondistended. EXTREMITIES: No gross deformities. BACK: Nontender without deformity or crepitance. No flank tenderness. NEURO: AOx4. SKIN: Warm and dry PSYCH: Not anxious, is cooperative Initial Vital Signs Initial Vital Signs: Vital Signs Temperature 97.1 F L 06/06/20 14:31 Pulse Rate 67 06/06/20 14:31 Respiratory Rate 22 06/06/20 14:31 Blood Pressure 131/60 06/06/20 14:31 Pulse Oximetry 94 06/06/20 14:31 Course Course Course Narrative: Reviewed with bindery machine setter patient can stay here for stress test dr gomez Decision to Admit Date: 06/06/20 Decision to Admit time: 16:04 Orders Ordered: ED Orders 06/06/20 14:26 XR chest 1V Stat EKG-12 Lead Stat 06/06/20 14:42 COVID19 -ED/INPAT/OR/L&D Stat Complete Blood Count AUTO DIFF Stat Comprehensive Metabolic Panel Stat Lipase Stat Partial Thromboplastin Time Stat Prothrombin Time INR Stat Troponin & CK Cardiac Panel Stat Nitroglycerin (Nitrostat) 0.4 mg SL [id number] PRN PRN Reason: Chest Pain Discontinued Medications Aspirin (Aspirin Chew) 324 mg PO NOW ONE Stop: 06/06/20 14:44 Last Admin: 06/06/20 14:46 Dose: 324 mg Documented by: DIAMOND Influenza Virus Vaccine (Flu Hd Vaccine) 0.7 ml IM .ONCE ONE Stop: 06/06/20 17:22 Nitroglycerin (Nitro-Bid) 0.5 inch TOP NOW ONE Stop: 06/06/20 14:56 Last Admin: 06/06/20 14:57 Dose: 0.5 inch Documented by: DIAMOND Reevaluation(s) Reevaluation #1: Pain better after nitro paste. Reviewed results with patient and and they agree for admission here. Time: 16:04 Consultations Consultation #1: Spoke with position with [facility]. Patient to be transferred or stay here. Time: 16:05 Consultation #2: Spoke with cardiology dr gomez, reviewed labs and EKG with him. Patient can stay here for stress test Time: 16:05 Consultation #3: Spoke with Dr. paez, hospitalist, will admit Time: 16:05 Additional Consultation(s): Time 6:28 p.m.. I received a call that patient was not to be admitted to Dr. paez,. Patient is a patient of Dr. Donya reyes. I spoke with Dr. Rneee, he understands, he will admit patient. Patient is on the floor already Vital Signs Vital signs: Vital Signs - 8 hr 06/06/20 14:31 06/06/20 16:37 06/06/20 17:00 Temperature 97.1 F L 98.0 F Pulse Rate 67 55 L 54 L Respiratory Rate 22 18 16 Blood Pressure 131/60 98/54 L 120/63 Pulse Oximetry 94 98 92 MDM - Chest Pain Differential Diagnosis Differential diagnosis: Likely stable angina and unstable angina pectoris Medical Records Data Attestation: I reviewed the patient's medical records. Lab Data Attestation: I reviewed the patient's lab results. Result diagrams: 06/06/20 14:42 06/06/20 14:42 Labs: Lab Results 06/06/20 06/06/20 06/06/20 Range/Units 14:42 14:42 14:42 WBC 9.9 (4.5-11.0) X10^3/uL RBC 4.19 (4.0-5.2) X10^6/uL Hgb 11.1 L (12.0-16.0) g/dL Hct 34.0 L (36-46) % MCV 81.2 (80-100) fL MCH 26.5 (26-34) PG MCHC 32.6 (30-36) % RDW 20.0 H (11.6-14.8) % Plt Count 263 (150-400) X10^3/uL Neut % (Auto) 71.5 (50-75) % Lymph % (Auto) 19.1 L (25-40) % [place] % (Auto) 7.4 (3-14) % Eos % (Auto) 1.0 L (2-4) % Baso % (Auto) 1.0 (0-2) % Neut # (Auto) 7100 H (1287-3234) /uL Lymph # (Auto) 1900 (0113-0602) /uL [place] # (Auto) 700 (0-900) /uL Eos # (Auto) 100 (0-450) /uL Baso # (Auto) 100 (0-100) /uL Nucleated RBCs Cancelled Hypersegmented Neuts Cancelled Hypogranular Neuts Cancelled Reactive Lymphocytes Cancelled Smudge Cells Cancelled Other Cell Type Cancelled Toxic Granulation Cancelled Toxic Vacuolation Cancelled Dohle Bodies Cancelled Louis Rods Cancelled WBC Morphology Comment Cancelled Platelet Estimate Cancelled Clumped Platelets Cancelled Plt Morphology Comment Cancelled RBC Morphology Cancelled Dimorphic RBCs Cancelled Polychromasia Cancelled Hypochromasia Cancelled Poikilocytosis Cancelled Basophilic Stippling Cancelled Anisocytosis Cancelled Microcytosis Cancelled Macrocytosis Cancelled Spherocytes Cancelled Pappenheimer Bodies Cancelled Sickle Cells Cancelled Target Cells Cancelled Tear Drop Cells Cancelled Ovalocytes Cancelled Stomatocytes Cancelled Helmet Cells Cancelled Reeder-Lutz Bodies Cancelled [place] Rings Cancelled [place] Cells Cancelled Acanthocytes (Spur) Cancelled Rouleaux Cancelled Schistocytes Cancelled PT 43.8 H (10.1-12.7) SECONDS INR 3.9 H (0.9-1.3) APTT 44 H D (26.4-36.2) SECONDS Sodium 137 (137-145) mmol/L Potassium 4.5 (3.4-5.1) mmol/L Chloride 103 (98-107) mmol/L Carbon Dioxide 27 (22-32) mmol/L BUN 24 H (7-17) mg/dL Creatinine 0.67 (0.52-1.04) mg/dL Estimated GFR > 60.0 (>60) mL/min BUN/Creatinine Ratio 35.8 H (6-22) Glucose 128 H (80-110) mg/dL Calcium 9.5 (8.4-10.2) mg/dL Total Bilirubin 0.7 (0.2-1.3) mg/dL AST 28 (14-36) IU/L ALT 18 (<35) IU/L Alkaline Phosphatase 104 (38-126) U/L Total Creatine Kinase 48 (30-135) U/L CK-MB (CK-2) TNP CK-MB (CK-2) Rel Index TNP Troponin I < 0.012 (0.01-0.034) ng/mL Total Protein 7.1 (6.3-8.2) g/dL Albumin 4.0 (3.5-5.0) g/dL Globulin 3.1 (1.7-4.1) g/dL Albumin/Globulin Ratio 1.3 (1.0-2.8) Lipase 88 (23-300) U/L COVID-19 PCR (Negative) 06/06/20 Range/Units 14:42 WBC (4.5-11.0) X10^3/uL RBC (4.0-5.2) X10^6/uL Hgb (12.0-16.0) g/dL Hct (36-46) % MCV (80-100) fL MCH (26-34) PG MCHC (30-36) % RDW (11.6-14.8) % Plt Count (150-400) X10^3/uL Neut % (Auto) (50-75) % Lymph % (Auto) (25-40) % [place] % (Auto) (3-14) % Eos % (Auto) (2-4) % Baso % (Auto) (0-2) % Neut # (Auto) (8661-5038) /uL Lymph # (Auto) (5699-5309) /uL [place] # (Auto) (0-900) /uL Eos # (Auto) (0-450) /uL Baso # (Auto) (0-100) /uL Nucleated RBCs Hypersegmented Neuts Hypogranular Neuts Reactive Lymphocytes Smudge Cells Other Cell Type Toxic Granulation Toxic Vacuolation Dohle Bodies Louis Rods WBC Morphology Comment Platelet Estimate Clumped Platelets Plt Morphology Comment RBC Morphology Dimorphic RBCs Polychromasia Hypochromasia Poikilocytosis Basophilic Stippling Anisocytosis Microcytosis Macrocytosis Spherocytes Pappenheimer Bodies Sickle Cells Target Cells Tear Drop Cells Ovalocytes Stomatocytes Helmet Cells Reeder-Lutz Bodies [place] Rings Gisel Cells Acanthocytes (Spur) Rouleaux Schistocytes PT (10.1-12.7) SECONDS INR (0.9-1.3) APTT (26.4-36.2) SECONDS Sodium (137-145) mmol/L Potassium (3.4-5.1) mmol/L Chloride (98-107) mmol/L Carbon Dioxide (22-32) mmol/L BUN (7-17) mg/dL Creatinine (0.52-1.04) mg/dL Estimated GFR (>60) mL/min BUN/Creatinine Ratio (6-22) Glucose (80-110) mg/dL Calcium (8.4-10.2) mg/dL Total Bilirubin (0.2-1.3) mg/dL AST (14-36) IU/L ALT (<35) IU/L Alkaline Phosphatase (38-126) U/L Total Creatine Kinase (30-135) U/L CK-MB (CK-2) CK-MB (CK-2) Rel Index Troponin I (0.01-0.034) ng/mL Total Protein (6.3-8.2) g/dL Albumin (3.5-5.0) g/dL Globulin (1.7-4.1) g/dL Albumin/Globulin Ratio (1.0-2.8) Lipase (23-300) U/L COVID-19 PCR Negative (Negative) Imaging Data Chest x-ray: Radiologist's Impression: [address] [address] XRay Report Signed Patient: Mer Portillo [facility]#: [id number] : 8Acct:[id number] Age/Sex: 69 / FDate of Service: 06/06/20 Loc: ED Accession Number: [id number] Procedure: XR chest 1V Ordering Provider: Dylon Aldrich MD PROCEDURE: XR CHEST 1V INDICATIONS: chest pain TECHNIQUE: One view of the chest was acquired. COMPARISON: [facility], CT, CT ANGIO CHEST PE PROTOCOL, 09/14/2019, 16:42. [facility], CR, XR CHEST 1 VIEW, 03/31/2020, 16:35. [facility], CR, XR CHEST 1V, 03/16/2020, 18:22. FINDINGS: Surgical changes and devices: Post median sternotomy and mitral valve replacement. Lungs and pleura: Lungs are clear. No pleural effusions or pneumothorax. Mediastinum: Mediastinal contours appear normal. Heart size is prominent, unchanged. Bones and chest wall: No suspicious bony lesions. Overlying soft tissues appear unremarkable. IMPRESSION: No acute cardiopulmonary abnormality. Cardiomegaly. Dictated by: Sanchez Cabral M.D. on 06/06/2020 at 15:12 Approved by: Sanchez Cabral M.D. on 06/06/2020 at 15:14 ECG Data Attestation: I personally reviewed and interpreted this ECG as follows: Interpretation: Atrial fibrillation. Rate 72. ST depression V4 V5 V6 similar to EKG March 16, 2020 at 6:37 p.m. also similar to EKG from [facility] dated March 31, 2020 at 4:53 p.m. MDM Narrative Medical decision making narrative: EKG reviewed with bindery machine setter. Patient's stay here. Discharge Plan Departure Patient Disposition: Admitted as Observation Clinical Impression: Chest pain Qualifiers: Chest pain type: unspecified Qualified Code(s): R07.9 - Chest pain, unspecified Discharge Date/Time: 06/06/20 17:24 Referrals: Donya Diez MD [Primary Care Provider] - Admit Date/Time: 06/06/20 17:02 Admit Provider: Evelia Paez
[2020-06-06] MEDS: NITROGLYCERIN OINT 1 INCH/GM OINT...G. 0.5 INCH TOP (14:57)
[2020-06-06 15:00] LABS: INR 3.9 (0.9-1.3); Prothrombin Time 43.8 SECONDS (10.1-12.7)
[2020-06-06 15:03] LABS: PTT Partial Thromboplastin Tim 44 SECONDS (26.4-36.2)
[2020-06-06 15:06] LABS: Alanine Aminotransferase 18 IU/L (<35); Albumin Globulin Ratio 1.3 (1.0-2.8); Alkaline Phosphatase 104 U/L (38-126); Aspartate Aminotransferase 28 IU/L (14-36); BUN Creatinine Ratio 35.8 (6-22); Bilirubin Total 0.7 mg/dL (0.2-1.3); Blood Urea Nitrogen 24 mg/dL (7-17); Calcium 9.5 mg/dL (8.4-10.2); Carbon Dioxide 27 mmol/L (22-32); Chloride 103 mmol/L (98-107); Creatine Kinase 48 U/L (30-135); Estimated Glomerular Filt Rate > 60.0 mL/min (>60); Globulin 3.1 g/dL (1.7-4.1); Glucose 128 mg/dL (80-110); HEMOLYSIS 24 (0-50); Lipase 88 U/L (23-300); Potassium 4.5 mmol/L (3.4-5.1); Sodium 137 mmol/L (137-145); Total Protein 7.1 g/dL (6.3-8.2)
[2020-06-06 15:17] LABS: Troponin I < 0.012 ng/mL (0.01-0.034)
[2020-06-06 15:29] LABS: COVID19 -Nasal RAPID Negative (Negative)
[2020-06-06 16:37] VITALS: BP 98/54; PULSE 55; RESP 18; O2SAT 98
[2020-06-06 17:00] VITALS: BP 120/63; PULSE 54; RESP 16; TEMP 36.7; O2SAT 92
[2020-06-06 17:15] VITALS: BMI 31.8
[2020-06-06 19:41] LABS: Creatine Kinase 45 U/L (30-135)
[2020-06-06 19:54] LABS: Troponin I < 0.012 ng/mL (0.01-0.034)
[2020-06-06] MEDS: ATORVASTATIN 20 MG TABLET PO (22:42)
[2020-06-06 22:53] VITALS: PULSE 50; RESP 18; O2SAT 97
[2020-06-06 23:41] VITALS: BP 104/57; PULSE 67; RESP 16; TEMP 36.2; O2SAT 96
[2020-06-07] VITALS (8 sets, daily range): BP systolic 89–118; BP diastolic 49–76; PULSE 55–77; RESP 15–18; TEMP 36.1–36.3; O2SAT 90–97
[2020-06-07 03:24] LABS: INR 4.1 (0.9-1.3); Prothrombin Time 46.1 SECONDS (10.1-12.7)
[2020-06-07 03:27] LABS: Creatine Kinase 46 U/L (30-135)
[2020-06-07 03:40] LABS: Troponin I < 0.012 ng/mL (0.01-0.034)
[2020-06-07] MEDS: PANTOPRAZOLE 20 MG TABLET PO (06:41)
--- NOTE | 2020-06-07 08:19 | P.HP_ITS ---
History of Present Illness History of Present Illness Date Patient Seen: 06/07/20 Time Patient Seen: 08:23 Chief complaint: CHEST PAIN Narrative: 69-year-old female with a known history of persistent atrial fibrillation and severe mitral regurgitation status post mechanical valve replacement in 2007 is admitted for observation from the ED secondary to acute chest pain for cardiac rule out. Reported that she had intermittent substernal chest pressure yesterday prior to presentation in the ED. Associated dyspnea. She has a long history of atrial fibrillation with 3 inpatient hospitalizations for the same in the last 6 months, most recently March 2020 at [facility]. She was supposed to get a cardioversion this year but due to noncompliance with her warfarin, she has not been able to complete that procedure. Incidentally, her echo has improved and she is now medically managed by Dr. Shah. There is not a current plan for her to be cardioverted. Upon presentation, her INR was elevated at 4.1. Patient does have a history of taking her Coumadin as she chooses and not per MD instructions. She is currently 5 mg x 4 days and 2.5 mg x 3 days weekly, this is managed by cardiology. Vital signs upon admission to the ED included temperature of 97.1?, pulse 67, respirations 22, blood pressure 131/60, O2 saturation 94% on room air. Lab wo rkup was unremarkable including negative cardiac enzymes x3. EKG showed no new changes. EKG showed atrial fibrillation with a ventricular rate of 72. She did have ST depression in leads V4 to V6, unchanged from 03/16/2020 and 03/31/2020. She continues to feel short of breath and has has some mild chest pain although she did not complain of this to either of the nurses on day shift today. Patient History Medical History Anticoagulated on Coumadin (Acute ~2007) Atrial fibrillation with RVR (Chronic) CHF (congestive heart failure) (Chronic) CHF exacerbation (Acute) Depression (Chronic) Headache (Acute) History of ectopic (Acute) History of female sterilization (Acute) Hypertension (Chronic) Memory deficit (Chronic) Obesity (BMI 30-39.9) (Chronic) Osteoarthritis involving multiple joints on both sides of body (Chronic) Persistent atrial fibrillation (Chronic) Sleep apnea with use of nocturnal bilevel positive airway pressure (BPAP) (Chronic) Tachycardia induced cardiomyopathy (Inactive) Surgical History History of appendectomy (Acute Unknown) History of cholecystectomy (Acute Unknown) History of mitral valve replacement with mechanical valve (Resolved) Family & Social History Family History Other Diabetes mellitus Ovarian cancer Social History: household members significant other lives independently Yes caregiver/support person Yes: partner Safety & Behavioral: Feels Safe in Current Yes Environment Been Physically Hurt or No Threatened By a Person Suicidal Ideation Description None Suicide Plan Description No Plan Tobacco & Substance use: Smoking Status Former smoker alcohol intake current alcohol intake frequency a few times a month Substance Use Type does not use Meds Home Medications and Allergies Home Medications Medication Instructions Recorded Confirmed Type fluoxetine 40 mg PO DAILY #0 07/04/08 06/06/20 History acetaminophen-codeine 1 tab PO Q4H PRN 05/20/19 06/06/20 History atorvastatin 20 mg PO DAILY 05/20/19 06/06/20 History baclofen 10 mg PO TID PRN 05/20/19 06/06/20 History celecoxib 200 mg PO DAILY 05/20/19 06/06/20 History omeprazole 20 mg PO DAILY 05/20/19 06/06/20 History potassium chloride 40 meq PO DAILY 05/20/19 06/06/20 History metoprolol succinate 100 mg PO BID #180 tab 09/22/19 06/06/20 Rx torsemide 40 mg PO DAILY@0600 #90 tab 09/22/19 06/06/20 Rx warfarin 5 mg PO DAILY #0 tab 09/22/19 06/06/20 Rx digoxin 125 mcg PO DAILY #30 tab 03/16/20 06/06/20 Rx Allergies Allergy/AdvReac Type Severity Reaction Status Date / Time No Known Drug Allergies Allergy Verified 03/16/20 18:30 Review of Systems Review of Systems ROS: Yes All systems reviewed with the patient and are negative except as otherwise documented Exam Vital Signs (past 8 hours): - 06/07/20 05:23 Temperature 97.0 F L Pulse Rate 77 Respiratory Rate 16 Blood Pressure 102/65 Pulse Oximetry 95 Oxygen Delivery Method Nasal Cannula Oxygen Flow Rate 2 Narrative Exam Narrative: GENERAL: Alert and oriented, appearing stated age and in no acute distress. HEENT: Head normocephalic/atraumatic. Pupils equal, round, and reactive to light and accomodation. Extraocular muscles intact. Tympanic membranes clear. Nasal mucosa moist, septum midline. Oral mucosa moist, no lesions. Neck soft and supple, no lymphadenopathy. LUNGS: Clear to ausculation bilaterally, no wheezes, rhonchi or rales. CV: Irregularly irregular, no audible murmurs, rubs or gallops. ABDOMEN: Soft, non-tender, non-distended, no organomegaly. Positive bowel sounds. EXTREMITIES: No clubbing, cyanosis, or edema. NEURO: Cranial nerves II through XII grossly intact, no focal deficits. PSYCH: Alert and oriented x 3. SKIN: Red, scaly rash, left lower extremity. Objective Labs Result Diagrams: 06/07/20 11:25 06/07/20 11:25 Labs: Laboratory Results - last 24 hr 06/06/20 06/06/20 06/06/20 14:42 14:42 14:42 WBC 9.9 RBC 4.19 Hgb 11.1 L Hct 34.0 L MCV 81.2 MCH 26.5 MCHC 32.6 RDW 20.0 H Plt Count 263 Neut % (Auto) 71.5 Lymph % (Auto) 19.1 L Pope % (Auto) 7.4 Eos % (Auto) 1.0 L Baso % (Auto) 1.0 Neut # (Auto) 7100 H Lymph # (Auto) 1900 Pope # (Auto) 700 Eos # (Auto) 100 Baso # (Auto) 100 Nucleated RBCs Cancelled Hypersegmented Neuts Cancelled Hypogranular Neuts Cancelled Reactive Lymphocytes Cancelled Smudge Cells Cancelled Other Cell Type Cancelled Toxic Granulation Cancelled Toxic Vacuolation Cancelled Dohle Bodies Cancelled Louis Rods Cancelled WBC Morphology Comment Cancelled Platelet Estimate Cancelled Clumped Platelets Cancelled Plt Morphology Comment Cancelled RBC Morphology Cancelled Dimorphic RBCs Cancelled Polychromasia Cancelled Hypochromasia Cancelled Poikilocytosis Cancelled Basophilic Stippling Cancelled Anisocytosis Cancelled Microcytosis Cancelled Macrocytosis Cancelled Spherocytes Cancelled Pappenheimer Bodies Cancelled Sickle Cells Cancelled Target Cells Cancelled Tear Drop Cells Cancelled Ovalocytes Cancelled Stomatocytes Cancelled Helmet Cells Cancelled Reeder-[place] Bodies Cancelled [place] Rings Cancelled [place] Cells Cancelled Acanthocytes (Spur) Cancelled Rouleaux Cancelled Schistocytes Cancelled PT 43.8 H INR 3.9 H APTT 44 H D Sodium 137 Potassium 4.5 Chloride 103 Carbon Dioxide 27 BUN 24 H Creatinine 0.67 Estimated GFR > 60.0 BUN/Creatinine Ratio 35.8 H Glucose 128 H Calcium 9.5 Total Bilirubin 0.7 AST 28 ALT 18 Alkaline Phosphatase 104 Total Creatine Kinase 48 CK-MB (CK-2) TNP CK-MB (CK-2) Rel Index TNP Troponin I < 0.012 Total Protein 7.1 Albumin 4.0 Globulin 3.1 Albumin/Globulin Ratio 1.3 Lipase 88 COVID-19 PCR 06/06/20 06/06/20 06/07/20 14:42 19:14 03:05 WBC RBC Hgb Hct MCV MCH MCHC RDW Plt Count Neut % (Auto) Lymph % (Auto) [place] % (Auto) Eos % (Auto) Baso % (Auto) Neut # (Auto) Lymph # (Auto) [place] # (Auto) Eos # (Auto) Baso # (Auto) Nucleated RBCs Hypersegmented Neuts Hypogranular Neuts Reactive Lymphocytes Smudge Cells Other Cell Type Toxic Granulation Toxic Vacuolation Dohle Bodies Louis Rods WBC Morphology Comment Platelet Estimate Clumped Platelets Plt Morphology Comment RBC Morphology Dimorphic RBCs Polychromasia Hypochromasia Poikilocytosis Basophilic Stippling Anisocytosis Microcytosis Macrocytosis Spherocytes Pappenheimer Bodies Sickle Cells Target Cells Tear Drop Cells Ovalocytes Stomatocytes Helmet Cells Reeder-[place] Bodies [place] Rings [place] Cells Acanthocytes (Spur) Rouleaux Schistocytes PT INR APTT Sodium Potassium Chloride Carbon Dioxide BUN Creatinine Estimated GFR BUN/Creatinine Ratio Glucose Calcium Total Bilirubin AST ALT Alkaline Phosphatase Total Creatine Kinase 45 46 CK-MB (CK-2) TNP TNP CK-MB (CK-2) Rel Index TNP TNP Troponin I < 0.012 < 0.012 Total Protein Albumin Globulin Albumin/Globulin Ratio Lipase COVID-19 PCR Negative 06/07/20 03:05 WBC RBC Hgb Hct MCV MCH MCHC RDW Plt Count Neut % (Auto) Lymph % (Auto) Pope % (Auto) Eos % (Auto) Baso % (Auto) Neut # (Auto) Lymph # (Auto) Pope # (Auto) Eos # (Auto) Baso # (Auto) Nucleated RBCs Hypersegmented Neuts Hypogranular Neuts Reactive Lymphocytes Smudge Cells Other Cell Type Toxic Granulation Toxic Vacuolation Dohle Bodies Louis Rods WBC Morphology Comment Platelet Estimate Clumped Platelets Plt Morphology Comment RBC Morphology Dimorphic RBCs Polychromasia Hypochromasia Poikilocytosis Basophilic Stippling Anisocytosis Microcytosis Macrocytosis Spherocytes Pappenheimer Bodies Sickle Cells Target Cells Tear Drop Cells Ovalocytes Stomatocytes Helmet Cells Reeder-[place] Bodies [place] Rings Gisel Cells Acanthocytes (Spur) Rouleaux Schistocytes PT 46.1 H INR 4.1 H APTT Sodium Potassium Chloride Carbon Dioxide BUN Creatinine Estimated GFR BUN/Creatinine Ratio Glucose Calcium Total Bilirubin AST ALT Alkaline Phosphatase Total Creatine Kinase CK-MB (CK-2) CK-MB (CK-2) Rel Index Troponin I Total Protein Albumin Globulin Albumin/Globulin Ratio Lipase COVID-19 PCR Assessment & Plan Assessment & Plan narrative: 1. Chest pain, rule out [place]. Favor unstable angina. PLAN: Echo, stress test. Nitro, morphine as needed. Cardiac enzymes negative x2. Anticipate discharge if all reassuring. 2. Persistent atrial fibrillation, rate controlled PLAN: Continue current treatment plan. Will hold Coumadin as INR is supratherapeutic. 3. CHF, acute on chronic with preserved ejection fraction PLAN: Continue home torsemide 80 mg PO qd. 4. Mitral valve replacement, on anticoagulation, goal INR 2.5 PLAN: as above. 5. Sleep apnea PLAN: RT to consult, will use home BIPAP. 6. Hypokalemia, chronic PLAN: Continue home potassium. 7. Hyperlipidemia, chronic PLAN: Continue atorvastatin. 8. Hypertension, chronic PLAN: Continue home meds. 9. Osteoarthritis, chronic PLAN: Continue home meds. 10. Depression, chronic PLAN: Continue home meds. 11. Rash, left lower extremity, new PLAN: hydrocortisone cream as needed. DVT prophylaxis, INR supratherapeutic, holding warfarin. SCDs. GI prophylaxis: home omeprazole. Code: full Quality VTE Deep Vein Thrombosis/Pulmonary Embolism Present on Admission: No
--- NOTE | 2020-06-07 08:45 | DI.ECHO.S_ITS ---
[facility] +---------+ [facility] +---------+ : : [address] : : : : [id number] : : : : Phone: [phone]+ Echocardiogram Report + + :Name: DEL IRBY Study Date: 06/07/2020 Height: 62 in : :[facility] Weight: 174 lb : : Gender: Female BSA: 1.8 m2 : :: 1950 Age: 69 yrs BP: 120/63 mmHg: :Reason For Study: CHEST PAIN : : Performed By: Reynaldo Bright : :Referring: ROMAN NGUYEN : + + Interpretation Summary The ejection fraction is estimated to be 60-65%. There are no focal wall motion abnormalities. The left atrium is severely dilated. There is a mechanical mitral valve. The prosthetic mitral valve is well-seated. The aortic valve is mildly calcified. There is trace tricuspid regurgitation. The right ventricular systolic pressure is estimated to be at least 29 mmHg based on an estimated right atrial pressure of 3 mm Hg. The mitral valve mean gradient is 5 mmHg. last study it in 2013 reported 4.2 Procedure: A two-dimensional transthoracic echocardiogram with color flow and Doppler was performed. The study quality was technically adequate. Comparison is made with the echocardiogram of 12/11/12. The suprasternal notch views were difficult to obtain and are suboptimal in quality. A contrast injection of Definity was performed to improve assessment of LV function. The patient was in atrial fibrillation with controlled ventricular rate during the exam. The patient had a heart rate of 46-71 beats per minute. Left Ventricle: The left ventricle is normal in size. Left ventricular wall thickness is at the upper limits of normal. The ejection fraction is estimated to be 60-65%. There are no focal wall motion abnormalities. Right Ventricle: The right ventricle is normal size. Right ventricular systolic function is mildly reduced. Atria: The left atrium is severely dilated. Right atrial size is normal. There is no Doppler evidence for an atrial septal defect. Mitral Valve: There is a mechanical mitral valve. The prosthetic mitral valve is well-seated. Cannot assess the presence or severity of regurgitation due to shielding from the prosthesis. The mitral valve mean gradient is 5 mmHg. Aortic Valve: The aortic valve is trileaflet. The aortic valve is mildly calcified. The aortic valve opens well. There is no hemodynamically significant valvular aortic stenosis. No aortic regurgitation is present. Tricuspid Valve: The tricuspid valve is normal in structure and function. There is trace tricuspid regurgitation. The right ventricular systolic pressure is estimated to be at least 29 mmHg based on an estimated right atrial pressure of 3 mm Hg. Pulmonic Valve: The pulmonic valve is normal in structure and function. There is trace pulmonic regurgitation. Great Vessels: The aortic root is normal size. The dimensions of the ascending aorta are normal. The pulmonary artery is normal size. The IVC is of normal diameter and collapses greater than 50% with a sniff. This suggests a low right atrial pressure of 3 mm Hg. Pericardium/ Pleura There is no pericardial effusion. There is no pleural effusion. MMode/2D Measurements & Calculations LVIDd: 4.9 cm LVOT diam: 2.0 cm LVIDs: 3.9 cm Ao root diam: 2.3 cm FS: 21.3 % asc Aorta Diam: 2.9 cm IVSd: 1.1 cm LVPWd: 1.0 cm LV hernandez. diameter/BSA (cm/m^2): 2.7 LV sys. diameter/BSA (cm/m^2): 2.1 LA A2 area: 28.4 cm2 RA long axis: 4.7 cm LA A4 area: 23.5 cm2 RA area: 15.4 cm2 LA length (vol): 5.8 cm RA vol: 43.1 ml LA vol: 98.5 ml RA : 23.9 ml/m2 LA vol index: 54.7 ml/m2 IVC diam: 2.0 cm RVD1 (basal): 3.7 cm RVD2 (mid): 3.5 cm TAPSE: 1.1 cm Doppler Measurements & Calculations Ao V2 max: 167.7 cm/sec LVOT Max Wero: 100.7 cm/sec Ao V2 mean: 119.4 cm/sec LV V1 max P.1 mmHg Ao max P.3 mmHg LV V1 VTI: 27.0 cm Ao mean P.5 mmHg ACOSTA(I,D): 2.3 cm2 Ao V2 VTI: 35.8 cm ACOSTA(V,D): 1.8 cm2 sev ratio: 0.76 ACOSTA indexed to BSA (cm^2/m^2): 1.3 MV E max wero: 180.8 cm/sec TR max wero: 255.1 cm/sec MV A max wero: 2.7 cm/sec TR max P.0 mmHg MV E/A: 66.1 PA V2 max: 84.3 cm/sec Med Peak E' Wero: 3.5 cm/sec PA V2 mean: 62.6 cm/sec E/E' med: 51.0 PA mean P.7 mmHg Lat Peak E' Wero: 4.9 cm/sec PA pr(Accel): 27.6 mmHg E/E' lat: 37.1 E/e' average: 44.0 MV dec time: 0.21 sec MVA(VTI): 2.1 cm2 MV V2 mean: 105.9 cm/sec SV(LVOT): 82.5 ml MV mean P.7 mmHg MV V2 VTI: 40.2 cm Reading Physician:01:05 PM
[2020-06-07 11:44] LABS: Add Manual Diff / Slide Review NO; Basophils Absolute Auto 100 /uL (0-100); Basophils Percent Auto 1.4 % (0-2); Eosinophils Absolute Auto 100 /uL (0-450); Eosinophils Percent Auto 1.6 % (2-4); Hematocrit 33.1 % (36-46); Hemoglobin 10.6 g/dL (12.0-16.0); Lymphocytes Absolute Auto 1700 /uL (1100-4500); Lymphocytes Percent Auto 25.6 % (25-40); Mean Corpuscular HGB Conc 31.9 % (30-36); Mean Corpuscular Hemoglobin 26.1 PG (26-34); Mean Corpuscular Volume 81.8 fL (80-100); Monocytes Absolute Auto 300 /uL (0-900); Monocytes Percent Auto 5.3 % (3-14); Neutrophils Absolute Auto 4300 /uL (1500-7000); Neutrophils Percent Auto 66.1 % (50-75); Platelet Count 234 X10^3/uL (150-400); Red Blood Cell Count 4.05 X10^6/uL (4.0-5.2); Red Cell Distribution Width 19.6 % (11.6-14.8); White Blood Cell Count 6.5 X10^3/uL (4.5-11.0)
[2020-06-07 11:47] LABS: INR 3.8 (0.9-1.3); Prothrombin Time 42.8 SECONDS (10.1-12.7)
[2020-06-07 12:01] LABS: Alanine Aminotransferase 18 IU/L (<35); Albumin 3.9 g/dL (3.5-5.0); Albumin Globulin Ratio 1.3 (1.0-2.8); Alkaline Phosphatase 107 U/L (38-126); Aspartate Aminotransferase 26 IU/L (14-36); BUN Creatinine Ratio 30.8 (6-22); Bilirubin Total 0.7 mg/dL (0.2-1.3); Blood Urea Nitrogen 20 mg/dL (7-17); Calcium 9.5 mg/dL (8.4-10.2); Carbon Dioxide 30 mmol/L (22-32); Chloride 105 mmol/L (98-107); Estimated Glomerular Filt Rate > 60.0 mL/min (>60); Glucose 120 mg/dL (80-110); HEMOLYSIS < 15 (0-50); NT-proBNP (BNP-Adult 18+) 2380 pg/mL (<125); Potassium 4.6 mmol/L (3.4-5.1); Sodium 138 mmol/L (137-145); Total Protein 6.9 g/dL (6.3-8.2)
[2020-06-07 12:04] LABS: Troponin I < 0.012 ng/mL (0.01-0.034)
--- NOTE | 2020-06-07 12:10 | PT.IIE ---
Current Diagnoses Chest pain, unspecified (06/06/20) Surgical History (Last Reviewed 06/06/20 @ 15:40 by Dylon Aldrich MD) History of appendectomy (Acute Unknown) History of cholecystectomy (Acute Unknown) History of mitral valve replacement with mechanical valve (Resolved) Medical History (Last Reviewed 06/06/20 @ 15:40 by Dylon Aldrich MD) Anticoagulated on Coumadin (Acute ~2007) Atrial fibrillation with RVR (Chronic) CHF (congestive heart failure) (Chronic) CHF exacerbation (Acute) Depression (Chronic) Headache (Acute) History of ectopic (Acute) History of female sterilization (Acute) Hypertension (Chronic) Memory deficit (Chronic) Obesity (BMI 30-39.9) (Chronic) Osteoarthritis involving multiple joints on both sides of body (Chronic) Persistent atrial fibrillation (Chronic) Sleep apnea with use of nocturnal bilevel positive airway pressure (BPAP) (Chronic) Tachycardia induced cardiomyopathy (Inactive) Physical Therapy Inpatient Evaluation/Re-Eval M1 PT/OT-IP Prior Functional Status Start: 06/07/20 12:58 Freq: NEEDED Status: Active Protocol: Document 06/07/20 12:10 AB (Rec: 06/07/20 13:16 AB [id number]) Medical Review Prior Functional Status Medical History Reviewed Yes Communication able to make needs known Mobility and Gait pt stated that she is independent with all mobilities and ambulation without AD indoors but uses a SPC for outdoor mobility Social History Household Members spouse Living Arrangements House Number of Floors (Floors) One Floor Number of Stairs To Enter/Railing? 1 step to enter Home Environment Standard Height Toilet,Tub/ Shower Home Equipment Four Wheel Walker,Straight Cane,Shower Seat with Backrest ,Hand Held Shower,Grab Bars In Shower Employment Status Retired M2 PT-IP Current Condition Start: 06/07/20 12:58 Freq: NEEDED Status: Active Protocol: Document 06/07/20 12:10 AB (Rec: 06/07/20 13:16 AB [id number]) Physical Therapy Current Condition Current Condition Evaluation Date 06/07/20 Treatment Diagnosis chest pain; difficulty in walking Onset Date 06/06/20 M3 PT-IP Subjective Start: 06/07/20 12:58 Freq: NEEDED Status: Active Protocol: Document 06/07/20 12:10 AB (Rec: 06/07/20 13:16 AB [id number]) Subjective Physical Therapy Visit Type Type Initial Evaluation Visit Start Time 12:10 Visit Stop Time 12:30 Total Visit Minutes 20 Number of GENERAL REPAIR MECHANIC Visits 0 Physical Therapy Visit Comments Patient Comments pt is agreeable to do PT Therapy Pain Assessment Pain Present Pain Present Denied Pain M4 PT-IP Mobility and Gait Start: 06/07/20 12:58 Freq: NEEDED Status: Active Protocol: Document 06/07/20 12:10 AB (Rec: 06/07/20 13:16 AB [id number]) PT-Bed Mobility Assessment Supine to Sit Supine to Sit Independent Sit to Supine Sit to Supine Independent Scooting Scooting to Edge of Bed Independent PT-Transfer Assessment Sit to and From Stand Sit to and from Stand Standby Assistance Equipment Transfer Assistive Device None,Gait Belt Transfers Transfer Destination Chair Transfer Technique ambulated without AD Transfer Ability Level of Assist Standby Assistance,1 Person Assistance,Use of Upper Extremities Comments Mobility Comments BP 117/56 . completed bed mobility supine<>sit independent. completed sit to stand SBA and ambulated in room ~ 30 ft SBA without LOB. increase RLE external rotation noted. pt (+) SOB. O2 sat 96% HR 65-67 bpm. pt stated that she is tired and can feel her a-fib. agreed to sit on chair. call light and table placed within reach. educated pt to use 4WW for long distance ambulation due to decrease activity tolerance and pt agreed. pt has used a 4WW before and stated that she just used it when she went on vacation 3 weeks ago. Gait Assessment Gait Gait Assistance Required: Standby Assistance Distance (Feet) 30 Assistive Devices Assistive Device None,Gait Belt Orthotic/Prosthetic Devices or Brace: No Gait Deviations General Gait Pattern Decreased Stride Length, Decreased Feet Clearance Factors Limiting Gait Function Factors Limiting Gait Function Decreased Activity Tolerance Stair Climbing Assessment Evaluation Level of Assist On Stairs Minimal Assistance,1 Person Assistance Technique/Endurance Stair Climbing Direction Ascend and Descend Stair Climbing Technique Step to Step Number of Steps Climbed 1 Query Text: Stair Climbing Set # Repetitions (reps) 1 Comments Stair Climbing Comments completed up/down step stool. provided HOSPICE VOLUNTEER to simulate SPC and completed with min A. PT-Balance Assessment Sitting Balance and Reactions Static Sitting Balance Ability Normal Dynamic Sitting Balance Ability Normal Standing Balance and Reactions Static Standing Balance Ability Good Dynamic Standing Balance Ability Fair Device Used without AD M5 PT-IP Objective Assessments Start: 06/07/20 12:58 Freq: NEEDED Status: Active Protocol: Document 06/07/20 12:10 AB (Rec: 06/07/20 13:16 AB [id number]) Orientation Orientation/Cognition Level of Alertness Alert Orientation Name,Place,Situation Language Function Ability No Deficits Noted Safety Awareness Understands Safety Issues Memory Description No Deficits Noted Gross Range of Motion Lower Extremity ROM Assessment Within Functional Limits Strength Lower Extremity Strength Hip 4-/5 Knee 4-/5 Coordination Assessment Gross Coordination Gross Coordination WNL Sensation Assessment Sensation Gross Sensation WNL Muscle Tone Muscle Tone WNL Yes M6 PT-IP Treatment Start: 06/07/20 12:58 Freq: NEEDED Status: Active Protocol: Document 06/07/20 12:10 AB (Rec: 06/07/20 13:16 AB [id number]) Physical Therapy Treatment Education Education Provided Safety M7 PT-IP Assessment and Plan Start: 06/07/20 12:58 Freq: NEEDED Status: Active Protocol: Document 06/07/20 12:10 AB (Rec: 06/07/20 13:16 AB [id number]) PT Summary Assessment and Plan Potential Rehabilitation Potential Good Status of Condition at Evaluation Stable Summary Impairments Strength,Balance,Transfers, Gait,Activity Tolerance Assessment Summary pt requiring SBA with mobility and plans to go home with her spouse to assist her. pt may go home when medically stable . pt may benefit from cardiopulmo rehab. Goals Transfer Goal Independent Gait Goal Independent Gait Distance 150 Other Goals up/down 1 step using SPC mod I Days to Meet Goals 5 Frequency of Treatment Frequency Of Treatment Once a Day Treatment Plan Physical Therapy Treatment Plan Bed Mobility Training,Transfer Training,Gait Training, Therapeutic Exercise,Balance Retraining,Discharge Planning, Neuromuscular Re-ed Other Recommendations and Next Treatment ambulation, stair climbing Focus Recommendations To Nursing Amount of Assist Needed 1 Person Assist Discharge Recommendations PT Discharge Recommendations Home with Assistance, Outpatient PT Transportation Needs at Discharge Private Vehicle
--- NOTE | 2020-06-07 12:21 | CM.DANOTE ---
DCP: Case received, EMR reviewed and met with patient. Introduced self and role. Was able to obtain information from patient regarding her baseline activity level and living situation prior to hospitalization. DCP assessment completed with information currently available. Patient is a 69 year old female who admitted yesterday afternoon to the care of the hospitalist team. PCP: Dr. Diez. Payer: confirmed: [facility] Ad[facility]. Patient came to the hospital via family vehicle secondary to having chest pain. Patient was recently at [facility] for a-fib. She has a vp medical in [facility]. Patient was admitted for chest pain as well as dyspnea. She is having a stress test today. Met with patient in her room. She is alert and oriented, pleasant. She was in bed, just getting up to use the bathroom, LIVESTOCK NUTRITIONIST was also in the room. She resides in [place], and was just 3 weeks ago to [place]. She also has a daughter in [place] named gertrude Awan. She stated, I just haven't changed my name yet. She is independent at baseline. She is aware that she will be having her stress test today. P: DCP to continue to follow for any needs. She should be able to go home when she is medically stable. Deana Calle, BEVERLEY/College Intern
--- NOTE | 2020-06-07 12:42 | PC.NURSE ---
Pt to radiology via w/c by transport for Stress Test.
--- NOTE | 2020-06-07 13:36 | OT.IPNOTE ---
Pt not available for OT eval at stress test.
[2020-06-07] MEDS: INFLUENZA HD VACCINE 0.7 ML SYRINGE IM (14:25)
[2020-06-07] MEDS: CODEINE/ACETAMINOPHEN 30/300 TABLET 1 TAB PO (17:01)
--- NOTE | 2020-06-07 17:02 | PC.NURSE ---
Addendum entered by Almaz Vital R.N. 06/07/20 22:47: No c/o chest pain this evening. Addendum entered by Almaz Vital R.N. 06/07/20 22:19: Pt has own cpap from home set up and in use. Addendum entered by Almaz Vital R.N. 06/07/20 19:23: Reinforced to pt and pt's spouse no caffeine until after tomorrow's test. Beta jammie will be held this evening per Dr. Diez. Addendum entered by Almaz Vital R.N. 06/07/20 18:13: Dr. Diez checks in my telephone and reports pt will be staying overnight. Per Dr. Diez hold metoprolol this evening. was made aware of reported vital signs earlier today 84/49 per report. Ordered to give torsemide, celebrex and fluoxetine. Original Note: Pt sitting up in bed states eager to be discharged to home. Denies chest pain. T3 administered per pt's request for headache pain 10/04. Pt's spouse is present and involved in pt's care. Pt denies chest pain. Denies nausea. Tele in place.
[2020-06-07 18:44] LABS: Troponin I 0.015 ng/mL (0.01-0.034)
[2020-06-07] MEDS: CELECOXIB 200 MG CAPSULE PO (18:49)
[2020-06-07] MEDS: FLUoxetine 20 MG CAPSULE 40 MG PO (18:49)
[2020-06-07] MEDS: TORSEMIDE 10 MG TABLET 80 MG PO (18:51)
[2020-06-07] MEDS: ATORVASTATIN 20 MG TABLET PO (22:07)
[2020-06-07] MEDS: SODIUM CHLORIDE 0.9% FLUSH 10 ML IV (22:07)
[2020-06-08 05:40] VITALS: BP 112/52; PULSE 61; RESP 18; TEMP 36.2; O2SAT 100
[2020-06-08 06:04] LABS: Add Manual Diff / Slide Review NO; Basophils Absolute Auto 100 /uL (0-100); Basophils Percent Auto 1.1 % (0-2); Eosinophils Absolute Auto 300 /uL (0-450); Hemoglobin 11.4 g/dL (12.0-16.0); INR 3.2 (0.9-1.3); Lymphocytes Absolute Auto 2000 /uL (1100-4500); Lymphocytes Percent Auto 23.3 % (25-40); Mean Corpuscular HGB Conc 31.6 % (30-36); Mean Corpuscular Hemoglobin 25.9 PG (26-34); Mean Corpuscular Volume 81.9 fL (80-100); Monocytes Absolute Auto 600 /uL (0-900); Monocytes Percent Auto 6.8 % (3-14); Neutrophils Absolute Auto 5700 /uL (1500-7000); Neutrophils Percent Auto 65.8 % (50-75); Platelet Count 260 X10^3/uL (150-400); Prothrombin Time 36.5 SECONDS (10.1-12.7); Red Cell Distribution Width 19.8 % (11.6-14.8); White Blood Cell Count 8.7 X10^3/uL (4.5-11.0)
[2020-06-08 06:18] LABS: NT-proBNP (BNP-Adult 18+) 2840 pg/mL (<125)
[2020-06-08] MEDS: PANTOPRAZOLE 20 MG TABLET PO (06:49)
--- NOTE | 2020-06-08 07:15 | PM.PN.1 ---
Subjective Subjective Date Patient Seen: 06/08/20 Time Patient Seen: 07:15 Interval history: Uneventful night. She did have torsemide overnight and BNP is now trending down. Scheduled for second component of her stress test this morning, has been NPO since 7:00 am. Small increase in her troponin from <0.012 to 0.015. Complained of chest pain 2/10 overnight. No dyspnea. Exam Vital Signs (past 8 hours): - 06/07/20 23:43 06/08/20 05:40 Temperature 97.0 F L 97.2 F L Pulse Rate 65 61 Respiratory Rate 18 18 Blood Pressure 106/65 112/52 L Pulse Oximetry 90 L 100 Oxygen Delivery Method CPAP Oxygen Flow Rate 0 Narrative Exam Narrative: Alert and oriented, appearing stated age and in no acute distress. HEENT: Head normocephalic/atraumatic. Pupils equal, round, and reactive to light and accomodation. Extraocular muscles intact. Tympanic membranes clear. Nasal mucosa moist, septum midline. Oral mucosa moist, no lesions. Neck soft and supple, no lymphadenopathy. LUNGS: Clear to ausculation bilaterally, no wheezes, rhonchi or rales. CV: Irregularly irregular, no audible murmurs, rubs or gallops. ABDOMEN: Soft, non-tender, non-distended, no organomegaly. Positive bowel sounds. EXTREMITIES: No clubbing, cyanosis, or edema. NEURO: Cranial nerves II through XII grossly intact, no focal deficits. PSYCH: Alert and oriented x 3. SKIN: Red, scaly rash, left lower extremity. Objective Labs Result Diagrams: 06/08/20 05:30 06/07/20 11:25 Labs: Laboratory Results - last 24 hr 06/07/20 06/07/20 06/07/20 11:25 11:25 11:25 WBC 6.5 RBC 4.05 Hgb 10.6 L Hct 33.1 L MCV 81.8 MCH 26.1 MCHC 31.9 RDW 19.6 H Plt Count 234 Neut % (Auto) 66.1 Lymph % (Auto) 25.6 [place] % (Auto) 5.3 Eos % (Auto) 1.6 L Baso % (Auto) 1.4 Neut # (Auto) 4300 Lymph # (Auto) 1700 [place] # (Auto) 300 Eos # (Auto) 100 Baso # (Auto) 100 PT 42.8 H INR 3.8 H Sodium Potassium Chloride Carbon Dioxide BUN Creatinine Estimated GFR BUN/Creatinine Ratio Glucose Calcium Total Bilirubin AST ALT Alkaline Phosphatase Troponin I < 0.012 NT-Pro-B Natriuret Pep Total Protein Albumin Globulin Albumin/Globulin Ratio 06/07/20 06/07/20 06/08/20 11:25 18:15 05:30 WBC 8.7 RBC 4.40 Hgb 11.4 L Hct 36.0 MCV 81.9 MCH 25.9 L MCHC 31.6 RDW 19.8 H Plt Count 260 Neut % (Auto) 65.8 Lymph % (Auto) 23.3 L [place] % (Auto) 6.8 Eos % (Auto) 3.0 Baso % (Auto) 1.1 Neut # (Auto) 5700 Lymph # (Auto) 2000 [place] # (Auto) 600 Eos # (Auto) 300 Baso # (Auto) 100 PT INR Sodium 138 Potassium 4.6 Chloride 105 Carbon Dioxide 30 BUN 20 H Creatinine 0.65 Estimated GFR > 60.0 BUN/Creatinine Ratio 30.8 H Glucose 120 H Calcium 9.5 Total Bilirubin 0.7 AST 26 ALT 18 Alkaline Phosphatase 107 Troponin I 0.015 NT-Pro-B Natriuret Pep 2380 H Total Protein 6.9 Albumin 3.9 Globulin 3.0 Albumin/Globulin Ratio 1.3 06/08/20 06/08/20 05:30 05:30 WBC RBC Hgb Hct MCV MCH MCHC RDW Plt Count Neut % (Auto) Lymph % (Auto) [place] % (Auto) Eos % (Auto) Baso % (Auto) Neut # (Auto) Lymph # (Auto) [place] # (Auto) Eos # (Auto) Baso # (Auto) PT 36.5 H D INR 3.2 H Sodium Potassium Chloride Carbon Dioxide BUN Creatinine Estimated GFR BUN/Creatinine Ratio Glucose Calcium Total Bilirubin AST ALT Alkaline Phosphatase Troponin I NT-Pro-B Natriuret Pep 2840 H Total Protein Albumin Globulin Albumin/Globulin Ratio Assessment & Plan Assessment & Plan narrative: 1. Chest pain, rule out [place]. Favor unstable angina. -Echo on 06/07/20 showed EF of 60-65% -Troponin negative x 3 (<0.012), fourth value 0.015, favor unstable angina for etiology -Second component of stress test planned for this morning. PLAN: Anticipate late discharge if all reassuring with close outpatient cardiology follow-up. Nitro as needed for angina. 2. Persistent atrial fibrillation, rate/rhythm controlled PLAN: Continue current treatment plan. Will restart Coumadin as INR is now therapeutic, will start at 2.5 mg x 2 days, then 5 mg/2.5 mg qod until she sees INR clinic again within the week. Will restart digoxin today. Still holding metoprolol due to low blood pressures. 3. CHF, acute on chronic with preserved ejection fraction -BNP 2380 --> 2840, likely secondary to chronic heart disease and unstable angina -CXR showed no pleural effusions -lung exam clear -no subjective dyspnea PLAN: Continue home torsemide 80 mg PO qd. 4. Mitral valve replacement, on anticoagulation, goal INR 2.5-3.5 PLAN: as above. 5. Sleep apnea PLAN: RT consulting, home BIPAP. 6. Hypokalemia, chronic PLAN: Continue home potassium. 7. Hyperlipidemia, chronic PLAN: Continue atorvastatin. 8. Hypertension, chronic PLAN: holding due to hypotension, will watch closely and restart when appropriate. 9. Osteoarthritis, chronic PLAN: Continue home meds. 10. Depression, chronic PLAN: Continue home meds. 11. Rash, left lower extremity, new PLAN: hydrocortisone cream as needed. DVT prophylaxis, warfarin, SCDs. GI prophylaxis: home omeprazole. Code: full Quality VTE Deep Vein Thrombosis/Pulmonary Embolism Present on Admission: No
[2020-06-08 08:20] VITALS: BP 85/48; PULSE 90; RESP 15; TEMP 36.2; O2SAT 95
--- NOTE | 2020-06-08 10:50 | PC.NURSE ---
Addendum entered by Edd Aguirre R.N. 06/08/20 15:39: No changes this shift, patient tolerating cardiac diet. Denies pain. Waiting for MD to review results, hoping for discharge later. Per Dr. Pérez she is anticipating late discharge today after able to review stress test results from tile mason. Original Note: Patient slept well last night with her home CPAP on. Denies complaints this morning, up to bathroom independently and tolerating well. NPO since 7am, taken to stress test. Continue to monitor and administer her morning medications upon her return from test.
--- NOTE | 2020-06-08 10:57 | PT-IP ANOTE ---
Attempted to see pt @10:57, pt had just returned from stress test and reported fatigue, will offer therapy this PM.
[2020-06-08] MEDS: CELECOXIB 200 MG CAPSULE PO (11:35)
[2020-06-08] MEDS: WARFARIN 5 MG TABLET 2.5 MG PO (11:35)
[2020-06-08] MEDS: FLUoxetine 20 MG CAPSULE 40 MG PO (11:35)
[2020-06-08 11:36] VITALS: BP 99/60; PULSE 66
[2020-06-08] MEDS: POTASSIUM CHLORIDE 10 MEQ TAB 40 MEQ PO (11:36)
[2020-06-08] MEDS: DIGOXIN 0.125 MG TABLET PO (11:37)
[2020-06-08] MEDS: SODIUM CHLORIDE 0.9% FLUSH 10 ML IV (11:37)
[2020-06-08 11:39] VITALS: BP 106/66; PULSE 58; RESP 15; TEMP 36.4; O2SAT 95
--- NOTE | 2020-06-08 13:31 | OT.IPNOTE ---
Pt states looking to go home today and not wanting or feeling that she needs any OT at this time. Able to give pt energy conservation information. NO charge.
--- NOTE | 2020-06-08 15:14 | PT-IP ANOTE ---
Attempted to see pt at 15:14, pt refused PT x2 stating she has no further needs and does not feel she needs to practice walking w/ 4WW.
[2020-06-08 15:40] VITALS: BP 92/63; PULSE 73; RESP 17; TEMP 36.2; O2SAT 95
--- NOTE | 2020-06-08 17:37 | PM.DS.1 ---
History of Present Illness History of Present Illness Date Patient Seen: 06/08/20 Time Patient Seen: 17:37 Chief complaint: CHEST PAIN Narrative: 69-year-old female with a known history of persistent atrial fibrillation and severe mitral regurgitation status post mechanical valve replacement in 2007 is admitted for observation from the ED secondary to acute chest pain for cardiac rule out. Reported that she had intermittent substernal chest pressure yesterday prior to presentation in the ED. Associated dyspnea. She has a long history of atrial fibrillation with 3 inpatient hospitalizations for the same in the last 6 months, most recently March 2020 at [facility]. She was supposed to get a cardioversion this year but due to noncompliance with her warfarin, she has not been able to complete that procedure. Incidentally, her echo has improved and she is now medically managed by Dr. Shah. There is not a current plan for her to be cardioverted. Upon presentation, her INR was elevated at 4.1. Patient does have a history of taking her Coumadin as she chooses and not per MD instructions. She is currently 5 mg x 4 days and 2.5 mg x 3 days weekly, this is managed by cardiology. Vital signs upon admission to the ED included temperature of 97.1?, pulse 67, respirations 22, blood pressure 131/60, O2 saturation 94% on room air. Lab workup was unremarkable including negative cardiac enzymes x3. EKG showed no new changes. EKG showed atrial fibrillation with a ventricular rate of 72. She did have ST depression in leads V4 to V6, unchanged from 03/16/2020 and 03/31/2020. She continues to feel short of breath and has has some mild chest pain although she did not complain of this to either of the nurses on day shift today. Discharge Providers Provider Date of admission: 06/06/20 17:02 Discharge Date: 06/08/20 Primary care physician: Donya Diez MD Consults: 06/07/20 08:49 Consult to Occupational Therapy Evaluate & Treat Comment: Physician Instructions: Evaluate and treat Consult to Physical Therapy Evaluate & Treat Comment: Physician Instructions: Evaluate and Treat Discharge provider: Donya Diez MD Summary Hospital Course Discharge Diagnosis: 1. Unstable angina. 2. Persistent atrial fibrillation, rate/rhythm controlled 3. CHF, acute on chronic with preserved ejection fraction 4. Mitral valve replacement, on anticoagulation, goal INR 2.5-3.5 5. Sleep apnea 6. Hypokalemia, chronic 7. Hyperlipidemia, chronic 8. Hypertension, chronic 9. Osteoarthritis, chronic 10. Depression, chronic 11. Rash, left lower extremity, acute Hospital Course: Uneventful. Troponins negative x 3. Echo showed EF > 60%. Stress test negative. INR initially supratherapeutic and coumadin held on day 1. Patient was hypotensive during stay, initally digoxin and metoprolol held for this reason. Cardiology was casually consulted and they recommended keeping her on her digoxin and metoprolol as long as her systolic pressure was > 80 and she was clinically stable. On day of discharge, she denied chest pain and was afebrile with stable vital signs throughout. She will be discharged on her usual home medications with the addition of nitroglycerin. Follow up arranged in 1 week, will need repeat BMP and BNP at that visit. Time spent on Discharge and Coordination of post-hospital care: 35 minutes Status at Discharge Cognitive/behavioral status at discharge: at baseline, oriented Functional status at discharge: independent ambulation Overall status at discharge: patient is progressing back to baseline Exam Vital Signs (past 8 hours): - 06/08/20 11:36 06/08/20 11:39 06/08/20 15:40 Temperature 97.6 F 97.1 F L Pulse Rate 66 58 L 73 Respiratory Rate 15 17 Blood Pressure 99/60 106/66 92/63 Pulse Oximetry 95 95 Oxygen Delivery Method Room Air Oxygen Flow Rate 0 Narrative Exam Narrative: GENERAL: Alert and oriented, appearing stated age and in no acute distress. HEENT: Head normocephalic/atraumatic. Pupils equal, round, and reactive to light and accomodation. Extraocular muscles intact. Tympanic membranes clear. Nasal mucosa moist, septum midline. Oral mucosa moist, no lesions. Neck soft and supple, no lymphadenopathy. LUNGS: Clear to ausculation bilaterally, no wheezes, rhonchi or rales. CV: Irregularly irregular, no audible murmurs, rubs or gallops. ABDOMEN: Soft, non-tender, non-distended, no organomegaly. Positive bowel sounds. EXTREMITIES: No clubbing, cyanosis, or edema. NEURO: Cranial nerves II through XII grossly intact, no focal deficits. PSYCH: Alert and oriented x 3. SKIN: Red, scaly rash, left lower extremity. Objective Labs Result Diagrams: 06/08/20 05:30 06/07/20 11:25 Labs: Laboratory Results - last 24 hr 06/07/20 06/08/20 06/08/20 18:15 05:30 05:30 WBC 8.7 RBC 4.40 Hgb 11.4 L Hct 36.0 MCV 81.9 MCH 25.9 L MCHC 31.6 RDW 19.8 H Plt Count 260 Neut % (Auto) 65.8 Lymph % (Auto) 23.3 L [place] % (Auto) 6.8 Eos % (Auto) 3.0 Baso % (Auto) 1.1 Neut # (Auto) 5700 Lymph # (Auto) 2000 [place] # (Auto) 600 Eos # (Auto) 300 Baso # (Auto) 100 PT INR Troponin I 0.015 NT-Pro-B Natriuret Pep 2840 H 06/08/20 05:30 WBC RBC Hgb Hct MCV MCH MCHC RDW Plt Count Neut % (Auto) Lymph % (Auto) [place] % (Auto) Eos % (Auto) Baso % (Auto) Neut # (Auto) Lymph # (Auto) [place] # (Auto) Eos # (Auto) Baso # (Auto) PT 36.5 H D INR 3.2 H Troponin I NT-Pro-B Natriuret Pep Discharge Plan Discharge Plan Patient Disposition: Home Discharge orders & Medications Prescriptions: New nitroglycerin [Nitrostat] 0.4 mg Tablet, Sublingual 0.4 mg sublingual [id number] PRN (Reason: Chest Pain) Qty: 10 RF: 3 Continued fluoxetine 20 mg Tablet 40 mg PO DAILY Qty: 0 RF: 0 celecoxib 200 mg capsule 200 mg PO DAILY RF: 0 potassium chloride 10 mEq capsule, extended release 40 meq PO DAILY RF: 0 atorvastatin 20 mg tablet 20 mg PO DAILY RF: 0 acetaminophen-codeine 300-30 mg tablet 1 tab PO Q4H PRN (Reason: pain) RF: 0 baclofen 10 mg tablet 10 mg PO TID PRN (Reason: Muscle Spasm) RF: 0 omeprazole 20 mg capsule,delayed release(DR/EC) 20 mg PO DAILY RF: 0 digoxin 125 mcg (0.125 mg) tablet 125 mcg PO DAILY Qty: 30 RF: 0 metoprolol succinate 50 mg Tablet Extended Release 24 Hr 100 mg PO BID Qty: 180 RF: 3 warfarin 5 mg tablet 5 mg PO DAILY Qty: 0 RF: 0 Changed torsemide 10 mg Tablet 80 mg PO DAILY@0600 Qty: 90 RF: 3 Follow up/Referrals: Donya Diez MD [Primary Care Provider] - Diet/Activity/Treatments Diet: Carb-consistent/Diabetic Activity: as tolerated Other treatments: Take coumadin 2.5 mg starting tomorrow, then resume schedule per coumadin clinic. Skin/Wound/Dressing Care Report to your healthcare provider any signs of infection, such as:: chills, fever and increased pain Visit Report/Discharge Packet Visit Report Forms: Patient Portal/API, Stroke Signs & Symptoms Discharge Data Primary Care Provider: Donya Diez Attending Provider: Kalpesh Renee Admit Date/Time: 06/06/20 17:02 Discharges patient from system. Discharge Date/Time: 06/08/20 18:29 Quality VTE Deep Vein Thrombosis/Pulmonary Embolism Present on Admission: No
--- NOTE | 2020-06-08 18:40 | PC.NURSE ---
discharge instruction given. pt aware she needs to take her metoprolol as directed. all belongings returned to patient. gave information about how to take nitro. escorted by MANAGING MANAGER via wheelchair to ER exit.
--- NOTE | 2020-06-09 06:06 | DI.NM.S_ITS ---
DATE OF SERVICE: 06/07/2020 PROCEDURE: Pharmacological perfusion study. INDICATIONS: Chest pain with underlying AFib, history of mitral valve replacement. RADIOPHARMACEUTICAL: 23.0 millicurie technetium-99m Myoview IV was injected at stress and 25.8 millicurie technetium-99m Myoview IV was injected at rest. CARDIAC STRESS: The patient underwent IV Lexiscan perfusion study under the supervision of an attending staff, using standard IV Lexiscan protocol. The patient remained hemodynamically stable. She felt minimum dyspnea without any anginal pain. Baseline rhythm was AFib with nonspecific ST-T changes. During stress, the patient remained in AFib with some isolated PVCs. No ventricular tachycardia. No new obvious ischemic changes. RAW DATA: There is significant breast shadow seen. GATED STUDY: stress LV ejection fraction 83 percent and resting LV ejection fraction 71 percent without any obvious wall motion abnormalities. Resting end- diastolic volume 78 mL. No transient ischemic dilatation. TID ratio is 0.98, which is within normal limits. Lung/heart ratio 0.36, which is within normal limits. MYOCARDIAL PERFUSION: Stress supine and resting supine images revealed mildly decreased perfusion of apex, which got significantly improved during prone images ,suggestive of breast tissue attenuation artifact. No convincing ischemia or infarction. CONCLUSION: This is a normal myocardial perfusion study with evidence of breast tissue attenuation artifact, which got improved during prone images. Large breast shadow was seen during raw images. The patient has baseline underlying AFib. As far as perfusion scan is concerned, this is a low-risk myocardial perfusion scan. Mer Portillo - Marcell/ying doc#: [id number]/job#: [id number] dd: 06/08/2020 16:56:00 dt: 06/08/2020 19:18:00 DICTATING MD/COPIES TO: Tanvir Chirnios MD COPIES MNE: AMILCAR;
== END 2020-06-08 18:29 | disposition home or self-care (01) ==
LOC: ED 16:25 → AC 17:03
PROVIDERS: Admitting Provider Family Medicine; Emergency Provider Emergency Medicine; PCP Student in an Organized Health Care Education/Training Program; Referring Provider Emergency Medicine; Visit Provider Family Medicine
DX: I48.11 Longstanding persistent atrial fibrillation (principal); R07.9 Chest pain, unspecified; I50.9 Heart failure, unspecified; G47.30 Sleep apnea, unspecified; E87.6 Hypokalemia; E78.5 Hyperlipidemia, unspecified; I10 Essential (primary) hypertension; M19.90 Unspecified osteoarthritis, unspecified site; F32.9 Major depressive disorder, single episode, unspecified; R21 Rash and other nonspecific skin eruption; Z11.59 Encounter for screening for other viral diseases; Z23 Encounter for immunization
CPT/HCPCS: 36415; 71045; 78452; 80053; 82550; 83690; 83880; 84484; 85025; 85610; 85730; 87635; 90471; 90662; 93005; 93017; 93306; 94660; 94762; 97161; 99284; G0378; A9502; J2785; Q9957

== ENCOUNTER → 2020-06-22 16:08 | Outpatient (ROUT) | payer OTHER, MEDICAID, SELFPAY ==
[2020-06-06 17:15] VITALS: BMI 31.8
[2020-06-22 16:28] LABS: INR 2.8 (0.9-1.3); Prothrombin Time 31.4 SECONDS (10.1-12.7)
== END ==
PROVIDERS: PCP Student in an Organized Health Care Education/Training Program; Visit Provider Student in an Organized Health Care Education/Training Program
DX: I48.91 Unspecified atrial fibrillation (principal); I38 Endocarditis, valve unspecified; Z95.2 Presence of prosthetic heart valve; Z79.01 Long term (current) use of anticoagulants
CPT/HCPCS: 85610

== ENCOUNTER → 2021-01-25 13:59 | Outpatient (CLI) | payer OTHER, MEDICAID, SELFPAY ==
--- NOTE | 2021-01-25 14:03 | DI.RAD.S_ITS ---
PROCEDURE: XR DEXA AXIAL SKELETON INDICATIONS: Asymptomatic menopausal state COMPARISON: None. FINDINGS: This blank DEXA report has been sent in error by the PACS system. The correct and complete report will be forthcoming in 1-2 days. Thank you for your patience and understanding. Dictated by: Sanam Winters MD, PhD on 01/25/2021 at 17:23 Approved by: Sanam Winters MD, PhD on 01/25/2021 at 17:23
== END ==
PROVIDERS: PCP Student in an Organized Health Care Education/Training Program; Referring Provider Student in an Organized Health Care Education/Training Program; Visit Provider Student in an Organized Health Care Education/Training Program
DX: Z78.0 Asymptomatic menopausal state (principal)
CPT/HCPCS: 77080

== ENCOUNTER 2021-12-01 18:49 | Emergency (ER) | payer OTHER, SELFPAY ==
[2021-12-01 19:17] VITALS: BP 97/52; PULSE 56; RESP 18; TEMP 37.1; O2SAT 97; BMI 30.9
--- NOTE | 2021-12-01 19:32 | DI.RAD.S_ITS ---
PROCEDURE: XR SHOULDER RT MIN 2V INDICATIONS: R shoulder pain, worse with palp, denies injjury TECHNIQUE: 3 views of the shoulder were acquired. COMPARISON: None. FINDINGS: Bones: No fractures or dislocations. No suspicious bony lesions. Visualized ribs appear intact. Mild osteoarthritic changes. Soft tissues: No suspicious soft tissue calcifications. Stable appearance of the partially visualized chest. IMPRESSION: No acute fracture or dislocation. If there is high concern for internal derangement, consider MRI. Dictated by: Ja Daniel M.D. on 12/01/2021 at 20:09 Approved by: Ja Daniel M.D. on 12/01/2021 at 20:16
[2021-12-01 19:53] VITALS: BP 123/58; RESP 16
--- NOTE | 2021-12-01 20:13 | ED_ITS ---
HPI - Extremity Problem General Chief complaint: Extremity Problem,Nontraumatic Stated complaint: rt shoulder pain Time Seen by Provider: 12/01/21 20:13 Source: patient and old records reviewed Mode of arrival: Ambulatory Limitations: no limitations History of Present Illness HPI Narrative: This is a 71-year-old female comes emergency department complaint of right shoulder pain. She states she has not really had issues in the past. She did see PT at some point after striking her shoulder a year 2 ago but has not had any recent injury. She has had right shoulder pain kind of in the back of the shoulder and radiating down her arm. Pushing on the right shoulder or sleeping on it seems to make it worse. Particular movements do not seem to make it rapidly worse. If she does not lay on it that seems to be helpful. She denies any numbness or tingling. No weakness. No skin changes. No swelling. She does appreciate some right breast tenderness which is been present for some time she has not noticed any lumps or bumps or skin changes. She has not had a mammogram. She has a history of AFib, is on warfarin for artificial valve, dyslipidemia, GERD and hypertension. Besides her valve replacement she has had cholecystectomy a tubal with removal and her other fallopian tube tied. She is not allergic to any medications. No tobacco, alcohol or illicit. Dr. Diez is her primary care and Dr. Shah is her tele marketing executive. She takes Tylenol and Tylenol with codeine which has not been helpful. She does have baclofen as well but does not typically take that for muscle aches. Related Data Home Medications Medication Instructions Recorded Confirmed acetaminophen 300 mg-codeine 30 mg 1 tab PO Q4H PRN 05/20/19 01/02/21 tablet atorvastatin 20 mg tablet 20 mg PO DAILY 05/20/19 01/02/21 baclofen 10 mg tablet 10 mg PO TID PRN 05/20/19 01/02/21 celecoxib 200 mg capsule 200 mg PO DAILY 05/20/19 01/02/21 omeprazole 20 mg capsule,delayed 20 mg PO DAILY 05/20/19 01/02/21 release potassium chloride 10 mEq 40 meq PO DAILY 05/20/19 01/02/21 capsule,extended release digoxin 125 mcg (0.125 mg) tablet 62.5 mcg PO DAILY tab 01/02/21 fluoxetine 20 mg tablet 20 mg PO DAILY #0 tab 01/02/21 01/02/21 metoprolol succinate 50 mg 50 mg PO BID tab 01/02/21 tablet,extended release 24 hr warfarin 5 mg tablet 2.5 mg PO DAILY tab 01/02/21 Previous Rx's Medication Instructions Recorded nitroglycerin 0.4 mg sublingual 0.4 mg SUBLINGUAL [id number] PRN #10 06/08/20 tablet (Nitrostat) tab torsemide 10 mg tablet 80 mg PO DAILY@0600 #90 tab 06/08/20 hydrocodone 5 mg-acetaminophen 325 1 tab PO Q6H PRN #10 tab 12/01/21 mg tablet Allergies Allergy/AdvReac Type Severity Reaction Status Date / Time No Known Drug Allergies Allergy Verified 01/02/21 15:26 Review of Systems Review of Systems ROS Unobtainable: All systems reviewed & are unremarkable except as noted in HPI and below Patient History Medical History Anticoagulated on Coumadin (~2007) Atrial fibrillation with RVR CHF (congestive heart failure) CHF exacerbation Depression Headache History of ectopic History of female sterilization Hypertension Injury of right rotator cuff Memory deficit Nocturnal hypoxemia Obesity (BMI 30-39.9) Obstructive sleep apnea syndrome Osteoarthritis involving multiple joints on both sides of body Persistent atrial fibrillation Restless legs syndrome (RLS) Tachycardia induced cardiomyopathy Surgical History History of appendectomy (Unknown) History of cholecystectomy (Unknown) History of mitral valve replacement with mechanical valve Family History Other Diabetes mellitus Ovarian cancer Social History household members: significant other lives independently: Yes caregiver/support person: Yes (partner) education level: college Smoking Status: Former smoker alcohol intake: current Smoking Status: Former smoker alcohol intake frequency: a few times a month Substance Use Type: does not use Exam Narrative Exam Narrative: GENERAL: Alert and oriented x three, mild distress. HEENT: Head normocephalic, atraumatic, EOMI, pupils reactive, face symmetric, moist mucous membranes NECK: Supple, full range of motion CARDIOVASCULAR: Regular rate and rhythm without murmurs, rubs or gallops. RESPIRATORY: Breath sounds equal bilaterally, no wheezes rales or rhonchi. ABDOMEN: Soft, nontender. Normoactive bowel sounds all 4 quadrants. No guarding or rebound, rigidity, no mass : No CVA tenderness BACK: No cervical, thoracic or lumbar vertebral point tenderness. Patient has normal range of motion. Patient's gait is normal. EXTREMITIES: Normal range of motion, no clubbing or edema. Neurovascularly intact. 2+ radial pulses bilaterally. 5/5 muscle strength upper extremities with equal toddler nanny bilaterally. Nontender except for posterior shoulder AC joint. No warmth, erythema or skin changes are noted. No crepitus. Patient does not any significant tender with biceps tendon. No bony or soft tissue palpation of the left upper extremity. No axillary lymphadenopathy or tenderness. I also examined patient's right breast, no masses or lumps. Patient is nontender on exam. No skin changes. NEUROLOGICAL: Cranial nerves II through XII grossly intact. Moving all extremities SKIN: Warm, dry, no petechiae, no rashes or lesions. Initial Vital Signs Initial Vital Signs: Vital Signs Temperature 98.8 F 12/01/21 19:17 Pulse Rate 56 L 12/01/21 19:17 Respiratory Rate 18 12/01/21 19:17 Blood Pressure 97/52 L 12/01/21 19:17 Pulse Oximetry 97 12/01/21 19:17 Course Orders Ordered: ED Orders 12/01/21 19:31 EKG-12 Lead Stat 12/01/21 19:32 XR shoulder RT min 2V Stat Discontinued Medications Hydrocodone Bitart/Acetaminophen (Hydrocodone/Acet 5/325 Tablet) 1 tab PO NOW ONE Stop: 12/01/21 20:39 Last Admin: 12/01/21 20:50 Dose: 1 tab Documented by: ONEIDA Vital Signs Vital signs: Vital Signs - 8 hr 12/01/21 19:53 Respiratory Rate 16 Blood Pressure 123/58 L MDM - Extremity (Nontraumatic) Imaging Data Extremity x-ray #1: Radiologist's Impression: Close Shoulder X-Ray (Signed) Ja Daniel - 12/01/21 Bone Densitometry (Signed) Sanam Winters - 01/25/21 Radiology Report (Cancelled) Tanvir Chirinos - 06/09/20 Myocardial Perfusion Scan Nuc Med (Signed) Tanvir Chirinos - 06/09/20 Echocardiogram Ultrasound (Signed) Mac Sifuentes - 06/07/20 Telemetry Strips 06/06/20 Chest X-Ray (Signed) Sanchez Cabral - 06/06/20 Chest X-Ray (Signed) Greg Otoole - 03/16/20 Telemetry Strips 12/13/19 Chest X-Ray (Signed) Blaine Ortez - 12/13/19 Chest X-Ray (Signed) Idris Gonzalez - 09/15/19 Telemetry Strips 09/14/19 Telemetry Strips 09/14/19 Chest X-Ray (Signed) Anniston,Blaine - 09/14/19 Echocardiogram Ultrasound (Signed) YusraKojo - 09/14/19 Chest CTA (Signed) Anniston,Blaine - 09/14/19 Chest X-Ray (Signed) SeleneFaithflavio - 05/20/[address] (Signed) Idris Gonzalez - 09/19/18 Mammogram Screening (Signed) Juan Ramon Moon - 08/20/18 [place] [address] XRay Report Signed Patient: Mer Joel MR#: [id number] : 1950 Acct:[id number] Age/Sex: 71 / F Date of Service: 12/01/21 Loc: Accession Number: [id number] ?? Procedure: XR shoulder RT min 2V Ordering Provider: Yulia Magaña D.O. PROCEDURE:? XR SHOULDER RT MIN 2V ? INDICATIONS:? R shoulder pain, worse with palp, denies injjury ? TECHNIQUE:? 3 views of the shoulder were acquired.? ? COMPARISON:? None. ? FINDINGS:? ? Bones:? No fractures or dislocations.? No suspicious bony lesions.? Visualized ribs appear intact.? Mild osteoarthritic changes. ? Soft tissues:? No suspicious soft tissue calcifications.? Stable appearance of the partially visualized chest. ? IMPRESSION:? No acute fracture or dislocation.? If there is high concern for internal derangement, consider MRI. ? ? Dictated by: Ja Daniel M.D. on 12/01/2021 at 20:09 ? ? Approved by: Ja Daniel M.D. on 12/01/2021 at 20:16?? ECG Data Attestation EKG: I personally reviewed and interpreted this ECG as follows: Prior ECG tracings: available for review Interpretation: AFib, rate of 77 QRS 86 and QTC of 470. Nonspecific ST changes. Patient has prior EKG from 06/07/2020 under last name Lindsey that has similar ST segments including in lateral leads V4-5. MDM Narrative Medical decision making narrative: This is a pleasant 71-year-old female with right shoulder pain that is reproducible on exam. Patient does not have any changes on EKG other than AFib which is her normal baseline she is anticoagulated appropriately. Patient has not had clear injury but has had remote injury. And has pain when sleeping on the shoulder. She does note some breast discomfort and has reassuring physical exam but based on her age the fact that she has pain in her breast as persisting did discuss at length that she needs mammography. Patient is willing and has an appointment on with her primary care physician and states she will discuss it to have 1 ordered. Patient and I discussed at the time I suspect her shoulder pain is musculoskeletal but not necessarily her breast pain. She and I discussed plan for short course of narcotic pain prescription. NSAIDs are not an option based on her warfarin and cardiac history. She can take or baclofen as well. Return precautions discussed. Discharge Plan Departure Patient Disposition: Home Clinical Impression: Acute pain of right shoulder Instructions: DI for Shoulder Pain Activity Restrictions/Additional Instructions: Follow-up with your physician. Your x-ray does not show any acute changes today. You may take your home medications as prescribed. Do not take Tylenol if you are taking Amery. You may take Tylenol or Amery. They both have acetaminophen or Tylenol in them. Your maximum amount of Tylenol ingested is 4000 mg over 24 hours. You may take Amery 1-2 tablets every 6 hours as needed for pain. This medication can make you sleepy do not drive, perform hazardous activities or make any major decisions while taking it. This medication will make you constipated please take a stool softener once to twice daily until stools are soft and regular. Prescription sent to [facility] in [place]. I do recommend that you have mammography regarding your right breast pain. Your exam does not show any clear lumps or changes but I think this is the important next step. Talked to Dr. Diez and she can help order the appropriate mammogram for you. Prescriptions: New hydrocodone-acetaminophen 5-325 mg tablet 1 tab PO Q6H PRN (Reason: pain) Qty: 10 0RF No Action fluoxetine 20 mg tablet 20 mg PO DAILY Qty: 0 0RF celecoxib 200 mg capsule 200 mg PO DAILY 0RF potassium chloride 10 mEq capsule, extended release 40 meq PO DAILY 0RF atorvastatin 20 mg tablet 20 mg PO DAILY 0RF acetaminophen-codeine 300-30 mg tablet 1 tab PO Q4H PRN (Reason: pain) 0RF baclofen 10 mg tablet 10 mg PO TID PRN (Reason: Muscle Spasm) 0RF Label Comments: patient states only takes at bedtime Rx Instructions: up to tid omeprazole 20 mg capsule,delayed release(DR/EC) 20 mg PO DAILY 0RF torsemide 10 mg Tablet 80 mg PO DAILY@0600 Qty: 90 3RF nitroglycerin [Nitrostat] 0.4 mg Tablet, Sublingual 0.4 mg sublingual [id number] PRN (Reason: Chest Pain) Qty: 10 3RF digoxin 125 mcg (0.125 mg) tablet 62.5 mcg PO DAILY 0RF metoprolol succinate 50 mg tablet extended release 24 hr 50 mg PO BID 0RF warfarin 5 mg tablet 2.5 mg PO DAILY 0RF Label Comments: Takes 5mg alternating 2.5 mg Referrals: Donya iDez MD [Primary Care Provider] -
[2021-12-01] MEDS: HYDROCODONE/ACET 5/325 TABLET 1 TAB PO (20:50)
== END 2021-12-01 20:51 | disposition home or self-care (01) ==
PROVIDERS: Emergency Provider Emergency Medicine; PCP Student in an Organized Health Care Education/Training Program
DX: M25.511 Pain in right shoulder (principal); I48.91 Unspecified atrial fibrillation; Z79.01 Long term (current) use of anticoagulants
CPT/HCPCS: 73030; 93005; 93010; 99283

== ENCOUNTER 2022-03-18 17:00 | Emergency (ER) | payer OTHER, SELFPAY ==
[2022-03-18] VITALS (8 sets, daily range): BP systolic 118–134; BP diastolic 55–90; PULSE 76–108; RESP 15–32; TEMP 36.9; O2SAT 93–98
--- NOTE | 2022-03-18 17:09 | DI.RAD.S_ITS ---
PROCEDURE: XR CHEST 2V INDICATIONS: shortness of breath TECHNIQUE: 2 views of the chest were acquired. COMPARISON: [facility], CR, XR CHEST 1 VIEW, 03/31/2020, 16:35. [facility], CR, XR CHEST 1V, 03/16/2020, 18:22. [facility], CR, XR CHEST 1V, 06/06/2020, 14:46. FINDINGS: Surgical changes and devices: Sternotomy wires and a valve prosthesis can be seen. Lungs and pleura: Mild generalized interstitial prominence can be seen. No pleural effusions or pneumothorax. Mediastinum: Mediastinal contours are normal. Heart size is moderately enlarged. Atherosclerotic calcification of the aortic arch is noted. Bones and chest wall: No suspicious bony abnormalities. Age-appropriate bony degenerative changes are seen. Soft tissues appear unremarkable. IMPRESSION: Mild cardiomegaly with mild generalized interstitial prominence. Please consider mild/early CHF. Postoperative and degenerative changes are seen. Dictated by: Blaine Ortez M.D. on 03/18/2022 at 17:04 Approved by: Blaine Ortez M.D. on 03/18/2022 at 17:05
[2022-03-18 17:36] LABS: Add Manual Diff / Slide Review NO; Basophils Absolute Auto 100 /uL (0-100); Basophils Percent Auto 1.1 % (0-2); Eosinophils Absolute Auto 300 /uL (0-450); Eosinophils Percent Auto 2.5 % (2-4); Hematocrit 39.3 % (36-46); Hemoglobin 13.2 g/dL (12.0-16.0); Lymphocytes Absolute Auto 2200 /uL (1100-4500); Lymphocytes Percent Auto 18.2 % (25-40); Mean Corpuscular HGB Conc 33.5 % (30-36); Mean Corpuscular Volume 89.4 fL (80-100); Monocytes Absolute Auto 1000 /uL (0-900); Monocytes Percent Auto 7.9 % (3-14); Neutrophils Absolute Auto 8600 /uL (1500-7000); Neutrophils Percent Auto 70.3 % (50-75); Platelet Count 305 X10^3/uL (150-400); Red Blood Cell Count 4.39 X10^6/uL (4.0-5.2); Red Cell Distribution Width 18.5 % (11.6-14.8); White Blood Cell Count 12.2 X10^3/uL (4.5-11.0)
[2022-03-18 17:39] LABS: INR 2.5 (0.9-1.3); Prothrombin Time 28.7 SECONDS (10.1-12.7)
[2022-03-18 17:45] LABS: Creatine Kinase 69 U/L (30-135)
[2022-03-18 17:47] LABS: Lactate (Lactic Acid) 1.4 mmol/L (0.7-2.1)
[2022-03-18 17:48] LABS: Alanine Aminotransferase 22 IU/L (<35); Albumin 4.8 g/dL (3.5-5.0); Albumin Globulin Ratio 1.4 (1.0-2.8); Alkaline Phosphatase 132 U/L (38-126); Aspartate Aminotransferase 37 IU/L (14-36); BUN Creatinine Ratio 21.4 (6-22); Bilirubin Total 1.2 mg/dL (0.2-1.3); Blood Urea Nitrogen 18 mg/dL (7-17); Calcium 9.8 mg/dL (8.4-10.2); Carbon Dioxide 29 mmol/L (22-32); Chloride 99 mmol/L (98-107); Estimated Glomerular Filt Rate > 60 mL/min (>60); Globulin 3.5 g/dL (1.7-4.1); Glucose 139 mg/dL (80-110); HEMOLYSIS < 15 (0-50); Potassium 3.8 mmol/L (3.4-5.1); Sodium 137 mmol/L (137-145); Total Protein 8.3 g/dL (6.3-8.2)
[2022-03-18 17:56] LABS: NT-proBNP (BNP-Adult 18+) 758 pg/mL (<125)
[2022-03-18 17:58] LABS: Digoxin < 0.4 ng/mL (0.8-2.0)
--- NOTE | 2022-03-18 18:11 | ED_ITS ---
HPI - SOB/Dyspnea General Chief Complaint: Shortness of Breath/Dyspnea Stated Complaint: COUGH PAIN FROM CHEST TO HEAD COLOR MUCUS Time Seen by Provider: 03/18/22 18:09 Source: patient Mode of arrival: Ambulatory History of Present Illness HPI Narrative: 71-year-old female former smoker with a history of CHF, hypertension, hyperlipidemia and atrial fibrillation on warfarin presents with her in the chief complaint of over a week of upper respiratory symptoms including cough with productive sputum, body aches and generally feeling unwell. She has minimal nasal congestion and denies any sore throat. She is had multiple COVID tests and was actually seen at an outside facility a few days ago and had a workup and was given a prescription for cough medicine. She states that she feels short of breath with exertion but denies orthopnea. She denies any weight gain or lower extremity swelling. She has no chest pain, nausea, vomiting or diarrhea. She denies any dysuria, frequency or urgency. She denies any change in medications, missed doses or dietary change. Related Data Home Medications Medication Instructions Recorded Confirmed acetaminophen 300 mg-codeine 30 mg 1 tab PO Q4H PRN pain 05/20/19 01/02/21 tablet atorvastatin 20 mg tablet 20 mg PO DAILY 05/20/19 01/02/21 baclofen 10 mg tablet 10 mg PO TID PRN Muscle Spasm 05/20/19 01/02/21 celecoxib 200 mg capsule 200 mg PO DAILY 05/20/19 01/02/21 omeprazole 20 mg capsule,delayed 20 mg PO DAILY 05/20/19 01/02/21 release potassium chloride 10 mEq 40 meq PO DAILY 05/20/19 01/02/21 capsule,extended release digoxin 125 mcg (0.125 mg) tablet 62.5 mcg PO DAILY 01/02/21 fluoxetine 20 mg tablet 20 mg PO DAILY #0 tabs 01/02/21 01/02/21 metoprolol succinate 50 mg 50 mg PO BID 01/02/21 tablet,extended release 24 hr warfarin 5 mg tablet 2.5 mg PO DAILY 01/02/21 Previous Rx's Medication Instructions Recorded nitroglycerin 0.4 mg sublingual 0.4 mg sublingual [id number] PRN 06/08/20 tablet (Nitrostat) Chest Pain #10 tabs torsemide 10 mg tablet 80 mg PO DAILY@0600 #90 tabs 06/08/20 hydrocodone 5 mg-acetaminophen 325 1 tab PO Q6H PRN pain #10 tabs 12/01/21 mg tablet doxycycline hyclate 100 mg tablet 100 mg PO BID #20 tabs 03/18/22 Allergies Allergy/AdvReac Type Severity Reaction Status Date / Time No Known Drug Allergies Allergy Verified 01/02/21 15:26 Review of Systems Review of Systems Narrative: GENERAL: See HPI HEENT: Denies sinus pain, ear pain, sore throat, difficulty swallowing, dizziness. RESPIRATORY: See HPI CARDIOVASCULAR: See HPI GASTROINTESTINAL: Denies nausea, vomiting, abdominal pain, diarrhea, constipation, melena. : Denies dysuria, frequency, incontinence, hematuria, urinary retention. MUSCULOSKELETAL: denies weakness, joint pain, or bony pain SKIN: Denies rash, skin lesions, or other NEUROLOGIC: Denies weakness, headache, numbness, change in speech, confusion, seizures, incoordination. PSYCHIATRIC: No concerning psychosocial issues. 12 point review of systems is negative except for those stated above Patient History Medical History Anticoagulated on Coumadin (~2007) Atrial fibrillation with RVR CHF (congestive heart failure) CHF exacerbation Depression Headache History of ectopic History of female sterilization Hypertension Injury of right rotator cuff Memory deficit Nocturnal hypoxemia Obesity (BMI 30-39.9) Obstructive sleep apnea syndrome Osteoarthritis involving multiple joints on both sides of body Persistent atrial fibrillation Restless legs syndrome (RLS) Tachycardia induced cardiomyopathy Surgical History History of appendectomy (Unknown) History of cholecystectomy (Unknown) History of mitral valve replacement with mechanical valve Family History Other Diabetes mellitus Ovarian cancer Social History household members: significant other lives independently: Yes caregiver/support person: Yes (partner) education level: college Smoking Status: Former smoker alcohol intake: current Smoking Status: Former smoker alcohol intake frequency: a few times a month Substance Use Type: does not use Exam Narrative Exam Narrative: GENERAL: [71] year old patient appears stated age. Well-developed patient, in mild distress. HEAD: Atraumatic. Normocephalic. EYES: Pupils equal round and reactive. Extraocular motions intact. No scleral icterus. No injection or drainage. ENT: Nose without bleeding, purulent drainage. Throat without erythema, tonsillar hypertrophy or exudate. Airway patent. NECK: Trachea midline. Non tender CARDIOVASCULAR: Irregular rhythm and rate rhythm without murmurs, gallops, or rubs. RESPIRATORY: No obvious increased work of breathing, tachypnea, use of accessory muscles. She is very faint crackles in bilateral bases but no obvious wheezes or rhonchi. GASTROINTESTINAL: Abdomen soft, non-tender, nondistended. EXTREMITIES: No edema or joint tenderness. BACK: Nontender without deformity or crepitance. No flank tenderness. NEURO: AOx3. SKIN: No rash or erythema of visible areas Initial Vital Signs Initial Vital Signs: Vital Signs Temperature 98.5 F 03/18/22 17:10 Pulse Rate 108 H 03/18/22 17:10 Respiratory Rate 24 03/18/22 17:10 Blood Pressure 118/66 03/18/22 17:10 Pulse Oximetry 94 03/18/22 17:10 Oxygen Delivery Method 03/18/22 17:10 Course Orders Ordered: ED Orders 03/18/22 17:09 XR chest 2V Stat EKG-12 Lead Stat Measure peak expiratory flow ONCE RT Consult Eval and Treat Now 03/18/22 17:19 BNP [NT-proBNP (BNP-Adult 18+)] Stat Complete Blood Count AUTO DIFF Stat Comprehensive Metabolic Panel Stat D Dimer Stat Digoxin Stat Lactate (Lactic Acid) Stat Procalcitonin Stat Prothrombin Time INR Stat Troponin & CK Cardiac Panel Stat 03/18/22 17:58 COVID19 -Nasal RAPID/Pre-Proc Stat Discontinued Medications Doxycycline Hyclate (Doxycycline Hyclate 100 Mg Tablet) 100 mg PO NOW ONE Stop: 03/18/22 19:04 Vital Signs Vital signs: Vital Signs - 8 hr 03/18/22 17:10 03/18/22 17:31 03/18/22 17:31 Temperature 98.5 F Pulse Rate 108 H 94 H Respiratory Rate 24 23 Blood Pressure 118/66 128/90 Pulse Oximetry 94 98 Oxygen Delivery Method Room Air 03/18/22 18:00 03/18/22 18:01 03/18/22 18:01 Temperature Pulse Rate 80 80 Respiratory Rate 22 26 H Blood Pressure 129/55 L Pulse Oximetry 97 97 Oxygen Delivery Method 03/18/22 18:30 03/18/22 18:31 03/18/22 18:31 Temperature Pulse Rate 78 80 Respiratory Rate 15 17 Blood Pressure 127/58 L Pulse Oximetry 93 93 Oxygen Delivery Method MDM - SOB/Dyspnea Lab Data Result diagrams: 03/18/22 17:19 03/18/22 17:19 Labs: Lab Results 03/18/22 03/18/22 03/18/22 Range/Units 17:19 17:19 17:19 WBC 12.2 H (4.5-11.0) X10^3/uL RBC 4.39 (4.0-5.2) X10^6/uL Hgb 13.2 (12.0-16.0) g/dL Hct 39.3 (36-46) % MCV 89.4 (80-100) fL MCH 30.0 (26-34) PG MCHC 33.5 (30-36) % RDW 18.5 H (11.6-14.8) % Plt Count 305 (150-400) X10^3/uL Neut % (Auto) 70.3 (50-75) % Lymph % (Auto) 18.2 L (25-40) % [place] % (Auto) 7.9 (3-14) % Eos % (Auto) 2.5 (2-4) % Baso % (Auto) 1.1 (0-2) % Neut # (Auto) 8600 H (8741-3955) /uL Lymph # (Auto) 2200 (2376-5077) /uL [place] # (Auto) 1000 H (0-900) /uL Eos # (Auto) 300 (0-450) /uL Baso # (Auto) 100 (0-100) /uL PT (10.1-12.7) SECONDS INR (0.9-1.3) D-Dimer (<230) ng/mL Sodium 137 (137-145) mmol/L Potassium 3.8 (3.4-5.1) mmol/L Chloride 99 (98-107) mmol/L Carbon Dioxide 29 (22-32) mmol/L BUN 18 H (7-17) mg/dL Creatinine 0.84 (0.52-1.04) mg/dL Estimated GFR > 60 (>60) mL/min BUN/Creatinine Ratio 21.4 (6-22) Glucose 139 H (80-110) mg/dL Lactate 1.4 (0.7-2.1) mmol/L Calcium 9.8 (8.4-10.2) mg/dL Total Bilirubin 1.2 (0.2-1.3) mg/dL AST 37 H (14-36) IU/L ALT 22 (<35) IU/L Alkaline Phosphatase 132 H (38-126) U/L Total Creatine Kinase (30-135) U/L CK-MB (CK-2) CK-MB (CK-2) Rel Index Troponin I (0.01-0.034) ng/mL NT-Pro-B Natriuret Pep (<125) pg/mL Total Protein 8.3 H (6.3-8.2) g/dL Albumin 4.8 (3.5-5.0) g/dL Globulin 3.5 (1.7-4.1) g/dL Albumin/Globulin Ratio 1.4 (1.0-2.8) Procalcitonin (<0.5) ng/mL Digoxin (0.8-2.0) ng/mL SARS-CoV-2 (PCR) (Negative) 03/18/22 03/18/22 03/18/22 Range/Units 17:19 17:19 17:19 WBC (4.5-11.0) X10^3/uL RBC (4.0-5.2) X10^6/uL Hgb (12.0-16.0) g/dL Hct (36-46) % MCV (80-100) fL MCH (26-34) PG MCHC (30-36) % RDW (11.6-14.8) % Plt Count (150-400) X10^3/uL Neut % (Auto) (50-75) % Lymph % (Auto) (25-40) % [place] % (Auto) (3-14) % Eos % (Auto) (2-4) % Baso % (Auto) (0-2) % Neut # (Auto) (2459-3122) /uL Lymph # (Auto) (2969-8527) /uL [place] # (Auto) (0-900) /uL Eos # (Auto) (0-450) /uL Baso # (Auto) (0-100) /uL PT 28.7 H (10.1-12.7) SECONDS INR 2.5 H (0.9-1.3) D-Dimer (<230) ng/mL Sodium (137-145) mmol/L Potassium (3.4-5.1) mmol/L Chloride (98-107) mmol/L Carbon Dioxide (22-32) mmol/L BUN (7-17) mg/dL Creatinine (0.52-1.04) mg/dL Estimated GFR (>60) mL/min BUN/Creatinine Ratio (6-22) Glucose (80-110) mg/dL Lactate (0.7-2.1) mmol/L Calcium (8.4-10.2) mg/dL Total Bilirubin (0.2-1.3) mg/dL AST (14-36) IU/L ALT (<35) IU/L Alkaline Phosphatase (38-126) U/L Total Creatine Kinase 69 (30-135) U/L CK-MB (CK-2) TNP CK-MB (CK-2) Rel Index TNP Troponin I 0.030 (0.01-0.034) ng/mL NT-Pro-B Natriuret Pep 758 H (<125) pg/mL Total Protein (6.3-8.2) g/dL Albumin (3.5-5.0) g/dL Globulin (1.7-4.1) g/dL Albumin/Globulin Ratio (1.0-2.8) Procalcitonin (<0.5) ng/mL Digoxin < 0.4 L (0.8-2.0) ng/mL SARS-CoV-2 (PCR) (Negative) 03/18/22 03/18/22 03/18/22 Range/Units 17:19 17:19 17:58 WBC (4.5-11.0) X10^3/uL RBC (4.0-5.2) X10^6/uL Hgb (12.0-16.0) g/dL Hct (36-46) % MCV (80-100) fL MCH (26-34) PG MCHC (30-36) % RDW (11.6-14.8) % Plt Count (150-400) X10^3/uL Neut % (Auto) (50-75) % Lymph % (Auto) (25-40) % [place] % (Auto) (3-14) % Eos % (Auto) (2-4) % Baso % (Auto) (0-2) % Neut # (Auto) (5309-9947) /uL Lymph # (Auto) (5276-7971) /uL [place] # (Auto) (0-900) /uL Eos # (Auto) (0-450) /uL Baso # (Auto) (0-100) /uL PT (10.1-12.7) SECONDS INR (0.9-1.3) D-Dimer < 200 (<230) ng/mL Sodium (137-145) mmol/L Potassium (3.4-5.1) mmol/L Chloride (98-107) mmol/L Carbon Dioxide (22-32) mmol/L BUN (7-17) mg/dL Creatinine (0.52-1.04) mg/dL Estimated GFR (>60) mL/min BUN/Creatinine Ratio (6-22) Glucose (80-110) mg/dL Lactate (0.7-2.1) mmol/L Calcium (8.4-10.2) mg/dL Total Bilirubin (0.2-1.3) mg/dL AST (14-36) IU/L ALT (<35) IU/L Alkaline Phosphatase (38-126) U/L Total Creatine Kinase (30-135) U/L CK-MB (CK-2) CK-MB (CK-2) Rel Index Troponin I (0.01-0.034) ng/mL NT-Pro-B Natriuret Pep (<125) pg/mL Total Protein (6.3-8.2) g/dL Albumin (3.5-5.0) g/dL Globulin (1.7-4.1) g/dL Albumin/Globulin Ratio (1.0-2.8) Procalcitonin < 0.03 (<0.5) ng/mL Digoxin (0.8-2.0) ng/mL SARS-CoV-2 (PCR) Negative (Negative) Imaging Data Chest x-ray: Radiologist's Impression: [address] [address] XRay Report Signed Patient: Mer Joel MR#: [id number] : 1950 Acct:[id number] Age/Sex: 71 / F Date of Service: 03/18/22 Loc: ED Accession Number: [id number] ?? Procedure: XR chest 2V Ordering Provider: Darby Crawford D.O. PROCEDURE:? XR CHEST 2V ? INDICATIONS:? shortness of breath ? TECHNIQUE:? 2 views of the chest were acquired.? ? COMPARISON:? [facility], CR, XR CHEST 1 VIEW, 03/31/2020, 16:35.? [facility], CR, XR CHEST 1V, 03/16/2020, 18:22.? [facility], CR, XR CHEST 1V, 06/06/2020, 14:46. ? FINDINGS:? ? Surgical changes and devices:? Sternotomy wires and a valve prosthesis can be seen. ? Lungs and pleura:? Mild generalized interstitial prominence can be seen.? No pleural effusions or pneumothorax.? ? Mediastinum:? Mediastinal contours are normal.? Heart size is moderately enlarged.? Atherosclerotic calcification of the aortic arch is noted.? ? Bones and chest wall:? No suspicious bony abnormalities.? Age-appropriate bony degenerative changes are seen.? Soft tissues appear unremarkable.? IMPRESSION:? Mild cardiomegaly with mild generalized interstitial prominence.? Please consider mild/early CHF. ? Postoperative and degenerative changes are seen.? ? ? Dictated by: Blaine Ortez M.D. on 03/18/2022 at 17:04 ? ? Approved by: Blaine Ortez M.D. on 03/18/2022 at 17:05 ? [facility] Narrative Medical decision making narrative: Patient with upper respiratory symptoms including cough shortness of breath and production of sputum with body aches over the past 7-10 days. She has no significant respiratory distress and is not hypoxemic, chest x-ray shows no obvious organized infiltrate and suggests interstitial prominence consistent with pulmonary edema. She is had multiple negative COVID tests. Her history and physical along with remote history of smoking put her at risk for atypical pneumonia hence decision to use antibiotics at this point time. She does have mild CHF on chest x-ray and a slight increase in her BNP but no orthopnea or lower extremity edema. I did recommend that she briefly increase her diuretic for the next few days but patient would prefer to hold off and see if the antibiotics do the trick. She is been given extensive return precautions and will follow up with her doctor closely. Questions answered to her apparent satisfaction Discharge Plan Departure Patient Disposition: Home Clinical Impression: Atypical pneumonia Instructions: Atypical Pneumonia Activity Restrictions/Additional Instructions: *You have been diagnosed with [atypical pneumonia.] *What to do: *Please continue to take your regular medications as directed. [ x] New medication prescriptions sent to your pharmacy: [[facility] ] [ ] New medication written as a paper prescription [ ] No new medications given *Please follow up with your primary care provider in 2-3 days, call for an appointment. Let them know you were seen in the Emergency Department and that we ask that you be seen in follow up. We will electronically transmit a record of today's note if your PCP is in our system *If you do not have a primary care provider please contact the [facility] Resource line at [phone]. They will ask some questions about your medical history and help get you set up with a doctor in the community. *Return to Emergency Department if you should have any new, worsening or concerning symptoms, such as [fever greater than 101 F, shaking chills, worsening pain, persistent vomiting or other bothersome symptoms] Prescriptions: New doxycycline hyclate 100 mg tablet 100 mg PO BID Qty: 20 0RF No Action fluoxetine 20 mg tablet 20 mg PO DAILY Qty: 0 celecoxib 200 mg capsule 200 mg PO DAILY potassium chloride 10 mEq capsule, extended release 40 meq PO DAILY atorvastatin 20 mg tablet 20 mg PO DAILY acetaminophen-codeine 300-30 mg tablet 1 tab PO Q4H PRN (Reason: pain) baclofen 10 mg tablet 10 mg PO TID PRN (Reason: Muscle Spasm) Label Comments: patient states only takes at bedtime Rx Instructions: up to tid omeprazole 20 mg capsule,delayed release(DR/EC) 20 mg PO DAILY hydrocodone-acetaminophen 5-325 mg tablet 1 tab PO Q6H PRN (Reason: pain) Qty: 10 0RF torsemide 10 mg Tablet 80 mg PO DAILY@0600 Qty: 90 3RF nitroglycerin [Nitrostat] 0.4 mg Tablet, Sublingual 0.4 mg sublingual [id number] PRN (Reason: Chest Pain) Qty: 10 3RF digoxin 125 mcg (0.125 mg) tablet 62.5 mcg PO DAILY metoprolol succinate 50 mg tablet extended release 24 hr 50 mg PO BID warfarin 5 mg tablet 2.5 mg PO DAILY Label Comments: Takes 5mg alternating 2.5 mg Referrals: Donya Diez MD [Primary Care Provider] -
[2022-03-18 18:22] LABS: COVID19 -Nasal RAPID Negative (Negative)
[2022-03-18 18:47] LABS: D Dimer < 200 ng/mL (<230)
[2022-03-18 18:54] LABS: Procalcitonin < 0.03 ng/mL (<0.5)
[2022-03-18] MEDS: DOXYCYCLINE HYCLATE 100 MG TABLET PO (19:25)
== END 2022-03-18 19:36 | disposition home or self-care (01) ==
PROVIDERS: Emergency Medicine; Emergency Provider Emergency Medicine; PCP Student in an Organized Health Care Education/Training Program
DX: J18.9 Pneumonia, unspecified organism (principal); Z20.822 Contact with and (suspected) exposure to COVID-19; Z79.01 Long term (current) use of anticoagulants; I50.9 Heart failure, unspecified
CPT/HCPCS: 36415; 71046; 80053; 80162; 82550; 83605; 83880; 84145; 84484; 85025; 85379; 85610; 87635; 93005; 99284; C9803

== ENCOUNTER 2022-05-31 12:54 | Emergency (ER) | payer OTHER, SELFPAY ==
[2022-05-31 13:26] VITALS: BP 142/69; PULSE 85; RESP 22; TEMP 36.1; O2SAT 98; BMI 30.9
--- NOTE | 2022-05-31 13:31 | DI.RAD.S_ITS ---
PROCEDURE: XR SHOULDER RT MIN 2V INDICATIONS: injury worsening TECHNIQUE: 3 views of the shoulder were acquired. COMPARISON: [facility], CR, XR SHOULDER RT MIN 2V, 12/01/2021, 19:34. FINDINGS: Bones: No fractures or dislocations. No suspicious bony lesions. Visualized ribs appear intact. Soft tissues: No suspicious soft tissue calcifications. IMPRESSION: Mild AC joint osteoarthritis stable over time, and no new trauma is found. Dictated by: Abdelrahman Cabello M.D. on 05/31/2022 at 13:56 Approved by: Abdelrahman Cabello M.D. on 05/31/2022 at 13:56
--- NOTE | 2022-05-31 15:08 | ED.GENADULT ---
HPI - General Adult General Chief complaint: Extremity Injury, Upper Stated complaint: right shouler pain, injury month ago Time Seen by Provider: 05/31/22 14:44 Source: patient Mode of arrival: Ambulatory History of Present Illness HPI narrative: 71-year-old female was here for evaluation of right shoulder pain. States that approximately 1 month ago she states she fell into a door frame. Has had pain in her shoulder since then. Has not followed up with anyone for the discomfort. It hurts to touch and also moves her shoulder. No other injuries from the event. Related Data Home Medications Medication Instructions Recorded Confirmed acetaminophen 300 mg-codeine 30 mg 1 tab PO Q4H PRN pain 05/20/19 01/02/21 tablet atorvastatin 20 mg tablet 20 mg PO DAILY 05/20/19 01/02/21 baclofen 10 mg tablet 10 mg PO TID PRN Muscle Spasm 05/20/19 01/02/21 celecoxib 200 mg capsule 200 mg PO DAILY 05/20/19 01/02/21 omeprazole 20 mg capsule,delayed 20 mg PO DAILY 05/20/19 01/02/21 release potassium chloride 10 mEq 40 meq PO DAILY 05/20/19 01/02/21 capsule,extended release digoxin 125 mcg (0.125 mg) tablet 62.5 mcg PO DAILY 01/02/21 fluoxetine 20 mg tablet 20 mg PO DAILY #0 tabs 01/02/21 01/02/21 metoprolol succinate 50 mg 50 mg PO BID 01/02/21 tablet,extended release 24 hr warfarin 5 mg tablet 2.5 mg PO DAILY 01/02/21 Previous Rx's Medication Instructions Recorded nitroglycerin 0.4 mg sublingual 0.4 mg sublingual [id number] PRN 06/08/20 tablet (Nitrostat) Chest Pain #10 tabs torsemide 10 mg tablet 80 mg PO DAILY@0600 #90 tabs 06/08/20 hydrocodone 5 mg-acetaminophen 325 1 tab PO Q6H PRN pain #10 tabs 12/01/21 mg tablet doxycycline hyclate 100 mg tablet 100 mg PO BID #20 tabs 03/18/22 Allergies Allergy/AdvReac Type Severity Reaction Status Date / Time No Known Drug Allergies Allergy Verified 01/02/21 15:26 Review of Systems Constitutional Constitutional: Reports system reviewed and no additional complaints, except as documented Musculoskeletal Musculoskeletal: Reports system reviewed and no additional complaints, except as documented Integumentary/Breasts Skin/Breast: Reports system reviewed and no additional complaints, except as documented Neurologic Neurologic: Reports system reviewed and no additional complaints, except as documented Patient History Medical History Anticoagulated on Coumadin (~2007) Atrial fibrillation with RVR CHF (congestive heart failure) CHF exacerbation Depression Headache History of ectopic History of female sterilization Hypertension Injury of right rotator cuff Memory deficit Nocturnal hypoxemia Obesity (BMI 30-39.9) Obstructive sleep apnea syndrome Osteoarthritis involving multiple joints on both sides of body Persistent atrial fibrillation Restless legs syndrome (RLS) Tachycardia induced cardiomyopathy Surgical History History of appendectomy (Unknown) History of cholecystectomy (Unknown) History of mitral valve replacement with mechanical valve Family History Other Diabetes mellitus Ovarian cancer Social History household members: significant other lives independently: Yes caregiver/support person: Yes (partner) education level: college Smoking Status: Former smoker alcohol intake: current Smoking Status: Former smoker alcohol intake frequency: a few times a month Substance Use Type: does not use Exam Initial Vital Signs Initial Vital Signs: Vital Signs Temperature 97.0 F L 05/31/22 13:26 Pulse Rate 85 05/31/22 13:26 Respiratory Rate 22 05/31/22 13:26 Blood Pressure 142/69 H 05/31/22 13:26 Pulse Oximetry 98 05/31/22 13:26 Oxygen Delivery Method 05/31/22 13:26 HENTN Head: normal to inspection and normocephalic Cardio Pulses: radial pulses present on the right Skin General: no rashes or lesions noted Neuro Sensory Exam: no sensory deficits noted Extrem Other: She does have discomfort over the AC joint on the right. Right wrist and right elbow unremarkable. She can flex and extend and abduct and adduct however the extremes are limited because of discomfort. She is tenderness over her clavicle and over the posterior shoulder and also over the lateral shoulder. Course Orders Ordered: ED Orders 05/31/22 13:31 XR shoulder RT min 2V Stat Vital Signs Vital signs: Vital Signs - 8 hr 05/31/22 13:26 05/31/22 15:30 Temperature 97.0 F L Pulse Rate 85 68 Respiratory Rate 22 18 Blood Pressure 142/69 H 129/66 Pulse Oximetry 98 95 Oxygen Delivery Method Room Air Room Air Medical Decision Making Imaging Data Extremity x-ray #1: Radiologist's Impression: [address] [address] XRay Report Signed Patient: Mer Joel MR#: [id number] : 1950 Acct:[id number] Age/Sex: 71 / F Date of Service: 05/31/22 Loc: ED Accession Number: [id number] ?? Procedure: XR shoulder RT min 2V Ordering Provider: Emmanuel Ward D.O. PROCEDURE:? XR SHOULDER RT MIN 2V ? INDICATIONS:? injury worsening ? TECHNIQUE:? 3 views of the shoulder were acquired.? ? COMPARISON:? [facility], CR, XR SHOULDER RT MIN 2V, 12/01/2021, 19:34. ? FINDINGS:? ? Bones:? No fractures or dislocations.? No suspicious bony lesions.? Visualized ribs appear intact.? ? Soft tissues:? No suspicious soft tissue calcifications.? ? IMPRESSION:? Mild AC joint osteoarthritis stable over time, and no new trauma is found. ? ? Dictated by: Abdelrahman Cabello M.D. on 05/31/2022 at 13:56 ? ? Approved by: Abdelrahman Cabello M.D. on 05/31/2022 at 13:56? MDM Narrative Medical decision making narrative: Is neurovascularly intact. X-ray shows no signs of fracture or dislocation. She does have arthritis over the AC joint and she is tender over this area. The event occurred approximately 1 month ago. No further workup required in the emergency department. Informed her that she needs to talk with the primary doctor about a referral to see physical therapy or referral to follow-up with general surgery. She was given return precautions. She expressed understanding and agreement. Discharge Plan Departure Patient Disposition: Home Clinical Impression: Pain in right shoulder Instructions: How To Perform RICE (Rest, Ice, Compress, Elevate), DI for Shoulder Pain Activity Restrictions/Additional Instructions: Do recommend that you continue taking Tylenol. You can also use ice over your shoulder. You can contact the orthopedic doctors with a number provided below. Also recommend that you keep your follow-up appointment that you have scheduled with your new primary doctor. Return to the emergency department for any new symptoms Prescriptions: No Action fluoxetine 20 mg tablet 20 mg PO DAILY Qty: 0 celecoxib 200 mg capsule 200 mg PO DAILY potassium chloride 10 mEq capsule, extended release 40 meq PO DAILY atorvastatin 20 mg tablet 20 mg PO DAILY acetaminophen-codeine 300-30 mg tablet 1 tab PO Q4H PRN (Reason: pain) baclofen 10 mg tablet 10 mg PO TID PRN (Reason: Muscle Spasm) Label Comments: patient states only takes at bedtime Rx Instructions: up to tid omeprazole 20 mg capsule,delayed release(DR/EC) 20 mg PO DAILY hydrocodone-acetaminophen 5-325 mg tablet 1 tab PO Q6H PRN (Reason: pain) Qty: 10 0RF doxycycline hyclate 100 mg tablet 100 mg PO BID Qty: 20 0RF torsemide 10 mg Tablet 80 mg PO DAILY@0600 Qty: 90 3RF nitroglycerin [Nitrostat] 0.4 mg Tablet, Sublingual 0.4 mg sublingual [id number] PRN (Reason: Chest Pain) Qty: 10 3RF digoxin 125 mcg (0.125 mg) tablet 62.5 mcg PO DAILY metoprolol succinate 50 mg tablet extended release 24 hr 50 mg PO BID warfarin 5 mg tablet 2.5 mg PO DAILY Label Comments: Takes 5mg alternating 2.5 mg Referrals: Donya Diez MD [Primary Care Provider] - Eliseo Victor MD [Physician] - Visit Report Forms: Patient Portal/API
[2022-05-31 15:30] VITALS: BP 129/66; PULSE 68; RESP 18; O2SAT 95
== END 2022-05-31 15:33 | disposition home or self-care (01) ==
PROVIDERS: Emergency Provider Emergency Medicine; PCP Student in an Organized Health Care Education/Training Program
DX: M25.511 Pain in right shoulder (principal); W18.09XA Striking against other object with subsequent fall, initial encounter
CPT/HCPCS: 73030; 99281; 99283

== ENCOUNTER → 2023-05-28 16:42 | Outpatient (CLI) | payer OTHER, SELFPAY ==
--- NOTE | 2023-05-28 | DI.RAD.S_ITS ---
PROCEDURE: XR HIP W PEL IF DONE BILAT 2V INDICATIONS: HIP PAIN TECHNIQUE: 2 views of the hips were acquired. COMPARISON: None. FINDINGS: Bones: No fractures or dislocations. No suspicious bony lesions. The visualized pelvic ring appears intact. Soft tissues: No suspicious soft tissue calcifications or masses. [place] calcification projecting over the right sacral ala, presumably an ingested pill. IMPRESSION: No significant degenerative change. Dictated by: Matt Denis M.D. on 05/29/2023 at 12:24 Approved by: Matt Denis M.D. on 05/29/2023 at 12:24
--- NOTE | 2023-05-28 | DI.RAD.S_ITS ---
PROCEDURE: XR ABDOMEN MIN 2V INDICATIONS: COLON OBSTRUCTION TECHNIQUE: 2 views of the abdomen were acquired. COMPARISON: None. FINDINGS: Surgical changes and devices: None. Bowel: No pneumoperitoneum. The bowel gas pattern is normal. Soft tissues: No masses; visualized solid organ contours appear normal in size. No suspicious abdominal calcifications. [place] radiopaque body projects over the right sacral ala, presumably a medicine. Bones: No suspicious bony abnormalities. IMPRESSION: Nonobstructive bowel gas pattern. Dictated by: Matt Denis M.D. on 05/29/2023 at 12:15 Approved by: Matt Denis M.D. on 05/29/2023 at 12:17
== END ==
PROVIDERS: PCP Family Medicine; Referring Provider Family Medicine; Visit Provider Family Medicine
DX: K56.609 Unspecified intestinal obstruction, unspecified as to partial versus complete obstruction (principal); M25.551 Pain in right hip; M25.552 Pain in left hip
CPT/HCPCS: 73521; 74019

== ENCOUNTER 2023-06-16 12:36 | Emergency (ER) | payer OTHER, SELFPAY ==
[2023-06-16] VITALS (8 sets, daily range): BP systolic 86–154; BP diastolic 66–81; PULSE 81–116; RESP 17–29; TEMP 35.9; O2SAT 94–100; BMI 30.1
--- NOTE | 2023-06-16 13:11 | DI.RAD.S_ITS ---
PROCEDURE: XR CHEST 1V INDICATIONS: Shortness of breath TECHNIQUE: One view of the chest was acquired. COMPARISON: [facility], CR, XR CHEST 2V, 03/18/2022, 18:09. [facility], CR, XR CHEST 1V, 06/06/2020, 14:46. FINDINGS: Surgical changes and devices: Sternotomy and cardiac valve prosthesis. Lungs and pleura: Lungs are clear. No pleural effusions or pneumothorax. Mediastinum: Mediastinal contours appear normal. Heart size is normal. Bones and chest wall: No suspicious bony lesions. Overlying soft tissues appear unremarkable. IMPRESSION: No acute cardiopulmonary disease. Dictated by: Mauro Morton M.D. on 06/16/2023 at 14:12 Approved by: Mauro Morton M.D. on 06/16/2023 at 14:13
[2023-06-16 13:40] LABS: Add Manual Diff / Slide Review NO; Basophils Absolute Auto 100 /uL (0-100); Basophils Percent Auto 1.1 % (0-2); Eosinophils Absolute Auto 100 /uL (0-450); Eosinophils Percent Auto 0.7 % (2-4); Hematocrit 41.2 % (36-46); Hemoglobin 13.9 g/dL (12.0-16.0); Lymphocytes Absolute Auto 1500 /uL (1100-4500); Lymphocytes Percent Auto 16.8 % (25-40); Mean Corpuscular HGB Conc 33.7 % (30-36); Mean Corpuscular Hemoglobin 31.4 PG (26-34); Mean Corpuscular Volume 93.3 fL (80-100); Monocytes Absolute Auto 600 /uL (0-900); Monocytes Percent Auto 6.8 % (3-14); Neutrophils Absolute Auto 6400 /uL (1500-7000); Neutrophils Percent Auto 74.6 % (50-75); Platelet Count 274 X10^3/uL (150-400); Red Blood Cell Count 4.41 X10^6/uL (4.0-5.2); Red Cell Distribution Width 14.7 % (11.6-14.8); White Blood Cell Count 8.6 X10^3/uL (4.5-11.0)
[2023-06-16 13:47] LABS: INR 2.5 (0.9-1.3); Prothrombin Time 29.5 SECONDS (10.1-12.7)
[2023-06-16 13:51] LABS: Alanine Aminotransferase 31 IU/L (<35); Albumin 4.5 g/dL (3.5-5.0); Albumin Globulin Ratio 1.2 (1.0-2.8); Alkaline Phosphatase 188 U/L (38-126); Aspartate Aminotransferase 45 IU/L (14-36); BUN Creatinine Ratio 25.9 (6-22); Bilirubin Total 1.8 mg/dL (0.2-1.3); Blood Urea Nitrogen 14 mg/dL (7-17); Calcium 10.5 mg/dL (8.4-10.2); Carbon Dioxide 27 mmol/L (22-32); Chloride 102 mmol/L (98-107); Estimated Glomerular Filt Rate > 60 mL/min (>60); Globulin 3.7 g/dL (1.7-4.1); Glucose 139 mg/dL (80-110); HEMOLYSIS < 15 (0-50); Sodium 137 mmol/L (137-145); Total Protein 8.2 g/dL (6.3-8.2)
[2023-06-16 13:52] LABS: Lactate (Lactic Acid) 1.2 mmol/L (0.7-2.1)
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
[2023-06-16 14:03] LABS: NT-proBNP (BNP-Adult 18+) 1350 pg/mL (<125); Troponin I 0.035 ng/mL (0.01-0.034)
--- NOTE | 2023-06-16 14:18 | PC.NURSE ---
KNIFE GLAZER states that pt does not need a sitter but requires q 15 min checks.
--- NOTE | 2023-06-16 15:24 | PC.NURSE ---
Dr. Graham cleared from point of view of psychiatric. Does not feel as if sitter or frequent checks.
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
[2023-06-16] MEDS: ACETAMINOPHEN 325 MG TABLET 975 MG PO (16:29)
== END 2023-06-16 16:51 | disposition home or self-care (01) ==
PROVIDERS: Emergency Provider Emergency Medicine; PCP Family Medicine
DX: I48.91 Unspecified atrial fibrillation (principal); R06.02 Shortness of breath; Z79.01 Long term (current) use of anticoagulants; Z79.899 Other long term (current) drug therapy
CPT/HCPCS: 36415; 71045; 80053; 83605; 83880; 84484; 85025; 85610; 93005; 93010; 99284

== ENCOUNTER → 2023-10-01 11:23 | Outpatient (CLI) | payer OTHER, SELFPAY ==
--- NOTE | 2023-10-01 11:27 | DI.RAD.S_ITS ---
PROCEDURE: XR KNEE RT 3V INDICATIONS: KNEE PAIN TECHNIQUE: 3 views of the knee were acquired. COMPARISON: [facility], , KNEE 3V RIGHT, 01/09/2017, 14:43. FINDINGS: Bones: No fractures or dislocations. No suspicious bony lesions. Slight interval progression. Tricompartment osteophytes. Progressive, moderate medial compartment joint space loss. medial compartment joint space loss. Soft tissues: No joint effusion. No suspicious soft tissue calcifications. IMPRESSION: Mildly progressive degenerative arthritis of the right knee. Dictated by: Dev Rebolledo M.D. on 10/01/2023 at 18:22 Approved by: Dev Rebolledo M.D. on 10/01/2023 at 18:22
--- NOTE | 2023-10-01 11:27 | DI.RAD.S_ITS ---
PROCEDURE: XR KNEE LT 3V INDICATIONS: KNEE PAIN TECHNIQUE: 3 views of the knee were acquired. COMPARISON: [facility], , KNEE 3V LEFT, 11/09/2014, 16:37. FINDINGS: Bones: No fractures or dislocations. No suspicious bony lesions. Slight interval progression of degenerative change. Tricompartment osteophytes. Moderate to severe medial compartment joint space loss. Soft tissues: No joint effusion. No suspicious soft tissue calcifications. IMPRESSION: Slight interval progression of degenerative arthritis of the left knee. Dictated by: Dev Rebolledo M.D. on 10/01/2023 at 18:20 Approved by: Dev Rebolledo M.D. on 10/01/2023 at 18:21
== END ==
PROVIDERS: PCP Family Medicine; Referring Provider Family Medicine; Visit Provider Family Medicine
DX: M25.561 Pain in right knee (principal); M25.562 Pain in left knee; G89.29 Other chronic pain; M13.862 Other specified arthritis, left knee; M13.861 Other specified arthritis, right knee
CPT/HCPCS: 73562

== ENCOUNTER → 2024-02-18 09:28 | Outpatient (CLI) | payer OTHER, SELFPAY ==
--- NOTE | 2024-02-18 09:30 | DI.RAD.S_ITS ---
PROCEDURE: FL BARIUM SWALLOW W SPEECH INDICATIONS: Dysphagia, pharyngoesophageal phase COMPARISON: None. TECHNIQUE: Examination was conducted in conjunction with speech pathology per standard protocol. In the lateral projection, filming was performed of the patient swallowing. AP projection filming may also be performed with patient swallowing. COMPARISON: FINDINGS: Function: The oral preparatory phase appears normal, with proper containment. The subsequent oral propulsive phase, pharyngeal phase, and esophageal phase of swallowing demonstrated multiple episodes of tertiary contractions/esophageal spasms resulting in delayed and retrograde flow of ingested contrast. No laryngotracheal penetration or aspiration. No pathologic vallecular pooling. Morphology: No cricopharyngeal bar is identified. No cervical esophageal webs. No Zenker's diverticulum. No strictures. IMPRESSION: Multiple episodes of tertiary esophageal contractions/spasms resulting in delayed and retrograde of flow of ingested contrast. Otherwise, no significant abnormalities identified. Please see separate speech pathology report for further details. Dictated by: Idris Gonzalez M.D. on 02/18/2024 at 20:30 Approved by: Idris Gonzalez M.D. on 02/18/2024 at 20:34
--- NOTE | 2024-02-18 11:59 | ST.SWALLOW ---
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 Stevenson. Pt reported it is hard to swallow which constantly occurs, even with her saliva. Pt feels her mouth is very dry, making swallowing hard. Pt describes her swallow as feeling like something is stuck in her throat and is slow going down. She stated that she has to drink a lot of water when eating to help food go down. She reported this started maybe a couple years ago. 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 pt denied GERD, neck injury or surgery and any neurologic diagnoses. Subjective Observations Pt was seated in the fluoroscopy chair with directions and procedures described for her. She indicated she understood and agreed to proceed. Patient Positioning Position View Lat-A/P Imaging Lateral View Textures Administered Trials Presented Thin Liquid via Spoon (IDDSI 0 ),Thin Liquid via Cup (IDDSI 0 ),Extremely Thick Liquid via Spoon (IDDSI 4),Regular (IDDSI 7) Barium Tablet Yes The IDDSI Framework Protocol: IDDSI.1 Oral Impairment Source: The Modified Barium Swallow Impairment Profile (MBSImP??) Lip Closure No labial escape Tongue Control During Bolus Hold Cohesive bolus between tongue to palatal seal Bolus Preparation/Mastication Slow prolonged chewing/mashing with complete re-collection Bolus Transport/Lingual Motion Brisk tongue motion Oral Residue Complete oral clearance Initiation of Pharyngeal Swallow Bolus head at pyriforms Additional Oral Impairment Observations -OME and DKS were observed to be WNL. -Pt is edentulous but stated she can chew anything -Mastication observed to be prolonged secondary to lack of dentition with observed with rotary chew pattern. Adequate bolus formation, control and AP transition. Pharyngeal Impairment Source: The Modified Barium Swallow Impairment Profile (MBSImP??) Soft Palate Elevation No bolus between soft palate & pharyngeal wall Laryngeal Elevation Min.sup.move. thyroid cart. w/ min.approx.arytenoids to epiglot.petiole Anterior Hyoid Excursion Partial anterior movement Epiglottic Movement Complete inversion Laryngeal Vestibular Closure Complete; no air/contrast in laryngeal vestibule Pharyngeal Stripping Wave Present - complete Pharyngoesophageal Segment Opening Complete distention & complete duration; no obstruction of flow Tongue Base Retraction Trace column of contrast/air betwn tongue base & post. pharyngeal wall Pharyngeal Residue Complete pharyngeal clearance Location Diffuse (>3 areas) Additional Pharyngeal Impairment Pharyngeal phase of swallowing appears to be WNL Observations A/P View Textures Administered Trials Presented Thin Liquid via Cup (IDDSI 0) The IDDSI Framework Protocol: IDDSI.1 A/P View Observations Pharyngeal Contraction Complete Esophageal Clearance Upright Position Esophageal retention w/ regtrograde flow below pharyngoesoph segment Vocal Fold Function Good Esophageal Function Slowed Clearing,Reverse Peristalsis,Stasis,Narrowing Additional A-P Observations Initially when pt position changed from lateral to AP, contrast remained in the upper esophagus. This cleared with water wash. With thin barium trial, there was noted esophageal retention of contrast with reverse flow of contents to the upper esophagus. Esophageal narrowing near mid esophagus was noted with reverse flow of barium. Additionally, narrowing was noted near the LES which delayed flow to the stomach of thin barium and a barium tablet. The barium tablet remained in the lower esophagus despite several swallows of water. The barium tablet eventually emptied into the stomach. GI referral is recommended. Clinical Impressions Dysphagia Type Esophageal Findings Please review Additional A-P Observations above. Patient Appropriate for Therapy No Recommendations Diet Liquids Order Thin (IDDSI 0) Diet Order Easy to Chew (IDDSI 7) Medication Recommendation One at a Time Comments Discussed recommended changes in diet with pt Aspiration Precautions Recommended Precautions Alternate Liquids/Solids, Frequent Rest Periods,Small Bites/Sips Additional Precautions Remain upright after meals for esophagus to empty/gravity assist Treatment Plan Recommended Referrals GI Consult Therapy Strategy Recommendations Sitting Upright (90 deg),Small Bites and Sips,Alternate Liquids/Solids Additional Recommendations/Comments Discussed the results with the pt. Pt encouraged to review results with MD. GI referral is recommended.
== END ==
LOC: RAD 09:29
PROVIDERS: Family Provider Family Medicine; PCP Family Medicine; Referring Provider Family Medicine; Visit Provider Family Medicine
DX: R13.14 Dysphagia, pharyngoesophageal phase (principal)
CPT/HCPCS: 74230; 92611

== ENCOUNTER 2024-11-18 13:16 | Observation (INO) | payer OTHER, SELFPAY ==
[2024-11-18] VITALS (15 sets, daily range): BP systolic 101–125; BP diastolic 52–75; PULSE 46–65; RESP 14–36; TEMP 36.1–36.6; O2SAT 92–100; BMI 31.6; BMI 31.4
--- NOTE | 2024-11-18 13:36 | EKG_ITS ---
[address] [address] Test Date: 2024-11-18 Pat Name: Mer Joel Department: Room: Gender: Female Data Entry: JAYCOB : 1950 Requested By: Order Number: [id number] Reading MD: Ramin Villa MD Measurements Intervals [place] Rate: 47 P: 7 NV: 306 QRS: 135 QRSD: 152 T: -3 QT: 552 QTc: 488 Interpretive Statements Sinus bradycardia with 1st degree AV block with premature atrial complexes and premature ventricular complexes or fusion complexes Right bundle branch block Lateral infarct , age undetermined T wave abnormality, consider inferior ischemia Electronically Signed On 11-18-2024 16:56:52 PDT by Ramin Villa MD
--- NOTE | 2024-11-18 13:36 | DI.RAD.S_ITS ---
PROCEDURE: XR CHEST 1V INDICATIONS: chest pain TECHNIQUE: One view of the chest was acquired. COMPARISON: [facility], CR, XR CHEST 1V, 06/16/2023, 13:24. FINDINGS: Surgical changes and devices: Median sternotomy wires and prosthetic heart valve are seen. Lead less pacing device is also likely present. Lungs and pleura: Mild pulmonary vascular congestion. No definite focal infiltrate. No pleural effusions or pneumothorax. Mediastinum: Mediastinal contours appear normal. Heart size is enlarged. Bones and chest wall: No suspicious bony lesions. Overlying soft tissues appear unremarkable. IMPRESSION: Cardiomegaly and mild congestion. No definite focal infiltrate. No pleural effusion or pneumothorax. Dictated by: Oskar Saravia M.D. on 11/18/2024 at 14:20 Approved by: Oskar Saravia M.D. on 11/18/2024 at 14:20
[2024-11-18 14:05] LABS: Add Manual Diff / Slide Review NO; Basophils Absolute Auto 100 /uL (0-100); Basophils Percent Auto 0.8 % (0-2); Eosinophils Absolute Auto 200 /uL (0-450); Eosinophils Percent Auto 2.3 % (2-4); Hematocrit 39.4 % (36-46); Lymphocytes Absolute Auto 1800 /uL (1100-4500); Lymphocytes Percent Auto 21.5 % (25-40); Mean Corpuscular HGB Conc 33.1 % (30-36); Mean Corpuscular Hemoglobin 30.1 PG (26-34); Monocytes Absolute Auto 600 /uL (0-900); Monocytes Percent Auto 7.5 % (3-14); Neutrophils Absolute Auto 5600 /uL (1500-7000); Neutrophils Percent Auto 67.9 % (50-75); Platelet Count 281 X10^3/uL (150-400); Red Blood Cell Count 4.33 X10^6/uL (4.0-5.2); Red Cell Distribution Width 15.5 % (11.6-14.8); White Blood Cell Count 8.2 X10^3/uL (4.5-11.0)
[2024-11-18 14:06] LABS: PTT Partial Thromboplastin Tim 56 SECONDS (25.1-36.5)
[2024-11-18 14:14] LABS: Alanine Aminotransferase 30 IU/L (<35); Albumin 4.5 g/dL (3.5-5.0); Albumin Globulin Ratio 1.4 (1.0-2.8); Alkaline Phosphatase 103 U/L (38-126); Aspartate Aminotransferase 38 IU/L (14-36); Blood Urea Nitrogen 24 mg/dL (7-17); Calcium 10.1 mg/dL (8.4-10.2); Carbon Dioxide 24 mmol/L (22-32); Chloride 104 mmol/L (98-107); Creatine Kinase 53 U/L (30-135); Estimated Glomerular Filt Rate > 60 mL/min (>60); Globulin 3.3 g/dL (1.7-4.1); Glucose 191 mg/dL (80-110); HEMOLYSIS < 15 (0-50); Lipase 96 U/L (23-300); Magnesium 1.9 mg/dL (1.6-2.3); Potassium 3.9 mmol/L (3.4-5.1); Sodium 140 mmol/L (137-145); Total Protein 7.8 g/dL (6.3-8.2)
[2024-11-18 14:26] LABS: NT-proBNP (BNP-Adult 18+) 316 pg/mL (<450); Troponin I 0.025 ng/mL (0.01-0.034)
--- NOTE | 2024-11-18 15:43 | EKG_ITS ---
[address] [address] Test Date: 2024-11-18 Pat Name: Mer Joel Department: Room: Gender: Female Multimedia Author: ONEIDA : 1950 Requested By: Order Number: [id number] Reading MD: Ramin Villa MD Measurements Intervals [place] Rate: 52 P: 38 VA: 302 QRS: 115 QRSD: 100 T: 46 QT: 498 QTc: 463 Interpretive Statements Sinus bradycardia with 1st degree AV block Incomplete right bundle branch block (new) Left posterior fascicular block (new) Electronically Signed On 11-18-2024 20:00:46 PDT by Ramin Villa MD
[2024-11-18 16:36] LABS: Troponin I 0.035 ng/mL (0.01-0.034)
[2024-11-18] MEDS: ASPIRIN 81 MG CHEW TAB 324 MG PO (17:25)
--- NOTE | 2024-11-18 17:57 | DI.CT.S_ITS ---
PROCEDURE: CT HEAD/BRAIN WO CON INDICATIONS: headache TECHNIQUE: Noncontrast 4.5 mm thick angled axial sections acquired from the foramen magnum to the vertex, with coronal and sagittal reformats. For radiation dose reduction, the following was used: automated exposure control, adjustment of mA and/or kV according to patient size. COMPARISON: None. FINDINGS: Image quality: Diagnostic CSF spaces: Basal cisterns are patent. Lateral ventricles are symmetric. Volume: Vascular calcifications. Periventricular white matter disease is commonly seen with chronic microangiopathy. Volume loss is present. These findings are [id number] Brain: No intracranial hemorrhage. Aquino-white differentiation is grossly maintained. Craniofacial structures: No significant paranasal sinus opacity. Left lens replacement IMPRESSION: No acute intracranial abnormality. If there is high concern for parenchymal pathology, consider further evaluation with MRI. Dictated by: Ja Daniel M.D. on 11/18/2024 at 18:43 Approved by: Ja Daniel M.D. on 11/18/2024 at 18:44
--- NOTE | 2024-11-18 18:03 | EKG_ITS ---
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
--- NOTE | 2024-11-18 18:04 | ED_ITS ---
HPI - Chest Pain <Renaldo Fairchild MD - Last Filed: 11/18/24 19:00> General Chief Complaint: Chest Pain Stated Complaint: SOB, chest pressure, palpations, hx heart issues Time Seen by Provider: 11/18/24 17:28 History of Present Illness HPI narrative: 74-year-old female with a history of mechanical mitral valve and chronic atrial fibrillation who is anticoagulated on warfarin. He also has a recent pacemaker implant, has hypertension and elevated cholesterol. Patient also has some cognitive impairment, her assist with history. She is here today with chest pressure that began yesterday. It is associated with shortness of breath, she has not had any nausea or vomiting notes that several days ago she had some flashes and floaters in her right eye and her left eye at baseline has poor vision. Although she has had that she had chest pressure and pain overnight, when I interview her symptoms have resolved. The patient tells me that she does not have a history of coronary artery disease however I note that she has a prescription for nitroglycerin. Related Data Home Medications Medication Instructions Recorded Confirmed acetaminophen 300 mg-codeine 30 mg 1 tab PO Q4H PRN pain 05/20/19 01/02/21 tablet atorvastatin 20 mg tablet 20 mg PO DAILY 05/20/19 01/02/21 baclofen 10 mg tablet 10 mg PO TID PRN Muscle Spasm 05/20/19 01/02/21 celecoxib 200 mg capsule 200 mg PO DAILY 05/20/19 01/02/21 omeprazole 20 mg capsule,delayed 20 mg PO DAILY 05/20/19 01/02/21 release potassium chloride 10 mEq 40 meq PO DAILY 05/20/19 01/02/21 capsule,extended release digoxin 125 mcg (0.125 mg) tablet 62.5 mcg PO DAILY 01/02/21 fluoxetine 20 mg tablet 20 mg PO DAILY #0 tabs 01/02/21 01/02/21 metoprolol succinate 50 mg 50 mg PO BID 01/02/21 tablet,extended release 24 hr warfarin 5 mg tablet 2.5 mg PO DAILY 01/02/21 Previous Rx's Medication Instructions Recorded nitroglycerin 0.4 mg sublingual 0.4 mg sublingual [id number] PRN 06/08/20 tablet (Nitrostat) Chest Pain #10 tabs torsemide 10 mg tablet 80 mg (8 x 10 mg) PO DAILY@0600 06/08/20 #90 tabs hydrocodone 5 mg-acetaminophen 325 1 tab PO Q6H PRN pain #10 tabs 12/01/21 mg tablet doxycycline hyclate 100 mg tablet 100 mg PO BID #20 tabs 03/18/22 digoxin 125 mcg (0.125 mg) tablet 125 mcg PO DAILY #30 tabs 06/16/23 (Digox) metoprolol succinate 50 mg 50 mg PO DAILY #30 tabs 06/16/23 tablet,extended release 24 hr Allergies Allergy/AdvReac Type Severity Reaction Status Date / Time No Known Drug Allergies Allergy Verified 01/02/21 15:26 Patient History <Renaldo Fairchild MD - Last Filed: 11/18/24 19:00> Medical History Anticoagulated on Coumadin (~2007) Atrial fibrillation with RVR CHF (congestive heart failure) CHF exacerbation Depression Headache History of ectopic History of female sterilization Hypertension Injury of right rotator cuff Memory deficit Nocturnal hypoxemia Obesity (BMI 30-39.9) Obstructive sleep apnea syndrome Osteoarthritis involving multiple joints on both sides of body Persistent atrial fibrillation Restless legs syndrome (RLS) Tachycardia induced cardiomyopathy Surgical History History of appendectomy (Unknown) History of cholecystectomy (Unknown) History of mitral valve replacement with mechanical valve Family History Other Diabetes mellitus Ovarian cancer Social History household members: significant other lives independently: Yes caregiver/support person: Yes (partner) education level: college Smoking Status: Former smoker alcohol intake: current Smoking Status: Former smoker alcohol intake frequency: a few times a month Exam <Renaldo Fairchild MD - Last Filed: 11/18/24 19:00> Initial Vital Signs Initial Vital Signs: Vital Signs Temperature 96.9 F L 11/18/24 13:32 Pulse Rate 56 L 11/18/24 13:32 Respiratory Rate 18 11/18/24 13:32 Blood Pressure 124/57 L 11/18/24 13:32 Pulse Oximetry 95 11/18/24 13:32 Oxygen Delivery Method Room Air 11/18/24 13:32 Const General: cooperative and No acute distress [facility] Head: normocephalic and atraumatic Face and sinus: face symmetric Mouth: moist mucous membranes Eyes EOM: EOM intact bilaterally Neck Neck: normal visual inspection and No JVD Resp Effort & Inspection: normal respiratory effort and able to speak in complete sentences Auscultation: clear to auscultation bilaterally Cardio Other: Normal rate, irregularly irregular mechanical valve click and systolic murmur GI Inspection: normal to inspection Palpation: soft Auscultation: normal bowel sounds Skin General: warm Neuro General: patient alert, patient oriented x3 and moves all extremities Speech: speech normal <Darby Crawford DO - Last Filed: 11/19/24 04:01> Initial Vital Signs Initial Vital Signs: Vital Signs Temperature 96.9 F L 11/18/24 13:32 Pulse Rate 56 L 11/18/24 13:32 Respiratory Rate 18 11/18/24 13:32 Blood Pressure 124/57 L 11/18/24 13:32 Pulse Oximetry 95 11/18/24 13:32 Oxygen Delivery Method Room Air 11/18/24 13:32 Course <Renaldo Fairchild MD - Last Filed: 11/18/24 19:00> Orders Ordered: Acetaminophen (Acetaminophen 325 Mg Tablet) 650 mg PO Q6H PRN PRN Reason: Fever/Mild Pain (1-3) Last Admin: 11/18/24 22:15 Dose: 650 mg Documented By: SR Hydrocodone Bitart/Acetaminophen (Hydrocodone/Acet 5/325 Tablet) 1 tab PO Q4H PRN PRN Reason: Pain, Moderate (4-6) Hydrocodone Bitart/Acetaminophen (Hydrocodone/Acet 5/325 Tablet) 2 tab PO Q4H PRN PRN Reason: Pain, Severe (7-10) Aspirin (Aspirin Ec 325 Mg Tablet) 325 mg PO DAILY [facility] Atorvastatin Calcium (Atorvastatin 20 Mg Tablet) 20 mg PO DAILY [facility] Morphine Sulfate (Morphine 2 Mg/Ml Inj) 2 mg IV Q5MIN PRN PRN Reason: Chest Pain Naloxone HCl (Naloxone 0.4 Mg/Ml Vial) 0.2 mg IV Q2MIN PRN PRN Reason: Opiate Reversal Nitroglycerin (Nitroglycerin 0.4 Mg Sl Tab) 0.4 mg SL [id number] PRN PRN Reason: Chest Pain Ondansetron HCl (Ondansetron 4 Mg/2 Ml Inj) 4 mg IV Q8HR PRN PRN Reason: Nausea And Vomiting Discontinued Medications Aspirin (Aspirin 81 Mg Chew Tab) 324 mg PO NOW ONE Stop: 11/18/24 13:37 Last Admin: 11/18/24 17:25 Dose: 162 mg Documented By: ALVERTO Consultations Consultation #1: Discussed with Cardiology, Dr. Dubon, recommends heparinization, if 3rd troponin is flat or downtrending, observe, medical management in any case. We should get an echo and interrogate pacemaker Vital Signs Vital signs: Vital Signs - 8 hr 11/18/24 13:32 11/18/24 17:22 11/18/24 17:23 Temperature 96.9 F L Pulse Rate 56 L 62 55 L Respiratory Rate 18 16 14 Blood Pressure 124/57 L Pulse Oximetry 95 92 93 Oxygen Delivery Method Room Air 11/18/24 17:23 11/18/24 17:30 11/18/24 17:31 Temperature Pulse Rate 54 L 53 L Respiratory Rate 22 22 Blood Pressure 101/55 L Pulse Oximetry 95 95 Oxygen Delivery Method Room Air 11/18/24 17:31 11/18/24 18:00 11/18/24 18:01 Temperature Pulse Rate 51 L Respiratory Rate 22 Blood Pressure 125/58 L 103/75 Pulse Oximetry Oxygen Delivery Method 11/18/24 18:01 11/18/24 18:30 11/18/24 18:31 Temperature Pulse Rate 54 L 48 L 50 L Respiratory Rate 29 H 32 H 27 H Blood Pressure Pulse Oximetry 100 99 Oxygen Delivery Method 11/18/24 18:31 11/18/24 19:00 Temperature Pulse Rate 51 L Respiratory Rate Blood Pressure 112/56 L Pulse Oximetry 99 Oxygen Delivery Method <Darby Crawford DO - Last Filed: 11/19/24 04:01> Orders Ordered: Acetaminophen (Acetaminophen 325 Mg Tablet) 650 mg PO Q6H PRN PRN Reason: Fever/Mild Pain (1-3) Last Admin: 11/18/24 22:15 Dose: 650 mg Documented By: Hydrocodone Bitart/Acetaminophen (Hydrocodone/Acet 5/325 Tablet) 1 tab PO Q4H PRN PRN Reason: Pain, Moderate (4-6) Hydrocodone Bitart/Acetaminophen (Hydrocodone/Acet 5/325 Tablet) 2 tab PO Q4H PRN PRN Reason: Pain, Severe (7-10) Aspirin (Aspirin Ec 325 Mg Tablet) 325 mg PO DAILY AMITA Atorvastatin Calcium (Atorvastatin 20 Mg Tablet) 20 mg PO DAILY [facility] Morphine Sulfate (Morphine 2 Mg/Ml Inj) 2 mg IV Q5MIN PRN PRN Reason: Chest Pain Naloxone HCl (Naloxone 0.4 Mg/Ml Vial) 0.2 mg IV Q2MIN PRN PRN Reason: Opiate Reversal Nitroglycerin (Nitroglycerin 0.4 Mg Sl Tab) 0.4 mg SL [id number] PRN PRN Reason: Chest Pain Ondansetron HCl (Ondansetron 4 Mg/2 Ml Inj) 4 mg IV Q8HR PRN PRN Reason: Nausea And Vomiting Discontinued Medications Aspirin (Aspirin 81 Mg Chew Tab) 324 mg PO NOW ONE Stop: 11/18/24 13:37 Last Admin: 11/18/24 17:25 Dose: 162 mg Documented By: ALVERTO Vital Signs Vital signs: Vital Signs - 8 hr 11/18/24 13:32 11/18/24 17:22 11/18/24 17:23 Temperature 96.9 F L Pulse Rate 56 L 62 55 L Respiratory Rate 18 16 14 Blood Pressure 124/57 L Pulse Oximetry 95 92 93 Oxygen Delivery Method Room Air 11/18/24 17:23 11/18/24 17:30 11/18/24 17:31 Temperature Pulse Rate 54 L 53 L Respiratory Rate 22 22 Blood Pressure 101/55 L Pulse Oximetry 95 95 Oxygen Delivery Method Room Air 11/18/24 17:31 11/18/24 18:00 11/18/24 18:01 Temperature Pulse Rate 51 L Respiratory Rate 22 Blood Pressure 125/58 L 103/75 Pulse Oximetry Oxygen Delivery Method 11/18/24 18:01 11/18/24 18:30 11/18/24 18:31 Temperature Pulse Rate 54 L 48 L 50 L Respiratory Rate 29 H 32 H 27 H Blood Pressure Pulse Oximetry 100 99 Oxygen Delivery Method 11/18/24 18:31 11/18/24 19:00 Temperature Pulse Rate 51 L Respiratory Rate Blood Pressure 112/56 L Pulse Oximetry 99 Oxygen Delivery Method MDM - Chest Pain <Renaldo Fairchild MD - Last Filed: 11/18/24 19:00> Lab Data Lab results narrative: CBC with diff is unremarkable, INR therapeutic at 3.0, initial troponin is 0. 025, repeat is 0.035 11/18/24 13:40 11/18/24 13:40 Labs: Lab Results 11/18/24 11/18/24 11/18/24 Range/Units 13:40 15:54 18:02 WBC 8.2 (4.5-11.0) X10^3/uL RBC 4.33 (4.0-5.2) X10^6/uL Hgb 13.0 (12.0-16.0) g/dL Hct 39.4 (36-46) % MCV 91.0 (80-100) fL MCH 30.1 (26-34) PG MCHC 33.1 (30-36) % RDW 15.5 H (11.6-14.8) % Plt Count 281 (150-400) X10^3/uL Neut % (Auto) 67.9 (50-75) % Lymph % (Auto) 21.5 L (25-40) % Kimble % (Auto) 7.5 (3-14) % Eos % (Auto) 2.3 (2-4) % Baso % (Auto) 0.8 (0-2) % Neut # (Auto) 5600 (2050-1645) /uL Lymph # (Auto) 1800 (7502-8866) /uL Kimble # (Auto) 600 (0-900) /uL Eos # (Auto) 200 (0-450) /uL Baso # (Auto) 100 (0-100) /uL PT 33.0 H (9.4-12.5) SECONDS INR 3.0 H (0.9-1.3) APTT 56 H (25.1-36.5) SECONDS Sodium 140 (137-145) mmol/L Potassium 3.9 (3.4-5.1) mmol/L Chloride 104 (98-107) mmol/L Carbon Dioxide 24 (22-32) mmol/L BUN 24 H (7-17) mg/dL Creatinine 0.96 (0.52-1.04) mg/dL Estimated GFR > 60 (>60) mL/min BUN/Creatinine Ratio 25.0 H (6-22) Glucose 191 H (80-110) mg/dL Calcium 10.1 (8.4-10.2) mg/dL Magnesium 1.9 (1.6-2.3) mg/dL Total Bilirubin 1.0 (0.2-1.3) mg/dL AST 38 H (14-36) IU/L ALT 30 (<35) IU/L Alkaline Phosphatase 103 (38-126) U/L Total Creatine Kinase 53 (30-135) U/L Troponin I 0.025 0.035 H 0.030 (0.01-0.034) ng/mL NT-Pro-B Natriuret Pep 316 (<450) pg/mL Total Protein 7.8 (6.3-8.2) g/dL Albumin 4.5 (3.5-5.0) g/dL Globulin 3.3 (1.7-4.1) g/dL Albumin/Globulin Ratio 1.4 (1.0-2.8) Triglycerides 116 (35-150) mg/dL Cholesterol 163 (140-199) mg/dL LDL Cholesterol, Calc 98 (<100) mg/dL HDL Cholesterol 42 (40-60) mg/dL Lipase 96 (23-300) U/L Digoxin < 0.4 L (0.8-2.0) ng/mL Imaging Data Chest x-ray: My Impression: Independent review of chest x-ray, postoperative changes consistent with a valve replacement borderline cardiomegaly no acute Radiologist's Impression: [address] [address] XRay Report Signed Patient: Mer Joel MR#: [id number] : 1950 Acct:[id number] Age/Sex: 74 / F Date of Service: 11/18/24 Loc: ED Accession Number: [id number] Procedure: XR chest 1V Ordering Provider: Renaldo Fairchild MD PROCEDURE: XR CHEST 1V INDICATIONS: chest pain TECHNIQUE: One view of the chest was acquired. COMPARISON: [facility], , XR CHEST 1V, 06/16/2023, 13:24. FINDINGS: Surgical changes and devices: Median sternotomy wires and prosthetic heart valve are seen. Lead less pacing device is also likely present. Lungs and pleura: Mild pulmonary vascular congestion. No definite focal infiltrate. No pleural effusions or pneumothorax. Mediastinum: Mediastinal contours appear normal. Heart size is enlarged. Bones and chest wall: No suspicious bony lesions. Overlying soft tissues appear unremarkable. IMPRESSION: Cardiomegaly and mild congestion. No definite focal infiltrate. No pleural effusion or pneumothorax. Dictated by: Oskar Saravia M.D. on 11/18/2024 at 14:20 Approved by: Oskar Saravia M.D. on 11/18/2024 at 14:20 CT scan - head: My Impression: Independent review of CT head, no acute findings Radiologist's Impression: Radiology report reviewed, no acute abnormality ECG Data Interpretation: ECG at 1339 shows sinus rhythm incomplete right bundle-branch block no acute ST segment changes. At 4:01 p.m. ECG shows sinus rhythm with a right bundle-branch block. There are T-wave inversions in leads 3 and AVF. At 6:19 p.m. ECG shows sinus rhythm at 53 T-wave inversions have resolved patient has not an incomplete right bundle-branch block <Darby Crawford DO - Last Filed: 11/19/24 04:01> Lab Data Labs: Lab Results 11/18/24 11/18/24 11/18/24 Range/Units 13:40 15:54 18:02 WBC 8.2 (4.5-11.0) X10^3/uL RBC 4.33 (4.0-5.2) X10^6/uL Hgb 13.0 (12.0-16.0) g/dL Hct 39.4 (36-46) % MCV 91.0 (80-100) fL MCH 30.1 (26-34) PG MCHC 33.1 (30-36) % RDW 15.5 H (11.6-14.8) % Plt Count 281 (150-400) X10^3/uL Neut % (Auto) 67.9 (50-75) % Lymph % (Auto) 21.5 L (25-40) % Kimble % (Auto) 7.5 (3-14) % Eos % (Auto) 2.3 (2-4) % Baso % (Auto) 0.8 (0-2) % Neut # (Auto) 5600 (8001-1059) /uL Lymph # (Auto) 1800 (5521-6009) /uL Kimble # (Auto) 600 (0-900) /uL Eos # (Auto) 200 (0-450) /uL Baso # (Auto) 100 (0-100) /uL PT 33.0 H (9.4-12.5) SECONDS INR 3.0 H (0.9-1.3) APTT 56 H (25.1-36.5) SECONDS Sodium 140 (137-145) mmol/L Potassium 3.9 (3.4-5.1) mmol/L Chloride 104 (98-107) mmol/L Carbon Dioxide 24 (22-32) mmol/L BUN 24 H (7-17) mg/dL Creatinine 0.96 (0.52-1.04) mg/dL Estimated GFR > 60 (>60) mL/min BUN/Creatinine Ratio 25.0 H (6-22) Glucose 191 H (80-110) mg/dL Calcium 10.1 (8.4-10.2) mg/dL Magnesium 1.9 (1.6-2.3) mg/dL Total Bilirubin 1.0 (0.2-1.3) mg/dL AST 38 H (14-36) IU/L ALT 30 (<35) IU/L Alkaline Phosphatase 103 (38-126) U/L Total Creatine Kinase 53 (30-135) U/L Troponin I 0.025 0.035 H 0.030 (0.01-0.034) ng/mL NT-Pro-B Natriuret Pep 316 (<450) pg/mL Total Protein 7.8 (6.3-8.2) g/dL Albumin 4.5 (3.5-5.0) g/dL Globulin 3.3 (1.7-4.1) g/dL Albumin/Globulin Ratio 1.4 (1.0-2.8) Triglycerides 116 (35-150) mg/dL Cholesterol 163 (140-199) mg/dL LDL Cholesterol, Calc 98 (<100) mg/dL HDL Cholesterol 42 (40-60) mg/dL Lipase 96 (23-300) U/L Digoxin < 0.4 L (0.8-2.0) ng/mL MDM Narrative Medical decision making narrative: Patient signed out to me by Dr. Fairchild. Patient has a history of atrial fibrillation mechanical valve on warfarin presenting today with some chest pressure heaviness. It self-resolved without any sort of intervention here. Therapeutic on her Coumadin at 3.0. Initial troponin 0.025 with repeat 0.03 5-08/27 at 0.030 Initial EKGs showed a normal sinus rhythm repeat EKGs showed a right bundle- branch block with T-wave inversions in the inferior leads the 30 EKGs showed a normal sinus rhythm. 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 Dr. Fairchild contacted Dr. Russo who recommended medical management only no need for transfer to for heart catheterization Dr. Villa on-call for Dr. perez updated patient's symptoms test results agrees with observation Discharge Plan Departure Patient Disposition: Admitted as Observation Clinical Impression: Chest pain Admit Date/Time: 11/18/24 19:48 Admit Provider: Ramin Villa
--- NOTE | 2024-11-18 18:31 | PC.NURSE ---
Pt's Pacemaker Information: Cardiac Pacemaker [employer] Item: [id number] MODEL: [id number] SERIAL NUMBER: [id number] Implant Date: Guy
--- NOTE | 2024-11-18 18:39 | PC.NURSE ---
rep for mendoza paged @ [phone]
--- NOTE | 2024-11-18 18:46 | PC.NURSE ---
Pace maker set to 40 per [employer]. [employer] stated they will be here in 30 minutes (@ [phone]).
[2024-11-18 18:56] LABS: Digoxin < 0.4 ng/mL (0.8-2.0)
--- NOTE | 2024-11-18 19:10 | PC.NURSE ---
Pt reports improvement in chest pressure. States she has been having chest pressure, sob, and dizziness. Respirations regular and unlabored. Pt reports that she is unsure to what her pacemaker is set to. Pt states she has an artificial heart valve, pacemaker, and is on warfarin with frequent checks; pt reports strict compliance with warfarin and pt/ptt/inr checks.
[2024-11-18 21:54] LABS: Cholesterol 163 mg/dL (140-199); HDL Cholesterol 42 mg/dL (40-60); LDL Cholesterol Calculated 98 mg/dL (<100); Triglycerides 116 mg/dL (35-150)
[2024-11-18] MEDS: ACETAMINOPHEN 325 MG TABLET 650 MG PO (22:15)
[2024-11-19 02:46] LABS: Troponin I 0.032 ng/mL (0.01-0.034)
[2024-11-19 03:10] VITALS: BP 140/74; PULSE 80; RESP 19; TEMP 37; O2SAT 94
[2024-11-19 07:00] VITALS: O2SAT 96
[2024-11-19 08:00] VITALS: BP 104/53; PULSE 57; RESP 16; TEMP 36.3; O2SAT 95
[2024-11-19] MEDS: ATORVASTATIN 20 MG TABLET PO (09:39)
[2024-11-19] MEDS: FLUoxetine 20 MG CAPSULE PO (09:43)
[2024-11-19] MEDS: TORSEMIDE 10 MG TABLET 60 MG PO (09:44)
[2024-11-19] MEDS: METOPROLOL ER 50 MG TABLET PO (09:46)
[2024-11-19 10:36] LABS: Troponin I 0.023 ng/mL (0.01-0.034)
[2024-11-19 12:00] VITALS: BP 135/80; PULSE 61; RESP 16; TEMP 36.4; O2SAT 96
--- NOTE | 2024-11-19 12:10 | CM.DANOTE ---
DCP Assessment Note: Pt is a 74yo female, resident of [place], is admitted for chest pain. Pt lives in a house with her , Wilfredo. Pt's Primary Care Provider is Dr. Andrews Stevenson and insurance is [facility]. Reviewed chart and discussed with multidisciplinary team pt's medical status and initial discharge needs. DCP met w/patient at bedside; introduced self and role. Patient was found in bed, alert and oriented, cooperative with assessment. Pt confirmed living situation and good support in . Pt expressed preference in discharge home when cleared. Pt has no hx of HH or SNF Rehab. Pt stated she had concerns about her co-pay amount and insurance, agreeable to speaking with an Admitting Counselor if available. DCP sent message to Admission Counselor listserv, forwarding pt's requests. Plan: Anticipating dc home with spouse when medically cleared. CM team will follow closely for coordination of discharge plans. Sharmin Carroll [employer] Discharge Planning/Care Management CM Discharge Assessment Start: 11/19/24 11:58 Freq: Status: Active Protocol: Document 11/19/24 11:58 MW (Rec: 11/19/24 12:09 MW [id number]) Discharge Planning Assessment Assigned Golf Superintendent AUBREY Finney DPOA/Assigned Designee Name Wilfredo Joel, Spouse Contact Information [phone] Advance Directives? Yes: POLST Advance Directives on File Yes History Provided By Patient,Medical Record Has Patient been admitted in last 30 No days? Prior Living Arrangements Apartment/Condo Comment [place] [facility] Members significant other Type of transporation used prior to Relies on Others admit Independent with ADL's Yes Is patient alert and oriented? Yes Caregiver for Another No Comment [employer] Comment Preference: Home Barriers to Discharge No Discharge Plan Home Transportation Arrangement Annamarie, Wilfredo Referrals Initiated None needed Whiteboard Updated in Patient Room with Yes name and ext. # of Golf Superintendent Comment [phone] Review Status In Process Please Provide Date Initial DC 11/19/24 Assessment Was Performed Next Review Type Continued Stay Review
--- NOTE | 2024-11-19 13:27 | P.DS_ITS ---
History of Present Illness History of Present Illness Date Patient Seen: 11/19/24 Time Patient Seen: 13:27 Date of Onset of Symptoms: 11/17/24 Chief complaint: SOB, chest pressure, palpations, hx heart issues Narrative: 74-year-old female with a history of mechanical mitral valve and chronic atrial fibrillation who is anticoagulated on warfarin. He also has a recent pacemaker implant, has hypertension and elevated cholesterol. Patient also has some cognitive impairment, her assist with history. She is here today with chest pressure that began yesterday. It is associated with shortness of breath, she has not had any nausea or vomiting notes that several days ago she had some flashes and floaters in her right eye and her left eye at baseline has poor vision. Although she has had that she had chest pressure and pain overnight, when I interview her symptoms have resolved. The patient tells me that she does not have a history of coronary artery disease however I note that she has a prescription for nitroglycerin This document will work both as discharge summary and history Discharge Providers Provider Date of admission: 11/18/24 19:48 Discharge Date: 11/19/24 Primary care physician: Andrews Stevenson MD Discharge provider: Kalpesh Renee MD Summary Hospital Course Discharge Diagnosis: Chest pain Paroxysmal atrial fibrillation Congestive heart failure by ventricular History of mitral valve replacement new line hypertension Dementia Hospital Course: Chest pain. Patient was admitted after prolonged emergency room visit. For chest pain. Patient was asymptomatic at the time of admission. And has been since she has been here. Apparently she was complaining mostly of right-sided discomfort and discussion with her heavy equipment engine mechanic feels as if despite the changes in her EKG she does not feel this is acute coronary artery disease. Given her medical history she does not feel as if she has a candidate for heart catheterization. Does not feel like she needs treadmill or echo. Patient feels well. Without significant changes or complaints. At this point we will continue her medical therapy with beta-blockers and torsemide. She will be with close follow-up with her usual MD cardiology follow-up as out patient Atrial fibrillation. Patient on Coumadin. INR is good. She has no other significant change. Rate is well-controlled. Probably not the cause of her issue. Will continue to follow. Congestive heart failure. Preserved ejection. Euvolemic while here. Had no other changes. Will restart her usual torsemide and follow-up with her PMD next week. History of mitral valve replacement. Patient overall is stable. Her INR is 3. Will continue usual Coumadin. Do not believe this is a significant issue at this time Dementia. Certainly apparently not worse. Will be followed by PMD Exam Vital Signs (past 8 hours): - 11/19/24 07:00 11/19/24 08:00 11/19/24 12:00 Temperature 97.4 F L 97.6 F Pulse Rate 57 L 61 Respiratory Rate 16 16 Blood Pressure 104/53 L 135/80 Pulse Oximetry 96 95 96 Oxygen Delivery Method Room Air Oxygen Flow Rate 0 0 Oxygen Delivery Method Room Air Oxygen Flow Rate 0 Narrative Exam Narrative: Alert elderly female in no acute distress mucous membranes are moist pupils are equal and responsive to light neck supple without adenopathy JVD or bruits lungs are clear. Heart is regular rate and rhythm with a 1 to 2/6 systolic murmur best heard at the left apex. Not the usual loudness that I usually here with a mechanical valve. But certainly controlled rate. Abdomen is soft positive bowel sounds nontender. Without tenderness or mass. Extremities without cyanosis clubbing edema. Neurologic exam patient is confused. Very poor historian. Can not remember what really brought her in. Objective Labs 11/18/24 13:40 11/18/24 13:40 Labs: Laboratory Results - last 24 hr 11/18/24 11/18/24 11/18/24 13:40 15:54 18:02 WBC 8.2 RBC 4.33 Hgb 13.0 Hct 39.4 MCV 91.0 MCH 30.1 MCHC 33.1 RDW 15.5 H Plt Count 281 Neut % (Auto) 67.9 Lymph % (Auto) 21.5 L Fannin % (Auto) 7.5 Eos % (Auto) 2.3 Baso % (Auto) 0.8 Neut # (Auto) 5600 Lymph # (Auto) 1800 Fannin # (Auto) 600 Eos # (Auto) 200 Baso # (Auto) 100 PT 33.0 H INR 3.0 H APTT 56 H Sodium 140 Potassium 3.9 Chloride 104 Carbon Dioxide 24 BUN 24 H Creatinine 0.96 Estimated GFR > 60 BUN/Creatinine Ratio 25.0 H Glucose 191 H Calcium 10.1 Magnesium 1.9 Total Bilirubin 1.0 AST 38 H ALT 30 Alkaline Phosphatase 103 Total Creatine Kinase 53 Troponin I 0.025 0.035 H 0.030 NT-Pro-B Natriuret Pep 316 Total Protein 7.8 Albumin 4.5 Globulin 3.3 Albumin/Globulin Ratio 1.4 Triglycerides 116 Cholesterol 163 LDL Cholesterol, Calc 98 HDL Cholesterol 42 Lipase 96 Digoxin < 0.4 L 11/19/24 11/19/24 02:10 09:52 WBC RBC Hgb Hct MCV MCH MCHC RDW Plt Count Neut % (Auto) Lymph % (Auto) Fannin % (Auto) Eos % (Auto) Baso % (Auto) Neut # (Auto) Lymph # (Auto) Fannin # (Auto) Eos # (Auto) Baso # (Auto) PT INR APTT Sodium Potassium Chloride Carbon Dioxide BUN Creatinine Estimated GFR BUN/Creatinine Ratio Glucose Calcium Magnesium Total Bilirubin AST ALT Alkaline Phosphatase Total Creatine Kinase Troponin I 0.032 0.023 NT-Pro-B Natriuret Pep Total Protein Albumin Globulin Albumin/Globulin Ratio Triglycerides Cholesterol LDL Cholesterol, Calc HDL Cholesterol Lipase Digoxin PFSH Medical History Anticoagulated on Coumadin (~2007) Atrial fibrillation with RVR CHF (congestive heart failure) CHF exacerbation Depression Headache History of ectopic History of female sterilization Hypertension Injury of right rotator cuff Memory deficit Nocturnal hypoxemia Obesity (BMI 30-39.9) Obstructive sleep apnea syndrome Osteoarthritis involving multiple joints on both sides of body Persistent atrial fibrillation Restless legs syndrome (RLS) Tachycardia induced cardiomyopathy Surgical History History of appendectomy (Unknown) History of cholecystectomy (Unknown) History of mitral valve replacement with mechanical valve Family History Other Diabetes mellitus Ovarian cancer Social History household members: significant other lives independently: Yes caregiver/support person: Yes (partner) education level: college Smoking Status: Former smoker alcohol intake: current Discharge Assessment & Plan Assessment and Plan Assessment: Chest pain resolved. Appears to be stable at this time. Will continue to follow Plan of Treatment: Follow-up with her usual MD on Friday next week Discharge Plan Discharge Plan Patient Disposition: Home Discharge orders & Medications Prescriptions: New omeprazole 20 mg capsule,delayed release(DR/EC) 20 mg PO DAILY Qty: 30 0RF Continued fluoxetine 20 mg tablet 20 mg PO DAILY Qty: 0 celecoxib 200 mg capsule 200 mg PO DAILY atorvastatin 20 mg tablet 20 mg PO DAILY acetaminophen-codeine 300-30 mg tablet 1 tab PO Q4H PRN (Reason: pain) baclofen 10 mg tablet 10 mg PO TID PRN (Reason: Muscle Spasm) Patient Comments: patient states only takes at bedtime Rx Instructions: up to tid metoprolol succinate 50 mg tablet extended release 24 hr 50 mg PO DAILY Qty: 30 0RF nitroglycerin [Nitrostat] 0.4 mg Tablet, Sublingual 0.4 mg sublingual [id number] PRN (Reason: Chest Pain) Qty: 10 3RF torsemide 60 mg Tablet 60 mg PO DAILY torsemide 10 mg tablet 60 mg PO DAILY gabapentin 100 mg Capsule 100 mg PO BID Rx Instructions: pt pefers BID schedule rather than TID dosing warfarin 5 mg tablet 2.5 mg PO DAILY Patient Comments: Takes 5mg alternating 2.5 mg Follow up/Referrals: Andrews Stevenson MD [Primary Care Provider] - 11/24/24 (Please call for appointment) Discharge Health Status Multidrug resistant organism: No MDRO Diet/Activity/Treatments Diet: Diet as Tolerated Skin/Wound/Dressing Care Report to your healthcare provider any signs of infection, such as:: chills, fever, night sweats and increased pain Visit Report/Discharge Packet Stand Alone Forms: Patient Portal/API, Stroke Signs & Symptoms Discharge Data Primary Care Provider: Andrews Stevenson Attending Provider: Andrews Stevenson Admit Date/Time: 11/18/24 19:48
[2024-11-19 14:04] LABS: Hemoglobin A1C% w Est Avg Glu 6.4 % (4.0-6.0)
--- NOTE | 2024-11-19 16:13 | PC.NURSE ---
Patient is A&OX4, VSS, sinus landon on telemetry. She denies any dizziness, heart burn, CP, SOB, n/v or other symptoms. She tolerates breakfast well and is cleared for discharge this afternoon after MD Renee completes communication with her freight delivery driver. Patient awaits her for ride home from [place]. She has questions about the cost of her stay and insurance. She provides CM with coppy of medicare health insurance card, copy placed in chart. She is able to get questions about her coverage answered.She verbalizes understanding of follow up appointment on 11/24 with MD Stevenson and her new prescription for omerazole. She is escorted via w/ch to private vehicle with for discharge home with all of her belongings at 1530 this afternoon.
== END 2024-11-19 15:30 | disposition home or self-care (01) ==
LOC: ED 18:45 → AC 19:48
PROVIDERS: Emergency Medicine; Admitting Provider Internal Medicine; Emergency Provider Emergency Medicine; Family Provider Family Medicine; PCP Family Medicine; Referring Provider Emergency Medicine; Visit Provider Family Medicine
DX: R07.9 Chest pain, unspecified (principal); I48.20 Chronic atrial fibrillation, unspecified; I11.0 Hypertensive heart disease with heart failure; I50.30 Unspecified diastolic (congestive) heart failure; F03.90 Unspecified dementia, unspecified severity, without behavioral disturbance, psychotic disturbance, mood disturbance, and anxiety; E78.00 Pure hypercholesterolemia, unspecified; Z79.01 Long term (current) use of anticoagulants; Z95.0 Presence of cardiac pacemaker; Z87.891 Personal history of nicotine dependence; Z95.2 Presence of prosthetic heart valve
CPT/HCPCS: 36415; 70450; 71045; 80053; 80061; 80162; 82550; 83036; 83690; 83735; 83880; 84484; 85025; 85610; 85730; 93005; 93010; 99283; 99284; G0378

== ENCOUNTER → 2024-12-07 | Outpatient (CLI) | payer OTHER, SELFPAY ==
[2024-11-18 22:14] VITALS: BMI 31.4
--- NOTE | 2024-12-07 15:57 | DI.ECHO.S_ITS ---
[place] [facility] : : [address] : [address] [address] : : [id number] : : Phone: [phone] Echocardiogram Report + + :Name: DEL ISABEL Study Date: 12/07/2024 Height: 63 in : :[facility] ReadingLocation: Weight: 177 lb : : Gender: Female BSA: 1.8 m2 : :: 1950 Age: 74 yrs BP: 117/57 mmHg: :Reason For Study: Hypertension : :Ordering Physician: QING, : :TERESA Hou Performed By: Tamar Multani : :Referring: TERESA LONGO : + + Interpretation Summary Sinus bradycardia with HR 52-55 bpm. Normal LV size and wall thickness; normal wall motion and LV systolic function. EF is 55-60%. Moderate RA enlargement; mild LA enlargement; mild RV enlargement with mildly reduced RV systolic function. Aortic valve demonstrates mild stenosis with peak velocity of 2.4 m/sec and mean gradient of 12 mm Hg. Mitral valve is replaced by history with a [address] [place] bileaflet mechanical prosthesis. It is functioning normally. Estimated PA systolic pressure is 80 mm Hg assuming RA pressure of 10 mm Hg. By history patient is s/p Aveir leadless pacemaker system. Compared to prior echo 06/07/2020, afib is no longer present. Elevated PA systolic pressure is newly described. Procedure: A two-dimensional transthoracic echocardiogram with color flow and Doppler was performed. The study quality was technically difficult. Comparison is made with the echocardiogram of 06-07-20. A contrast injection of Definity was performed to improve assessment of LV function. The heart rate ranged between 52-55 bpm during the study. Left Ventricle: The left ventricle is normal in size and wall thickness. The ejection fraction is estimated to be 55-60%. Diastolic function could not be accurately assessed due to unobtainable data. Right Ventricle: The right ventricle is mildly dilated. Atria: The left atrium is mildly dilated. The right atrium is moderately dilated. The interatrial septum grossly appears intact with no obvious evidence for an atrial septal defect. Mitral Valve: There is a mechanical mitral valve. The prosthetic mitral valve is well-seated. There is no mitral regurgitation. Aortic Valve: The aortic valve is trileaflet. The aortic valve opens well. There is mild aortic valve sclerosis. No aortic regurgitation is present. Tricuspid Valve: The tricuspid valve leaflets are thin and pliable. There is mild tricuspid regurgitation. Pulmonic Valve: The pulmonic valve is not well seen, but is grossly normal. There is a trace or physiologic amount of pulmonic regurgitation. Great Vessels: The aortic root is normal size. The ascending aorta is normal in size. The aortic arch is normal in size. Of note, IVC collapse (or lack thereof is not seen). IVC diameter is 18 mm. Pericardium/ Pleura There is no pericardial effusion. There is no pleural effusion. MMode/2D Measurements & Calculations LVIDd: 4.5 cm LVOT diam: 1.6 cm LVIDs: 2.1 cm Ao root diam: 2.4 cm FS: 53.7 % asc Aorta Diam: 3.0 cm IVSd: 0.75 cm Ao Arch Diam (Prox Trans): 2.3 cm LVPWd: 0.76 cm LV hernandez. diameter/BSA (cm/m^2): 2.5 LV sys. diameter/BSA (cm/m^2): 1.1 LA A4 area: 21.3 cm2 RA long axis: 5.8 cm LA length (vol): 5.3 cm RA area: 23.2 cm2 RA vol: 78.7 ml RA : 42.8 ml/m2 IVC diam: 1.9 cm RVD1 (basal): 4.1 cm TAPSE: 1.5 cm Doppler Measurements & Calculations Ao V2 max: 236.8 cm/sec LVOT Max Wero: 87.2 cm/sec Ao V2 mean: 156.1 cm/sec LV V1 max P.0 mmHg Ao max P.4 mmHg LV V1 VTI: 25.8 cm Ao mean P.8 mmHg ACOSTA(I,D): 0.86 cm2 Ao V2 VTI: 61.8 cm ACOSTA(V,D): 0.76 cm2 sev ratio: 0.42 ACOSTA indexed to BSA (cm^2/m^2): 0.47 MV E max wero: 142.6 cm/sec TR max wero: 425.4 cm/sec MV A max wero: 73.1 cm/sec TR max P.4 mmHg MV E/A: 1.9 PA V2 max: 108.3 cm/sec MV dec time: 0.22 sec PA V2 mean: 77.0 cm/sec PA mean P.5 mmHg PA pr(Accel): 19.1 mmHg SV(LVOT): 52.9 ml Electronically signed by: Desiree Shah M.D. on Reading Physician:12/07/2024 11:47 PM
== END ==
PROVIDERS: Family Provider Family Medicine; PCP Family Medicine; Referring Provider Family Medicine; Visit Provider Family Medicine
DX: I27.0 Primary pulmonary hypertension (principal); I08.2 Rheumatic disorders of both aortic and tricuspid valves; Z95.2 Presence of prosthetic heart valve
CPT/HCPCS: 93306; Q9957

== ENCOUNTER → 2025-06-23 12:31 | Outpatient (CLI) | payer OTHER, SELFPAY ==
[2024-11-18 22:14] VITALS: BMI 31.4
--- NOTE | 2025-06-23 12:32 | DI.RAD.S_ITS ---
PROCEDURE: XR HIP W PEL IF DONE RT 2V INDICATIONS: Pain in right hip TECHNIQUE: AP pelvis with lateral view(s) of the right hip(s). COMPARISON: [facility], , XR HIP W PEL IF DONE BILAT 2V, 05/28/2023, 17:00. FINDINGS: Bones: No fractures or dislocations. Pelvic ring appears intact. No suspicious bony lesions. Similar mild degenerative arthrosis of both hips. Mild degenerative arthrosis of the bilateral sacroiliac joints. Soft tissues: The visualized bowel gas pattern is normal. No suspicious soft tissue calcifications. IMPRESSION: No acute bony abnormality. Dictated by: Brad Rivera M.D. on 06/23/2025 at 15:49 Approved by: Brad Rivera M.D. on 06/23/2025 at 15:50
== END ==
PROVIDERS: Family Provider Family Medicine; PCP Family Medicine; Referring Provider Family Medicine; Visit Provider Family Medicine
DX: M16.0 Bilateral primary osteoarthritis of hip (principal); M25.551 Pain in right hip
CPT/HCPCS: 73502

== ENCOUNTER → 2025-07-14 14:18 | Outpatient (CLI) | payer OTHER, SELFPAY ==
[2024-11-18 22:14] VITALS: BMI 31.4
--- NOTE | 2025-07-14 14:20 | DI.RAD.S_ITS ---
PROCEDURE: XR CHEST 2V INDICATIONS: ACUTE COUGH TECHNIQUE: 2 views of the chest were acquired. COMPARISON: [facility], CR, XR CHEST 1V, 11/18/2024, 13:33. [facility], CR, XR CHEST 1V, 06/16/2023, 13:24. FINDINGS: Surgical changes and devices: Median sternotomy wires. Lead less pacemaker. Aortic valvuloplasty. Lungs and pleura: Lungs are clear. No pleural effusions or pneumothorax. Mediastinum: Mediastinal contours are normal. Heart size is enlarged, stable. Bones and chest wall: No suspicious bony abnormalities. Soft tissues appear unremarkable. IMPRESSION: No acute cardiopulmonary abnormality is seen. Dictated by: Calvin Mckeon M.D. on 07/16/2025 at 13:15 Approved by: Calvin Mckeon M.D. on 07/16/2025 at 13:17
== END ==
PROVIDERS: Family Provider Family Medicine; PCP Family Medicine; Referring Provider Family Medicine; Visit Provider Family Medicine
DX: R05.1 Acute cough (principal); Z95.0 Presence of cardiac pacemaker
CPT/HCPCS: 71046

== ENCOUNTER 2025-07-20 14:24 | Emergency (ER) | payer OTHER, SELFPAY ==
[2024-11-18 22:14] VITALS: BMI 31.4
[2025-07-20 14:39] VITALS: BP 166/75; PULSE 63; RESP 20; TEMP 36.4; O2SAT 97; BMI 28.5
--- NOTE | 2025-07-20 14:43 | DI.RAD.S_ITS ---
PROCEDURE: XR CHEST 2V INDICATIONS: cough TECHNIQUE: 2 views of the chest were acquired. COMPARISON: [facility], CR, XR CHEST 1 VIEW, 04/09/2025, 14:32. [facility], CR, XR CHEST 2V, 07/14/2025, 14:20. FINDINGS: Surgical changes and devices: None. Lungs and pleura: Increased peribronchial interstitial opacity similar to prior. No focal consolidation. No pneumothorax or pleural effusion. Mediastinum: Cardiomegaly. Valve replacement. Lead loose pacemaker. Median sternotomy wires. Bones and chest wall: No suspicious bony abnormalities. Soft tissues appear unremarkable. IMPRESSION: Diffuse interstitial opacity may represent bronchitis. Dictated by: Frederic Proctor M.D. on 07/20/2025 at 15:57 Approved by: Frederic Proctor M.D. on 07/20/2025 at 15:59
--- NOTE | 2025-07-20 14:47 | ED.URI ---
HPI - URI/Sore Throat <Michelle Dexter PA-C - Last Filed: 07/20/25 19:26> General Chief Complaint: Upper Respiratory Symptoms Stated Complaint: Bad cold Time Seen by Provider: 07/20/25 14:46 History of Present Illness HPI Narrative: Ms. Joel is a pleasant 75-year-old female with a past medical history of artificial mitral valve, HTN, CHF, AFib, on warfarin who presents to the emergency department for a ?bad cold? x 9 days. Patient's symptoms started on July 12. She has been having a productive cough and nasal drainage this entire time. Describes phlegm as green and yellow with coughing and coming out of her nose. She is having body aches. No fevers or chills, no chest pain, she does feel more short of breath because of the cough. She had an x-ray 6 days ago that was negative, she completed a Z-Ric with no improvement of her symptoms. She does have a prescription of Tylenol with codeine for cough but is not been using this. She denies sore throat abdominal pain, vomiting or diarrhea. Related Data Home Medications ?Medication ?Instructions ?Recorded ?Confirmed acetaminophen 300 mg-codeine 30 mg 1 tab PO Q4H PRN pain 05/20/19 11/19/24 tablet atorvastatin 20 mg tablet 20 mg PO DAILY 05/20/19 11/19/24 baclofen 10 mg tablet 10 mg PO TID PRN Muscle Spasm 05/20/19 11/19/24 celecoxib 200 mg capsule 200 mg PO DAILY 05/20/19 11/19/24 fluoxetine 20 mg tablet 20 mg PO DAILY #0 tabs 01/02/21 11/19/24 warfarin 5 mg tablet 7.5 mg PO QMWF 01/02/21 11/19/24 gabapentin 100 mg capsule 100 mg PO BID 11/19/24 11/19/24 torsemide 10 mg tablet 60 mg PO DAILY 11/19/24 11/19/24 warfarin 5 mg tablet 5 mg PO QTUTHSASU 11/19/24 11/19/24 Previous Rx's ?Medication ?Instructions ?Recorded nitroglycerin 0.4 mg sublingual 0.4 mg sublingual [id number] PRN 06/08/20 tablet (Nitrostat) Chest Pain #10 tabs metoprolol succinate 50 mg 50 mg PO DAILY #30 tabs 06/16/23 tablet,extended release 24 hr omeprazole 20 mg capsule,delayed 20 mg PO DAILY #30 caps 11/19/24 release albuterol sulfate 90 mcg/actuation 1 puff inhalation QID PRN 07/20/25 aerosol inhaler shortness of breath or wheezing #6.7 grams Allergies Allergy/AdvReac Type Severity Reaction Status Date / Time No Known Drug Allergies Allergy Verified 01/02/21 15:26 Review of Systems <Michelle Dexter PA-C - Last Filed: 07/20/25 19:26> Review of Systems ROS Unobtainable: All systems reviewed & are unremarkable except as noted in HPI and below Patient History <Michelle Dexter PA-C - Last Filed: 07/20/25 19:26> Medical History Injury of right rotator cuff Restless legs syndrome (RLS) Obstructive sleep apnea syndrome Nocturnal hypoxemia History of female sterilization History of ectopic Memory deficit Osteoarthritis involving multiple joints on both sides of body Headache Obesity (BMI 30-39.9) Tachycardia induced cardiomyopathy Persistent atrial fibrillation CHF exacerbation CHF (congestive heart failure) Atrial fibrillation with RVR Depression Hypertension Anticoagulated on Coumadin (~2007) Surgical History History of appendectomy (Unknown) History of cholecystectomy (Unknown) History of mitral valve replacement with mechanical valve Family History Other Diabetes mellitus Ovarian cancer Social History household members: significant other lives independently: Yes caregiver/support person: Yes (partner) education level: college alcohol intake: current alcohol intake frequency: a few times a month Exam <Michelle Dexter PA-C - Last Filed: 07/20/25 19:26> Narrative Exam Narrative: GENERAL: 75 year old patient appears stated age. Well-developed patient, in no acute distress. HEAD: Atraumatic. Normocephalic. EYES: No scleral icterus. No injection or drainage. ENT: Bilateral maxillary sinus tenderness/fullness. Nares are patent. Uvular is midline. NECK: Trachea midline. Cervical ROM intact. CARDIOVASCULAR: Regular rate and rhythm. RESPIRATORY: ?Nonlabored respirations. ?Speaking in clear, full sentences. There is faint expiratory wheezing throughout the lung mckeon. Faint inspiratory crackles. EXTREMITIES: No LE edema. NEURO: AOx3. ?Clear speech. ?Moves all 4 extremities appropriately. SKIN: No rash or erythema of visible areas Initial Vital Signs Initial Vital Signs: Vital Signs Temperature 97.5 F L 07/20/25 14:39 Pulse Rate 63 07/20/25 14:39 Respiratory Rate 20 07/20/25 14:39 Blood Pressure 166/75 H 07/20/25 14:39 Pulse Oximetry 97 07/20/25 14:39 Oxygen Delivery Method Room Air 07/20/25 14:39 <Yulia Magaña DO - Last Filed: 07/25/25 23:56> Initial Vital Signs Initial Vital Signs: Vital Signs Temperature 97.5 F L 07/20/25 14:39 Pulse Rate 63 07/20/25 14:39 Respiratory Rate 20 07/20/25 14:39 Blood Pressure 166/75 H 07/20/25 14:39 Pulse Oximetry 97 07/20/25 14:39 Oxygen Delivery Method Room Air 07/20/25 14:39 Course <Michelle Dexter PA-C - Last Filed: 07/20/25 19:26> Orders Ordered: Discontinued Medications Albuterol (Albuterol 2.5 Mg/3 Ml Neb (Adult)) 2.5 mg INH NOW ONE Stop: 07/20/25 14:44 Last Admin: 07/20/25 15:49 Dose: 2.5 mg Documented By: SAT Albuterol/Ipratropium (Albuterol/Ipratropium 3 Ml Ampul) 3 ml INH NOW ONE Stop: 07/20/25 14:48 Last Admin: 07/20/25 15:45 Dose: 3 ml Documented By: SAT Amoxicillin/Clavulanate Potassium (Amoxicillin/Clav 875/125 Mg) 1 tab PO NOW ONE Stop: 07/20/25 16:38 Last Admin: 07/20/25 16:59 Dose: 1 tab Documented By: AMA Prednisone (Prednisone 20 Mg Tablet) 40 mg PO NOW ONE Stop: 07/20/25 14:48 Last Admin: 07/20/25 15:35 Dose: 40 mg Documented By: AMA Vital Signs Vital signs: Vital Signs - 8 hr 07/20/25 14:39 07/20/25 15:50 07/20/25 15:50 Temperature 97.5 F L Pulse Rate 63 70 70 Respiratory Rate 20 20 18 Blood Pressure 166/75 H Pulse Oximetry 97 97 97 Oxygen Delivery Method Room Air Room Air Room Air 07/20/25 16:12 07/20/25 17:02 Temperature Pulse Rate 60 65 Respiratory Rate 18 18 Blood Pressure 118/59 L Pulse Oximetry 97 95 Oxygen Delivery Method Room Air Room Air <Yulia Magaña DO - Last Filed: 07/25/25 23:56> Orders Ordered: Discontinued Medications Albuterol (Albuterol 2.5 Mg/3 Ml Neb (Adult)) 2.5 mg INH NOW ONE Stop: 07/20/25 14:44 Last Admin: 07/20/25 15:49 Dose: 2.5 mg Documented By: SAT Albuterol/Ipratropium (Albuterol/Ipratropium 3 Ml Ampul) 3 ml INH NOW ONE Stop: 07/20/25 14:48 Last Admin: 07/20/25 15:45 Dose: 3 ml Documented By: LACIE Amoxicillin/Clavulanate Potassium (Amoxicillin/Clav 875/125 Mg) 1 tab PO NOW ONE Stop: 07/20/25 16:38 Last Admin: 07/20/25 16:59 Dose: 1 tab Documented By: AMA Prednisone (Prednisone 20 Mg Tablet) 40 mg PO NOW ONE Stop: 07/20/25 14:48 Last Admin: 07/20/25 15:35 Dose: 40 mg Documented By: AMA Vital Signs Vital signs: Vital Signs - 8 hr 07/20/25 14:39 07/20/25 15:50 07/20/25 15:50 Temperature 97.5 F L Pulse Rate 63 70 70 Respiratory Rate 20 20 18 Blood Pressure 166/75 H Pulse Oximetry 97 97 97 Oxygen Delivery Method Room Air Room Air Room Air 07/20/25 16:12 07/20/25 17:02 Temperature Pulse Rate 60 65 Respiratory Rate 18 18 Blood Pressure 118/59 L Pulse Oximetry 97 95 Oxygen Delivery Method Room Air Room Air MDM - URI/Sore Throat <Michelle Dexter PA-C - Last Filed: 07/20/25 19:26> Medical Records Attestation: I reviewed the patient's medical records. Imaging Data Chest x-ray: Radiologist's Impression: PROCEDURE: XR CHEST 2V INDICATIONS: cough TECHNIQUE: 2 views of the chest were acquired. COMPARISON: [facility], CR, XR CHEST 1 VIEW, 04/09/2025, 14:32. [facility], CR, XR CHEST 2V, 07/14/2025, 14:20. FINDINGS: Surgical changes and devices: None. Lungs and pleura: Increased peribronchial interstitial opacity similar to prior. No focal consolidation. No pneumothorax or pleural effusion. Mediastinum: Cardiomegaly. Valve replacement. Lead loose pacemaker. Median sternotomy wires. Bones and chest wall: No suspicious bony abnormalities. Soft tissues appear unremarkable. IMPRESSION: Diffuse interstitial opacity may represent bronchitis. Dictated by: Frederic Proctor M.D. on 07/20/2025 at 15:57 Approved by: Frederic Proctor M.D. on 07/20/2025 at 15:59 MDM Narrative Medical decision making narrative: 75-year-old female with a past medical history of artificial mitral valve, HTN, CHF, AFib, on warfarin who presents to the emergency department for a ?bad cold? x 9 days. Differential diagnosis includes but isn't limited to pneumonia, bronchitis, bacterial sinusitis, viral URI, etc. On exam the patient is in no acute distress, nontoxic appearing, vital signs within normal limits. She has been having persistent nasal drainage and productive cough for over a week. She previously had an x-ray that was negative however given her persistent worsening symptoms we will repeat a chest x-ray. She also has expiratory wheezing auscultated, we will treat with prednisone and DuoNeb. Patient's chest x-ray reveals diffuse interstitial opacity may represent bronchitis. Given her persistent productive cough in addition to persistent nasal drainage, we will treat as suspected bacterial sinusitis in addition to potential pneumonia with Augmentin b.i.d. x5 days. Given patient's wheezing today we will also treat with short course of prednisone and albuterol. Patient feels well, agreeable to this plan, discussed very strict ER return precautions and PCP follow up. Patient verbalized understanding all information agreeable with the plan. She is ambulatory and stable for discharge home, prescription sent to pharmacy of choice. Discharge Plan Departure Patient Disposition: Home Clinical Impression: Bronchitis Sinusitis Qualifiers: Sinusitis location: unspecified location Chronicity: acute Recurrence: non-recurrent Qualified Code(s): J01.90 - Acute sinusitis, unspecified Instructions: DI for Acute Bronchitis Activity Restrictions/Additional Instructions: Dear Ms. Joel, Thank you for coming to the emergency department. Today you were evaluated for a wet cough and nasal drainage. Your symptoms are consistent with bacterial sinus infection and your chest x-ray did reveal bronchitis. I have prescribed you an antibiotic in addition to a steroid and an inhaler. You received a breathing treatment here in the emergency department. It is very important he follow up with the primary care doctor or return to the emergency department if develop any new or worsening symptoms, difficulty breathing or other concerns. Please follow up with your primary care doctor within the next 2-3 days for ER follow-up. (If you do not have a PCP you can call [phone]. ?to schedule an appointment with an [facility] Primary Care Provider) IF YOU DEVELOP ANY NEW OR WORSENING SYMPTOMS, RETURN TO THE ER! Please read the attached instructions, they highlight more specific treatments and interventions for you at home. Thank you for letting me participate in your care, Michelle Dexter PA-C Prescriptions: New albuterol sulfate 90 mcg/actuation HFA aerosol inhaler 1 puff inhalation QID PRN (Reason: shortness of breath or wheezing) Qty: 6.7 0RF No Action fluoxetine 20 mg tablet 20 mg PO DAILY Qty: 0 celecoxib 200 mg capsule 200 mg PO DAILY atorvastatin 20 mg tablet 20 mg PO DAILY acetaminophen-codeine 300-30 mg tablet 1 tab PO Q4H PRN (Reason: pain) baclofen 10 mg tablet 10 mg PO TID PRN (Reason: Muscle Spasm) Patient Comments: patient states only takes at bedtime Rx Instructions: up to tid metoprolol succinate 50 mg tablet extended release 24 hr 50 mg PO DAILY Qty: 30 0RF nitroglycerin [Nitrostat] 0.4 mg Tablet, Sublingual 0.4 mg sublingual [id number] PRN (Reason: Chest Pain) Qty: 10 3RF torsemide 10 mg tablet 60 mg PO DAILY gabapentin 100 mg Capsule 100 mg PO BID Rx Instructions: pt pefers BID schedule rather than TID dosing omeprazole 20 mg capsule,delayed release(DR/EC) 20 mg PO DAILY Qty: 30 0RF warfarin 5 mg Tablet 5 mg PO QTUTHSASU Rx Instructions: 7.5 mg q MWF warfarin 5 mg tablet 7.5 mg PO QMWF Patient Comments: Takes 5mg alternating 2.5 mg Referrals: Andrews Stevenson MD [Primary Care Provider, Family Practice] Stand Alone Forms: Patient Portal/API ED Sign-out <Yulia Magaña DO - Last Filed: 07/25/25 23:56> Cosign ED Attending Cosdanialature Attestation: I was immediately available in the department for consultation.
[2025-07-20] MEDS: ALBUTEROL/IPRATROPIUM 3 ML AMPUL INH (15:45)
[2025-07-20] MEDS: ALBUTEROL 2.5 MG/3 ML NEB (ADULT) INH (15:49)
[2025-07-20 15:50] VITALS: PULSE 70; RESP 18; RESP 20; O2SAT 97
[2025-07-20 16:12] VITALS: BP 118/59; PULSE 60; RESP 18; O2SAT 97
[2025-07-20] MEDS: AMOXICILLIN/CLAV 875/125 MG 1 TAB PO (16:59)
[2025-07-20 17:02] VITALS: PULSE 65; RESP 18; O2SAT 95
== END 2025-07-20 17:08 | disposition home or self-care (01) ==
PROVIDERS: Emergency Provider Physician Assistant; Family Provider Family Medicine; PCP Family Medicine
DX: J01.90 Acute sinusitis, unspecified (principal); J40 Bronchitis, not specified as acute or chronic
CPT/HCPCS: 71046; 94640; 99283; J7613